=== PATIENT | female | born 1930 | race Caucasian/White ===

== ENCOUNTER 2016-04-22 00:15 | Inpatient (IN) | payer MEDICARE, OTHER ==
[~2016-04-22] VITALS: Ht 157.5 cm; Wt 68.1 kg
[~2016-04-22 00:15] MED LIST: ACHD5005 PO; ALPR.25T PO; ALPR0.5T PO; AML5T; ATR20T PO; CPH250CIP; DILT180C PO; FURO40TA4 PO; IBP600T1; METO25TA2 PO; METOPROLOL 50MG PO; MTP50T PO; NAPR-243 PO; OLME40TA14; TRM50T PO; WARF2TAB PO; WARF4TAB7 PO; WRF2.5T
--- OUTSIDE RECORDS SUMMARY | 2016-04-22 00:24 | XMS REPORT | Continuity of Care Document ---
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 Name Role Phone DAREN FERGUSON DO PCP Insurance Providers Payer Name Policy Number Subscriber Name Relationship [employer] [id number] Gege Sanchez Self / Same As Patient Enter Insurance Name [id number] Gege Sanchez Self / Same As Patient Advance Directives Directive Response Recorded Date/Time Advance Directives No 08/18/14 11:32pm Health Care Power of Dairy Nutritionist No 08/18/14 11:32pm Organ Donor No 08/18/14 11:32pm Resuscitation Status Full Code 08/18/14 11:32pm Problems Medical Problems Problem Onset Date Status Chest wall pain Unknown Active Intractable nausea and vomiting Unknown Active Anemia Unknown Active Leukocytosis Unknown Active Chronic atrial fibrillation Unknown Active Left shoulder pain Unknown Active Nausea and vomiting Unknown Active Left shoulder pain Unknown Active Medications Medication Dose Route Sig Days/Qty Instructions Order Date Discontinued Date Status Olmesartan 08/01/07 03/26/11 Discontinued Amlodipine Besylate 08/01/07 09/15/07 Discontinued Alprazolam 0.25 Mg PO BEDTIME PRN SLEEP 08/01/07 08/27/13 Discontinued Warfarin Sodium 09/15/07 03/26/11 Discontinued [Metoprolol 50MG] 1 Tab PO DAILY 09/15/07 08/26/13 Discontinued Cephalexin Monohydrate 09/15/07 03/26/11 Discontinued Ibuprofen 09/15/07 03/26/11 Discontinued Acetaminophen/Hydrocodone Bitart (Lorcet 5/325MG) 1 Tab PO EVERY 6 HOURS PRN PAIN 09/15/07 Active Diltiazem HCl (Cardizem Cd) 180 Mg PO DAILY 03/26/11 Active Atorvastatin Calcium 1 Each PO DAILY 03/26/11 01/12/13 Discontinued Naproxen 1 Each PO TID PRN 20 Qty FOR PAIN 03/26/11 01/12/13 Discontinued Tramadol HCl 50 Mg PO Q4-6HOURS PRN 20 Qty 03/26/11 01/12/13 Discontinued Warfarin Sodium 4 Mg PO DAILY@1800 08/26/13 08/27/13 Discontinued Metoprolol Tartrate (Lopressor) 50 Mg PO DAILY 08/26/13 08/27/13 Discontinued Alprazolam 0.25 Mg PO DAILY PRN ANXIETY TAKES 1/2 (0.5MG) TABLET DAILY NEEDED FOR ANXIETY 08/27/13 Active Warfarin Sodium 4 Mg PO DAILY 08/27/13 Active Metoprolol Tartrate (Lopressor) 50 Mg PO DAILY 08/27/13 Active Furosemide (Lasix) 40 Mg PO DAILY PRN FLUID RETENTION 08/27/13 Active Social History Social History Problem Response Recorded Date/Time Alcohol Use Denies Use 08/18/2014 11:32pm Recreational Drug Use No 08/18/2014 11:32pm Recent Foreign Travel No 08/27/2013 2:13am Recent Infectious Disease Exposure No 08/27/2013 2:13am Hospitalization with Isolation Denies 08/27/2013 2:04pm Sexually Transmitted Disease No 08/18/2014 11:32pm HIV/AIDS No 08/18/2014 11:32pm Smoking Status Never a Smoker 08/18/2014 11:32pm Query Response Start Date Stop Date Smoking Status Never a Smoker Hospital Discharge Instructions No hospital discharge instructions. Plan of Care No plan of care. Functional Status No functional status results. Allergies, Adverse Reactions, Alerts Allergen Type Severity Reaction Status Last Updated Sulfa (Sulfonamide Antibiotics) ([id number]) Allergy Unknown Active 09/01 Immunizations Name Given Type Tetanus Booster (TDap) More than 5yrs Historical Vital Signs Acute Vital Signs Vital Response Date/Time Pulse Rate (adult) 96 bpm (60 - 90) Respiratory Rate 18 bpm (12 - 24) O2 Sat by Pulse Oximetry 95 % (88 - 100) Blood Pressure 146/59 mm Hg Pain Pain Intensity 4 Height (Feet) 5 feet Height (Inches) 2 inches Height (Calculated Centimeters) 157.657669 cm Weight (Pounds) 146 pounds Weight (Calculated Kilograms) 66.112409 kilograms Calculated BMI 26.70 Results No known relevant diagnostic tests, laboratory data and/or discharge summary. Procedures Procedure Status Date Provider(s) Tracing only of electrocardiogram completed 08/19/14 ANIBAL BALLESTEROS MD Encounters Encounter Location Date/Time Departed Emergency Room [facility] 08/18/14 11:18pm Recent Diagnosis
--- NOTE | 2016-04-22 00:31 | ED Fever ---
History of Present Illness General Stated Complaint: HAVING CHILLS, FEVER, NAUSEA Source: patient, RN notes reviewed Exam Limitations: no limitations History of Present Illness Time seen by provider: 00:30 Initial Comments As above and below. 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 Associated Symptoms: No abdominal pain, No chest pain, No cough, other (nausea ) Allergies and Home Medications Allergies Coded Allergies: Sulfa (Sulfonamide Antibiotics) (Verified Allergy, Unknown, 08/02/07) Home Medications Alprazolam 0.25 Mg Tablet 0.25 MG PO DAILY PRN PRN ANXIETY (Reported) Ciprofloxacin HCl 500 Mg Tablet 6Days 500 MG PO BID Prescribed by: EMPERATRIZ YOUNGER on 04/27/16 1115 Diltiazem HCl 180 Mg Cap.er.24h 180 MG PO DAILY (Reported) Doxycycline Hyclate 100 Mg Tablet 6Days 100 MG PO BID@ Prescribed by: EMPERATRIZ YOUNGER on 04/27/16 1115 Furosemide 40 Mg Tablet 40 MG PO DAILY PRN PRN FLUID RETENTION (Reported) Hydrocodone Bit/Acetaminophen 1 Tab Tablet 1 TAB PO DAILY PRN PRN PAIN (Reported ) Iron Polysaccharide Complex 150 Mg Capsule 150 MG PO BID (Reported) Metoprolol Tartrate 25 Mg Tablet 25 MG PO BID (Reported) Constitutional: see HPI chills fever Gastrointestinal: see HPI nausea All Other Systems Reviewed Negative Unless Noted: Yes (Negative excepted noted.) Past Qyndivz-Bpycce-Akmzcy Hx Patient Social History Recent Foreign Travel: No Contact w/Someone Who Travel: No Recent Hopitalizations: Yes (D AND C 2 WKS AGO AT [facility]) Immunizations Up To Date Tetanus Booster (TDap): More than 5yrs Surgeries HX Surgeries: Yes (KNEE) Surgeries: Hysterectomy Respiratory Hx Respiratory Disorders: No Cardiovascular Hx Cardiac Disorders: Yes Cardiac Disorders: Atrial Fibrillation Neurological Hx Neurological Disorders: No 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 System Hx 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) Sexually Transmitted Disease: No HIV/AIDS: No Female 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 Disorders: Denies [employer] History: Hysterectomy Genitourinary Hx Genitourinary Disorders: No Gastrointestinal Hx Gastrointestinal Disorders: Yes Gastrointestinal Disorders: Hemorrhoids Musculoskeletal Hx Musculoskeletal Disorders: Yes Musculoskeletal Disorders: Arthritis, Chronic Back Pain Endocrine Hx Endocrine Disorders: No HEENT HX ENT Disorders: Yes HEENT Disorders: Cataract Loss of Vision: Denies Hearing Impairment: Denies Cancer Hx Cancer: Yes Cancer: Uterine Psychosocial Hx Psychiatric Problems: Yes Behavioral Health Disorders: Anxiety Integumentary HX Skin/Integumentary Disorder: No Blood Transfusions Hx Blood Disorders: No Family Medical History Family Medial History: Cancer Heart disease Physical Exam Vital Signs Capillary Refill : General Appearance: WD/WN no apparent distress HEENT: normal ENT inspection Neck: normal inspection Respiratory: lungs clear no respiratory distress Cardiovascular: regular rate, rhythm Gastrointestinal: non tender soft Neurologic/Psychiatric: no motor/sensory deficits alert oriented x 3 Skin: warm/dry Lymphatic: no adenopathy Progress/Results/Core Measures Results/Orders Lab Results Laboratory Tests Test 04/22/16 00:28 04/22/16 01:08 Range/Units Alanine Aminotransferase (ALT/SGPT) 13 0-55 U/L Albumin 3.6 3.2-4.5 G/DL Alkaline Phosphatase 107 40-136 U/L Anion Gap 14 5-14 MMOL/L Aspartate Amino Transf (AST/SGOT) 18 5-34 U/L B-Type Natriuretic Peptide 435.6 H <100.0 PG/ML BUN/Creatinine Ratio 25 Band Neutrophils 7 % Basophils # (Auto) 0.0 0.0-0.1 10^3/uL Basophils (%) (Auto) 0 0-10 % Blood Morphology Comment NORMAL Blood Urea Nitrogen 19 H 7-18 MG/DL Calcium Level 8.7 8.5-10.1 MG/DL Carbon Dioxide Level 21 21-32 MMOL/L Chloride Level 102 98-107 MMOL/L Creatinine 0.76 0.60-1.30 MG/DL Eosinophils # (Auto) 0.0 0.0-0.3 10^3/uL Eosinophils (%) (Auto) 0 0-10 % Estimat Glomerular Filtration Rate > 60 Glucose Level 110 H 70-105 MG/DL Hematocrit 30 L 35-52 % Hemoglobin 8.7 L 11.5-16.0 G/DL INR Comment 2.9 H 0.8-1.4 Lactic Acid Level 1.8 0.5-2.0 MMOL/L Lymphocytes # (Auto) 1.9 1.0-4.0 X 10^3 Lymphocytes % (Manual) 9 % Lymphocytes (%) (Auto) 8 L 12-44 % Magnesium Level 1.8 1.8-2.4 MG/DL Mean Corpuscular Hemoglobin 23 L 25-34 PG Mean Corpuscular Hemoglobin Concent 30 L 32-36 G/DL Mean Corpuscular Volume 79 L 80-99 FL Mean Platelet Volume 9.9 7.4-10.4 FL Monocytes # (Auto) 2.1 H 0.0-1.0 X 10^3 Monocytes % (Manual) 7 % Monocytes (%) (Auto) 9 0-12 % Neutrophils # (Auto) 18.9 H 1.8-7.8 X 10^3 Neutrophils % (Manual) 77 % Neutrophils (%) (Auto) 82 H 42-75 % Platelet Count 380 130-400 10^3/uL Potassium Level 3.6 3.6-5.0 MMOL/L Prothrombin Time 30.4 H 12.2-14.7 SEC Red Blood Count 3.76 L 4.35-5.85 10^6/uL Red Cell Distribution Width 18.5 H 10.0-14.5 % Sodium Level 137 135-145 MMOL/L Total Bilirubin 1.2 H 0.1-1.0 MG/DL Total Protein 7.4 6.4-8.2 G/DL Troponin I < 0.30 <0.30 NG/ML White Blood Count 23.0 H 4.3-11.0 10^3/uL Urine Bacteria FEW H /HPF Urine Bilirubin NEGATIVE NEGATIVE Urine Casts NONE /LPF Urine Clarity SLIGHTLY CLOUDY Urine Color SARAH H Urine Crystals NONE /LPF Urine Culture Indicated YES Urine Glucose (UA) NEGATIVE NEGATIVE Urine Ketones 1+ H NEGATIVE Urine Leukocyte Esterase 3+ H NEGATIVE Urine Mucus NEGATIVE /LPF Urine Nitrite NEGATIVE NEGATIVE Urine Protein 2+ H NEGATIVE Urine RBC 2-5 H /HPF Urine RBC (Auto) 2+ H NEGATIVE Urine Specific [place] 1.020 1.016-1.022 Urine Squamous Epithelial Cells 5-10 /HPF Urine Urobilinogen 8 H NORMAL MG/DL Urine WBC 10-25 H /HPF Urine pH 5 5-9 Micro Results Microbiology 04/22/16 Blood Culture - Final, Complete No growth 04/22/16 Blood Culture - Final, Complete No growth 04/22/16 Influenza Types A,B Antigen (CLAUDIO) - Final, Complete 04/22/16 Urine Culture - Final, Complete Streptococcus Viridans My Orders Orders-CHANTELL LIM DO Saline Lock/Iv-Start (04/22/16 00:43) Ekg Tracing (04/22/16 00:43) BNP (04/22/16 00:43) Cbc With Automated Diff (04/22/16 00:43) Comprehensive Metabolic Panel (04/22/16 00:43) Lactic Acid Analyzer (04/22/16 00:43) Magnesium (04/22/16 00:43) Troponin I (04/22/16 00:43) Ua Culture If Indicated (04/22/16 00:43) Blood Culture (04/22/16 00:43) Influenza A And B Antigens (04/22/16 00:43) Chest 1 View, Ap/Pa Only (04/22/16 00:43) Acetaminophen Tablet (Tylenol Tablet) (04/22/16 00:45) Ns Iv 1000 Ml (Sodium Chloride 0.9%) (04/22/16 00:45) Protime With Inr (04/22/16 00:50) Manual Differential (04/22/16 00:28) Urine Culture (04/22/16 01:08) Ceftriaxone Injection (Rocephin Injectio (04/22/16 02:00) Vital Signs/I&O ECG Initial ECG Impression Date: Apr 22, 2016 Initial ECG Impression Time: 00:30 Initial ECG Rate: 111 Initial ECG Rhythm: A Fib/Flutter Initial ECG Impression: Nonspecific Changes (consider anteroseptal infarct) Diagnostic Imaging Diagonstic Imaging: Xray Plain Films/CT/US/NM/MRI: chest (right hilium infiltrate vs mass ) Departure Communication Time/Spoke to Admitting Phy: 02:00 Impression Impression: Primary Impression: Fever Additional Impression: pneumonia vs pulmonary mass Disposition: ADMITTED INPATIENT Condition: Stable Decision to Admit Reason: Admit from ER (General) Decision to Admit/Date: Apr 22, 2016 Time/Decision to Admit Time: 02:00 Departure-Patient Inst. Referrals: DAREN FERGUSON DO (PCP/Family) Primary Care Physician Scripts Doxycycline Hyclate 100 Mg [id number] Mg PO BID@ 6 Days Prov:DAREN FERGUSON DO 04/27/16 Ciprofloxacin HCl 500 Mg [id number] Mg PO BID 6 Days Prov:DAREN FERGUSON DO 04/27/16 CHANTELL LIM DO Apr 22, 2016 00:31
[2016-04-22] MEDS ORDERED: ACETAMINOPHEN 500 MG TAB (TYLENOL) PO ONE (00:45)
[2016-04-22 00:53] LABS: BASOPHILS % (AUTO) 0 % (0-10); EOSINOPHILS % (AUTO) 0 % (0-10); LYMPHOCYTES # (AUTO) 1.9 X 10^3 (1.0-4.0); LYMPHOCYTES % (AUTO) 8 % (12-44); MEAN CORPUSCULAR HEMOGLOBIN 23 PG (25-34); MEAN CORPUSCULAR HGB CONC 30 G/DL (32-36); MEAN CORPUSCULAR VOLUME 79 FL (80-99); MEAN PLATELET VOLUME 9.9 FL (7.4-10.4); MONOCYTES # (AUTO) 2.1 X 10^3 (0.0-1.0); MONOCYTES % (AUTO) 9 % (0-12); NEUTROPHILS # (AUTO) 18.9 X 10^3 (1.8-7.8); NEUTROPHILS % (AUTO) 82 % (42-75); PLATELET COUNT 380 10^3/uL (130-400); RED BLOOD COUNT 3.76 10^6/uL (4.35-5.85); RED CELL DISTRIBUTION WIDTH 18.5 % (10.0-14.5)
[2016-04-22 01:00] LABS: INR 2.9 (0.8-1.4); PROTHROMBIN TIME PATIENT 30.4 SEC (12.2-14.7)
[2016-04-22 01:07] LABS: ALANINE AMINOTRANSFERASE 13 U/L (0-55); ALBUMIN 3.6 G/DL (3.2-4.5); ANION GAP 14 MMOL/L (5-14); ASPARTATE AMINO TRANSFERASE 18 U/L (5-34); BILIRUBIN,TOTAL 1.2 MG/DL (0.1-1.0); BLOOD UREA NITROGEN 19 MG/DL (7-18); BUN/CREATININE RATIO 25; CALCIUM 8.7 MG/DL (8.5-10.1); CARBON DIOXIDE 21 MMOL/L (21-32); CHLORIDE 102 MMOL/L (98-107); CREATININE SERUM 0.76 MG/DL (0.60-1.30); GFR ESTIMATED > 60; GLUCOSE 110 MG/DL (70-105); MAGNESIUM 1.8 MG/DL (1.8-2.4); POTASSIUM 3.6 MMOL/L (3.6-5.0); SODIUM 137 MMOL/L (135-145); TOTAL PROTEIN 7.4 G/DL (6.4-8.2)
[2016-04-22] MEDS: NS IV 1000 ML 1,000 ML IV SCH ×3 (01:07→04:45)
[2016-04-22 01:13] LABS: BAND NEUTROPHILS 7 %; LYMPHOCYTES % (MANUAL) 9 %; NEUTROPHILS % (MANUAL) 77 %; TROPONIN I < 0.30 NG/ML (<0.30)
[2016-04-22 01:16] LABS: BILIRUBIN,URINE NEGATIVE (NEGATIVE); KETONES,URINE 1+ (NEGATIVE); LEUKOCYTE ESTERASE ,URINE 3+ (NEGATIVE); NITRITE,URINE NEGATIVE (NEGATIVE); PH,URINE 5 (5-9); PROTEIN,URINE 2+ (NEGATIVE); UROBILINOGEN,URINE 8 MG/DL (NORMAL)
[2016-04-22] MEDS ORDERED: cefTRIAXone INJECTION 1,000 MG in NS (IVPB) 50 ML IV ONE (02:00)
[2016-04-22 02:45] VITALS: BP 117/59
[2016-04-22] MEDS ORDERED: AZITHROMYCIN 500 MG/NS 250 ML IVPB (1 X DOSE) IV NR ×2 (03:26)
[2016-04-22] MEDS ORDERED: RT-ALBUTEROL/IPRATROPIUM 3 ML (DUONEB) VIAL IH PRN (03:30)
[2016-04-22] MEDS ORDERED: ACETAMINOPHEN 500 MG TAB (TYLENOL) PO PRN (03:30)
[2016-04-22 04:00] VITALS: BP 126/64
[2016-04-22 06:55] LABS: BASOPHILS % (AUTO) 0 % (0-10); EOSINOPHILS % (AUTO) 0 % (0-10); LYMPHOCYTES # (AUTO) 1.4 X 10^3 (1.0-4.0); LYMPHOCYTES % (AUTO) 7 % (12-44); MEAN CORPUSCULAR HEMOGLOBIN 23 PG (25-34); MEAN CORPUSCULAR HGB CONC 29 G/DL (32-36); MEAN CORPUSCULAR VOLUME 79 FL (80-99); MEAN PLATELET VOLUME 10.2 FL (7.4-10.4); MONOCYTES # (AUTO) 1.7 X 10^3 (0.0-1.0); MONOCYTES % (AUTO) 9 % (0-12); NEUTROPHILS # (AUTO) 16.7 X 10^3 (1.8-7.8); NEUTROPHILS % (AUTO) 85 % (42-75); PLATELET COUNT 334 10^3/uL (130-400); RED BLOOD COUNT 3.57 10^6/uL (4.35-5.85); RED CELL DISTRIBUTION WIDTH 18.7 % (10.0-14.5); WHITE BLOOD COUNT 19.7 10^3/uL (4.3-11.0)
[2016-04-22] MEDS: RT-ALBUTEROL/IPRATROPIUM 3 ML (DUONEB) VIAL IH SCH ×3 (07:13→20:24)
[2016-04-22] MEDS ORDERED: FLU TRIvalent (5 YOA+) 2016-17 (AFLURIA) 0.5 ML IM ONE (07:30)
--- NOTE | 2016-04-22 08:04 | Diagnostic Imaging Report ---
INDICATION: Fever COMPARISON: 11/02/2010 FINDINGS: Upright portable view of the chest is obtained. Heart size is enlarged but unchanged. Suspect hiatal hernia. There is no pneumothorax or pleural fluid suspected. There is a 8.4 cm masslike density over the medial right chest over the hilum. While this may represent acute infiltrate, an underlying pulmonary mass is of concern. Suspect trace right pleural effusion. Lung apices appear clear. IMPRESSION: There is a new 8.4 cm masslike density of the right hilum which could represent pneumonia in the setting of acute infectious process, however, underlying pulmonary mass is of concern. There may also be a trace right pleural effusion. At minimum, short-term followup after appropriate clinical therapy is recommended. Alternatively, CT scan of the chest would be of benefit for further characterization. Dictated by: Dictated on workstation # [id number]
[2016-04-22 08:30] VITALS: BP 125/61
--- NOTE | 2016-04-22 10:20 | History & Physicial ---
History of Present Illness History of Present Illness Reason for visit/HPI patient came out to the emergency room due to having fever and chills. Chest x-ray shows pneumonia versus mass. Patient states she was not coughing. Patient states she never smoked. Patient has history of cancer of the uterus with radiation. Patient to have a CAT scan of the chest today Date of Admission Apr 22, 2016 at 02:06 I consulted on this patient on 04/22/16 10:16 Attending Physician Matt Ferguson DO Admitting Physician Matt Ferguson DO Consult Allergies and Home Medications Allergies Coded Allergies: Sulfa (Sulfonamide Antibiotics) (Verified Allergy, Unknown, 08/02/07) Home Medications Alprazolam 0.5 Mg Tablet 0.25 MG PO DAILY PRN PRN ANXIETY (Reported) TAKES 1/2 (0.5MG) TABLET DAILY NEEDED FOR ANXIETY Diltiazem Hcl 180 Mg Cap.sr.24h 180 MG PO DAILY (Reported) Furosemide 40 Mg Tablet 40 MG PO DAILY PRN PRN FLUID RETENTION (Reported) Hydrocodone Bit/Acetaminophen 1 Tab Tablet 1 TAB PO Q6H PRN PRN PAIN (Reported) Metoprolol Tartrate 25 Mg Tablet 50 MG PO DAILY (Reported) TAKES 2 (25MG) TABLETS DAILY Warfarin Sodium 4 Mg Tablet 4 MG PO DAILY (Reported) Past Vnhyrad-Uyrgny-Swyboy Hx Patient Social History Marrital Status: Employed/Student: unemployed Alcohol Use: Denies Use Recreational Drug Use: No Smoking Status: Never a Smoker Physical Abuse Screen: No Sexual Abuse: No Recent Foreign Travel: No Contact w/other who traveled: No Recent Hopitalizations: No Recent Infectious Disease Expo: No Immunizations Up To Date Tetanus Booster (TDap): More than 5yrs Seasonal Allergies Seasonal Allergies: Yes (hay fever) Surgeries HX Surgeries: Yes (KNEE) Surgeries: Hysterectomy Respiratory Hx Respiratory Disorders: No Cardiovascular Hx Cardiovascular Disorders: Yes Cardiac Disorders: Atrial Fibrillation Neurological Hx Neurological Disorders: No 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 System : No Hx 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) Sexually Transmitted Disease: No HIV/AIDS: No Female 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 Disorders: Denies Genitourinary Hx Genitourinary Disorders: No Gastrointestinal Hx Gastrointestinal Disorders: Yes Gastrointestinal Disorders: Hiatal Hernia Musculoskeletal Hx Musculoskeletal Disorders: Yes Musculoskeletal Disorders: Arthritis Endocrine Hx Endocrine Disorders: No HEENT HX ENT Disorders: Yes HEENT Disorders: Cataract Loss of Vision: Denies Hearing Impairment: Denies Cancer Hx Cancer: Yes Cancer: Uterine Psychosocial Hx Psychiatric Problems: Yes Behavioral Health Disorders: Anxiety Integumentary HX Skin/Integumentary Disorder: No Blood Transfusions Hx Blood Disorders: No Adverse Reaction to a Blood Tr: No Family Medical History Family Hx: Cancer Heart disease Constitutional: weakness EENTM: no symptoms reported Respiratory: cough Cardiovascular: other (atrial fibrillation) Gastrointestinal: no symptoms reported Genitourinary: no symptoms reported Physical Exam Vital Signs Vital Sign - Last 12Hours 04/22/16 00:22 Temp 100.1 Pulse 131 Resp 24 B/P 141/80 Pulse Ox 83 O2 Delivery Room Air Capillary Refill : Less Than 3 Seconds General Appearance: No Apparent Distress WD/WN Eyes: Bilateral Eye Normal Inspection HEENT: TMs Normal Normal ENT Inspection Neck: Full Range of Motion Normal Inspection Respiratory: Chest Non Tender Normal Breath Sounds No Accessory Muscle Use No Respiratory Distress Cardiovascular: Irregularly Irregular Gastrointestinal: Non Tender Assessment/Plan Assessment and Plan pneumonia. Lung mass. Atrial fibrillation. History of anemia. Hypertension Clinical Quality Measures DVT/VTE Risk/Contraindication: Risk Factor Score Per Nursin RFS Level Per Nursing on Admit: 3=High MATT FERGUSON DO Apr 22, 2016 10:20
[2016-04-22] MEDS ORDERED: HYDROcodone/APAP 5 MG/325 MG (LORTAB) TAB PO PRN (10:45)
[2016-04-22] MEDS ORDERED: FUROSEMIDE 40 MG (LASIX) TAB PO PRN (10:45)
[2016-04-22] MEDS ORDERED: NS 100 ML (IVPB) BAG IV ONE (11:00)
[2016-04-22] MEDS ORDERED: IOHEXOL 350 MG/ML 150 ML (OMNIPAQUE 350) VIAL IV ONE (11:00)
[2016-04-22] MEDS ORDERED: IOHEXOL 350 MG/ML 100 ML (OMNIPAQUE 350) VIAL IV ONE (11:00)
[2016-04-22] MEDS: FERROUS SULF 325 MG (IRON) TAB PO SCH (11:07)
[2016-04-22] MEDS: ALPRAZolam 0.25 MG (XANAX) TAB PO PRN (11:07)
[2016-04-22] MEDS: meTOprolol TARTRATE 50 MG (LOPRESSOR) TAB PO SCH (11:07)
[2016-04-22] MEDS: DILTIAZEM 180 MG (CARDIZEM CD) CAP PO SCH (11:08)
[2016-04-22 12:00] VITALS: BP 130/63
--- NOTE | 2016-04-22 12:31 | Diagnostic Imaging Report ---
PROCEDURE: CT chest with contrast only. TECHNIQUE: Multiple contiguous axial images were obtained through the chest after administration of intravenous contrast. INDICATION: Fever FINDINGS: The plain film examination of the chest performed earlier today noted an 8.4 cm masslike density about the right hilum. It was not certain whether this was related to pneumonia or to a neoplastic process. On this exam, the abnormal density appears to be secondary to pneumonia as there are a few air bronchograms extending through a dense area of consolidation involving much of the right lung base. There is also a small right pleural effusion present. The effusion measures approximately 1.4 cm in maximum depth. There is also some atelectasis/infiltrate and fluid involving the left lung base. The fluid along the medial aspect of the left lung measures 2.7 cm in maximum depth. In addition, there is a poorly defined 0.8 x 1.6 cm parenchymal density in the left upper lung. This could be secondary to a focus of pneumonia/atelectasis as well. The possibility that this is neoplastic in nature cannot be entirely excluded however. Even in retrospect, this density is difficult to identify on the plain film exam. I would recommend a short-term (2-4 week) followup CT chest exam be performed for further study. There are also faint groundglass densities in both lungs. These may be related to mild pulmonary edema. The heart is enlarged and there are extensive coronary artery calcifications evident. The aorta is not abnormally dilated and there is no sign of a dissection. There is no defect within the pulmonary arteries to indicate a pulmonary embolus either. There are a few low-density mediastinal nodes. These are borderline enlarged and nonspecific in appearance. These may represent reactive nodes. These could also be further evaluated on the followup exam. The large hiatal hernia seen on the previous CT abdomen/pelvis exam of 08/26/2013 is again evident and no different. The sections through the upper abdomen failed to show any sign of an acute abnormality. The bone windows are unremarkable for a fracture or for a destructive lesion. The thyroid gland does not appear enlarged. There is no obvious breast mass. IMPRESSION: 1. The abnormal density involving the right lung seen on the plain film exam is felt to be related to pneumonia/atelectasis and not to a neoplastic mass. However, there is a question of a small neoplastic mass involving the left upper lung. Recommendations as above. 2. There is also bibasal pneumonia/atelectasis and bilateral pleural effusions. Cardiomegaly and pulmonary congestion is noted, as well. 3. There is no sign of a pulmonary embolus or of a dissection. 4. There is a large hiatal hernia. Dictated by: Dictated on workstation # [id number]
[2016-04-22 16:00] VITALS: BP 115/67
[2016-04-22] MEDS ORDERED: warFARin 2 MG (COUMADIN) TAB PO SCH (18:00)
[2016-04-22 20:00] VITALS: BP 144/70
[2016-04-23] VITALS: BP 154/77
[2016-04-23] MEDS: RT-ALBUTEROL/IPRATROPIUM 3 ML (DUONEB) VIAL IH SCH ×4 (01:09→20:13)
[2016-04-23] MEDS: cefTRIAXone 1 GM/NS 50 ML IVPB IV SCH ×2 (02:46)
[2016-04-23 04:00] VITALS: BP 124/66
[2016-04-23] MEDS: NS IV 1000 ML 1,000 ML IV SCH ×2 (04:44→13:10)
[2016-04-23] MEDS: FERROUS SULF 325 MG (IRON) TAB PO SCH (05:45)
[2016-04-23 05:47] LABS: BASOPHILS % (AUTO) 0 % (0-10); EOSINOPHILS # (AUTO) 0.1 10^3/uL (0.0-0.3); EOSINOPHILS % (AUTO) 1 % (0-10); LYMPHOCYTES # (AUTO) 1.1 X 10^3 (1.0-4.0); LYMPHOCYTES % (AUTO) 10 % (12-44); MEAN CORPUSCULAR HEMOGLOBIN 23 PG (25-34); MEAN CORPUSCULAR HGB CONC 29 G/DL (32-36); MEAN CORPUSCULAR VOLUME 79 FL (80-99); MEAN PLATELET VOLUME 9.8 FL (7.4-10.4); MONOCYTES # (AUTO) 0.9 X 10^3 (0.0-1.0); MONOCYTES % (AUTO) 8 % (0-12); NEUTROPHILS # (AUTO) 9.2 X 10^3 (1.8-7.8); NEUTROPHILS % (AUTO) 82 % (42-75); PLATELET COUNT 363 10^3/uL (130-400); RED BLOOD COUNT 3.25 10^6/uL (4.35-5.85); RED CELL DISTRIBUTION WIDTH 18.5 % (10.0-14.5); WHITE BLOOD COUNT 11.3 10^3/uL (4.3-11.0)
[2016-04-23 05:51] LABS: INR 4.2 (0.8-1.4); PROTHROMBIN TIME PATIENT 40.8 SEC (12.2-14.7)
[2016-04-23 06:05] LABS: ALANINE AMINOTRANSFERASE 9 U/L (0-55); ALBUMIN 2.9 G/DL (3.2-4.5); ANION GAP 11 MMOL/L (5-14); ASPARTATE AMINO TRANSFERASE 11 U/L (5-34); BILIRUBIN,TOTAL 0.5 MG/DL (0.1-1.0); BLOOD UREA NITROGEN 15 MG/DL (7-18); BUN/CREATININE RATIO 25; CALCIUM 8.3 MG/DL (8.5-10.1); CARBON DIOXIDE 22 MMOL/L (21-32); CHLORIDE 106 MMOL/L (98-107); CREATININE SERUM 0.61 MG/DL (0.60-1.30); GFR ESTIMATED > 60; GLUCOSE 93 MG/DL (70-105); POTASSIUM 3.8 MMOL/L (3.6-5.0); SODIUM 139 MMOL/L (135-145); TOTAL PROTEIN 6.1 G/DL (6.4-8.2)
--- NOTE | 2016-04-23 07:38 | Progress Note (SOAP) ---
Subjective Subjective/Events-last exam patient feeling okay today. CAT scan shows big pneumonia at this time. Patient afebrile. White blood cell count went from 23,000-11,300 today. To hold Coumadin INR for area Urine culture strep left sensitivity tomorrow. Atrial fibrillation. Coronary artery disease Objective Exam Vital Signs Date Time Temp Pulse Resp B/P Pulse Ox O2 Delivery O2 Flow Rate FiO2 04/23/16 07:27 94 3.00 04/23/16 04:00 98.6 101 20 124/66 95 Nasal Cannula 3.00 04/23/16 01:09 3.00 04/23/16 00:00 98.2 109 20 154/77 97 Nasal Cannula 3.00 04/22/16 21:00 Nasal Cannula 3.00 04/22/16 20:24 3.00 04/22/16 20:00 98.8 92 20 144/70 95 Nasal Cannula 3.00 04/22/16 16:00 Nasal Cannula 3.00 04/22/16 16:00 99.9 79 20 115/67 93 Nasal Cannula 2.50 04/22/16 15:15 95 3.00 04/22/16 12:00 96.9 86 20 130/63 96 Nasal Cannula 2.50 04/22/16 12:00 Nasal Cannula 3.00 04/22/16 09:00 Nasal Cannula 3.00 04/22/16 08:30 96.8 89 18 125/61 97 Nasal Cannula 2.50 I & O 04/23/16 07:00 Intake Total 890 ml Output Total 950 ml Balance -60 ml Capillary Refill : Less Than 3 Seconds General Appearance: No Apparent Distress WD/WN HEENT: Normal ENT Inspection Neck: Full Range of Motion Normal Inspection Respiratory: Chest Non Tender No Accessory Muscle Use No Respiratory Distress Decreased Breath Sounds Cardiovascular: Irregularly Irregular Gastrointestinal: non tender soft Results Lab Laboratory Tests 04/23/16 05:20: Alanine Aminotransferase (ALT/SGPT) 9, Albumin 2.9L, Alkaline Phosphatase 86, Anion Gap 11, Aspartate Amino Transf (AST/SGOT) 11, BUN/Creatinine Ratio 25, Basophils # (Auto) 0.0, Basophils (%) (Auto) 0, Blood Urea Nitrogen 15, Calcium Level 8.3L, Carbon Dioxide Level 22, Chloride Level 106, Creatinine 0.61, Eosinophils # (Auto) 0.1, Eosinophils (%) (Auto) 1, Estimat Glomerular Filtration Rate > 60, Glucose Level 93, Hematocrit 26L, Hemoglobin 7.3L, INR Comment 4.2H, Lymphocytes # (Auto) 1.1, Lymphocytes (%) (Auto) 10L, Mean Corpuscular Hemoglobin 23L, Mean Corpuscular Hemoglobin Concent 29L, Mean Corpuscular Volume 79L, Mean Platelet Volume 9.8, Monocytes # (Auto) 0.9, Monocytes (%) (Auto) 8, Neutrophils # (Auto) 9.2H, Neutrophils (%) (Auto) 82H, Platelet Count 363, Potassium Level 3.8, Prothrombin Time 40.8H, Red Blood Count 3.25L, Red Cell Distribution Width 18.5H, Sodium Level 139, Total Bilirubin 0.5, Total Protein 6.1L, White Blood Count 11.3H Microbiology 04/22/16 Blood Culture - Preliminary, Resulted No growth 04/22/16 Influenza Types A,B Antigen (CLAUDIO) - Final, Complete 04/22/16 Urine Culture - Preliminary, Resulted Strep Or Related Genus Assessment/Plan Assessment/Plan Assess & Plan/Chief Complaint pneumonia. Atrial fibrillation. Coronary artery disease. Anemia. Leukocytosis resolved. infection Diagnosis/Problems: Clinical Quality Measures DVT/VTE Risk/Contraindication: Risk Factor Score Per Nursin RFS Level Per Nursing on Admit: 3=High Contraindications-Pharm: Other *list below* DAREN FERGUSON DO Apr 23, 2016 07:38
[2016-04-23] MEDS ORDERED: MILK OF MAGNESIA 400 MG/5 ML 30 ML UDC PO PRN (07:45)
[2016-04-23 08:24] VITALS: BP 133/68
[2016-04-23] MEDS ORDERED: meTOprolol TARTRATE 25 MG (LOPRESSOR) TABLET PO SCH (09:00)
[2016-04-23] MEDS ORDERED: DILTIAZEM 180 MG (CARDIZEM CD) CAP PO SCH (09:00)
[2016-04-23] MEDS: meTOprolol TARTRATE 50 MG (LOPRESSOR) TAB PO SCH (09:19)
[2016-04-23] MEDS: AZITHROMYCIN 250 MG TAB (ZITHROMAX) PO SCH (09:19)
[2016-04-23] MEDS: DILTIAZEM 180 MG (CARDIZEM CD) CAP PO SCH (09:19)
[2016-04-23] MEDS: DOCUSATE SODIUM 100 MG (COLACE) CAP PO PRN (09:19)
[2016-04-23] MEDS ORDERED: CATHETER FLUSH 10 ML SYR IV PRN (10:45)
[2016-04-23 11:51] VITALS: BP 119/67
[2016-04-23] MEDS ORDERED: DILT180C54 PO (14:08)
[2016-04-23] MEDS ORDERED: IRON150C3 PO (14:08)
[2016-04-23] MEDS ORDERED: METO-333 PO (14:08)
[2016-04-23] MEDS ORDERED: WARF4TAB PO (14:08)
[2016-04-23] MEDS ORDERED: WARF3TAB PO (14:08)
[2016-04-23] MEDS ORDERED: ALPR0.254 PO (14:08)
[2016-04-23 16:00] VITALS: BP 135/68
[2016-04-23] MEDS ORDERED: warFARin 3 MG (COUMADIN) TAB PO SCH (18:00)
[2016-04-23 19:56] VITALS: BP 150/74
[2016-04-24] VITALS: BP 144/72
[2016-04-24] MEDS: cefTRIAXone 1 GM/NS 50 ML IVPB IV SCH ×2 (01:28)
[2016-04-24] MEDS: RT-ALBUTEROL/IPRATROPIUM 3 ML (DUONEB) VIAL IH SCH ×4 (02:08→21:03)
[2016-04-24 04:00] VITALS: BP 143/93
[2016-04-24] MEDS: ALPRAZolam 0.25 MG (XANAX) TAB PO PRN (04:35)
[2016-04-24 06:19] LABS: BASOPHILS % (AUTO) 0 % (0-10); EOSINOPHILS # (AUTO) 0.1 10^3/uL (0.0-0.3); EOSINOPHILS % (AUTO) 1 % (0-10); LYMPHOCYTES # (AUTO) 0.6 X 10^3 (1.0-4.0); LYMPHOCYTES % (AUTO) 6 % (12-44); MEAN CORPUSCULAR HEMOGLOBIN 23 PG (25-34); MEAN CORPUSCULAR HGB CONC 29 G/DL (32-36); MEAN CORPUSCULAR VOLUME 78 FL (80-99); MEAN PLATELET VOLUME 9.6 FL (7.4-10.4); MONOCYTES # (AUTO) 0.8 X 10^3 (0.0-1.0); MONOCYTES % (AUTO) 8 % (0-12); NEUTROPHILS # (AUTO) 8.6 X 10^3 (1.8-7.8); NEUTROPHILS % (AUTO) 85 % (42-75); PLATELET COUNT 408 10^3/uL (130-400); RED BLOOD COUNT 3.36 10^6/uL (4.35-5.85); RED CELL DISTRIBUTION WIDTH 18.5 % (10.0-14.5); WHITE BLOOD COUNT 10.1 10^3/uL (4.3-11.0)
[2016-04-24] MEDS: FERROUS SULF 325 MG (IRON) TAB PO SCH (06:45)
[2016-04-24 06:49] LABS: ANION GAP 12 MMOL/L (5-14); BLOOD UREA NITROGEN 12 MG/DL (7-18); BUN/CREATININE RATIO 22; CALCIUM 8.6 MG/DL (8.5-10.1); CARBON DIOXIDE 21 MMOL/L (21-32); CHLORIDE 105 MMOL/L (98-107); CREATININE SERUM 0.54 MG/DL (0.60-1.30); GFR ESTIMATED > 60; GLUCOSE 101 MG/DL (70-105); INR 3.6 (0.8-1.4); POTASSIUM 3.5 MMOL/L (3.6-5.0); PROTHROMBIN TIME PATIENT 35.7 SEC (12.2-14.7); SODIUM 138 MMOL/L (135-145)
--- NOTE | 2016-04-24 07:36 | Progress Note (SOAP) ---
Subjective Subjective/Events-last exam patient not feeling too good this morning. Patient anxious and needed Xanax. INR 3.6 to hold Coumadin. White blood cell count 10,100 platelet 21,000. Patient afebrile. Diagnosis. Fever. Pneumonia. UTI. Chronic atrial fibrillation. Anemia. Hemoglobin 7.6. Objective Exam Vital Signs Date Time Temp Pulse Resp B/P Pulse Ox O2 Delivery O2 Flow Rate FiO2 04/24/16 04:00 98.2 120 20 143/93 91 Nasal Cannula 4.00 04/24/16 02:10 93 3.00 04/24/16 00:00 98.6 100 22 144/72 92 Nasal Cannula 3.00 04/23/16 21:00 Nasal Cannula 3.00 04/23/16 20:13 94 3.00 04/23/16 19:56 98.8 111 20 150/74 96 Nasal Cannula 3.00 04/23/16 16:00 96.9 98 16 135/68 93 Nasal Cannula 3.00 04/23/16 14:44 94 3.00 04/23/16 11:51 97.5 71 20 119/67 97 Nasal Cannula 3.00 04/23/16 08:24 97.7 105 22 133/68 95 Nasal Cannula 3.00 04/23/16 07:37 Nasal Cannula 3.00 I & O 04/24/16 07:00 Intake Total 1650 ml Output Total 550 ml Balance 1100 ml Capillary Refill : Less Than 3 Seconds General Appearance: No Apparent Distress HEENT: Normal ENT Inspection Neck: Full Range of Motion Normal Inspection Respiratory: Chest Non Tender No Accessory Muscle Use No Respiratory Distress Decreased Breath Sounds Cardiovascular: Irregularly Irregular Gastrointestinal: non tender soft Results Lab Laboratory Tests 04/24/16 06:00 Laboratory Tests 04/24/16 06:00: Anion Gap 12, BUN/Creatinine Ratio 22, Basophils # (Auto) 0.0, Basophils (%) ( Auto) 0, Blood Urea Nitrogen 12, Calcium Level 8.6, Carbon Dioxide Level 21, Chloride Level 105, Creatinine 0.54L, Eosinophils # (Auto) 0.1, Eosinophils (%) (Auto) 1, Estimat Glomerular Filtration Rate > 60, Glucose Level 101, Hematocrit 26L, Hemoglobin 7.6L, INR Comment 3.6H, Lymphocytes # (Auto) 0.6L, Lymphocytes (%) (Auto) 6L, Mean Corpuscular Hemoglobin 23L, Mean Corpuscular Hemoglobin Concent 29L, Mean Corpuscular Volume 78L, Mean Platelet Volume 9.6, Monocytes # (Auto) 0.8, Monocytes (%) (Auto) 8, Neutrophils # (Auto) 8.6H, Neutrophils (%) (Auto) 85H, Platelet Count 408H, Potassium Level 3.5L, Prothrombin Time 35.7H, Red Blood Count 3.36L, Red Cell Distribution Width 18.5H , Sodium Level 138, White Blood Count 10.1 Microbiology 04/22/16 Blood Culture - Preliminary, Resulted No growth 04/22/16 Influenza Types A,B Antigen (CLAUDIO) - Final, Complete 04/22/16 Urine Culture - Preliminary, Resulted Strep Or Related Genus Assessment/Plan Assessment/Plan Assess & Plan/Chief Complaint pneumonia. Atrial fibrillation. Coronary artery disease. Anemia. Leukocytosis resolved. infection. . 04/24/16. Pneumonia. Atrial fibrillation. Anemia. Leukocytosis resolved. infection. Waiting on chest x-ray results today Diagnosis/Problems: Clinical Quality Measures DVT/VTE Risk/Contraindication: Risk Factor Score Per Nursin RFS Level Per Nursing on Admit: 3=High Contraindications-Pharm: Other *list below* DAREN FERGUSON DO Apr 24, 2016 07:36
[2016-04-24 08:26] VITALS: BP 152/79
[2016-04-24] MEDS: DILTIAZEM 180 MG (CARDIZEM CD) CAP PO SCH (09:01)
[2016-04-24] MEDS: AZITHROMYCIN 250 MG TAB (ZITHROMAX) PO SCH (09:01)
[2016-04-24] MEDS: meTOprolol TARTRATE 25 MG (LOPRESSOR) TABLET PO SCH ×2 (09:01→21:50)
--- NOTE | 2016-04-24 10:24 | Diagnostic Imaging Report ---
INDICATION: Shortness of breath. History of UTI and pneumonia. COMPARISON: Chest x-ray of 04/22/2016 [address] a CT scan of the chest. FINDINGS: There is cardiomegaly again noted. Bilateral pleural effusions are present. There is increasing pleural effusion with pleural fluid causing a prominent extrapleural density along the left lateral chest wall. Consolidated infiltrate in the right lower lobe remains present. The density in the left upper lung also is unchanged. The large fixed hiatal hernia remains present. The pulmonary vasculature does appear slightly prominent on today's exam. The aorta is densely calcified. IMPRESSION: 1. There does appear to be increasing pleural effusion bilaterally with question of developing pulmonary edema. 2. The dense consolidated infiltrate in the right lower lobe as well as the patchy density in the left upper lung are unchanged. Dictated by: Dictated on workstation # [id number]
[2016-04-24 12:51] VITALS: BP 159/72
--- NOTE | 2016-04-24 13:30 | Physician Query ---
PQ-Intro New Diagnosis Admission/Discharge Admission Date: Apr 22, 2016 at 02:06 Discharge Date: The medical record reflects the following clinical scenario: History/Risk Factors: Pneumonia/UTI. Clinical Findings: Temp 100.1, Pulse 131, Resp 24, BP/141/80, WBCs 23.0, Bands 7 Lactic acid 1.8 Treatment: IV Rocephin and IV Azithromycin 500mg. Question: What condition best reflects the above clinical scenario? Please document below. 1. Sepsis with pneumonia and UTI. 2. Pneumonia and UTI. 3. Other, with explanation of the clinical findings. 4. Clinically undetermined, no explanation for the clinical findings. What condition reflects above: 1 In responding to this query, please exercise your independent professional judgment. The purpose of this communication is to more accurately reflect the complexity of your patients condition. The fact that a question is asked does not imply that any particular answer is desired or expected. Thank you for your timely response to this clarification. Requestors name: Jessi Rao [facility] Phone # ext [phone] or [phone] THIS PHYSICIAN QUERY FORM IS A PERMANENT PART OF THE MEDICAL RECORD JESSI RAO Apr 24, 2016 13:30 DAREN FERGUSON DO Apr 25, 2016 07:07
[2016-04-24 16:00] VITALS: BP 140/71
[2016-04-24] MEDS ORDERED: warFARin 2 MG (COUMADIN) TAB PO SCH (18:00)
[2016-04-24 20:00] VITALS: BP 162/71
[2016-04-24] MEDS: DOCUSATE SODIUM 100 MG (COLACE) CAP PO PRN (21:50)
[2016-04-25 00:43] VITALS: BP 133/63
[2016-04-25] MEDS: cefTRIAXone 1 GM/NS 50 ML IVPB IV SCH ×2 (02:08)
[2016-04-25] MEDS: RT-ALBUTEROL/IPRATROPIUM 3 ML (DUONEB) VIAL IH SCH ×4 (03:02→20:10)
[2016-04-25 04:45] VITALS: BP 139/74
[2016-04-25 05:47] LABS: BASOPHILS % (AUTO) 0 % (0-10); EOSINOPHILS % (AUTO) 0 % (0-10); LYMPHOCYTES # (AUTO) 0.6 X 10^3 (1.0-4.0); LYMPHOCYTES % (AUTO) 8 % (12-44); MEAN CORPUSCULAR HEMOGLOBIN 23 PG (25-34); MEAN CORPUSCULAR HGB CONC 29 G/DL (32-36); MEAN CORPUSCULAR VOLUME 77 FL (80-99); MEAN PLATELET VOLUME 9.2 FL (7.4-10.4); MONOCYTES # (AUTO) 0.8 X 10^3 (0.0-1.0); MONOCYTES % (AUTO) 9 % (0-12); NEUTROPHILS % (AUTO) 83 % (42-75); PLATELET COUNT 475 10^3/uL (130-400); RED BLOOD COUNT 3.49 10^6/uL (4.35-5.85); RED CELL DISTRIBUTION WIDTH 18.3 % (10.0-14.5); WHITE BLOOD COUNT 8.4 10^3/uL (4.3-11.0)
[2016-04-25 06:00] LABS: INR 2.8 (0.8-1.4); PROTHROMBIN TIME PATIENT 29.5 SEC (12.2-14.7)
[2016-04-25 06:04] LABS: ANION GAP 12 MMOL/L (5-14); BLOOD UREA NITROGEN 8 MG/DL (7-18); BUN/CREATININE RATIO 14; CALCIUM 8.7 MG/DL (8.5-10.1); CARBON DIOXIDE 22 MMOL/L (21-32); CHLORIDE 105 MMOL/L (98-107); CREATININE SERUM 0.58 MG/DL (0.60-1.30); GFR ESTIMATED > 60; GLUCOSE 113 MG/DL (70-105); POTASSIUM 3.3 MMOL/L (3.6-5.0); SODIUM 139 MMOL/L (135-145)
[2016-04-25] MEDS: FERROUS SULF 325 MG (IRON) TAB PO SCH (06:25)
[2016-04-25] MEDS ORDERED: KCL 20 MEQ POWDER FOR ORAL SOLUTION PO NR (07:31)
[2016-04-25] MEDS ORDERED: FUROSEMIDE 40 MG/4 ML INJ (LASIX) IVP NR (07:43)
[2016-04-25] MEDS ORDERED: ALPRAZolam 0.25 MG (XANAX) TAB PO PRN (07:45)
[2016-04-25] MEDS ORDERED: warFARin 3 MG (COUMADIN) TAB PO SCH ×2 (07:45→18:00)
[2016-04-25 08:00] VITALS: BP 165/78
[2016-04-25] MEDS: DILTIAZEM 180 MG (CARDIZEM CD) CAP PO SCH (08:45)
[2016-04-25] MEDS: meTOprolol TARTRATE 25 MG (LOPRESSOR) TABLET PO SCH ×2 (08:45→20:57)
[2016-04-25] MEDS: AZITHROMYCIN 250 MG TAB (ZITHROMAX) PO SCH (08:46)
[2016-04-25] MEDS ORDERED: DILTIAZEM 180 MG (CARDIZEM CD) CAP PO SCH (09:00)
[2016-04-25] MEDS: IRON POLYSAC 150 MG CAP (NIFEREX) PO SCH ×2 (09:00→20:57)
[2016-04-25] MEDS ORDERED: meTOprolol TARTRATE 25 MG (LOPRESSOR) TABLET PO SCH (09:00)
--- NOTE | 2016-04-25 09:26 | Pulmonary Consultation ---
History of Present Illness History of Present Illness Date of Consultation 04/25/16 09:20 Date of Admission History of Present Illness 85yo presented secondary to f/ns/c CXR showed PNA vs mass. CT scan done is more suggestive of PNA. I am consulted for pulmonary management. p Allergies and Home Medications Allergies Coded Allergies: Sulfa (Sulfonamide Antibiotics) (Verified Allergy, Unknown, 08/02/07) Home Medications Alprazolam 0.25 Mg Tablet 0.25 MG PO DAILY PRN PRN ANXIETY (Reported) Diltiazem HCl 180 Mg Cap.er.24h 180 MG PO DAILY (Reported) Furosemide 40 Mg Tablet 40 MG PO DAILY PRN PRN FLUID RETENTION (Reported) Hydrocodone Bit/Acetaminophen 1 Tab Tablet 1 TAB PO DAILY PRN PRN PAIN (Reported ) Iron Polysaccharide Complex 150 Mg Capsule 150 MG PO BID (Reported) Metoprolol Tartrate 25 Mg Tablet 25 MG PO BID (Reported) Warfarin Sodium 4 Mg Tablet 4 MG PO TuFr (Reported) Warfarin Sodium 3 Mg Tablet 3 MG PO SuMoWeThSa (Reported) Past Bvzpedl-[id number]-[id number] Hx Patient Social History Alcohol Use: Denies Use Recreational Drug Use: No Smoking Status: Never a Smoker Recent Foreign Travel: No Contact w/Someone Who Travel: No Recent Infectious Disease Expo: No Recent Hopitalizations: No Physical Abuse Screen: No Sexual Abuse: No Immunizations Up To Date Tetanus Booster (TDap): More than 5yrs PED Vaccines UTD: No Seasonal Allergies Seasonal Allergies: Yes (hay fever) Surgeries HX Surgeries: Yes (KNEE) Surgeries: Hysterectomy Respiratory Hx Respiratory Disorders: No Respiratory Disorders: Pneumonia Cardiovascular Hx Cardiac Disorders: Yes Cardiac Disorders: Atrial Fibrillation Neurological Hx Neurological Disorders: No 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 System : No Hx 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) Sexually Transmitted Disease: No HIV/AIDS: No Female 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 Disorders: Denies [employer] History: Hysterectomy Genitourinary Hx Genitourinary Disorders: No Gastrointestinal Hx Gastrointestinal Disorders: Yes Gastrointestinal Disorders: Hiatal Hernia Musculoskeletal Hx Musculoskeletal Disorders: Yes Musculoskeletal Disorders: Arthritis Endocrine Hx Endocrine Disorders: No HEENT HX ENT Disorders: Yes HEENT Disorders: Cataract Loss of Vision: Denies Hearing Impairment: Denies Cancer Hx Cancer: Yes Cancer: Uterine Psychosocial Hx Psychiatric Problems: Yes Behavioral Health Disorders: Anxiety Integumentary HX Skin/Integumentary Disorder: No Blood Transfusions Hx Blood Disorders: No Adverse Reaction to a Blood Tr: No Family Medical History Family Medial History: Cancer Heart disease Exam Exam Vital Signs Date Time Temp Pulse Resp B/P Pulse Ox O2 Delivery O2 Flow Rate FiO2 04/25/16 08:00 97.7 121 24 165/78 96 Nasal Cannula 2.50 04/25/16 04:45 98.1 110 18 139/74 92 Nasal Cannula 2.50 04/25/16 03:07 95 3.00 04/25/16 00:43 98.4 96 22 133/63 93 Nasal Cannula 2.50 04/24/16 21:04 94 3.00 04/24/16 20:00 97.7 115 20 162/71 92 Nasal Cannula 4.00 04/24/16 20:00 Nasal Cannula 3.00 04/24/16 16:00 96.9 115 18 140/71 94 Nasal Cannula 4.00 04/24/16 15:45 92 3.00 04/24/16 12:51 97.9 100 16 159/72 92 Nasal Cannula 4.00 I & O 04/25/16 07:00 Intake Total 2740 ml Output Total 950 ml Balance 1790 ml General Appearance: No Apparent Distress HEENT: Normal ENT Inspection Neck: Full Range of Motion Normal Inspection Respiratory: Chest Non Tender No Accessory Muscle Use No Respiratory Distress Decreased Breath Sounds Cardiovascular: Irregularly Irregular Capillary Refill: Less Than 3 Seconds Gastrointestinal: non tender soft Results Lab Laboratory Tests 04/24/16 06:00 04/25/16 05:35 Assessment/Plan Assessment/Plan Pneumonia -doubt cancer -repeat CT scan needs to be done as out patient in 4-8 wks -Continue Abx -Cultures negative thus far Hx of uterine CA never smoker Clinical Quality Measures DVT/VTE Risk/Contraindication: Risk Factor Score Per Nursin RFS Level Per Nursing on Admit: 3=High Contraindications-Pharm: Other *list below* BOUCHRA BARRIENTOS DO Apr 25, 2016 09:26
[2016-04-25 16:30] VITALS: BP 139/66
[2016-04-25 20:55] VITALS: BP 145/77
[2016-04-26] VITALS: BP 167/79
[2016-04-26] MEDS: cefTRIAXone 1 GM/NS 50 ML IVPB IV SCH ×2 (01:40)
[2016-04-26] MEDS: RT-ALBUTEROL/IPRATROPIUM 3 ML (DUONEB) VIAL IH SCH ×4 (03:16→21:22)
[2016-04-26 06:08] LABS: BASOPHILS % (AUTO) 0 % (0-10); EOSINOPHILS # (AUTO) 0.2 10^3/uL (0.0-0.3); EOSINOPHILS % (AUTO) 2 % (0-10); LYMPHOCYTES # (AUTO) 0.9 X 10^3 (1.0-4.0); LYMPHOCYTES % (AUTO) 12 % (12-44); MEAN CORPUSCULAR HEMOGLOBIN 22 PG (25-34); MEAN CORPUSCULAR HGB CONC 29 G/DL (32-36); MEAN CORPUSCULAR VOLUME 77 FL (80-99); MEAN PLATELET VOLUME 9.5 FL (7.4-10.4); MONOCYTES % (AUTO) 14 % (0-12); NEUTROPHILS # (AUTO) 5.1 X 10^3 (1.8-7.8); NEUTROPHILS % (AUTO) 72 % (42-75); PLATELET COUNT 487 10^3/uL (130-400); RED CELL DISTRIBUTION WIDTH 18.2 % (10.0-14.5); WHITE BLOOD COUNT 7.1 10^3/uL (4.3-11.0)
[2016-04-26 06:24] LABS: INR 3.2 (0.8-1.4)
[2016-04-26 06:36] LABS: ALANINE AMINOTRANSFERASE 13 U/L (0-55); ALBUMIN 3.1 G/DL (3.2-4.5); ANION GAP 11 MMOL/L (5-14); ASPARTATE AMINO TRANSFERASE 13 U/L (5-34); BILIRUBIN,TOTAL 0.4 MG/DL (0.1-1.0); BLOOD UREA NITROGEN 7 MG/DL (7-18); BUN/CREATININE RATIO 11; CALCIUM 8.8 MG/DL (8.5-10.1); CARBON DIOXIDE 26 MMOL/L (21-32); CHLORIDE 104 MMOL/L (98-107); CREATININE SERUM 0.62 MG/DL (0.60-1.30); GFR ESTIMATED > 60; GLUCOSE 106 MG/DL (70-105); POTASSIUM 3.5 MMOL/L (3.6-5.0); SODIUM 141 MMOL/L (135-145); TOTAL PROTEIN 6.7 G/DL (6.4-8.2)
--- NOTE | 2016-04-26 07:45 | Progress Note (SOAP) ---
Subjective Subjective/Events-last exam pneumonia. Sensitivity came back we'll change antibiotics and take off the Zithromax and Rocephin. Patient voices no complaints today Potassium 3.5. Patient afebrile. Getting a chest x-ray this morning. stenotroph. mait Objective Exam Vital Signs Date Time Temp Pulse Resp B/P Pulse Ox O2 Delivery O2 Flow Rate FiO2 04/26/16 03:16 96 3.00 04/26/16 00:00 99.7 105 20 167/79 Nasal Cannula 2.50 04/25/16 20:55 118 20 145/77 04/25/16 20:10 95 3.00 04/25/16 20:00 Nasal Cannula 3.00 04/25/16 16:30 98.1 100 20 139/66 95 Nasal Cannula 2.50 04/25/16 15:39 96 3.00 04/25/16 09:59 96 3.00 04/25/16 09:59 96 04/25/16 08:15 Nasal Cannula 3.00 04/25/16 08:00 97.7 121 24 165/78 96 Nasal Cannula 2.50 I & O 04/26/16 07:00 Intake Total 1025 ml Output Total 2200 ml Balance -1175 ml Capillary Refill : Less Than 3 Seconds General Appearance: No Apparent Distress WD/WN HEENT: Normal ENT Inspection Neck: Full Range of Motion Normal Inspection Respiratory: Chest Non Tender Lungs Clear No Accessory Muscle Use No Respiratory Distress Decreased Breath Sounds Cardiovascular: Irregularly Irregular Results Lab Laboratory Tests 04/26/16 05:40 Laboratory Tests 04/26/16 05:40: Alanine Aminotransferase (ALT/SGPT) 13, Albumin 3.1L, Alkaline Phosphatase 90, Anion Gap 11, Aspartate Amino Transf (AST/SGOT) 13, BUN/Creatinine Ratio 11, Basophils # (Auto) 0.0, Basophils (%) (Auto) 0, Blood Urea Nitrogen 7, Calcium Level 8.8, Carbon Dioxide Level 26, Chloride Level 104, Creatinine 0.62, Eosinophils # (Auto) 0.2, Eosinophils (%) (Auto) 2, Estimat Glomerular Filtration Rate > 60, Glucose Level 106H, Hematocrit 27L, Hemoglobin 7.8L, INR Comment 3.2H, Lymphocytes # (Auto) 0.9L, Lymphocytes (%) (Auto) 12, Mean Corpuscular Hemoglobin 22L, Mean Corpuscular Hemoglobin Concent 29L, Mean Corpuscular Volume 77L, Mean Platelet Volume 9.5, Monocytes # (Auto) 1.0, Monocytes (%) (Auto) 14H, Neutrophils # (Auto) 5.1, Neutrophils (%) (Auto) 72, Platelet Count 487H, Potassium Level 3.5L, Prothrombin Time 33.0H, Red Blood Count 3.50L, Red Cell Distribution Width 18.2H, Sodium Level 141, Total Bilirubin 0.4, Total Protein 6.7, White Blood Count 7.1 Microbiology 04/22/16 Blood Culture - Preliminary, Resulted No growth 04/23/16 Gram Stain - Final, Resulted 04/23/16 Sputum Culture - Preliminary, Resulted Gram Negative Sharath Presumptive Laurie Albicans 04/22/16 Urine Culture - Final, Complete Streptococcus Viridans Assessment/Plan Assessment/Plan Assess & Plan/Chief Complaint pneumonia. Atrial fibrillation. Coronary artery disease. Anemia. Leukocytosis resolved. infection. . 04/24/16. Pneumonia. Atrial fibrillation. Anemia. Leukocytosis resolved. infection. Waiting on chest x-ray results today. . 04/26/16. Pneumonia due to Steno. Malt. Atrial fibrillation. Anemia. infection Diagnosis/Problems: Clinical Quality Measures DVT/VTE Risk/Contraindication: Risk Factor Score Per Nursin RFS Level Per Nursing on Admit: 3=High Contraindications-Pharm: Other *list below* DAREN FERGUSON DO Apr 26, 2016 07:45
[2016-04-26] MEDS ORDERED: KCL 10 MEQ TAB (MICRO K) PO NR (07:48)
[2016-04-26 08:30] VITALS: BP 141/73
--- NOTE | 2016-04-26 09:32 | Diagnostic Imaging Report ---
PA and lateral views of the chest. INDICATION: Pneumonia. COMPARISON: 04/24/16. FINDINGS: When compared to 04/24/16, there is slight improvement in the aeration of the mid left lung. There is suggestion of a large hiatal hernia with adjacent atelectatic changes in the left lung base. There is a loculated left pleural effusion in the lateral aspects with a small free effusion component. The right lung demonstrates stable moderate pleural effusion with left lower lobe infiltrate. Background interstitial thickening probably chronic is seen. The heart size is slightly enlarged. IMPRESSION: 1. Stable moderate right pleural effusion with right lower lobe infiltrates. 2. Minimally improved aeration in the mid right lung with persistent small left effusion. 3. Large hiatal hernia. Dictated by: Dictated on workstation # [id number]
[2016-04-26] MEDS: CIPROFLOXACIN 500 MG (CIPRO) TABLET PO SCH ×2 (10:23→20:39)
[2016-04-26] MEDS: DOXYCYCLINE 100 MG (VIBRAMYCIN) TABLET PO SCH ×2 (10:23→16:16)
[2016-04-26] MEDS: DILTIAZEM 180 MG (CARDIZEM CD) CAP PO SCH (10:23)
[2016-04-26] MEDS: IRON POLYSAC 150 MG CAP (NIFEREX) PO SCH ×2 (10:23→20:39)
[2016-04-26] MEDS: meTOprolol TARTRATE 25 MG (LOPRESSOR) TABLET PO SCH ×2 (10:23→20:39)
[2016-04-26 16:00] VITALS: BP 155/78
[2016-04-27] VITALS: BP 134/65
[2016-04-27] MEDS: RT-ALBUTEROL/IPRATROPIUM 3 ML (DUONEB) VIAL IH SCH ×2 (02:46→08:53)
[2016-04-27 06:43] LABS: BASOPHILS % (AUTO) 1 % (0-10); EOSINOPHILS # (AUTO) 0.2 10^3/uL (0.0-0.3); EOSINOPHILS % (AUTO) 3 % (0-10); LYMPHOCYTES % (AUTO) 13 % (12-44); MEAN CORPUSCULAR HEMOGLOBIN 22 PG (25-34); MEAN CORPUSCULAR HGB CONC 28 G/DL (32-36); MEAN CORPUSCULAR VOLUME 78 FL (80-99); MONOCYTES # (AUTO) 1.2 X 10^3 (0.0-1.0); MONOCYTES % (AUTO) 15 % (0-12); NEUTROPHILS # (AUTO) 5.4 X 10^3 (1.8-7.8); NEUTROPHILS % (AUTO) 69 % (42-75); PLATELET COUNT 528 10^3/uL (130-400); RED BLOOD COUNT 3.42 10^6/uL (4.35-5.85); RED CELL DISTRIBUTION WIDTH 18.4 % (10.0-14.5); WHITE BLOOD COUNT 7.8 10^3/uL (4.3-11.0)
[2016-04-27] MEDS: DOXYCYCLINE 100 MG (VIBRAMYCIN) TABLET PO SCH (06:54)
[2016-04-27 07:03] LABS: INR 3.9 (0.8-1.4); PROTHROMBIN TIME PATIENT 38.1 SEC (12.2-14.7)
[2016-04-27 07:09] LABS: ANION GAP 12 MMOL/L (5-14); BLOOD UREA NITROGEN 8 MG/DL (7-18); BUN/CREATININE RATIO 13; CARBON DIOXIDE 25 MMOL/L (21-32); CHLORIDE 103 MMOL/L (98-107); CREATININE SERUM 0.61 MG/DL (0.60-1.30); GFR ESTIMATED > 60; GLUCOSE 90 MG/DL (70-105); POTASSIUM 3.7 MMOL/L (3.6-5.0); SODIUM 140 MMOL/L (135-145)
--- NOTE | 2016-04-27 07:32 | Progress Note (SOAP) ---
Subjective Subjective/Events-last exam patient is feeling better today. Patient wants to go home. Chest x-ray yesterday shows some improvement. Diagnosis pneumonia. UTI. Atrial fibrillation. Anemia. Patient's INR elevated. Patient not to take warfarin this weekend. On Saturday patient have a CBC and pro time come in the office that afternoon. Patient to be on oral antibiotics for 5 days. Oxygen be checked to see if patient has to go home on oxygen. Nurse to call at 11 a.m. Objective Exam Vital Signs Date Time Temp Pulse Resp B/P Pulse Ox O2 Delivery O2 Flow Rate FiO2 04/27/16 02:46 98 2.50 04/27/16 00:00 98.2 84 17 134/65 94 Nasal Cannula 2.50 04/26/16 21:22 98 3.50 04/26/16 20:20 Room Air 04/26/16 16:00 98.0 100 18 155/78 97 Room Air 2.50 04/26/16 08:30 97.4 116 20 141/73 98 Room Air 2.50 I & O 04/27/16 07:00 Intake Total 1535 ml Output Total 1600 ml Balance -65 ml Capillary Refill : Less Than 3 Seconds General Appearance: No Apparent Distress WD/WN HEENT: Normal ENT Inspection Neck: Normal Inspection Respiratory: Chest Non Tender Lungs Clear No Accessory Muscle Use No Respiratory Distress Decreased Breath Sounds Cardiovascular: Irregularly Irregular Gastrointestinal: non tender soft Results Lab Laboratory Tests 04/27/16 05:24 Laboratory Tests 04/27/16 05:24: Anion Gap 12, BUN/Creatinine Ratio 13, Basophils # (Auto) 0.0, Basophils (%) ( Auto) 1, Blood Urea Nitrogen 8, Calcium Level 9.0, Carbon Dioxide Level 25, Chloride Level 103, Creatinine 0.61, Eosinophils # (Auto) 0.2, Eosinophils (%) ( Auto) 3, Estimat Glomerular Filtration Rate > 60, Glucose Level 90, Hematocrit 27L, Hemoglobin 7.6L, INR Comment 3.9H, Lymphocytes # (Auto) 1.0, Lymphocytes (% ) (Auto) 13, Mean Corpuscular Hemoglobin 22L, Mean Corpuscular Hemoglobin Concent 28L, Mean Corpuscular Volume 78L, Mean Platelet Volume 10.0, Monocytes # (Auto) 1.2H, Monocytes (%) (Auto) 15H, Neutrophils # (Auto) 5.4, Neutrophils ( %) (Auto) 69, Platelet Count 528H, Potassium Level 3.7, Prothrombin Time 38.1H, Red Blood Count 3.42L, Red Cell Distribution Width 18.4H, Sodium Level 140, White Blood Count 7.8 Microbiology 04/22/16 Blood Culture - Preliminary, Resulted No growth 04/23/16 Gram Stain - Final, Complete 04/23/16 Sputum Culture - Final, Complete Stenotrophomonas Maltophilia Presumptive Laurie Albicans 04/22/16 Urine Culture - Final, Complete Streptococcus Viridans Assessment/Plan Assessment/Plan Assess & Plan/Chief Complaint pneumonia. Atrial fibrillation. Coronary artery disease. Anemia. Leukocytosis resolved. infection. . 04/24/16. Pneumonia. Atrial fibrillation. Anemia. Leukocytosis resolved. infection. Waiting on chest x-ray results today. . 04/26/16. Pneumonia due to Steno. Malt. Atrial fibrillation. Anemia. infection. . 04/27/16. Pneumonia. infection. Atrial fibrillation. Coronary artery disease. Anemia. Patient feeling better and wants to go home. Patient sent home on oral antibiotics. Patient told no warfarin this weekend and get his CBC and pro time on Saturday. Patient to be seen Saturday afternoon Diagnosis/Problems: Clinical Quality Measures DVT/VTE Risk/Contraindication: Risk Factor Score Per Nursin RFS Level Per Nursing on Admit: 3=High Contraindications-Pharm: Other *list below* DAREN FERGUSON DO Apr 27, 2016 07:31
[2016-04-27] MEDS ORDERED: WARFARIN SODIUM 4 MG PO SCH (07:45)
[2016-04-27 08:00] VITALS: BP 149/75
--- NOTE | 2016-04-27 08:08 | Pulmonary Progress Note ---
Subjective Subjective/Events-last exam No complications noted. Pt feels improved. Exam Exam Vital Signs Date Time Temp Pulse Resp B/P Pulse Ox O2 Delivery O2 Flow Rate FiO2 04/27/16 02:46 98 2.50 04/27/16 00:00 98.2 84 17 134/65 94 Nasal Cannula 2.50 04/26/16 21:22 98 3.50 04/26/16 20:20 Room Air 04/26/16 16:00 98.0 100 18 155/78 97 Room Air 2.50 04/26/16 08:30 97.4 116 20 141/73 98 Room Air 2.50 I & O 04/27/16 07:00 Intake Total 1535 ml Output Total 1600 ml Balance -65 ml General Appearance: No Apparent Distress WD/WN HEENT: Normal ENT Inspection Neck: Normal Inspection Respiratory: Chest Non Tender Lungs Clear No Accessory Muscle Use No Respiratory Distress Decreased Breath Sounds Cardiovascular: Irregularly Irregular Capillary Refill: Less Than 3 Seconds Gastrointestinal: non tender soft Results Lab Laboratory Tests 04/26/16 05:40 04/27/16 05:24 Assessment/Plan Assessment/Plan Pneumonia -doubt cancer -repeat CT scan needs to be done as out patient in 4-8 wks -Continue Abx -Cultures negative thus far moderate right pleural effusion with elevated BNP -Hep lock IVF -Lasix keep 40mg PO and give extra 40mg IV -monitor Afib with Coumadin coagulopathy -PCP management Hx of uterine CA never smoker Clinical Quality Measures DVT/VTE Risk/Contraindication: Risk Factor Score Per Nursin RFS Level Per Nursing on Admit: 3=High Contraindications-Pharm: Other *list below* BOUCHRA BARRIENTOS DO Apr 27, 2016 08:07
[2016-04-27] MEDS ORDERED: FUROSEMIDE 40 MG/4 ML INJ (LASIX) IVP NR (08:23)
[2016-04-27] MEDS: CIPROFLOXACIN 500 MG (CIPRO) TABLET PO SCH (08:29)
[2016-04-27] MEDS: IRON POLYSAC 150 MG CAP (NIFEREX) PO SCH (08:29)
[2016-04-27] MEDS: DILTIAZEM 180 MG (CARDIZEM CD) CAP PO SCH (08:29)
[2016-04-27] MEDS: meTOprolol TARTRATE 25 MG (LOPRESSOR) TABLET PO SCH (08:29)
[2016-04-27] MEDS ORDERED: CIPR500T4 PO (11:15)
[2016-04-27] MEDS ORDERED: DOXY100T2 PO (11:15)
[2016-04-27] MEDS ORDERED: warFARin 2 MG (COUMADIN) TAB PO SCH (18:00)
[2016-04-27] MEDS ORDERED: warFARin 3 MG (COUMADIN) TAB PO SCH (18:00)
--- NOTE | 2016-05-01 07:27 | Discharge Summary ---
Diagnosis/Chief Complaint Date of Admission Apr 22, 2016 at 02:06 Date of Discharge Apr 27, 2016 at 11:58 Discharge Date: Apr 27, 2016 Discharge Time: 1200 Admission Diagnosis Admission Diagnosis pneumonia. Lung mass. Atrial fibrillation. History of anemia. Hypertension Discharge Diagnosis pneumonia. Sepsis. Pneumonia due to anaerobic gram-negative bacteria. Sputum culture stenotrophomonas maltophilia, and Laurie albicans. Urine culture Streptococcus ferritin. Urinary tract infection. Pleural effusion. Atrial fibrillation. Anemia. Coronary artery disease. Prolonged INR. History of malignant neoplasm of the uterus. Large hiatal hernia Reason Hospital Visit patient came out to the emergency room due to having fever and chills. Chest x-ray shows pneumonia versus mass. Patient states she was not coughing. Patient states she never smoked. Patient has history of cancer of the uterus with radiation. Patient to have a CAT scan of the chest today Discharge Summary Consultations my knowledge Discharge Physical Examination Allergies: Coded Allergies: Sulfa (Sulfonamide Antibiotics) (Verified Allergy, Unknown, 08/02/07) Vitals & I&Os Vital Signs Date Time Temp Pulse Resp B/P Pulse Ox O2 Delivery O2 Flow Rate FiO2 04/27/16 11:58 04/27/16 08:53 95 0.50 04/27/16 08:17 Nasal Cannula 04/27/16 08:00 97.3 105 20 Hospital Course patient in hospital did better. Patient wanted to go home. Patient sent home on oral antibiotics. INR to be monitored Labs (last 24 hrs) Laboratory Tests 04/22/16 00:28: Alanine Aminotransferase (ALT/SGPT) 13, Albumin 3.6, Alkaline Phosphatase 107, Anion Gap 14, Aspartate Amino Transf (AST/SGOT) 18, B-Type Natriuretic Peptide 435.6H, BUN/Creatinine Ratio 25, Band Neutrophils 7, Basophils # (Auto) 0.0, Basophils (%) (Auto) 0, Blood Morphology Comment NORMAL, Blood Urea Nitrogen 19H , Calcium Level 8.7, Carbon Dioxide Level 21, Chloride Level 102, Creatinine 0.76, Eosinophils # (Auto) 0.0, Eosinophils (%) (Auto) 0, Estimat Glomerular Filtration Rate > 60, Glucose Level 110H, Hematocrit 30L, Hemoglobin 8.7L, INR Comment 2.9H, Lactic Acid Level 1.8, Lymphocytes # (Auto) 1.9, Lymphocytes % ( Manual) 9, Lymphocytes (%) (Auto) 8L, Magnesium Level 1.8, Mean Corpuscular Hemoglobin 23L, Mean Corpuscular Hemoglobin Concent 30L, Mean Corpuscular Volume 79L, Mean Platelet Volume 9.9, Monocytes # (Auto) 2.1H, Monocytes % ( Manual) 7, Monocytes (%) (Auto) 9, Neutrophils # (Auto) 18.9H, Neutrophils % ( Manual) 77, Neutrophils (%) (Auto) 82H, Platelet Count 380, Potassium Level 3.6 , Prothrombin Time 30.4H, Red Blood Count 3.76L, Red Cell Distribution Width 18.5H, Sodium Level 137, Total Bilirubin 1.2H, Total Protein 7.4, Troponin I < 0.30, White Blood Count 23.0H 04/22/16 01:08: Urine Bacteria FEWH, Urine Bilirubin NEGATIVE, Urine Casts NONE, Urine Clarity SLIGHTLY CLOUDY, Urine Color AMBERH, Urine Crystals NONE, Urine Culture Indicated YES, Urine Glucose (UA) NEGATIVE, Urine Ketones 1+H, Urine Leukocyte Esterase 3+H, Urine Mucus NEGATIVE, Urine Nitrite NEGATIVE, Urine Protein 2+H, Urine RBC 2-5H, Urine RBC (Auto) 2+H, Urine Specific [place] 1.020, Urine Squamous Epithelial Cells 5-10, Urine Urobilinogen 8H, Urine WBC 10-25H, Urine pH 5 04/22/16 06:40: Basophils # (Auto) 0.0, Basophils (%) (Auto) 0, Eosinophils # (Auto) 0.0, Eosinophils (%) (Auto) 0, Hematocrit 28L, Hemoglobin 8.2L, Lymphocytes # (Auto) 1.4, Lymphocytes (%) (Auto) 7L, Mean Corpuscular Hemoglobin 23L, Mean Corpuscular Hemoglobin Concent 29L, Mean Corpuscular Volume 79L, Mean Platelet Volume 10.2, Monocytes # (Auto) 1.7H, Monocytes (%) (Auto) 9, Neutrophils # ( Auto) 16.7H, Neutrophils (%) (Auto) 85H, Platelet Count 334, Red Blood Count 3.57L, Red Cell Distribution Width 18.7H, White Blood Count 19.7H 04/23/16 05:20: Alanine Aminotransferase (ALT/SGPT) 9, Albumin 2.9L, Alkaline Phosphatase 86, Anion Gap 11, Aspartate Amino Transf (AST/SGOT) 11, BUN/Creatinine Ratio 25, Basophils # (Auto) 0.0, Basophils (%) (Auto) 0, Blood Urea Nitrogen 15, Calcium Level 8.3L, Carbon Dioxide Level 22, Chloride Level 106, Creatinine 0.61, Eosinophils # (Auto) 0.1, Eosinophils (%) (Auto) 1, Estimat Glomerular Filtration Rate > 60, Glucose Level 93, Hematocrit 26L, Hemoglobin 7.3L, INR Comment 4.2H, Lymphocytes # (Auto) 1.1, Lymphocytes (%) (Auto) 10L, Mean Corpuscular Hemoglobin 23L, Mean Corpuscular Hemoglobin Concent 29L, Mean Corpuscular Volume 79L, Mean Platelet Volume 9.8, Monocytes # (Auto) 0.9, Monocytes (%) (Auto) 8, Neutrophils # (Auto) 9.2H, Neutrophils (%) (Auto) 82H, Platelet Count 363, Potassium Level 3.8, Prothrombin Time 40.8H, Red Blood Count 3.25L, Red Cell Distribution Width 18.5H, Sodium Level 139, Total Bilirubin 0.5, Total Protein 6.1L, White Blood Count 11.3H 04/24/16 06:00: Anion Gap 12, BUN/Creatinine Ratio 22, Basophils # (Auto) 0.0, Basophils (%) ( Auto) 0, Blood Urea Nitrogen 12, Calcium Level 8.6, Carbon Dioxide Level 21, Chloride Level 105, Creatinine 0.54L, Eosinophils # (Auto) 0.1, Eosinophils (%) (Auto) 1, Estimat Glomerular Filtration Rate > 60, Glucose Level 101, Hematocrit 26L, Hemoglobin 7.6L, INR Comment 3.6H, Lymphocytes # (Auto) 0.6L, Lymphocytes (%) (Auto) 6L, Mean Corpuscular Hemoglobin 23L, Mean Corpuscular Hemoglobin Concent 29L, Mean Corpuscular Volume 78L, Mean Platelet Volume 9.6, Monocytes # (Auto) 0.8, Monocytes (%) (Auto) 8, Neutrophils # (Auto) 8.6H, Neutrophils (%) (Auto) 85H, Platelet Count 408H, Potassium Level 3.5L, Prothrombin Time 35.7H, Red Blood Count 3.36L, Red Cell Distribution Width 18.5H , Sodium Level 138, White Blood Count 10.1 04/25/16 05:35: Anion Gap 12, BUN/Creatinine Ratio 14, Basophils # (Auto) 0.0, Basophils (%) ( Auto) 0, Blood Urea Nitrogen 8, Calcium Level 8.7, Carbon Dioxide Level 22, Chloride Level 105, Creatinine 0.58L, Eosinophils # (Auto) 0.0, Eosinophils (%) (Auto) 0, Estimat Glomerular Filtration Rate > 60, Glucose Level 113H, Hematocrit 27L, Hemoglobin 7.9L, INR Comment 2.8H, Lymphocytes # (Auto) 0.6L, Lymphocytes (%) (Auto) 8L, Mean Corpuscular Hemoglobin 23L, Mean Corpuscular Hemoglobin Concent 29L, Mean Corpuscular Volume 77L, Mean Platelet Volume 9.2, Monocytes # (Auto) 0.8, Monocytes (%) (Auto) 9, Neutrophils # (Auto) 7.0, Neutrophils (%) (Auto) 83H, Platelet Count 475H, Potassium Level 3.3L, Prothrombin Time 29.5H, Red Blood Count 3.49L, Red Cell Distribution Width 18.3H , Sodium Level 139, White Blood Count 8.4, B-Type Natriuretic Peptide 278.9H 04/26/16 05:40: Anion Gap 11, BUN/Creatinine Ratio 11, Basophils # (Auto) 0.0, Basophils (%) ( Auto) 0, Blood Urea Nitrogen 7, Calcium Level 8.8, Carbon Dioxide Level 26, Chloride Level 104, Creatinine 0.62, Eosinophils # (Auto) 0.2, Eosinophils (%) ( Auto) 2, Estimat Glomerular Filtration Rate > 60, Glucose Level 106H, Hematocrit 27L, Hemoglobin 7.8L, INR Comment 3.2H, Lymphocytes # (Auto) 0.9L, Lymphocytes (%) (Auto) 12, Mean Corpuscular Hemoglobin 22L, Mean Corpuscular Hemoglobin Concent 29L, Mean Corpuscular Volume 77L, Mean Platelet Volume 9.5, Monocytes # (Auto) 1.0, Monocytes (%) (Auto) 14H, Neutrophils # (Auto) 5.1, Neutrophils (%) (Auto) 72, Platelet Count 487H, Potassium Level 3.5L, Prothrombin Time 33.0H, Red Blood Count 3.50L, Red Cell Distribution Width 18.2H , Sodium Level 141, White Blood Count 7.1, Alanine Aminotransferase (ALT/SGPT) 13, Albumin 3.1L, Alkaline Phosphatase 90, Aspartate Amino Transf (AST/SGOT) 13 , Total Bilirubin 0.4, Total Protein 6.7 04/27/16 05:24: Anion Gap 12, BUN/Creatinine Ratio 13, Basophils # (Auto) 0.0, Basophils (%) ( Auto) 1, Blood Urea Nitrogen 8, Calcium Level 9.0, Carbon Dioxide Level 25, Chloride Level 103, Creatinine 0.61, Eosinophils # (Auto) 0.2, Eosinophils (%) ( Auto) 3, Estimat Glomerular Filtration Rate > 60, Glucose Level 90, Hematocrit 27L, Hemoglobin 7.6L, INR Comment 3.9H, Lymphocytes # (Auto) 1.0, Lymphocytes (% ) (Auto) 13, Mean Corpuscular Hemoglobin 22L, Mean Corpuscular Hemoglobin Concent 28L, Mean Corpuscular Volume 78L, Mean Platelet Volume 10.0, Monocytes # (Auto) 1.2H, Monocytes (%) (Auto) 15H, Neutrophils # (Auto) 5.4, Neutrophils ( %) (Auto) 69, Platelet Count 528H, Potassium Level 3.7, Prothrombin Time 38.1H, Red Blood Count 3.42L, Red Cell Distribution Width 18.4H, Sodium Level 140, White Blood Count 7.8 Microbiology 04/22/16 Blood Culture - Final, Complete No growth 04/23/16 Gram Stain - Final, Complete 04/23/16 Sputum Culture - Final, Complete Stenotrophomonas Maltophilia Presumptive Laurie Albicans 04/22/16 Urine Culture - Final, Complete Streptococcus Viridans Laboratory Tests 04/22/16 00:28 04/22/16 06:40 04/23/16 05:20 04/24/16 06:00 04/25/16 05:35 04/26/16 05:40 04/27/16 05:24 Pending Labs Microbiology Date/Time Source Procedure Growth Status 04/22/16 00:55 Peripheral Rt Ac Blood Culture - Final No growth Complete 04/22/16 00:28 Peripheral Left Forearm Blood Culture - Final No growth Complete 04/23/16 12:40 Sputum Expectorated Gram Stain - Final Complete 04/23/16 12:40 Sputum Culture - Final Stenotrophomonas Maltophilia Presumptive Laurie Albicans Complete 04/22/16 00:28 Nasopharynx Influenza Types A,B Antigen (CLAUDIO) - Final Complete 04/22/16 01:08 Urine Clean Catch Urine Culture - Final Streptococcus Viridans Complete Laboratory Tests 04/22/16 00:28: Alanine Aminotransferase (ALT/SGPT) 13, Albumin 3.6, Alkaline Phosphatase 107, Anion Gap 14, Aspartate Amino Transf (AST/SGOT) 18, B-Type Natriuretic Peptide 435.6, BUN/Creatinine Ratio 25, Band Neutrophils 7, Basophils # (Auto) 0.0, Basophils (%) (Auto) 0, Blood Morphology Comment NORMAL, Blood Urea Nitrogen 19 , Calcium Level 8.7, Carbon Dioxide Level 21, Chloride Level 102, Creatinine 0.76, Eosinophils # (Auto) 0.0, Eosinophils (%) (Auto) 0, Estimat Glomerular Filtration Rate > 60, Glucose Level 110, Hematocrit 30, Hemoglobin 8.7, INR Comment 2.9, Lactic Acid Level 1.8, Lymphocytes # (Auto) 1.9, Lymphocytes % ( Manual) 9, Lymphocytes (%) (Auto) 8, Magnesium Level 1.8, Mean Corpuscular Hemoglobin 23, Mean Corpuscular Hemoglobin Concent 30, Mean Corpuscular Volume 79, Mean Platelet Volume 9.9, Monocytes # (Auto) 2.1, Monocytes % (Manual) 7, Monocytes (%) (Auto) 9, Neutrophils # (Auto) 18.9, Neutrophils % (Manual) 77, Neutrophils (%) (Auto) 82, Platelet Count 380, Potassium Level 3.6, Prothrombin Time 30.4, Red Blood Count 3.76, Red Cell Distribution Width 18.5, Sodium Level 137, Total Bilirubin 1.2, Total Protein 7.4, Troponin I < 0.30, White Blood Count 23.0 04/22/16 01:08: Urine Bacteria FEW, Urine Bilirubin NEGATIVE, Urine Casts NONE, Urine Clarity SLIGHTLY CLOUDY, Urine Color SARAH, Urine Crystals NONE, Urine Culture Indicated YES, Urine Glucose (UA) NEGATIVE, Urine Ketones 1+, Urine Leukocyte Esterase 3+, Urine Mucus NEGATIVE, Urine Nitrite NEGATIVE, Urine Protein 2+, Urine RBC 2-5, Urine RBC (Auto) 2+, Urine Specific [place] 1.020, Urine Squamous Epithelial Cells 5-10, Urine Urobilinogen 8, Urine WBC 10-25, Urine pH 5 04/22/16 06:40: Basophils # (Auto) 0.0, Basophils (%) (Auto) 0, Eosinophils # (Auto) 0.0, Eosinophils (%) (Auto) 0, Hematocrit 28, Hemoglobin 8.2, Lymphocytes # (Auto) 1.4, Lymphocytes (%) (Auto) 7, Mean Corpuscular Hemoglobin 23, Mean Corpuscular Hemoglobin Concent 29, Mean Corpuscular Volume 79, Mean Platelet Volume 10.2, Monocytes # (Auto) 1.7, Monocytes (%) (Auto) 9, Neutrophils # (Auto) 16.7, Neutrophils (%) (Auto) 85, Platelet Count 334, Red Blood Count 3.57, Red Cell Distribution Width 18.7, White Blood Count 19.7 04/23/16 05:20: Alanine Aminotransferase (ALT/SGPT) 9, Albumin 2.9, Alkaline Phosphatase 86, Anion Gap 11, Aspartate Amino Transf (AST/SGOT) 11, BUN/Creatinine Ratio 25, Basophils # (Auto) 0.0, Basophils (%) (Auto) 0, Blood Urea Nitrogen 15, Calcium Level 8.3, Carbon Dioxide Level 22, Chloride Level 106, Creatinine 0.61, Eosinophils # (Auto) 0.1, Eosinophils (%) (Auto) 1, Estimat Glomerular Filtration Rate > 60, Glucose Level 93, Hematocrit 26, Hemoglobin 7.3, INR Comment 4.2, Lymphocytes # (Auto) 1.1, Lymphocytes (%) (Auto) 10, Mean Corpuscular Hemoglobin 23, Mean Corpuscular Hemoglobin Concent 29, Mean Corpuscular Volume 79, Mean Platelet Volume 9.8, Monocytes # (Auto) 0.9, Monocytes (%) (Auto) 8, Neutrophils # (Auto) 9.2, Neutrophils (%) (Auto) 82, Platelet Count 363, Potassium Level 3.8, Prothrombin Time 40.8, Red Blood Count 3.25, Red Cell Distribution Width 18.5, Sodium Level 139, Total Bilirubin 0.5, Total Protein 6.1, White Blood Count 11.3 04/24/16 06:00: Anion Gap 12, BUN/Creatinine Ratio 22, Basophils # (Auto) 0.0, Basophils (%) ( Auto) 0, Blood Urea Nitrogen 12, Calcium Level 8.6, Carbon Dioxide Level 21, Chloride Level 105, Creatinine 0.54, Eosinophils # (Auto) 0.1, Eosinophils (%) ( Auto) 1, Estimat Glomerular Filtration Rate > 60, Glucose Level 101, Hematocrit 26, Hemoglobin 7.6, INR Comment 3.6, Lymphocytes # (Auto) 0.6, Lymphocytes (%) ( Auto) 6, Mean Corpuscular Hemoglobin 23, Mean Corpuscular Hemoglobin Concent 29 , Mean Corpuscular Volume 78, Mean Platelet Volume 9.6, Monocytes # (Auto) 0.8, Monocytes (%) (Auto) 8, Neutrophils # (Auto) 8.6, Neutrophils (%) (Auto) 85, Platelet Count 408, Potassium Level 3.5, Prothrombin Time 35.7, Red Blood Count 3.36, Red Cell Distribution Width 18.5, Sodium Level 138, White Blood Count 10.1 04/25/16 05:35: Anion Gap 12, BUN/Creatinine Ratio 14, Basophils # (Auto) 0.0, Basophils (%) ( Auto) 0, Blood Urea Nitrogen 8, Calcium Level 8.7, Carbon Dioxide Level 22, Chloride Level 105, Creatinine 0.58, Eosinophils # (Auto) 0.0, Eosinophils (%) ( Auto) 0, Estimat Glomerular Filtration Rate > 60, Glucose Level 113, Hematocrit 27, Hemoglobin 7.9, INR Comment 2.8, Lymphocytes # (Auto) 0.6, Lymphocytes (%) ( Auto) 8, Mean Corpuscular Hemoglobin 23, Mean Corpuscular Hemoglobin Concent 29 , Mean Corpuscular Volume 77, Mean Platelet Volume 9.2, Monocytes # (Auto) 0.8, Monocytes (%) (Auto) 9, Neutrophils # (Auto) 7.0, Neutrophils (%) (Auto) 83, Platelet Count 475, Potassium Level 3.3, Prothrombin Time 29.5, Red Blood Count 3.49, Red Cell Distribution Width 18.3, Sodium Level 139, White Blood Count 8.4 , B-Type Natriuretic Peptide 278.9 04/26/16 05:40: Anion Gap 11, BUN/Creatinine Ratio 11, Basophils # (Auto) 0.0, Basophils (%) ( Auto) 0, Blood Urea Nitrogen 7, Calcium Level 8.8, Carbon Dioxide Level 26, Chloride Level 104, Creatinine 0.62, Eosinophils # (Auto) 0.2, Eosinophils (%) ( Auto) 2, Estimat Glomerular Filtration Rate > 60, Glucose Level 106, Hematocrit 27, Hemoglobin 7.8, INR Comment 3.2, Lymphocytes # (Auto) 0.9, Lymphocytes (%) ( Auto) 12, Mean Corpuscular Hemoglobin 22, Mean Corpuscular Hemoglobin Concent 29 , Mean Corpuscular Volume 77, Mean Platelet Volume 9.5, Monocytes # (Auto) 1.0, Monocytes (%) (Auto) 14, Neutrophils # (Auto) 5.1, Neutrophils (%) (Auto) 72, Platelet Count 487, Potassium Level 3.5, Prothrombin Time 33.0, Red Blood Count 3.50, Red Cell Distribution Width 18.2, Sodium Level 141, White Blood Count 7.1 , Alanine Aminotransferase (ALT/SGPT) 13, Albumin 3.1, Alkaline Phosphatase 90, Aspartate Amino Transf (AST/SGOT) 13, Total Bilirubin 0.4, Total Protein 6.7 04/27/16 05:24: Anion Gap 12, BUN/Creatinine Ratio 13, Basophils # (Auto) 0.0, Basophils (%) ( Auto) 1, Blood Urea Nitrogen 8, Calcium Level 9.0, Carbon Dioxide Level 25, Chloride Level 103, Creatinine 0.61, Eosinophils # (Auto) 0.2, Eosinophils (%) ( Auto) 3, Estimat Glomerular Filtration Rate > 60, Glucose Level 90, Hematocrit 27, Hemoglobin 7.6, INR Comment 3.9, Lymphocytes # (Auto) 1.0, Lymphocytes (%) ( Auto) 13, Mean Corpuscular Hemoglobin 22, Mean Corpuscular Hemoglobin Concent 28 , Mean Corpuscular Volume 78, Mean Platelet Volume 10.0, Monocytes # (Auto) 1.2 , Monocytes (%) (Auto) 15, Neutrophils # (Auto) 5.4, Neutrophils (%) (Auto) 69, Platelet Count 528, Potassium Level 3.7, Prothrombin Time 38.1, Red Blood Count 3.42, Red Cell Distribution Width 18.4, Sodium Level 140, White Blood Count 7.8 Radiology Reviewed chest x-ray on admission 8.4 cm masslike density of right upper hilum. Chest CT abnormal masses pneumonia. Small mass in left upper lobe. To have CAT scan in 2-4 weeks told that patient area Chest x-ray stable right pleural effusion with right lower lobe infiltrates. Minimally improving aeration in the right midlung field. Large hiatal hernia Discussion & Recommendations patient knows she needs CAT scan of the chest in 2-4 weeks. Patient to come at the office this Saturday and have an INR Discharge Home Medications: Active Scripts Active Doxycycline Hyclate 100 Mg Tablet 100 Mg PO BID@, 6 Days Ciprofloxacin HCl 500 Mg Tablet 500 Mg PO BID 6 Days Reported Cartia Xt (Diltiazem HCl) 180 Mg Cap.er.24h 180 Mg PO DAILY Ferrex 150 (Iron Polysaccharide Complex) 150 Mg Capsule 150 Mg PO BID Metoprolol Tartrate 25 Mg Tablet 25 Mg PO BID Alprazolam 0.25 Mg Tablet 0.25 Mg PO DAILY PRN Furosemide 40 Mg Tablet 40 Mg PO DAILY PRN Lorcet 5/325 Mg (Acetaminophen/Hydrocodone Bitart) 1 Tab Tablet 1 Tab PO DAILY PRN Instructions to patient/family Please see electonic discharge instructions given to patient. Clinical Quality Measures DVT/VTE Risk/Contraindication: Risk Factor Score Per Nursin RFS Level Per Nursing on Admit: 3=High Contraindications-Pharm: Other *list below* DAREN FERGUSON DO May 01, 2016 07:27
== END 2016-04-27 11:58 | disposition home or self-care (01) | DRG 871 ==
LOC: EDUNIT# 00:15 → ER 00:19 → 4TH 02:06
PROVIDERS: ADMIT Family Medicine; ATTEND Family Medicine
DX: A41.9 Sepsis, unspecified organism (principal); J15.6 Pneumonia due to other Gram-negative bacteria; N39.0 Urinary tract infection, site not specified; J90 Pleural effusion, not elsewhere classified; R91.8 Other nonspecific abnormal finding of lung field; I48.91 Unspecified atrial fibrillation; I10 Essential (primary) hypertension; I25.10 Atherosclerotic heart disease of native coronary artery without angina pectoris; D64.9 Anemia, unspecified; K44.9 Diaphragmatic hernia without obstruction or gangrene; M54.9 Dorsalgia, unspecified; F41.9 Anxiety disorder, unspecified; M19.91 Primary osteoarthritis, unspecified site; Z85.42 Personal history of malignant neoplasm of other parts of uterus; Z92.3 Personal history of irradiation
CPT/HCPCS: 36415; 71010; 71020; 71260; 80048; 80053; 81000; 83605; 83735; 83880; 84484; 85007; 85025; 85027; 85610; 87040; 87070; 87077; 87088; 87186; 87205; 87804; 93005; 94640; 94760; 96361; 96365

== ENCOUNTER → 2016-09-12 | Outpatient (CLI) | payer MEDICARE, OTHER ==
[~2016-09-12] MED LIST changes: +ACET-93 PO; +ALBU18HF2; +ALPR0.254 PO; +CEFD300C3 PO; +CIPR500T4 PO; +DILT180C54 PO; +DOXY100T2 PO; +HYDR-3812 PO; +IRON150C3 PO; +METO-333 PO; +PANT40TA3; +PRD10T; +VIT1CAPS44 PO; +WARF3TAB PO; +WARF4TAB PO
--- NOTE | 2016-09-12 19:01 | Diagnostic Imaging Report ---
EXAMINATION: PA and lateral views of the chest. INDICATION: Cough. Congestion. COMPARISON: 04/26/2016. FINDINGS: The heart is moderately enlarged. There are small bilateral effusions. There is in addition a loculated effusion along the lateral aspect of the left hemithorax, similar to 04/26/2016. A left perihilar infiltrate is seen. There is suggestion of hiatal hernia. Stable prominence of the frankie are noted. There is probable background mild vascular congestion. IMPRESSION: 1. Cardiomegaly with mild vascular congestion. 2. Left perihilar infiltrates. 3. Bilateral effusions including stable loculated components along the lateral aspect of the mid left lung. 4. Hiatal hernia. Dictated by: Dictated on workstation # [id number]
== END ==
LOC: RAD 14:17
PROVIDERS: ATTEND Family Medicine
DX: I51.7 Cardiomegaly (principal); R91.8 Other nonspecific abnormal finding of lung field; J90 Pleural effusion, not elsewhere classified; K44.9 Diaphragmatic hernia without obstruction or gangrene
CPT/HCPCS: 71020

== ENCOUNTER 2016-09-13 17:08 | Inpatient (IN) | payer MEDICARE, OTHER ==
[~2016-09-13] VITALS: Ht 162.6 cm; Wt 61.5 kg
[~2016-09-13 17:08] MED LIST changes: -ACET-93 PO; -ACETAMINOPHEN 325 MG TABLET/CAPLET (TYLENOL) ONE; -ACETAMINOPHEN 325 MG TABLET/CAPLET (TYLENOL) PO ONE; -ALBU18HF2; -CEFD300C3 PO; -DILT240C63 PO; -FAMO20TA5 PO; -HYDR-3812 PO; -NS IV 500 ML 500 ML IV SCH; -NS IV 500 ML 500 ML ONE; -PANT40TA3; -PRD10T; -RT-ALBUINH IH; -SUCR1TAB PO; -VIT1CAPS44 PO; -diphenhydrAMINE 25 MG TAB (BENADRYL) PO ONE
[2016-09-13] MEDS ORDERED: PRD10T (18:36)
[2016-09-13] MEDS ORDERED: PANT40TA3 (18:36)
[2016-09-13] MEDS ORDERED: ALBU18HF2 (18:36)
[2016-09-13] MEDS ORDERED: CEFD300C3 PO (18:36)
[2016-09-13] MEDS ORDERED: NS IV 1000 ML 1,000 ML IV STA (18:39)
[2016-09-13] MEDS ORDERED: cefTRIAXone 1 GM (ROCEPHIN) VIAL IV STA (18:39)
--- NOTE | 2016-09-13 18:39 | ED Respiratory ---
General Chief Complaint: Respiratory Problems Stated Complaint: PNEUMONIA Source: patient, family Exam Limitations: no limitations History of Present Illness Time seen by provider: 18:28 Initial Comments Patient presents to ER by private conveyance with her family members and a chief complaint of having a cough and no energy since Saturday proximal to 4 days ago. She saw her doctor every day of the week and was prescribed an inhaler as well as antibiotics that she has been taking but feels that she is getting worse. She says her appetite and keeping up with her fluids has been okay. She has no nausea or pain just a loose cough but she has not been able to clear anything from. She has no pulmonary history and does not ever smoke. She did not fern picker the inhaler because of the high cost. She says she had a fever subjectively Saturday morning and had chills. She has a history of atrial fibrillation and is on Coumadin. She also has blood pressure problems for which she is treated. She says she's been taking all of her medicines regularly. She lives alone. She denies any nausea or rash diarrhea or constipation. Patient states she was in here yesterday in the outpatient infusion center getting blood for her anemia. This is been an ongoing thing for her. She is not sure why she is anemic. Allergies and Home Medications Allergies Coded Allergies: Sulfa (Sulfonamide Antibiotics) (Verified Allergy, Unknown, 08/02/07) Home Medications Albuterol Sulfate 18 Gm Hfa.aer.ad, #18 (Reported) Alprazolam 0.25 Mg Tablet, 0.25 MG PO DAILY PRN for ANXIETY, (Reported) Cefdinir 300 Mg Capsule, #14 (Reported) Diltiazem HCl 180 Mg Cap.er.24h, 180 MG PO DAILY, (Reported) Furosemide 40 Mg Tablet, 40 MG PO DAILY PRN for FLUID RETENTION, (Reported) Hydrocodone Bit/Acetaminophen 1 Tab Tablet, 1 TAB PO DAILY PRN for PAIN, ( Reported) Iron Polysaccharide Complex 150 Mg Capsule, 150 MG PO BID, (Reported) Metoprolol Tartrate 25 Mg Tablet, 25 MG PO BID, (Reported) Pantoprazole Sodium 40 Mg Tablet., #30 (Reported) Prednisone 10 Mg Tab, #20 (Reported) Constitutional: chills, fever, malaise, weakness, No weight gain, No weight loss EENTM: No ear pain, No eye pain, No nose congestion Respiratory: see HPI, cough, No hemoptysis, orthopnea, No short of breath, No stridor, No wheezing Cardiovascular: No chest pain, edema, No syncope, No vascular heart diseas Gastrointestinal: No abdominal pain, No constipation, No diarrhea, No nausea Genitourinary: No discharge, No dysuria : No Musculoskeletal: No back pain, No joint pain Skin: No pruritus, No rash Psychiatric/Neurological: Denies Headache, Denies Numbness Hematologic/Lymphatic: Easy Bleeding, Easy Bruising Past Yvpvbmr-Ozcpcy-Xbthse Hx Patient Social History Alcohol Use: Denies Use Recreational Drug Use: No Smoking Status: Never a Smoker Recent Foreign Travel: No Contact w/Someone Who Travel: No Recent Hopitalizations: No Immunizations Up To Date Tetanus Booster (TDap): More than 5yrs PED Vaccines UTD: No Seasonal Allergies Seasonal Allergies: Yes (hay fever) Surgeries HX Surgeries: Yes (KNEE) Surgeries: Hysterectomy Respiratory Hx Respiratory Disorders: No Respiratory Disorders: Pneumonia Cardiovascular Hx Cardiac Disorders: Yes Cardiac Disorders: Atrial Fibrillation Neurological Hx Neurological Disorders: No 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 System Hx 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) Sexually Transmitted Disease: No HIV/AIDS: No Female 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 Genitourinary Hx Genitourinary Disorders: No Gastrointestinal Hx Gastrointestinal Disorders: Yes Gastrointestinal Disorders: Hiatal Hernia Musculoskeletal Hx Musculoskeletal Disorders: Yes Musculoskeletal Disorders: Arthritis Endocrine Hx Endocrine Disorders: No HEENT HX ENT Disorders: Yes HEENT Disorders: Cataract Loss of Vision: Denies Hearing Impairment: Denies Cancer Hx Cancer: Yes Cancer: Uterine Psychosocial Hx Psychiatric Problems: Yes Behavioral Health Disorders: Anxiety Integumentary HX Skin/Integumentary Disorder: No Blood Transfusions Hx Blood Disorders: No Adverse Reaction to a Blood Tr: No Family Medical History Family Medial History: Cancer Heart disease Physical Exam Vital Signs Vital Sign - Last 12Hours 09/13/16 09/13/16 18:24 19:20 Temp 99.0 Pulse 103 Resp 20 B/P (MAP) 178/81 Pulse Ox 89 O2 Delivery Room Air O2 Flow Rate 2.00 Capillary Refill : General Appearance: WD/WN, mild distress Eyes: Bilateral Eye EOMI, Bilateral Eye Normal Inspection, Bilateral Eye PERRL HEENT: PERRL/EOMI, normal ENT inspection, TMs normal, pharynx normal Neck: non-tender, supple, normal inspection Respiratory: no respiratory distress, no accessory muscle use, crackles ( bilateral bases especially the right side), wheezing (scant throughout) Cardiovascular: normal peripheral pulses, irregularly irregular Gastrointestinal: non tender, soft Extremities: normal range of motion, non-tender, normal inspection, no calf tenderness, normal capillary refill, pedal edema (1+) Neurologic/Psychiatric: alert, oriented x 3 Skin: normal color, warm/dry Focused Exam Lactic Acid Level Laboratory Tests Test 09/13/16 19:38 Lactic Acid Level 1.30 MMOL/L (0.50-2.00) Progress/Results/Core Measures Results/Orders Lab Results Laboratory Tests Test 09/13/16 19:38 09/13/16 20:22 Range/Units White Blood Count 8.0 4.3-11.0 10^3/uL Red Blood Count 3.89 L 4.35-5.85 10^6/uL Hemoglobin 8.4 L 11.5-16.0 G/DL Hematocrit 29 L 35-52 % Mean Corpuscular Volume 74 L 80-99 FL Mean Corpuscular Hemoglobin 22 L 25-34 PG Mean Corpuscular Hemoglobin Concent 29 L 32-36 G/DL Red Cell Distribution Width 17.9 H 10.0-14.5 % Platelet Count 330 130-400 10^3/uL Mean Platelet Volume 9.7 7.4-10.4 FL Neutrophils (%) (Auto) 76 H 42-75 % Lymphocytes (%) (Auto) 11 L 12-44 % Monocytes (%) (Auto) 13 H 0-12 % Eosinophils (%) (Auto) 0 0-10 % Basophils (%) (Auto) 0 0-10 % Neutrophils # (Auto) 6.1 1.8-7.8 X 10^3 Lymphocytes # (Auto) 0.9 L 1.0-4.0 X 10^3 Monocytes # (Auto) 1.0 0.0-1.0 X 10^3 Eosinophils # (Auto) 0.0 0.0-0.3 10^3/uL Basophils # (Auto) 0.0 0.0-0.1 10^3/uL Prothrombin Time 31.8 H 12.2-14.7 SEC INR Comment 3.1 H 0.8-1.4 Activated Partial Thromboplast Time 58 H 24-35 SEC Sodium Level 137 135-145 MMOL/L Potassium Level 3.7 3.6-5.0 MMOL/L Chloride Level 104 98-107 MMOL/L Carbon Dioxide Level 22 21-32 MMOL/L Anion Gap 11 5-14 MMOL/L Blood Urea Nitrogen 12 7-18 MG/DL Creatinine 0.61 0.60-1.30 MG/DL Estimat Glomerular Filtration Rate > 60 BUN/Creatinine Ratio 20 Glucose Level 100 70-105 MG/DL Lactic Acid Level 1.30 0.50-2.00 MMOL/L Calcium Level 8.6 8.5-10.1 MG/DL Total Bilirubin 0.9 0.1-1.0 MG/DL Aspartate Amino Transf (AST/SGOT) 15 5-34 U/L Alanine Aminotransferase (ALT/SGPT) 11 0-55 U/L Alkaline Phosphatase 88 40-136 U/L Total Protein 7.5 6.4-8.2 GM/DL Albumin 3.7 3.2-4.5 GM/DL My Orders Orders - CLINTON LEACH Chest Pa/Lat (2 View) (09/13/16 18:19) Albuterol/Ipra Inhalation Soln (Duoneb I (09/13/16 18:45) Cbc With Automated Diff (09/13/16 18:39) Comprehensive Metabolic Panel (09/13/16 18:39) Lactic Acid Analyzer (09/13/16 18:39) Blood Culture (09/13/16 18:39) Sputum Culture (09/13/16 18:39) Ua Culture If Indicated (09/13/16 18:39) Protime With Inr (09/13/16 18:39) Partial Thromboplastin Time (09/13/16 18:39) O2 (09/13/16 18:39) Saline Lock/Iv-Start (09/13/16 18:39) Saline Lock/Iv-Start (09/13/16 18:39) Vital Signs Adult Sepsis Patie Q1HR (09/13/16 18:39) Ns Iv 1000 Ml (Sodium Chloride 0.9%) (09/13/16 18:39) Ceftriaxone Injection (Rocephin Injectio (09/13/16 18:39) Remove Rings In Anticipation O (09/13/16 18:39) Azithromycin Injection (Zithromax Inject (09/13/16 18:45) Svn Sm Volume Nebulizer Rt-Rfs (09/13/16 18:39) Ns (Ivpb) (Sodium Chloride 0.9% Ivpb Bag (09/13/16 18:56) Medications Given in ED Current Medications Medications Dose Ordered Sig/Akiko Route Start Time Stop Time Status Last Admin Dose Admin Albuterol/ Ipratropium 3 ml ONCE ONCE INH 09/13/16 18:45 09/13/16 18:46 DC 09/13/16 19:20 3 ML Sodium Chloride 50 ml @ STK-MED ONCE .ROUTE 09/13/16 18:56 09/13/16 19:02 DC 09/13/16 20:00 50 MLS/HR Vital Signs/I&O Vital Sign - Last 12Hours 09/13/16 09/13/16 18:24 19:20 Temp 99.0 Pulse 103 Resp 20 B/P (MAP) 178/81 Pulse Ox 89 96 O2 Delivery Room Air Nasal Cannula O2 Flow Rate 2.00 Progress Note : Time: 18:47 Progress Note Patient's history and clinical exam is consistent with a pneumonia especially the right side. We'll obtain a sepsis workup as well as check PT/INR and PTT to see if her Coumadin is in a good range. If it is in a 2-3 INR range then we would not consider something like pulmonary embolism. Patient does have some chronic edema but denies any history of CHF and she says she has been weighing herself daily and noted no changes in her weight. Just the same we will go easy with fluids up front. Diagnostic Imaging Diagonstic Imaging: Xray Plain Films/CT/US/NM/MRI: chest (PA/Lat) [facility] [place], [place] NAME: GUILLERMO MONROY [facility] REC#: [id number] PT STATUS: REG ER : 1930 PHYSICIAN: CLINTON LEACH MD ADMIT DATE: 09/13/16/ER Draft Date of Exam:09/13/16 CHEST PA/LAT (2 VIEW) EXAM: Chest PA/LAT (2 view). INDICATION: Cough. Congestion. Shortness of breath. COMPARISON: Chest radiograph from 09/12/2016. FINDINGS: Persistent cardiomegaly and increased central pulmonary vascularity. Calcified aorta. Stable small bilateral pleural effusions. Persistent left perihilar airspace opacity. New airspace opacity in the right midlung. No pneumothorax. Advanced degenerative changes in the visualized thoracolumbar spine. No acute osseous findings. IMPRESSION: 1. Persistent cardiomegaly and prominent central pulmonary vascularity. 2. Increasing airspace opacity in the right mid lung. Persistent airspace opacity in the left mid lung. 3. Stable, small bilateral pleural effusions. Dictated on workstation # [id number] Dict: 09/13/161917 Trans: 09/13/161920 [facility] [id number] Interpreted by: USHA BLAS MD Electronically signed by: Reviewed: Reviewed by Me Departure Communication Time/Spoke to Admitting Phy: 20:[address] Ferguson and he recommends that we admit the patient started her on routine breathing treatments he agrees with the antibiotics Rocephin and azithromycin at this time. He would like to see a CBC and a BMP in the morning. He will see the patient in the morning. Impression Impression: Primary Impression: Pneumonia Qualified Codes: J18.1 - Lobar pneumonia, unspecified organism Additional Impression: Anemia Qualified Codes: D64.9 - Anemia, unspecified Disposition: ADMITTED INPATIENT Condition: Stable Decision to Admit Reason: Admit from ER (General) Decision to Admit/Date: Sep 13, 2016 Time/Decision to Admit Time: 20:46 Departure-Patient Inst. Referrals: DAREN FERGUSON DO (PCP/Family) Primary Care Physician Copy Copies To 1: DAREN FERGUSON TITUS J Sep 13, 2016 18:39
[2016-09-13] MEDS ORDERED: AZITHROMYCIN INJECTION 500 MG in NS (IVPB) 250 ML IV ONE (18:45)
[2016-09-13] MEDS ORDERED: RT-ALBUTEROL/IPRATROPIUM 3 ML (DUONEB) VIAL INH ONE (18:45)
[2016-09-13] MEDS ORDERED: NS (IVPB) 50 ML ONE (18:56)
--- NOTE | 2016-09-13 19:22 | Diagnostic Imaging Report ---
EXAM: Chest PA/LAT (2 view). INDICATION: Cough. Congestion. Shortness of breath. COMPARISON: Chest radiograph from 09/12/2016. FINDINGS: Persistent cardiomegaly and increased central pulmonary vascularity. Calcified aorta. Stable small bilateral pleural effusions. Persistent left perihilar airspace opacity. New airspace opacity in the right midlung. No pneumothorax. Advanced degenerative changes in the visualized thoracolumbar spine. No acute osseous findings. IMPRESSION: 1. Persistent cardiomegaly and prominent central pulmonary vascularity. 2. Increasing airspace opacity in the right mid lung. Persistent airspace opacity in the left mid lung. 3. Stable, small bilateral pleural effusions. Dictated by: Dictated on workstation # [id number]
[2016-09-13 19:50] LABS: BASOPHILS % (AUTO) 0 % (0-10); EOSINOPHILS % (AUTO) 0 % (0-10); LYMPHOCYTES # (AUTO) 0.9 X 10^3 (1.0-4.0); LYMPHOCYTES % (AUTO) 11 % (12-44); MEAN CORPUSCULAR HEMOGLOBIN 22 PG (25-34); MEAN CORPUSCULAR HGB CONC 29 G/DL (32-36); MEAN CORPUSCULAR VOLUME 74 FL (80-99); MEAN PLATELET VOLUME 9.7 FL (7.4-10.4); MONOCYTES % (AUTO) 13 % (0-12); NEUTROPHILS # (AUTO) 6.1 X 10^3 (1.8-7.8); NEUTROPHILS % (AUTO) 76 % (42-75); PLATELET COUNT 330 10^3/uL (130-400); RED BLOOD COUNT 3.89 10^6/uL (4.35-5.85); RED CELL DISTRIBUTION WIDTH 17.9 % (10.0-14.5)
[2016-09-13 20:01] LABS: INR 3.1 (0.8-1.4); PROTHROMBIN TIME PATIENT 31.8 SEC (12.2-14.7)
[2016-09-13 20:11] LABS: ALANINE AMINOTRANSFERASE 11 U/L (0-55); ALBUMIN 3.7 GM/DL (3.2-4.5); ANION GAP 11 MMOL/L (5-14); ASPARTATE AMINO TRANSFERASE 15 U/L (5-34); BILIRUBIN,TOTAL 0.9 MG/DL (0.1-1.0); BLOOD UREA NITROGEN 12 MG/DL (7-18); BUN/CREATININE RATIO 20; CALCIUM 8.6 MG/DL (8.5-10.1); CARBON DIOXIDE 22 MMOL/L (21-32); CHLORIDE 104 MMOL/L (98-107); CREATININE SERUM 0.61 MG/DL (0.60-1.30); GFR ESTIMATED > 60; GLUCOSE 100 MG/DL (70-105); POTASSIUM 3.7 MMOL/L (3.6-5.0); SODIUM 137 MMOL/L (135-145); TOTAL PROTEIN 7.5 GM/DL (6.4-8.2)
[2016-09-13 20:52] LABS: BILIRUBIN,URINE NEGATIVE (NEGATIVE); KETONES,URINE 1+ (NEGATIVE); LEUKOCYTE ESTERASE ,URINE 3+ (NEGATIVE); NITRITE,URINE NEGATIVE (NEGATIVE); PH,URINE 7 (5-9); PROTEIN,URINE 2+ (NEGATIVE); UROBILINOGEN,URINE NORMAL (NORMAL)
[2016-09-13 21:03] LABS: WBC,URINE 50-100 /HPF
[2016-09-13 22:00] VITALS: BP 150/66
[2016-09-13] MEDS ORDERED: AZITHROMYCIN 500 MG/NS 250 ML IVPB IV ONE ×2 (22:30)
[2016-09-13] MEDS ORDERED: RT-ALBUTEROL/IPRATROPIUM 3 ML (DUONEB) VIAL IH PRN (22:30)
[2016-09-13 23:52] VITALS: BP 145/64
[2016-09-14] MEDS ORDERED: RT-ALBUTEROL/IPRATROPIUM 3 ML (DUONEB) VIAL IH SCH (03:00)
[2016-09-14 05:16] LABS: BASOPHILS % (AUTO) 0 % (0-10); EOSINOPHILS # (AUTO) 0.1 10^3/uL (0.0-0.3); EOSINOPHILS % (AUTO) 1 % (0-10); LYMPHOCYTES # (AUTO) 1.7 X 10^3 (1.0-4.0); LYMPHOCYTES % (AUTO) 22 % (12-44); MEAN CORPUSCULAR HEMOGLOBIN 21 PG (25-34); MEAN CORPUSCULAR HGB CONC 28 G/DL (32-36); MEAN CORPUSCULAR VOLUME 74 FL (80-99); MEAN PLATELET VOLUME 10.3 FL (7.4-10.4); MONOCYTES # (AUTO) 0.9 X 10^3 (0.0-1.0); MONOCYTES % (AUTO) 12 % (0-12); NEUTROPHILS % (AUTO) 65 % (42-75); PLATELET COUNT 327 10^3/uL (130-400); RED BLOOD COUNT 3.72 10^6/uL (4.35-5.85); WHITE BLOOD COUNT 7.7 10^3/uL (4.3-11.0)
[2016-09-14 05:32] VITALS: BP 145/66
[2016-09-14 05:32] LABS: INR 3.5 (0.8-1.4); PROTHROMBIN TIME PATIENT 34.8 SEC (12.2-14.7)
[2016-09-14 06:20] LABS: ANION GAP 14 MMOL/L (5-14); BLOOD UREA NITROGEN 11 MG/DL (7-18); BUN/CREATININE RATIO 19; CARBON DIOXIDE 20 MMOL/L (21-32); CHLORIDE 106 MMOL/L (98-107); CREATININE SERUM 0.58 MG/DL (0.60-1.30); GFR ESTIMATED > 60; GLUCOSE 90 MG/DL (70-105); POTASSIUM 3.4 MMOL/L (3.6-5.0); SODIUM 140 MMOL/L (135-145)
[2016-09-14] MEDS ORDERED: KCL 10 MEQ TAB (MICRO K) PO NR (07:30)
--- NOTE | 2016-09-14 07:47 | History & Physicial ---
History of Present Illness History of Present Illness Reason for visit/HPI respiratory problem. Failure with outpatient treatment for pneumonia area Patient came out to the emergency room getting worse from her pneumonia. Patient has been coughing and congested. Patient weak. Patient treated on outpatient basis and getting worse. Patient admitted. Surgeries cancer of the uterus. Heart patient has atrial fibrillation and on Coumadin for this. Patient given prescription for inhaler. Patient couldn't afford it. Patient did not get it. Family history denies asthma, TB, diabetes, heart disease, lung disease, and cancer. HEENT denies problems Date of Admission Sep 13, 2016 at 20:40 Time Seen by Provider: 07:30 I consulted on this patient on 09/14/16 07:41 Attending Physician Matt Ferguson DO Admitting Physician Matt Ferguson DO Consult Allergies and Home Medications Allergies Coded Allergies: Sulfa (Sulfonamide Antibiotics) (Verified Allergy, Unknown, 08/02/07) Home Medications Albuterol Sulfate 18 Gm Hfa.aer.ad, #18 (Reported) Alprazolam 0.25 Mg Tablet, 0.25 MG PO DAILY PRN for ANXIETY, (Reported) Cefdinir 300 Mg Capsule, #14 (Reported) Diltiazem HCl 180 Mg Cap.er.24h, 180 MG PO DAILY, (Reported) Furosemide 40 Mg Tablet, 40 MG PO DAILY PRN for FLUID RETENTION, (Reported) Hydrocodone Bit/Acetaminophen 1 Tab Tablet, 1 TAB PO DAILY PRN for PAIN, ( Reported) Iron Polysaccharide Complex 150 Mg Capsule, 150 MG PO BID, (Reported) Metoprolol Tartrate 25 Mg Tablet, 25 MG PO BID, (Reported) Pantoprazole Sodium 40 Mg Tablet., #30 (Reported) Prednisone 10 Mg Tab, #20 (Reported) Past Vokibav-Wlaojs-Pirkxh Hx Patient Social History Marrital Status: Employed/Student: unemployed Alcohol Use: Denies Use Recreational Drug Use: No Smoking Status: Never a Smoker Physical Abuse Screen: No Sexual Abuse: No Recent Foreign Travel: No Contact w/other who traveled: No Recent Hopitalizations: No Recent Infectious Disease Expo: No Immunizations Up To Date Tetanus Booster (TDap): More than 5yrs Seasonal Allergies Seasonal Allergies: Yes (hay fever) Surgeries HX Surgeries: Yes (KNEE) Surgeries: Hysterectomy Respiratory Hx Respiratory Disorders: No Cardiovascular Hx Cardiovascular Disorders: Yes Cardiac Disorders: Atrial Fibrillation Neurological Hx Neurological Disorders: No 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 System Hx 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) Sexually Transmitted Disease: No HIV/AIDS: No Female 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 Disorders: Denies Genitourinary Hx Genitourinary Disorders: No Gastrointestinal Hx Gastrointestinal Disorders: Yes Gastrointestinal Disorders: Hiatal Hernia Musculoskeletal Hx Musculoskeletal Disorders: Yes Musculoskeletal Disorders: Arthritis Endocrine Hx Endocrine Disorders: No HEENT HX ENT Disorders: Yes HEENT Disorders: Cataract Loss of Vision: Denies Hearing Impairment: Denies Cancer Hx Cancer: Yes Cancer: Uterine Psychosocial Hx Psychiatric Problems: Yes Behavioral Health Disorders: Anxiety Integumentary HX Skin/Integumentary Disorder: No Blood Transfusions Hx Blood Disorders: No Adverse Reaction to a Blood Tr: No Family Medical History Family Hx: Cancer Heart disease Constitutional: malaise, weakness EENTM: no symptoms reported Respiratory: cough, wheezing Cardiovascular: other Gastrointestinal: no symptoms reported Genitourinary: no symptoms reported Physical Exam Vital Signs Vital Sign - Last 12Hours 09/13/16 09/13/16 18:24 19:00 Temp 99.0 Pulse 103 Resp 20 B/P (MAP) 178/81 Pulse Ox 89 O2 Delivery Room Air O2 Flow Rate 2.00 Capillary Refill : Less Than 3 Seconds General Appearance: No Apparent Distress, WD/WN Eyes: Bilateral Eye Normal Inspection HEENT: Normal ENT Inspection Neck: Full Range of Motion, Normal Inspection Respiratory: No Accessory Muscle Use, No Respiratory Distress, Decreased Breath Sounds, Wheezing, Other (congestion with coughing) Cardiovascular: Irregularly Irregular Gastrointestinal: Non Tender, Soft Assessment/Plan Assessment and Plan pneumonia with failure of outpatient treatment. Atrial fibrillation. Hypokalemia. Anemia. Problems: Clinical Quality Measures DVT/VTE Risk/Contraindication: Risk Factor Score Per Nursin RFS Level Per Nursing on Admit: 3=High MATT FERGUSON DO Sep 14, 2016 07:47
[2016-09-14 08:30] VITALS: BP 160/70
[2016-09-14] MEDS ORDERED: HYDR-3812 PO (09:53)
[2016-09-14] MEDS ORDERED: WARF4TAB PO (09:53)
[2016-09-14] MEDS ORDERED: WARF3TAB PO (09:53)
[2016-09-14] MEDS ORDERED: ACET-93 PO (09:53)
[2016-09-14] MEDS ORDERED: VIT1CAPS44 PO (09:53)
[2016-09-14] MEDS ORDERED: FURO40TA4 PO (09:53)
[2016-09-14] MEDS ORDERED: ACETAMINOPHEN 500 MG TAB (TYLENOL) PO PRN (11:00)
[2016-09-14] MEDS ORDERED: ALPRAZolam 0.25 MG (XANAX) TAB PO PRN (11:00)
[2016-09-14 11:25] LABS: INR 3.5 (0.8-1.4); PROTHROMBIN TIME PATIENT 35.2 SEC (12.2-14.7)
[2016-09-14] MEDS ORDERED: HYDROcodone/APAP 5 MG/325 MG (LORTAB) TAB PO PRN (11:45)
[2016-09-14 12:00] VITALS: BP 136/66
[2016-09-14] MEDS: IRON POLYSAC 150 MG CAP (NIFEREX) PO SCH ×2 (12:42→16:54)
[2016-09-14] MEDS: DILTIAZEM 180 MG (CARDIZEM CD) CAP PO SCH (12:42)
[2016-09-14] MEDS: FUROSEMIDE 40 MG (LASIX) TAB PO SCH (12:42)
[2016-09-14] MEDS: CATHETER FLUSH 10 ML SYR IV SCH ×2 (14:12→20:02)
[2016-09-14] MEDS: RT-ALBUTEROL/IPRATROPIUM 3 ML (DUONEB) VIAL IH SCH ×4 (14:48→21:58)
[2016-09-14 16:00] VITALS: BP 128/65
[2016-09-14] MEDS: warFARin 2 MG (COUMADIN) TAB PO SCH (19:42)
[2016-09-14 20:00] VITALS: BP 121/56
[2016-09-14] MEDS: AZITHROMYCIN 250 MG TAB (ZITHROMAX) PO SCH (20:02)
[2016-09-14] MEDS: meTOprolol TARTRATE 25 MG (LOPRESSOR) TABLET PO SCH (20:02)
[2016-09-14] MEDS ORDERED: meTOprolol TARTRATE 25 MG (LOPRESSOR) TABLET PO SCH (21:00)
[2016-09-14 23:55] VITALS: BP 135/63
[2016-09-15] VITALS (13 sets, daily range): BP systolic 107–152; BP diastolic 58–97
[2016-09-15] MEDS: RT-ALBUTEROL/IPRATROPIUM 3 ML (DUONEB) VIAL IH SCH ×6 (02:01→22:06)
[2016-09-15 05:17] LABS: BASOPHILS % (AUTO) 0 % (0-10); EOSINOPHILS % (AUTO) 1 % (0-10); LYMPHOCYTES # (AUTO) 0.8 X 10^3 (1.0-4.0); LYMPHOCYTES % (AUTO) 9 % (12-44); MEAN CORPUSCULAR HEMOGLOBIN 21 PG (25-34); MEAN CORPUSCULAR HGB CONC 29 G/DL (32-36); MEAN CORPUSCULAR VOLUME 74 FL (80-99); MEAN PLATELET VOLUME 9.8 FL (7.4-10.4); MONOCYTES # (AUTO) 0.9 X 10^3 (0.0-1.0); MONOCYTES % (AUTO) 11 % (0-12); NEUTROPHILS # (AUTO) 6.6 X 10^3 (1.8-7.8); NEUTROPHILS % (AUTO) 79 % (42-75); PLATELET COUNT 334 10^3/uL (130-400); RED BLOOD COUNT 3.43 10^6/uL (4.35-5.85); RED CELL DISTRIBUTION WIDTH 18.1 % (10.0-14.5); WHITE BLOOD COUNT 8.4 10^3/uL (4.3-11.0)
[2016-09-15 05:31] LABS: PROTHROMBIN TIME PATIENT 30.7 SEC (12.2-14.7)
[2016-09-15 05:43] LABS: ANION GAP 12 MMOL/L (5-14); BLOOD UREA NITROGEN 9 MG/DL (7-18); BUN/CREATININE RATIO 15; CALCIUM 8.3 MG/DL (8.5-10.1); CARBON DIOXIDE 25 MMOL/L (21-32); CHLORIDE 102 MMOL/L (98-107); CREATININE SERUM 0.59 MG/DL (0.60-1.30); GFR ESTIMATED > 60; GLUCOSE 101 MG/DL (70-105); POTASSIUM 3.1 MMOL/L (3.6-5.0); SODIUM 139 MMOL/L (135-145)
[2016-09-15] MEDS: MULTIVIT W/MINERALS TAB (THERAGRAN M) PO SCH (06:16)
[2016-09-15] MEDS: CATHETER FLUSH 10 ML SYR IV SCH ×3 (06:16→22:00)
[2016-09-15] MEDS: IRON POLYSAC 150 MG CAP (NIFEREX) PO SCH ×2 (06:17→16:24)
[2016-09-15] MEDS ORDERED: RT-ALBUTEROL/IPRATROPIUM 3 ML (DUONEB) VIAL IH PRN (06:30)
[2016-09-15] MEDS ORDERED: DILTIAZEM 180 MG (CARDIZEM CD) CAP PO SCH (09:00)
[2016-09-15] MEDS: DILTIAZEM 180 MG (CARDIZEM CD) CAP PO SCH (09:12)
[2016-09-15] MEDS: meTOprolol TARTRATE 25 MG (LOPRESSOR) TABLET PO SCH ×2 (09:12→21:01)
[2016-09-15] MEDS ORDERED: FAMOTIDINE 20 MG (PEPCID) TABLET PO NR (10:01)
--- NOTE | 2016-09-15 10:02 | Progress Note (SOAP) ---
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 SHE PRESENTED TO THE HOSPITAL WITH PNEUMONIA, ANEMIA, WEAKNESS. SHE HAS ATRIAL FIBRILLATION - IS ON COUMADIN - TODAY HER INR IS 3.0 AND HER HGB HAS DROPPED TO 7.3 Review of Systems General: No Chills, Fatigue, Malaise HEENT: No Head Aches Pulmonary: Dyspnea, Cough Cardiovascular: No: Chest Pain Gastrointestinal: Other (DARK STOOLS - SHE REPORTS DUE TO ORAL IRON INTAKE), No : Abdominal Pain, Nausea Genitourinary: No Dysuria Neurological: Weakness, No: Confusion Objective Exam Vital Signs Date Time Temp Pulse Resp B/P (MAP) Pulse Ox O2 Delivery O2 Flow Rate FiO2 09/15/16 06:40 96 Nasal Cannula 2.00 09/15/16 04:21 99.1 101 18 132/61 96 Nasal Cannula 2.00 09/15/16 02:02 98 Nasal Cannula 2.00 09/14/16 23:55 99.4 98 22 135/63 97 Nasal Cannula 2.00 09/14/16 21:59 96 Nasal Cannula 2.00 09/14/16 20:22 Nasal Cannula 2.00 09/14/16 20:00 99.3 103 20 121/56 92 Nasal Cannula 2.00 09/14/16 18:44 94 Nasal Cannula 2.00 09/14/16 16:00 99.6 118 20 128/65 95 Nasal Cannula 2.00 09/14/16 14:49 98 Nasal Cannula 2.00 09/14/16 12:00 99.1 99 20 136/66 94 Nasal Cannula 2.00 I & O 09/15/16 07:00 Intake Total 1530 ml Output Total 3000 ml Balance -1470 ml Capillary Refill : Less Than 3 Seconds General Appearance: No Apparent Distress, WD/WN HEENT: PERRL/EOMI Neck: Full Range of Motion, Supple Respiratory: Chest Non Tender, Crackles (IN BASES BILATERALLY), Decreased Breath Sounds Cardiovascular: Regular Rate, Rhythm Gastrointestinal: normal bowel sounds, non tender, soft, no organomegaly, no pulsatile mass Extremity: Normal Capillary Refill, Pedal Edema (TRACE) Neurologic/Psychiatric: Alert, Oriented x3, No Motor/Sensory Deficits, Normal Mood/Affect Skin: Warm/Dry Lymphatic: No Adenopathy Results Lab Laboratory Tests 09/14/16 11:10: Prothrombin Time 35.2H, INR Comment 3.5H 09/15/16 04:37: Prothrombin Time 30.7H, INR Comment 3.0H, White Blood Count 8.4, Red Blood Count 3.43L, Hemoglobin 7.3L, Hematocrit 25L, Mean Corpuscular Volume 74L, Mean Corpuscular Hemoglobin 21L, Mean Corpuscular Hemoglobin Concent 29L, Red Cell Distribution Width 18.1H, Platelet Count 334, Mean Platelet Volume 9.8, Neutrophils (%) (Auto) 79H, Lymphocytes (%) (Auto) 9L, Monocytes (%) (Auto) 11, Eosinophils (%) (Auto) 1, Basophils (%) (Auto) 0, Neutrophils # (Auto) 6.6, Lymphocytes # (Auto) 0.8L, Monocytes # (Auto) 0.9, Eosinophils # (Auto) 0.0, Basophils # (Auto) 0.0, Sodium Level 139, Potassium Level 3.1L, Chloride Level 102, Carbon Dioxide Level 25, Anion Gap 12, Blood Urea Nitrogen 9, Creatinine 0.59L, Estimat Glomerular Filtration Rate > 60, BUN/Creatinine Ratio 15, Glucose Level 101, Calcium Level 8.3L Microbiology 09/13/16 Blood Culture - Preliminary, Resulted No growth 09/13/16 Urine Culture - Preliminary, Resulted Probable Enterococcus Species Assessment/Plan Assessment/Plan Assess & Plan/Chief Complaint PNEUMONIA URINARY TRACT INFECTION - PROBABLE ENTEROCOCCUS ANEMIA CHRONIC ANTICOAGULATION ATRIAL FIBRILLATION WEAKNESS FLUID OVERLOAD PNEUMONIA - ON ROCEPHIN AND AZITHROMYCIN - CONTINUE TREATMENT - CHEST XRAY CURRENTLY PENDING. URINARY TRACT INFECTION - PROBABLE ENTEROCOCCUS - ON ROCEPHIN - MONITOR - WILL CHANGE IF INDICATED BY CULTURE SENSITIVITY REPORT. ANEMIA - HGB DROP FURTHER TODAY COMPARED TO YESTERDAY - WILL DISCUSS WITH PT - RECOMMEND BLOOD TRANSFUSION TODAY. OB STOOL POSITIVE CHRONIC ANTICOAGULATION - HOLD COUMADIN TONIGHT AND TOMORROW HER INR IS 3.0 AND SHE HAS HAD DROP IN HGB OVER THE PAST 48 HOURS. WILL RESTART COUMADIN DOSING ON SATURDAY. - SERIAL INR'S HAVE BEEN ORDERED. ATRIAL FIBRILLATION - RATE CONTROLLED ON DILTIAZEM AND COUMADIN. WEAKNESS - DUE TO ACUTE ILLNESS AND ANEMIA - START PHYSICAL THERAPY. FLUID OVERLOAD - MONITOR I/O AND DAILY WEIGHTS. Clinical Quality Measures DVT/VTE Risk/Contraindication: Risk Factor Score Per Nursin RFS Level Per Nursing on Admit: 3=High Contraindications-Pharm: Other *list below* GWEN MORA MD Sep 15, 2016 10:02
--- NOTE | 2016-09-15 10:22 | Diagnostic Imaging Report ---
INDICATION: Pneumonia. PA and lateral chest. Patient has a large hiatal hernia. There are bilateral pleural effusions. There is some left perihilar and right basilar infiltrate and/or atelectasis. IMPRESSION: Large hiatal hernia. Bilateral pleural effusions with perihilar infiltrates that are unchanged from previous study dated 09/13/2016. Dictated by: Dictated on workstation # [id number]
[2016-09-15] MEDS ORDERED: NS IV 500 ML 500 ML IV SCH (12:23)
[2016-09-15] MEDS ORDERED: FUROSEMIDE 40 MG/4 ML INJ (LASIX) IVP SCH (12:30)
[2016-09-15] MEDS ORDERED: diphenhydrAMINE 50 MG/ML INJ (BENADRYL) IVP SCH (12:30)
[2016-09-15] MEDS ORDERED: KCL 20 MEQ TAB (K-DUR) PO SCH (12:30)
[2016-09-15] MEDS ORDERED: ACETAMINOPHEN 325 MG TABLET/CAPLET (TYLENOL) PO SCH (12:30)
[2016-09-15] MEDS: AZITHROMYCIN 250 MG TAB (ZITHROMAX) PO SCH (21:02)
[2016-09-15] MEDS: FAMOTIDINE 20 MG (PEPCID) TABLET PO SCH (21:02)
[2016-09-16] MEDS: RT-ALBUTEROL/IPRATROPIUM 3 ML (DUONEB) VIAL IH SCH ×6 (02:16→22:08)
[2016-09-16 04:00] VITALS: BP 133/78
[2016-09-16 05:03] VITALS: BP 131/76
[2016-09-16 05:11] VITALS: BP 125/75
[2016-09-16 05:26] LABS: RED BLOOD COUNT 3.98 10^6/uL (4.35-5.85); RED CELL DISTRIBUTION WIDTH 18.4 % (10.0-14.5)
[2016-09-16 05:35] LABS: INR 2.1 (0.8-1.4); PROTHROMBIN TIME PATIENT 23.3 SEC (12.2-14.7)
[2016-09-16 06:15] LABS: ALANINE AMINOTRANSFERASE 11 U/L (0-55); ALBUMIN 3.2 GM/DL (3.2-4.5); ANION GAP 16 MMOL/L (5-14); ASPARTATE AMINO TRANSFERASE 11 U/L (5-34); BILIRUBIN,TOTAL 0.8 MG/DL (0.1-1.0); BLOOD UREA NITROGEN 9 MG/DL (7-18); BUN/CREATININE RATIO 15; CALCIUM 8.1 MG/DL (8.5-10.1); CARBON DIOXIDE 21 MMOL/L (21-32); CHLORIDE 103 MMOL/L (98-107); CREATININE SERUM 0.59 MG/DL (0.60-1.30); GFR ESTIMATED > 60; GLUCOSE 103 MG/DL (70-105); POTASSIUM 2.9 MMOL/L (3.6-5.0); SODIUM 140 MMOL/L (135-145); TOTAL PROTEIN 6.7 GM/DL (6.4-8.2)
[2016-09-16] MEDS: MULTIVIT W/MINERALS TAB (THERAGRAN M) PO SCH (06:40)
[2016-09-16] MEDS: IRON POLYSAC 150 MG CAP (NIFEREX) PO SCH ×2 (06:40→18:52)
[2016-09-16] MEDS: CATHETER FLUSH 10 ML SYR IV SCH ×3 (06:41→20:35)
[2016-09-16 08:41] VITALS: BP 156/72
[2016-09-16] MEDS: FAMOTIDINE 20 MG (PEPCID) TABLET PO SCH (09:06)
[2016-09-16] MEDS: meTOprolol TARTRATE 25 MG (LOPRESSOR) TABLET PO SCH ×2 (09:06→20:34)
[2016-09-16] MEDS: DILTIAZEM 180 MG (CARDIZEM CD) CAP PO SCH (09:06)
--- NOTE | 2016-09-16 09:56 | Progress Note (SOAP) ---
Subjective Date Seen by Provider: Sep 16, 2016 Time Seen by Provider: 10:10 Subjective/Events-last exam PT REPORTS THAT SHE IS BETTER TODAY COMPARED TO YESTERDAY - SHE HAS LESS SHORTNESS OF BREATH. SHE HAS LESS DIZZINESS. Review of Systems General: Fatigue HEENT: No Head Aches Pulmonary: Dyspnea, Cough Cardiovascular: No: Chest Pain Gastrointestinal: No: Abdominal Pain, Nausea Genitourinary: No Dysuria Neurological: Weakness Objective Exam Vital Signs Date Time Temp Pulse Resp B/P (MAP) Pulse Ox O2 Delivery O2 Flow Rate FiO2 09/16/16 08:41 97.7 101 18 156/72 96 Nasal Cannula 1.50 09/16/16 06:38 96 Nasal Cannula 2.00 09/16/16 05:11 98.1 92 20 125/75 98 Nasal Cannula 2.00 09/16/16 05:03 98.7 98 18 131/76 96 Nasal Cannula 2.00 09/16/16 04:00 98.5 92 18 133/78 97 Nasal Cannula 2.00 09/16/16 02:17 98 Nasal Cannula 2.00 09/15/16 23:40 98.6 87 20 128/58 98 Nasal Cannula 2.00 09/15/16 22:07 97 Nasal Cannula 2.00 09/15/16 21:16 98.7 108 20 152/65 98 Nasal Cannula 2.00 09/15/16 21:05 98.7 108 20 152/65 98 Nasal Cannula 2.00 09/15/16 20:45 Nasal Cannula 2.00 09/15/16 19:42 99.1 107 19 116/61 96 Nasal Cannula 2.00 09/15/16 18:44 97 Nasal Cannula 2.00 09/15/16 18:35 99.1 97 18 107/97 Nasal Cannula 2.00 09/15/16 18:15 98.9 88 18 148/71 Nasal Cannula 2.00 09/15/16 18:00 98.9 88 18 148/71 09/15/16 16:24 99.2 97 18 133/91 96 Nasal Cannula 2.00 09/15/16 16:02 98.9 89 18 116/61 98 Nasal Cannula 2.00 09/15/16 16:01 98.9 89 19 116/61 96 Nasal Cannula 2.00 09/15/16 14:45 97 Nasal Cannula 2.00 09/15/16 12:00 99.6 84 20 143/69 97 Nasal Cannula 2.00 09/15/16 10:24 96 Nasal Cannula 2.00 I & O 09/16/16 07:00 Intake Total 1930 ml Output Total 1200 ml Balance 730 ml Capillary Refill : Less Than 3 Seconds General Appearance: No Apparent Distress, WD/WN HEENT: PERRL/EOMI, Pharynx Normal Neck: Full Range of Motion, Supple Respiratory: Chest Non Tender, Crackles (BASES), Decreased Breath Sounds, Rhonci Cardiovascular: Regular Rate, Rhythm Gastrointestinal: normal bowel sounds, non tender, soft, no organomegaly, no pulsatile mass Extremity: Normal Capillary Refill, No Pedal Edema Neurologic/Psychiatric: Alert, Oriented x3, No Motor/Sensory Deficits, Normal Mood/Affect Skin: Warm/Dry Lymphatic: No Adenopathy Results Lab Laboratory Tests 09/15/16 10:45: Stool Occult Blood Immunoassay POSITIVEH 09/16/16 04:33: White Blood Count 8.0, Red Blood Count 3.98L, Hemoglobin 9.0#L, Hematocrit 30L, Mean Corpuscular Volume 75L, Mean Corpuscular Hemoglobin 23L, Mean Corpuscular Hemoglobin Concent 30L, Red Cell Distribution Width 18.4H, Platelet Count 338, Mean Platelet Volume 10.0, Prothrombin Time 23.3H, INR Comment 2.1H, Sodium Level 140, Potassium Level 2.9L, Chloride Level 103, Carbon Dioxide Level 21, Anion Gap 16H, Blood Urea Nitrogen 9, Creatinine 0.59L, Estimat Glomerular Filtration Rate > 60, BUN/Creatinine Ratio 15, Glucose Level 103, Calcium Level 8.1L, Total Bilirubin 0.8, Aspartate Amino Transf (AST/SGOT) 11, Alanine Aminotransferase (ALT/SGPT) 11, Alkaline Phosphatase 78, Total Protein 6.7, Albumin 3.2 Microbiology 09/13/16 Blood Culture - Preliminary, Resulted No growth 09/13/16 Urine Culture - Final, Complete Enterococcus Faecalis Assessment/Plan Assessment/Plan Assess & Plan/Chief Complaint PNEUMONIA URINARY TRACT INFECTION - PROBABLE ENTEROCOCCUS ANEMIA CHRONIC ANTICOAGULATION ATRIAL FIBRILLATION WEAKNESS FLUID OVERLOAD PNEUMONIA - ON ROCEPHIN AND AZITHROMYCIN - CONTINUE TREATMENT - URINARY TRACT INFECTION - PROBABLE ENTEROCOCCUS - ON ROCEPHIN - MONITOR - WILL CHANGE IF INDICATED BY CULTURE SENSITIVITY REPORT. ANEMIA -HGB IMPROVED POST-OPERATIVELY - CONTINUE WITH CURRENT TREATMENT. CHRONIC ANTICOAGULATION - HOLD COUMADIN TONIGHT AND TOMORROW A WILL RESTART COUMADIN DOSING ON SATURDAY. - SERIAL INR'S HAVE BEEN ORDERED. ATRIAL FIBRILLATION - RATE CONTROLLED ON DILTIAZEM AND COUMADIN. WEAKNESS - DUE TO ACUTE ILLNESS AND ANEMIA - START PHYSICAL THERAPY. FLUID OVERLOAD - MONITOR I/O AND DAILY WEIGHTS. Clinical Quality Measures DVT/VTE Risk/Contraindication: Risk Factor Score Per Nursin RFS Level Per Nursing on Admit: 3=High Contraindications-Pharm: Other *list below* GWEN MORA MD Sep 16, 2016 09:56
[2016-09-16 12:00] VITALS: BP 152/73
[2016-09-16 16:00] VITALS: BP 165/72
[2016-09-16] MEDS ORDERED: KCL 20 MEQ TAB (K-DUR) PO ONE (19:45)
[2016-09-16] MEDS: AZITHROMYCIN 250 MG TAB (ZITHROMAX) PO SCH (20:34)
[2016-09-17] VITALS: BP 131/77
[2016-09-17] MEDS: RT-ALBUTEROL/IPRATROPIUM 3 ML (DUONEB) VIAL IH SCH ×2 (02:35→06:38)
[2016-09-17 06:11] LABS: INR 1.7 (0.8-1.4); PROTHROMBIN TIME PATIENT 20.1 SEC (12.2-14.7)
[2016-09-17] MEDS: KCL 20 MEQ TAB (K-DUR) PO SCH (06:20)
[2016-09-17] MEDS: IRON POLYSAC 150 MG CAP (NIFEREX) PO SCH ×2 (06:20→18:45)
[2016-09-17] MEDS: MULTIVIT W/MINERALS TAB (THERAGRAN M) PO SCH (06:20)
[2016-09-17] MEDS: CATHETER FLUSH 10 ML SYR IV SCH ×3 (06:21→21:06)
[2016-09-17 06:23] LABS: ANION GAP 10 MMOL/L (5-14); BLOOD UREA NITROGEN 12 MG/DL (7-18); BUN/CREATININE RATIO 20; CALCIUM 8.6 MG/DL (8.5-10.1); CARBON DIOXIDE 25 MMOL/L (21-32); CHLORIDE 104 MMOL/L (98-107); CREATININE SERUM 0.61 MG/DL (0.60-1.30); GFR ESTIMATED > 60; GLUCOSE 103 MG/DL (70-105); POTASSIUM 3.5 MMOL/L (3.6-5.0); SODIUM 139 MMOL/L (135-145)
[2016-09-17 08:00] VITALS: BP 153/69
[2016-09-17] MEDS ORDERED: KCL 10 MEQ TAB (MICRO K) PO NR (08:00)
--- NOTE | 2016-09-17 08:25 | Progress Note (SOAP) ---
Subjective Time Seen by Provider: 08:20 Subjective/Events-last exam pneumonia. Chronic anemia. Atrial fibrillation. Coronary artery disease Patient states she's feeling better. Less congestion in the chest Objective Exam Vital Signs Date Time Temp Pulse Resp B/P (MAP) Pulse Ox O2 Delivery O2 Flow Rate FiO2 09/17/16 07:23 92 09/17/16 06:39 93 Room Air 09/17/16 02:36 93 Room Air 09/17/16 00:00 99.4 96 131/77 93 09/16/16 22:08 90 Room Air 09/16/16 20:15 Nasal Cannula 1.00 09/16/16 18:55 90 Room Air 09/16/16 16:00 98.6 96 18 165/72 91 Room Air 09/16/16 13:57 92 Room Air 09/16/16 12:00 98.5 80 20 152/73 93 Room Air 09/16/16 11:23 94 Nasal Cannula 1.00 09/16/16 08:41 97.7 101 18 156/72 96 Nasal Cannula 1.50 I & O 09/17/16 07:00 Intake Total 1670 ml Output Total 900 ml Balance 770 ml Capillary Refill : Less Than 3 Seconds General Appearance: No Apparent Distress, WD/WN HEENT: Normal ENT Inspection Neck: Full Range of Motion, Normal Inspection Respiratory: No Accessory Muscle Use, No Respiratory Distress, Decreased Breath Sounds, Other (chest congestion) Cardiovascular: Irregularly Irregular Gastrointestinal: non tender, soft Results Lab Laboratory Tests 09/17/16 05:45: Prothrombin Time 20.1H, INR Comment 1.7H, Sodium Level 139, Potassium Level 3.5L , Chloride Level 104, Carbon Dioxide Level 25, Anion Gap 10, Blood Urea Nitrogen 12, Creatinine 0.61, Estimat Glomerular Filtration Rate > 60, BUN/ Creatinine Ratio 20, Glucose Level 103, Calcium Level 8.6 Microbiology 09/13/16 Blood Culture - Preliminary, Resulted No growth 09/13/16 Urine Culture - Final, Complete Enterococcus Faecalis Assessment/Plan Assessment/Plan Assess & Plan/Chief Complaint pneumonia. Atrial fibrillation. Chronic anemia. Patient states she's starting to feel better Clinical Quality Measures DVT/VTE Risk/Contraindication: Risk Factor Score Per Nursin RFS Level Per Nursing on Admit: 3=High Contraindications-Pharm: Other *list below* DAREN FERGUSON DO Sep 17, 2016 08:25
[2016-09-17] MEDS: DILTIAZEM 180 MG (CARDIZEM CD) CAP PO SCH (09:00)
[2016-09-17] MEDS: FAMOTIDINE 20 MG (PEPCID) TABLET PO SCH (09:01)
[2016-09-17] MEDS: meTOprolol TARTRATE 25 MG (LOPRESSOR) TABLET PO SCH ×2 (09:01→21:06)
[2016-09-17] MEDS: RT-ALBUTEROL/IPRATROPIUM 3 ML (DUONEB) VIAL INH SCH ×3 (10:34→19:36)
[2016-09-17 16:16] VITALS: BP 146/68
[2016-09-17] MEDS: CATHETER FLUSH 10 ML SYR IV PRN (18:45)
[2016-09-17] MEDS: warFARin 3 MG (COUMADIN) TAB PO SCH (21:05)
[2016-09-17] MEDS: AZITHROMYCIN 250 MG TAB (ZITHROMAX) PO SCH (21:06)
[2016-09-17 21:09] VITALS: BP 140/72
[2016-09-18 00:25] VITALS: BP 142/67
[2016-09-18] MEDS: MULTIVIT W/MINERALS TAB (THERAGRAN M) PO SCH (06:18)
[2016-09-18] MEDS: IRON POLYSAC 150 MG CAP (NIFEREX) PO SCH ×2 (06:18→17:40)
[2016-09-18] MEDS: CATHETER FLUSH 10 ML SYR IV SCH ×3 (06:21→22:36)
[2016-09-18] MEDS: KCL 20 MEQ TAB (K-DUR) PO SCH (06:21)
[2016-09-18 06:55] LABS: BASOPHILS % (AUTO) 0 % (0-10); EOSINOPHILS # (AUTO) 0.1 10^3/uL (0.0-0.3); EOSINOPHILS % (AUTO) 1 % (0-10); LYMPHOCYTES # (AUTO) 0.9 X 10^3 (1.0-4.0); LYMPHOCYTES % (AUTO) 10 % (12-44); MEAN CORPUSCULAR HEMOGLOBIN 23 PG (25-34); MEAN CORPUSCULAR HGB CONC 30 G/DL (32-36); MEAN CORPUSCULAR VOLUME 76 FL (80-99); MEAN PLATELET VOLUME 10.3 FL (7.4-10.4); MONOCYTES # (AUTO) 0.8 X 10^3 (0.0-1.0); MONOCYTES % (AUTO) 9 % (0-12); NEUTROPHILS # (AUTO) 7.2 X 10^3 (1.8-7.8); NEUTROPHILS % (AUTO) 79 % (42-75); PLATELET COUNT 463 10^3/uL (130-400); RED BLOOD COUNT 4.52 10^6/uL (4.35-5.85); RED CELL DISTRIBUTION WIDTH 20.5 % (10.0-14.5); RETICULOCYTE % 0.94 % (0.50-2.40); WHITE BLOOD COUNT 9.1 10^3/uL (4.3-11.0)
[2016-09-18] MEDS: RT-ALBUTEROL/IPRATROPIUM 3 ML (DUONEB) VIAL INH SCH ×4 (07:05→19:32)
[2016-09-18 07:12] LABS: INR 1.6 (0.8-1.4); PROTHROMBIN TIME PATIENT 18.4 SEC (12.2-14.7)
[2016-09-18 07:23] LABS: ALANINE AMINOTRANSFERASE 15 U/L (0-55); ALBUMIN 3.6 GM/DL (3.2-4.5); ANION GAP 14 MMOL/L (5-14); ASPARTATE AMINO TRANSFERASE 15 U/L (5-34); BILIRUBIN,TOTAL 0.8 MG/DL (0.1-1.0); BLOOD UREA NITROGEN 10 MG/DL (7-18); BUN/CREATININE RATIO 15; CALCIUM 9.1 MG/DL (8.5-10.1); CARBON DIOXIDE 20 MMOL/L (21-32); CHLORIDE 103 MMOL/L (98-107); CREATININE SERUM 0.65 MG/DL (0.60-1.30); GFR ESTIMATED > 60; GLUCOSE 106 MG/DL (70-105); LACTATE DEHYDROGENASE 192 U/L (125-220); SODIUM 137 MMOL/L (135-145); TOTAL PROTEIN 7.9 GM/DL (6.4-8.2)
[2016-09-18 07:29] LABS: EOSINOPHILS % (MANUAL) 1 %; HYPOCHROMASIA MARKED; LYMPHOCYTES % (MANUAL) 7 %; NEUTROPHILS % (MANUAL) 83 %
[2016-09-18 08:00] VITALS: BP 144/82
--- NOTE | 2016-09-18 08:12 | Progress Note (SOAP) ---
Subjective Time Seen by Provider: 08:10 Subjective/Events-last exam patient still fragile. Patient still coughing and congested. Patient working progress Pneumonia. Anemia. Atrial fibrillation Objective Exam Vital Signs Date Time Temp Pulse Resp B/P (MAP) Pulse Ox O2 Delivery O2 Flow Rate FiO2 09/18/16 07:05 91 Room Air 09/18/16 02:48 91 Room Air 09/18/16 00:25 99.8 75 22 142/67 92 Room Air 09/17/16 21:09 108 140/72 09/17/16 21:00 Room Air 09/17/16 19:37 95 Room Air 09/17/16 16:16 98.9 94 20 146/68 96 Room Air 09/17/16 14:43 90 Room Air 09/17/16 10:34 90 Room Air I & O 09/18/16 07:00 Intake Total 1272 ml Output Total 1553 ml Balance -281 ml Capillary Refill : Less Than 3 Seconds General Appearance: No Apparent Distress HEENT: Normal ENT Inspection Neck: Full Range of Motion, Normal Inspection Respiratory: Decreased Breath Sounds, Other (congestion) Cardiovascular: Irregularly Irregular Results Lab Laboratory Tests 09/18/16 05:09 Laboratory Tests 09/17/16 13:06: Lab Scanned Report Transfusion Reaction Form 09/18/16 05:09: White Blood Count 9.1, Red Blood Count 4.52, Hemoglobin 10.2L, Hematocrit 35, Mean Corpuscular Volume 76L, Mean Corpuscular Hemoglobin 23L, Mean Corpuscular Hemoglobin Concent 30L, Red Cell Distribution Width 20.5H, Platelet Count 463H, Mean Platelet Volume 10.3, Neutrophils (%) (Auto) 79H, Lymphocytes (%) (Auto) 10L, Monocytes (%) (Auto) 9, Eosinophils (%) (Auto) 1, Basophils (%) (Auto) 0, Neutrophils # (Auto) 7.2, Lymphocytes # (Auto) 0.9L, Monocytes # (Auto) 0.8, Eosinophils # (Auto) 0.1, Basophils # (Auto) 0.0, Neutrophils % (Manual) 83, Lymphocytes % (Manual) 7, Monocytes % (Manual) 9, Eosinophils % (Manual) 1, Hypochromasia MARKED, Absolute Reticulocyte Count 43, Percent Reticulocyte Count 0.94, Prothrombin Time 18.4H, INR Comment 1.6H, Sodium Level 137, Potassium Level 4.0, Chloride Level 103, Carbon Dioxide Level 20L, Anion Gap 14 , Blood Urea Nitrogen 10, Creatinine 0.65, Estimat Glomerular Filtration Rate > 60, BUN/Creatinine Ratio 15, Glucose Level 106H, Calcium Level 9.1, Total Bilirubin 0.8, Aspartate Amino Transf (AST/SGOT) 15, Alanine Aminotransferase ( ALT/SGPT) 15, Alkaline Phosphatase 85, Lactate Dehydrogenase 192, Total Protein 7.9, Albumin 3.6 Microbiology 09/13/16 Blood Culture - Preliminary, Resulted No growth 09/13/16 Urine Culture - Final, Complete Enterococcus Faecalis Assessment/Plan Assessment/Plan Assess & Plan/Chief Complaint pneumonia. Atrial fibrillation. Chronic anemia. Patient states she's starting to feel better. . 09/18/16. Pneumonia still coughing and congested. Atrial fibrillation heart rate was quick this morning. Chronic anemia. Patient working progress Clinical Quality Measures DVT/VTE Risk/Contraindication: Risk Factor Score Per Nursin RFS Level Per Nursing on Admit: 3=High Contraindications-Pharm: Other *list below* DAREN FERGUSON DO Sep 18, 2016 08:11
[2016-09-18] MEDS: FAMOTIDINE 20 MG (PEPCID) TABLET PO SCH (09:01)
[2016-09-18] MEDS: DILTIAZEM 180 MG (CARDIZEM CD) CAP PO SCH (09:02)
[2016-09-18] MEDS: meTOprolol TARTRATE 25 MG (LOPRESSOR) TABLET PO SCH ×2 (09:02→22:36)
--- NOTE | 2016-09-18 09:02 | CONSULTATION REPORT ---
DATE OF CONSULTATION: 09/17/2016 REFERRING AND PRIMARY PHYSICIAN: Matt Braxton DO IMPRESSION: 1. 85-year-old female admitted to the hospital with increasing shortness of breath and pneumonia. The patient was diagnosed with microcytic anemia, status post transfusion with 2 units of packed red blood cells. 2. History of chronic atrial fibrillation and on anticoagulation, 3. Occult blood positive indicating some amount of GI bleeding. 4. Family history beta thalassemia minor. 5. History of endometrial cancer in 2007, status post JOSE/BSO, followed by radiation therapy. RECOMMENDATIONS: 1. Repeat CBC with a smear and chemistry panel in the morning. We will obtain serum iron studies in the morning. I will add hemoglobin electrophoresis because of microcytic anemia as well as family history of beta thalassemia. 2. Monitor blood counts serially and transfuse as needed while the work-up is undergoing. 3. Continue management of pneumonia, urinary tract infection, etc. as you are doing. 4. Need to rule out hypoproliferative anemia. Because of previous pelvic radiation therapy for her uterine cancer. BRIEF HISTORY: Ms. Sanchez is an 85-year-old female who was admitted to the hospital because of increasing shortness of breath and probable pneumonia. She was on outpatient antibiotics, which was not helping and hence admitted for IV antibiotic therapy. She was noted with symptomatic anemia and transfuse 2 units of packed red blood cells over the weekend. Fecal occult blood test was obtained, which was positive for blood. Hematology consultation was obtained because of chronic anemia. In reviewing the patient's records in early 2007 she had normal CBC including hemoglobin and MCV levels. In mid 2007 she was diagnosed with endometrial cancer, as well as atrial fibrillation. She was started on anticoagulation because of this. Her lab work since then has always shown microcytic anemia. PAST MEDICAL HISTORY: Significant for: 1. Hypertension, which is long-standing. 2. Atrial fibrillation diagnosed in 2007 and on anticoagulation since then. 3. History of endometrial cancer diagnosed in 2007, status post JOSE/BSO, followed by radiation therapy. 4. She has a history of gastroesophageal reflux disease 5. Chronic microcytic anemia going back to at least mid 2007. OTHER SURGERIES: Include: 1. Bilateral cataract surgeries in 1998. 2. JOSE/BSO in 2007. 3. Right knee surgery. MEDICATIONS: Reviewed. SOCIAL HISTORY: The patient is and lives in [place], [place]. She has 4 daughters and a son all of whom live close by. She denied any tobacco, alcohol or other recreational drug use. 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 FAMILY HISTORY: Significant for history of beta thalassemia minor in her sister and a niece. Her father also had beta thalassemia minor. The patient and her paternal side of family is of [place] descent. PHYSICAL EXAMINATION: Today showed an elderly female, well-developed, and nourished, awake, and oriented and in no acute distress. VITAL SIGNS: Temperature was 98.9, pulse rate of 94, respirations 20, blood pressure 146/68, and oxygen saturation 96% on room air. HEENT: Normocephalic, extraocular muscles intact. Conjunctivae pale, oral mucosa moist. NECK: Supple with no JVD. No cervical, supraclavicular, or axillary lymphadenopathy palpable. CHEST: Chest was symmetrical. LUNGS: Slightly diminished breath sounds in the basis with few rhonchi. No wheezes or rales heard. CARDIOVASCULAR EXAM: Irregular in rate and rhythm with controlled rate. No murmur was heard. ABDOMEN: Soft, nontender, with no hepatosplenomegaly or other masses palpable. EXTREMITIES: Showed no edema. NEUROLOGICAL EXAM: Showed no focal motor deficits. LABORATORY: CBC done today showed WBC 8, hemoglobin 9, MCV 75, RDW 18.4, and platelet count 338,000. Hemoglobin yesterday was 7.3 with MCV 74 and the patient received 2 units of PRBCs. BMP done today showed normal electrolytes, except potassium level of 3.5. BUN was 12 and creatinine 0.61 with GFR more than 60 mL per minute. Prothrombin time was 20.1 with INR of 1.7. Fecal occult blood test done on 09/15/2016 was positive. Urine culture done on 09/13/2016 showing less than 10,000 colonies of Enterococcus faecalis. Chest x-ray done on 09/15/2016 showed large hiatal hernia with bilateral pleural effusions and perihilar infiltrates. Thank you for allowing me to participate in this patient's care. I will follow the patient with you. Job ID: [id number] Dictated Date: 09/17/2016 19:05:54 Director Of Cloud Services Date: 09/18/2016 08:33:54/cornelius BONNER
[2016-09-18] MEDS ORDERED: DILTIAZEM 60 MG (CARDIZEM) TAB PO NR (10:15)
[2016-09-18 10:42] LABS: %SAT TOTAL IRON BINDING CAPIC 6 % (15-50); TIBC 339 ug/dL (280-380)
[2016-09-18 11:23] LABS: UIBC 317 ug/dL
--- NOTE | 2016-09-18 12:04 | Diagnostic Imaging Report ---
INDICATION: Pneumonia. 0756 hours. Comparison is made to study of 09/15/2016. Cardiomegaly and pulmonary venous congestion persists. There is increased blunting of costophrenic sulci, particularly on the right. Left lateral pleural thickening is again noted. Air-fluid level related to large hiatal hernia has a similar appearance. There is mild overall increased density in the perihilar regions. IMPRESSION: Increasing perihilar density as well as pleural fluid suggests possibility of congestive heart failure and clinical correlation is recommended. There is no new consolidation, pneumothorax or other significant change. Dictated by: Dictated on workstation # [id number]
--- NOTE | 2016-09-18 12:53 | Consultation-Cardiology ---
HPI-Cardiology Cardiology Consultation: Date of Consultation 09/18/16 Date of Admission Attending Physician Matt Braxton DO Admitting Physician Matt Braxton DO Consulting Physician Brandon VALDEZ MD HPI: Time Seen by Provider: 09:30 Chief Complaint: Cough This is a 85-year-old lady who is a patient of Dr. Braxton. She has history of atrial fibrillation and is on Coumadin and rate control. She presents with a pneumonia and is receiving treatment. She complained of cough and some shortness of breath. She denies any palpitations or chest pain. Review of Systems-Cardiology Review of Systems Constitutional: No As described under HPI, No no symptoms reported, No chills, No fever, No lightheadedness, No malaise, No tiredness, No weight loss, No weight gain, No other Eyes: No As described under HPI, No no symptoms reported, No blindness, No blurred vision, No contact lenses, No drainage, No decreased acuity, No foreign body sensation, No glasses, No inflammation, No pain, No photophobia, No previous injury, No shadows, No tunnel vision, No other, No vision change Ears/Nose/Throat: No As described under HPI, No no symptoms reported, No chronic hearing loss, No epistaxis, No ear discharge, No ear pain, No loose teeth, No mouth pain, No mouth swelling, No nasal drainage, No nose pain, No recent hearing loss, No throat pain, No throat swelling, No ulcerations, No other Respiratory: cough, shortness of breath Cardiovascular: No no symptoms reported, No As described under HPI, No chest pain, No edema, No irregular heart rate, No lightheadedness, No palpitations, No syncope, No other Gastrointestinal: No no symptoms reported, No As described under HPI, No abdomen distended, No abdominal pain, No blood streaked bowels, No constipation , No diarrhea, No difficulty swallowing, No nausea, No poor appetite, No poor fluid intake, No rectal bleeding, No vomiting, No other, No nausea/vomiting/ diarrhea, No stool coloration changes Genitourinary: No no symptoms reported, No As described under HPI, No burning, No dysuria, No discharge, No frequency, No flank pain, No hematuria, No incontinence, No pain, No urgency, No other, No urine frequency changes, No urine coloration changes : No Musculoskeletal: No no symptoms reported, No As describe under HPI, No back pain, No gout, No joint pain, No joint swelling, No muscle pain, No muscle stiffness, No neck pain, No other Skin: No no symptoms reported, No As described under HPI, No change in color, No change in hair/nails, No dryness, No lesions, No lumps, No rash, No other, No skin related problems, No ulcerations, No rash on exposed areas, No ulcerations on exposed areas Psychiatric/Neurological: No As described under HPI, No anxiety, No depression , No emotional problems, No focal weakness, No headache, No no symptoms reported , No numbness, No other, No pre-existing deficit, No seizure, No syncope, No tingling, No tremors, No weakness Hematologic: No no symptoms reported, No As described under HPI, No anemia, No blood clots, No easy bleeding, No easy bruising, No swollen glands, No other, No bleeding abnormalities [id number] Hx Patient Social History Marrital Status: Employed/Student: unemployed Alcohol Use: Denies Use Recreational Drug Use: No Smoking Status: Never a Smoker Recent Foreign Travel: No Recent Infectious Disease Expo: No Hospitalization with Isolation: Denies Physical Abuse Screen: No Sexual Abuse: No Immunizations Up To Date Tetanus Booster (TDap): More than 5yrs Past Medical History PMH As described under Assessment. Family Medical History Family History: Cancer Heart disease Allergies and Home Medications Allergies Coded Allergies: Sulfa (Sulfonamide Antibiotics) (Verified Allergy, Unknown, 08/02/07) Home Medications Acetaminophen 500 Mg Tablet, 500 MG PO DAILY PRN for PAIN-MILD, (Reported) Alprazolam 0.25 Mg Tablet, 0.25 MG PO DAILY PRN for ANXIETY, (Reported) Cefdinir 300 Mg Capsule, 300 MG PO BID, (Reported) FILLED 09/11/06 #14 FOR A 7 DAY THERPAY Diltiazem HCl 180 Mg Cap.er.24h, 180 MG PO DAILY, (Reported) Furosemide 40 Mg Tablet, 40 MG PO Th, (Reported) Hydrocodone/Acetaminophen 1 Each Tablet, 0.5-1 TAB PO DAILY, (Reported) Iron Polysaccharide Complex 150 Mg Capsule, 150 MG PO BID, (Reported) Metoprolol Tartrate 25 Mg Tablet, 25 MG PO BID, (Reported) Vit C/E/Zn/Coppr/Lutein/Zeaxan 1 Each Capsule, 1 CAP PO BID, (Reported) Warfarin Sodium 3 Mg Tablet, 3 MG PO SuMoWeThSa@HS, (Reported) Warfarin Sodium 4 Mg Tablet, 4 MG PO TuFr@HS, (Reported) Physical Exam-Cardiology Physical Exam Vital Signs/I&O Vital Sign - Last 12Hours 09/18/16 09/18/16 09/18/16 09/18/16 02:48 07:05 08:00 09:00 Temp 97.7 Pulse 126 Resp 18 B/P (MAP) 144/82 Pulse Ox 91 91 95 O2 Delivery Room Air Room Air Room Air Nasal Cannula O2 Flow Rate 2.00 09/18/16 11:05 Pulse Ox 97 O2 Delivery Nasal Cannula O2 Flow Rate 2.00 Intake and Output 09/18/16 00:00 Intake Total 1172 ml Output Total 502 ml Balance 670 ml Capillary Refill : Less Than 3 Seconds Constitutional: No appears stated age, No AAO x 3, No apparent distress, No PERRL, No well-developed, No well-nourished, No other HEENT: No PERRL, No normal ENT inspection, No TMs normal, No pharynx normal, No scleral icterus (R), No scleral icterus (L), No pale conjunctivae (R), No pale conjunctivae (L), No photophobia, No TM abnormal (R), No TM abnormal (L), No pharyngeal erythema, No tonsillar exudate, No other, No discharge, No EOMI, No hearing is well preserved, No hard of hearing, No oral hygience is good, No ulceration, No xanthelasmas are seen Neck: No non-tender, No full range of motion, No supple, No normal inspection, No carotid bruit, No limited range of motion, No lymphadenopathy (R), No lymphadenopathy (L), No tender lateral, No tender midline, No thyromegaly, No other, No carotid pulses are 2 + bilaterally, No with good upstrokes Respiratory: No accessory muscle use, No respiratory distress, No chest tender , No chest expansion is symmetric, No chest is bilaterally symmetric, No lungs clear to percussion, No lungs clear to auscultation, No crackles, No rhonchi, No rales, No stridor, No wheezing, No pleural rub, No other Cardiovascular: No regular rate-rhythm, irregularly irregular, No extra beats, No parasternal heave is noted, No JVD, No edema, No bradycardia, No tachycardia , No point of maximal impulse, No cardiac thrills are palpable, No S1 and S2, No gallop/S3, No gallop/S4, No diastolic murmur, No systolic murmur, No friction rub, No click, No other Gastrointestinal: No tender, No soft, No round, No distended, No pulsatile mass , No organomegaly, No guarding, No rebound, No tenderness, No hernia, No mass, No audible bowel sounds, No abnormal bowel sounds, No abdominal bruits, No spleenomegaly, No other Rectal: deferred Extremities: No normal range of motion, No non-tender, No normal inspection, No pedal edema, No calf tenderness, No normal capillary refill, No pelvis stable , No calf tenderness, No inflammation, No pedal edema, No slow capillary refill , No swelling, No other, No abrasion, No clubbing, No cyanosis, No ecchymosis, No laceration, No no lower extremity edema bilateral, No significant edema, No tenderness, No wound Neurologic/Psychiatric: No cnc programmer II-XII nml as tested, No no motor/sensory deficits, No alert, No normal mood/affect, No oriented x 3, No abnormal cerebellar tests, No abnormal cnc programmer II-XII, No abnormal gait, No aphasia, No EOM palsy, No facial droop, No motor weakness, No sensory deficit, No depressed affect, No disoriented x 3, No other, No grossly intact, No power is 5/5 both on sides Skin: No normal color, No warm/dry, No cyanosis, No cool, No diaphoresis, No damp, No ecchymosis, No jaundice, No mottled, No pallor, No rash, No tattoos/ piercings, No ulcerations, No rash on exposed areas, No ulcerations on exposed areas, No other Data Review Labs Laboratory Tests 09/17/16 13:06: Lab Scanned Report Transfusion Reaction Form 09/18/16 05:09: White Blood Count 9.1, Red Blood Count 4.52, Hemoglobin 10.2L, Hematocrit 35, Mean Corpuscular Volume 76L, Mean Corpuscular Hemoglobin 23L, Mean Corpuscular Hemoglobin Concent 30L, Red Cell Distribution Width 20.5H, Platelet Count 463H, Mean Platelet Volume 10.3, Neutrophils (%) (Auto) 79H, Lymphocytes (%) (Auto) 10L, Monocytes (%) (Auto) 9, Eosinophils (%) (Auto) 1, Basophils (%) (Auto) 0, Neutrophils # (Auto) 7.2, Lymphocytes # (Auto) 0.9L, Monocytes # (Auto) 0.8, Eosinophils # (Auto) 0.1, Basophils # (Auto) 0.0, Neutrophils % (Manual) 83, Lymphocytes % (Manual) 7, Monocytes % (Manual) 9, Eosinophils % (Manual) 1, Hypochromasia MARKED, Absolute Reticulocyte Count 43, Percent Reticulocyte Count 0.94, Prothrombin Time 18.4H, INR Comment 1.6H, Sodium Level 137, Potassium Level 4.0, Chloride Level 103, Carbon Dioxide Level 20L, Anion Gap 14 , Blood Urea Nitrogen 10, Creatinine 0.65, Estimat Glomerular Filtration Rate > 60, BUN/Creatinine Ratio 15, Glucose Level 106H, Calcium Level 9.1, Iron Level 22L, Total Iron Binding Capacity 339, Unsaturated Iron Binding Capacity 317, Transferrin % Saturation 6L, Total Bilirubin 0.8, Aspartate Amino Transf (AST/ SGOT) 15, Alanine Aminotransferase (ALT/SGPT) 15, Alkaline Phosphatase 85, Lactate Dehydrogenase 192, Total Protein 7.9, Albumin 3.6 Microbiology 09/13/16 Blood Culture - Preliminary, Resulted No growth 09/13/16 Urine Culture - Final, Complete Enterococcus Faecalis ECG Impression ECG Initial ECG Impression: Atrial Fibrillation A/P-Cardiology Assessment/Admission Diagnosis Pneumonia, atrial fibrillation Plan Atrial fibrillation with rapid ventricular rate. She is currently on metoprolol 25 mg twice a day and Cardizem 180 mg daily. We will increase the dose of Cardizem to 240 mg daily and give extra dose of metoprolol in the afternoon of 25 mg. She will continue oral anticoagulation with Coumadin. Thank you for your consultation. Please call me if you have any questions. Ac Valdez MD, FACP, FACC, FSCAI, FHRS, CCDS Interventional Cardiology Cardiac Electrophysiology Vascular Medicine and Endovascular Interventions Clinical Quality Measures DVT/VTE Risk/Contraindication: Risk Factor Score Per Nursin RFS Level Per Nursing on Admit: 3=High Contraindications-Pharm: Other *list below* Brandon VALDEZ MD Sep 18, 2016 12:53
[2016-09-18 15:53] VITALS: BP 142/65
[2016-09-18] MEDS ORDERED: FUROSEMIDE 40 MG/4 ML INJ (LASIX) IVP NR (18:00)
[2016-09-18] MEDS: CATHETER FLUSH 10 ML SYR IV PRN (18:30)
[2016-09-18] MEDS: warFARin 2 MG (COUMADIN) TAB PO SCH (22:36)
[2016-09-18 22:37] VITALS: BP 153/72
[2016-09-19 00:48] VITALS: BP 139/65
[2016-09-19] MEDS: MULTIVIT W/MINERALS TAB (THERAGRAN M) PO SCH (06:11)
[2016-09-19] MEDS: KCL 20 MEQ TAB (K-DUR) PO SCH (06:11)
[2016-09-19] MEDS: CATHETER FLUSH 10 ML SYR IV SCH ×3 (06:11→22:15)
[2016-09-19] MEDS: IRON POLYSAC 150 MG CAP (NIFEREX) PO SCH ×2 (06:11→17:03)
[2016-09-19 07:01] LABS: BASOPHILS % (AUTO) 0 % (0-10); EOSINOPHILS # (AUTO) 0.2 10^3/uL (0.0-0.3); EOSINOPHILS % (AUTO) 3 % (0-10); LYMPHOCYTES # (AUTO) 0.8 X 10^3 (1.0-4.0); LYMPHOCYTES % (AUTO) 12 % (12-44); MEAN CORPUSCULAR HEMOGLOBIN 23 PG (25-34); MEAN CORPUSCULAR HGB CONC 30 G/DL (32-36); MEAN CORPUSCULAR VOLUME 77 FL (80-99); MEAN PLATELET VOLUME 9.8 FL (7.4-10.4); MONOCYTES # (AUTO) 0.9 X 10^3 (0.0-1.0); MONOCYTES % (AUTO) 12 % (0-12); NEUTROPHILS # (AUTO) 5.4 X 10^3 (1.8-7.8); NEUTROPHILS % (AUTO) 73 % (42-75); PLATELET COUNT 437 10^3/uL (130-400); RED BLOOD COUNT 4.63 10^6/uL (4.35-5.85); RED CELL DISTRIBUTION WIDTH 20.8 % (10.0-14.5); WHITE BLOOD COUNT 7.3 10^3/uL (4.3-11.0)
[2016-09-19 07:14] LABS: INR 1.7 (0.8-1.4); PROTHROMBIN TIME PATIENT 20.1 SEC (12.2-14.7)
[2016-09-19 07:23] LABS: ANION GAP 10 MMOL/L (5-14); BLOOD UREA NITROGEN 10 MG/DL (7-18); BUN/CREATININE RATIO 15; CALCIUM 9.1 MG/DL (8.5-10.1); CARBON DIOXIDE 27 MMOL/L (21-32); CHLORIDE 101 MMOL/L (98-107); CREATININE SERUM 0.66 MG/DL (0.60-1.30); GFR ESTIMATED > 60; GLUCOSE 98 MG/DL (70-105); POTASSIUM 4.4 MMOL/L (3.6-5.0); SODIUM 138 MMOL/L (135-145)
[2016-09-19] MEDS: RT-ALBUTEROL/IPRATROPIUM 3 ML (DUONEB) VIAL INH SCH ×4 (07:34→19:02)
[2016-09-19 07:50] VITALS: BP 165/72
--- NOTE | 2016-09-19 08:05 | Progress Note (SOAP) ---
Subjective Time Seen by Provider: 08:00 Subjective/Events-last exam pneumonia. Atrial fibrillation. infection. Anemia. Patient feeling much better today. Patient not a short of breath as yesterday. BNP 489 yesterday. CHF Apical rate under control Objective Exam Vital Signs Date Time Temp Pulse Resp B/P (MAP) Pulse Ox O2 Delivery O2 Flow Rate FiO2 09/19/16 07:50 96.2 90 20 165/72 98 Room Air 09/19/16 07:34 98 Nasal Cannula 2.00 09/19/16 00:48 97.9 99 18 139/65 97 Nasal Cannula 2.00 09/18/16 22:37 101 153/72 09/18/16 21:00 Nasal Cannula 2.00 09/18/16 19:32 94 Nasal Cannula 2.00 09/18/16 15:53 98.7 76 20 142/65 96 Room Air 09/18/16 15:10 96 Nasal Cannula 2.00 09/18/16 11:05 97 Nasal Cannula 2.00 09/18/16 09:00 Nasal Cannula 2.00 I & O 09/19/16 07:00 Intake Total 940 ml Output Total 2900 ml Balance -1960 ml Capillary Refill : Less Than 3 Seconds General Appearance: No Apparent Distress, WD/WN HEENT: Normal ENT Inspection Neck: Full Range of Motion, Normal Inspection Respiratory: No Accessory Muscle Use, No Respiratory Distress, Other (still has some congestion and chest) Cardiovascular: Irregularly Irregular Gastrointestinal: non tender, soft Results Lab Laboratory Tests 09/19/16 06:20 09/19/16 06:30 Laboratory Tests 09/18/16 18:28: B-Type Natriuretic Peptide 398.6H 09/19/16 06:20: Sodium Level 138, Potassium Level 4.4, Chloride Level 101, Carbon Dioxide Level 27, Anion Gap 10, Blood Urea Nitrogen 10, Creatinine 0.66, Estimat Glomerular Filtration Rate > 60, BUN/Creatinine Ratio 15, Glucose Level 98, Calcium Level 9.1 09/19/16 06:30: White Blood Count 7.3, Red Blood Count 4.63, Hemoglobin 10.5L, Hematocrit 36, Mean Corpuscular Volume 77L, Mean Corpuscular Hemoglobin 23L, Mean Corpuscular Hemoglobin Concent 30L, Red Cell Distribution Width 20.8H, Platelet Count 437H, Mean Platelet Volume 9.8, Neutrophils (%) (Auto) 73, Lymphocytes (%) (Auto) 12, Monocytes (%) (Auto) 12, Eosinophils (%) (Auto) 3, Basophils (%) (Auto) 0, Neutrophils # (Auto) 5.4, Lymphocytes # (Auto) 0.8L, Monocytes # (Auto) 0.9, Eosinophils # (Auto) 0.2, Basophils # (Auto) 0.0, Prothrombin Time 20.1H, INR Comment 1.7H Microbiology 09/13/16 Blood Culture - Preliminary, Resulted No growth 09/13/16 Urine Culture - Final, Complete Enterococcus Faecalis Assessment/Plan Assessment/Plan Assess & Plan/Chief Complaint pneumonia. Atrial fibrillation. Chronic anemia. Patient states she's starting to feel better. . 09/18/16. Pneumonia still coughing and congested. Atrial fibrillation heart rate was quick this morning. Chronic anemia. Patient working progress. . 09/19/16. Pneumonia. Atrial fibrillation with heart rate under control Anemia. infection. Patient feeling better and breathing better and not short of breath today Clinical Quality Measures DVT/VTE Risk/Contraindication: Risk Factor Score Per Nursin RFS Level Per Nursing on Admit: 3=High Contraindications-Pharm: Other *list below* DAREN FERGUSON DO Sep 19, 2016 08:05
--- NOTE | 2016-09-19 08:25 | Diagnostic Imaging Report ---
INDICATION: Pneumonia, followup. TECHNIQUE: Two view chest 7:17 AM CORRELATION STUDY: 09/18/2016 FINDINGS: Heart size enlarged. Vasculature is prominent but slightly improved from prior study. Prominent interstitial markings also persistent but also improved. Bilateral pleural effusions and/or pleural thickening stable to slightly improved. Air-fluid level in the retrocardiac region likely a large hiatal hernia. Accentuated thoracic kyphotic curvature is present. IMPRESSION: 1. Findings of pulmonary vascular congestion persisting but overall improved from previous study. Dictated by: Dictated on workstation # [id number]
[2016-09-19] MEDS ORDERED: FUROSEMIDE 40 MG/4 ML INJ (LASIX) IVP NR ×2 (09:00→12:00)
--- NOTE | 2016-09-19 09:27 | Progress Note-Cardiology ---
Cardiology SOAP Progress Note Subjective: Sitting up in chair. Short of breath with activity. No c/o CP, syncope or nears syncope. Does report episodes of palpitations at times. Objective: I&O/Vital Signs Vital Sign - Last 12Hours 09/19/16 09/19/16 09/19/16 09/19/16 07:34 07:50 09:00 10:55 Temp 96.2 Pulse 90 Resp 20 B/P (MAP) 165/72 Pulse Ox 98 98 97 O2 Delivery Nasal Cannula Room Air Nasal Cannula Nasal Cannula O2 Flow Rate 2.00 2.00 1.00 Intake and Output 09/19/16 00:00 Intake Total 740 ml Output Total 1700 ml Balance -960 ml Weight (Pounds): 133 Weight (Ounces): 5.0 Weight (Calculated Kilograms): 60.341852 Constitutional: AAO x 3 Respiratory: No accessory muscle use, No respiratory distress, other (coarse lung sounds bilat lower to mid-lobes) Cardiovascular: regular rate-rhythm, irregularly irregular Gastrointestional: No tender, soft, round, audible bowel sounds Extremities: significant edema (2 (+) bilat LE) Neurologic/Psychiatric: grossly intact Skin: No rash, No ulcerations Results/Procedures: Labs Laboratory Tests 09/18/16 18:28: B-Type Natriuretic Peptide 398.6H 09/19/16 06:20: Sodium Level 138, Potassium Level 4.4, Chloride Level 101, Carbon Dioxide Level 27, Anion Gap 10, Blood Urea Nitrogen 10, Creatinine 0.66, Estimat Glomerular Filtration Rate > 60, BUN/Creatinine Ratio 15, Glucose Level 98, Calcium Level 9.1 09/19/16 06:30: B-Type Natriuretic Peptide 290.7H, White Blood Count 7.3, Red Blood Count 4.63, Hemoglobin 10.5L, Hematocrit 36, Mean Corpuscular Volume 77L, Mean Corpuscular Hemoglobin 23L, Mean Corpuscular Hemoglobin Concent 30L, Red Cell Distribution Width 20.8H, Platelet Count 437H, Mean Platelet Volume 9.8, Neutrophils (%) ( Auto) 73, Lymphocytes (%) (Auto) 12, Monocytes (%) (Auto) 12, Eosinophils (%) ( Auto) 3, Basophils (%) (Auto) 0, Neutrophils # (Auto) 5.4, Lymphocytes # (Auto) 0.8L, Monocytes # (Auto) 0.9, Eosinophils # (Auto) 0.2, Basophils # (Auto) 0.0, Prothrombin Time 20.1H, INR Comment 1.7H 09/19/16 10:00: Urine Color YELLOW, Urine Clarity CLEAR, Urine pH 7, Urine Specific [place] 1.005L, Urine Protein NEGATIVE, Urine Glucose (UA) NEGATIVE, Urine Ketones NEGATIVE, Urine Nitrite NEGATIVE, Urine Bilirubin NEGATIVE, Urine Urobilinogen NORMAL, Urine Leukocyte Esterase 1+H, Urine RBC (Auto) NEGATIVE, Urine RBC NONE , Urine WBC 2-5, Urine Squamous Epithelial Cells 2-5, Urine Crystals NONE, Urine Bacteria NEGATIVE, Urine Casts NONE, Urine Mucus NEGATIVE, Urine Other RARE TRANS EPI, Urine Culture Indicated NO Microbiology 09/13/16 Blood Culture - Preliminary, Resulted No growth 09/13/16 Urine Culture - Final, Complete Enterococcus Faecalis Procedures NAME: GUILLERMO MONROY [facility] REC#: [id number] PT STATUS: ADM IN : 1930 PHYSICIAN: DAREN FERGUSON DO ADMIT DATE: 09/13/16 Draft Date of Exam:09/19/16 CHEST PA/LAT (2 VIEW) INDICATION: Pneumonia, followup. TECHNIQUE: Two view chest 7:17 AM CORRELATION STUDY: 09/18/2016 FINDINGS: Heart size enlarged. Vasculature is prominent but slightly improved from prior study. Prominent interstitial markings also persistent but also improved. Bilateral pleural effusions and/or pleural thickening stable to slightly improved. Air-fluid level in the retrocardiac region likely a large hiatal hernia. Accentuated thoracic kyphotic curvature is present. IMPRESSION: 1. Findings of pulmonary vascular congestion persisting but overall improved from previous study. Dictated on workstation # [id number] Dict: 09/19/16 0819 Trans: 09/19/16 0825 KIMBERLY [id number] Interpreted by: BARBER BARBOSA DO Electronically signed by: A/P: Assessment: Permanent atrial fibrillation, presentation with RVR, but now vent rate is better controlled Chronic warfarin anticoag, currently somewhat subtherapeutic, managed by Dr Ferguson Pneumonia - medical services managing Anemia of undetermined etiology (requiring transfusion) - oncology services managing Echocardiogram of [address] Ibarra showed LVEF 60%, LA dilatation, trace MR and mild MR/AoR CHF- likely diastolic Plan: A-fib for which rate is currently controlled Continue warfarin for stroke prophylaxis which is being managed by Dr. 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
[2016-09-19] MEDS: meTOprolol TARTRATE 25 MG (LOPRESSOR) TABLET PO SCH ×2 (09:32→20:23)
[2016-09-19] MEDS: DILTIAZEM 240 MG (CARDIZEM CD) CAP PO SCH (09:32)
[2016-09-19] MEDS: FAMOTIDINE 20 MG (PEPCID) TABLET PO SCH (09:32)
[2016-09-19] MEDS: CATHETER FLUSH 10 ML SYR IV PRN ×2 (09:33→18:25)
[2016-09-19 11:39] LABS: BILIRUBIN,URINE NEGATIVE (NEGATIVE); KETONES,URINE NEGATIVE (NEGATIVE); LEUKOCYTE ESTERASE ,URINE 1+ (NEGATIVE); NITRITE,URINE NEGATIVE (NEGATIVE); PH,URINE 7 (5-9); PROTEIN,URINE NEGATIVE (NEGATIVE); UROBILINOGEN,URINE NORMAL (NORMAL)
[2016-09-19 16:00] VITALS: BP 140/65
--- NOTE | 2016-09-19 19:20 | Progress Note-Standard ---
Standard Progress Note Progress Notes/Assess & Plan Date Seen by Provider: Sep 19, 2016 Time Seen by Provider: 19:17 Progress/Assessment & Plan Patient examined and reviewed lab work. Hemoglobin is stable after transfusion. Iron studies consistent with iron deficiency anemia. Ferritin level 47 which was drawn after transfusion with 2 units of packed red blood cells. Serum iron is low and TIBC high. Hemoglobin electrophoresis results pending. Patient is doing better clinically from the infectious standpoint. Continue antibiotics and treatment of pneumonia as you're doing. Discharged home in stable from medical standpoint. Scheduled a follow-up with me at the cancer center in 2-3 weeks. If the hemoglobin electrophoresis study is negative , she may need parenteral iron therapy. ORLANDO TREJO Sep 19, 2016 19:20
[2016-09-19] MEDS: warFARin 3 MG (COUMADIN) TAB PO SCH (20:23)
[2016-09-20] VITALS: BP 149/68
--- OUTSIDE RECORDS SUMMARY | 2016-09-20 03:48 | XMS REPORT | Continuity of Care Document ---
Author Author [facility] Organization [facility] Address Unknown Phone Unavailable Allergies Active Description Code Type Severity Reaction Onset Reported/Identified Relationship to Patient Clinical Status Yes Sulfa (Sulfonamide Antibiotics) [id number] Drug Allergy Unknown N/A 08/02/2007 Medications Problems Date Dx Coded Attending Type Code Diagnosis Diagnosed By 05/27/2014 DAREN FERGUSON DO Ot 285.9 08/19/2014 LESLI PATEL, ANIBAL Choudhury Ot 719.41 08/19/2014 LESLI PATEL, ANIBAL Choudhury Ot 787.01 08/24/2014 DAREN FERGUSON DO Ot 285.9 01/05/2016 DAREN FERGUSON DO Ot D64.9 ANEMIA, UNSPECIFIED 01/05/2016 GELLENDER DAREN PERES Ot D64.9 ANEMIA, UNSPECIFIED 01/07/2016 GELLENDER DAREN PERES Ot D64.9 ANEMIA, UNSPECIFIED 01/11/2016 PETERSONDER DAREN PERES Ot D64.9 ANEMIA, UNSPECIFIED 01/26/2016 PETERSONDER DAREN PERES Ot D64.9 ANEMIA, UNSPECIFIED 01/28/2016 CYRUS CHRISTOPHER APRN Ot D64.9 ANEMIA, UNSPECIFIED 01/28/2016 CYRUS CHRISTOPHER INSIDE CONTRACTOR SALES Ot I48.2 CHRONIC ATRIAL FIBRILLATION 01/28/2016 CYRUS CHRISTOPHER [employer] SALES Ot K64.9 UNSPECIFIED HEMORRHOIDS 01/28/2016 CYRUS CHRISTOPHER [employer] SALES Ot Z79.01 FPC (CURRENT) USE OF ANTICOAGULANT 04/25/2016 DAREN FERGUSON DO Ot F41.9 ANXIETY DISORDER, UNSPECIFIED 04/25/2016 DAREN FERGUSON DO Ot I10 ESSENTIAL (PRIMARY) HYPERTENSION 04/25/2016 DAREN FERGUSON DO Ot I25.10 ATHSCL HEART DISEASE OF [place] CORONARY 04/25/2016 DAREN FERGUSON DO Ot I48.91 UNSPECIFIED ATRIAL FIBRILLATION 04/25/2016 GELLENDER DO, DAREN Lawson Ot J18.9 PNEUMONIA, UNSPECIFIED ORGANISM 04/25/2016 GELLENDER DO, DAREN Lawson Ot K44.9 DIAPHRAGMATIC HERNIA WITHOUT OBSTRUCTION 04/25/2016 GELLENDER DO, DAREN Lawson Ot M19.91 PRIMARY OSTEOARTHRITIS, UNSPECIFIED SITE 04/25/2016 GELLENDER DO, DAREN Lawson Ot M54.9 DORSALGIA, UNSPECIFIED 04/25/2016 GELLENDER DO, DAREN Lawson Ot N39.0 URINARY TRACT INFECTION, SITE NOT SPECIF 04/25/2016 GELLENDER DO, DAREN Lawson Ot R91.8 OTHER NONSPECIFIC ABNORMAL FINDING OF [place] 04/25/2016 GELLENDER DO, DAREN Lawson Ot Z85.42 PERSONAL HISTORY OF MALIGNANT NEOPLASM O 04/25/2016 GELLENDER DO, DAREN Lawson Ot Z92.3 PERSONAL HISTORY OF IRRADIATION 04/25/2016 GELLENDER DO, DAREN Lawson Ot F41.9 ANXIETY DISORDER, UNSPECIFIED 04/25/2016 GELLENDER DO, DAREN Lawson Ot I10 ESSENTIAL (PRIMARY) HYPERTENSION 04/25/2016 GELLENDER DO, DAREN Lawson Ot I25.10 ATHSCL HEART DISEASE OF [place] CORONARY 04/25/2016 GELLENDER DO, DAREN Lawson Ot I48.91 UNSPECIFIED ATRIAL FIBRILLATION 04/25/2016 GELLENDER DO, DAREN Lawson Ot J18.9 PNEUMONIA, UNSPECIFIED ORGANISM 04/25/2016 GELLENDER DO, DAREN Lawson Ot K44.9 DIAPHRAGMATIC HERNIA WITHOUT OBSTRUCTION 04/25/2016 GELLENDER DO, DAREN Lawson Ot M19.91 PRIMARY OSTEOARTHRITIS, UNSPECIFIED SITE 04/25/2016 GELLENDER DO, DAREN Lawson Ot M54.9 DORSALGIA, UNSPECIFIED 04/25/2016 GELLENDER DO, DAREN Lawson Ot N39.0 URINARY TRACT INFECTION, SITE NOT SPECIF 04/25/2016 GELLENDER DO, DAREN Lawson Ot R91.8 OTHER NONSPECIFIC ABNORMAL FINDING OF [place] 04/25/2016 GELLENDER DO, DAREN Lawson Ot Z85.42 PERSONAL HISTORY OF MALIGNANT NEOPLASM O 04/25/2016 GELLENDER DO, DAREN Lawson Ot Z92.3 PERSONAL HISTORY OF IRRADIATION 04/27/2016 GELLENDER DO, DAREN Lawson Ot A41.9 SEPSIS, UNSPECIFIED ORGANISM 04/27/2016 GELLENDER DO, DAREN Lawson Ot D64.9 ANEMIA, UNSPECIFIED 04/27/2016 GELLENDER DO, DAREN Lawson Ot F41.9 ANXIETY DISORDER, UNSPECIFIED 04/27/2016 GELLENDER DO, DAREN Lawson Ot I10 ESSENTIAL (PRIMARY) HYPERTENSION 04/27/2016 GELLENDER DO, DAREN Lawson Ot I25.10 ATHSCL HEART DISEASE OF [place] CORONARY 04/27/2016 GELLENDER DO, DAREN Lawson Ot I48.91 UNSPECIFIED ATRIAL FIBRILLATION 04/27/2016 GELLENDER DO, DAREN Lawson Ot J15.6 PNEUMONIA DUE TO OTHER AEROBIC GRAM- NEGA 04/27/2016 GELLENDER DO, DAREN Lawson Ot J90 PLEURAL EFFUSION, NOT ELSEWHERE CLASSIFI 04/27/2016 GELLENDER DO, DAREN Lawson Ot K44.9 DIAPHRAGMATIC HERNIA WITHOUT OBSTRUCTION 04/27/2016 GELLENDER DO, DAREN Lawson Ot M19.91 PRIMARY OSTEOARTHRITIS, UNSPECIFIED SITE 04/27/2016 GELLENDER DO, DAREN Lawson Ot M54.9 DORSALGIA, UNSPECIFIED 04/27/2016 GELLENDER DO, DAREN Lawson Ot N39.0 URINARY TRACT INFECTION, SITE NOT SPECIF 04/27/2016 GELLENDER DO, DAREN Lawson Ot R91.8 OTHER NONSPECIFIC ABNORMAL FINDING OF [place] 04/27/2016 GELLENDER DO, DAREN Lawson Ot Z85.42 PERSONAL HISTORY OF MALIGNANT NEOPLASM O 04/27/2016 GELLENDER DO, DAREN Lawson Ot Z92.3 PERSONAL HISTORY OF IRRADIATION 09/14/2016 GELLENDER DO, DAREN Lawson Ot D64.9 ANEMIA, UNSPECIFIED 09/16/2016 GELLENDER DO, DAREN Lawson Ot D64.9 ANEMIA, UNSPECIFIED 09/16/2016 GELLENDER DO, DAREN Lawson Ot F41.9 ANXIETY DISORDER, UNSPECIFIED 09/16/2016 GELLENDER DO, DAREN Lawson Ot I10 ESSENTIAL (PRIMARY) HYPERTENSION 09/16/2016 GELLENDER DO, DAREN Lawson Ot I48.91 UNSPECIFIED ATRIAL FIBRILLATION 09/16/2016 GELLENDER DO, DAREN Lawson Ot J18.9 PNEUMONIA, UNSPECIFIED ORGANISM 09/16/2016 GELLENDER DO, DAREN Lawson Ot J30.1 ALLERGIC RHINITIS DUE TO POLLEN 09/16/2016 GELLENDER DO, DAREN Lawson Ot K44.9 DIAPHRAGMATIC HERNIA WITHOUT OBSTRUCTION 09/16/2016 GELLENDER DO, DAREN Lawson Ot M19.91 PRIMARY OSTEOARTHRITIS, UNSPECIFIED SITE 09/16/2016 GELLENDER DO, DAREN Lawson Ot Z79.01 NOTE KEEPER (CURRENT) USE OF ANTICOAGULANT 09/16/2016 GELLENDER DO, DAREN Lawson Ot Z85.42 PERSONAL HISTORY OF MALIGNANT NEOPLASM O 09/17/2016 GELLENDER DO, DAREN Lawson Ot D64.9 ANEMIA, UNSPECIFIED 09/17/2016 GELLENDER DO, DAREN Lawson Ot F41.9 ANXIETY DISORDER, UNSPECIFIED 09/17/2016 GELLENDER DO, DAREN Lawson Ot I10 ESSENTIAL (PRIMARY) HYPERTENSION 09/17/2016 GELLENDER DO, DAREN Lawson Ot I48.91 UNSPECIFIED ATRIAL FIBRILLATION 09/17/2016 GELLENDER DO, DAREN Lawson Ot J18.9 PNEUMONIA, UNSPECIFIED ORGANISM 09/17/2016 GELLENDER DO, DAREN Lawson Ot J30.1 ALLERGIC RHINITIS DUE TO POLLEN 09/17/2016 GELLENDER DO, DAREN Lawson Ot K44.9 DIAPHRAGMATIC HERNIA WITHOUT OBSTRUCTION 09/17/2016 GELLENDER DO, DAREN Lawson Ot M19.91 PRIMARY OSTEOARTHRITIS, UNSPECIFIED SITE 09/17/2016 GELLENDER DO, DAREN Lawson Ot Z79.01 NOTE KEEPER (CURRENT) USE OF ANTICOAGULANT 09/17/2016 GELLENDER DO, DAREN Lawson Ot Z85.42 PERSONAL HISTORY OF MALIGNANT NEOPLASM O 09/17/2016 GELLENDER DO, DAREN Lawson Ot D64.9 ANEMIA, UNSPECIFIED 09/17/2016 GELLENDER DO, DAREN Lawson Ot F41.9 ANXIETY DISORDER, UNSPECIFIED 09/17/2016 GELLENDER DO, DAREN Lawson Ot I10 ESSENTIAL (PRIMARY) HYPERTENSION 09/17/2016 GELLENDER DO, DAREN Lawson Ot I48.91 UNSPECIFIED ATRIAL FIBRILLATION 09/17/2016 GELLENDER DO, DAREN Lawson Ot J18.9 PNEUMONIA, UNSPECIFIED ORGANISM 09/17/2016 GELLENDER DO, DAREN Lawson Ot J30.1 ALLERGIC RHINITIS DUE TO POLLEN 09/17/2016 GELLENDER DO, DAREN Lawson Ot K44.9 DIAPHRAGMATIC HERNIA WITHOUT OBSTRUCTION 09/17/2016 GELLENDER DO, DAREN Lawson Ot M19.91 PRIMARY OSTEOARTHRITIS, UNSPECIFIED SITE 09/17/2016 GELLENDER DO, DAREN Lawson Ot Z79.01 FPC (CURRENT) USE OF ANTICOAGULANT 09/17/2016 GELLENDER DO, DAREN Lawson Ot Z85.42 PERSONAL HISTORY OF MALIGNANT NEOPLASM O 09/18/2016 GELLENDER DO, DAREN Lawson Ot D64.9 ANEMIA, UNSPECIFIED 09/18/2016 GELLENDER DO, DAREN Lawson Ot F41.9 ANXIETY DISORDER, UNSPECIFIED 09/18/2016 GELLENDER DO, DAREN Lawson Ot I10 ESSENTIAL (PRIMARY) HYPERTENSION 09/18/2016 GELLENDER DO, DAREN Lawson Ot I48.91 UNSPECIFIED ATRIAL FIBRILLATION 09/18/2016 GELLENDER DO, DAREN Lawson Ot J18.9 PNEUMONIA, UNSPECIFIED ORGANISM 09/18/2016 GELLENDER DO, DAREN Lawson Ot J30.1 ALLERGIC RHINITIS DUE TO POLLEN 09/18/2016 GELLENDER DO, DAREN Lawson Ot K44.9 DIAPHRAGMATIC HERNIA WITHOUT OBSTRUCTION 09/18/2016 GELLENDER DO, DAREN Lawson Ot M19.91 PRIMARY OSTEOARTHRITIS, UNSPECIFIED SITE 09/18/2016 GELLENDER DO, DAREN Lawson Ot Z79.01 FPC (CURRENT) USE OF ANTICOAGULANT 09/18/2016 GELLENDER DO, DAREN Lawson Ot Z85.42 PERSONAL HISTORY OF MALIGNANT NEOPLASM O 09/18/2016 GELLENDER DO, DAREN Lawson Ot D64.9 ANEMIA, UNSPECIFIED 09/18/2016 GELLENDER DO, DAREN Lawson Ot F41.9 ANXIETY DISORDER, UNSPECIFIED 09/18/2016 GELLENDER DO, DAREN Lawson Ot I10 ESSENTIAL (PRIMARY) HYPERTENSION 09/18/2016 GELLENDER DO, DAREN Lawson Ot I48.91 UNSPECIFIED ATRIAL FIBRILLATION 09/18/2016 GELLENDER DO, DAREN Lawson Ot J18.9 PNEUMONIA, UNSPECIFIED ORGANISM 09/18/2016 GELLENDER DO, DAREN Lawson Ot J30.1 ALLERGIC RHINITIS DUE TO POLLEN 09/18/2016 GELLENDER DO, DAREN Lawson Ot K44.9 DIAPHRAGMATIC HERNIA WITHOUT OBSTRUCTION 09/18/2016 GELLENDER DO, DAREN Lawson Ot M19.91 PRIMARY OSTEOARTHRITIS, UNSPECIFIED SITE 09/18/2016 GELLENDER DO, DAREN Lawson Ot Z79.01 NOTE KEEPER (CURRENT) USE OF ANTICOAGULANT 09/18/2016 GELLENDER DO, DAREN Lawson Ot Z85.42 PERSONAL HISTORY OF MALIGNANT NEOPLASM O 09/19/2016 GELLENDER DO, DAREN Lawson Ot D64.9 ANEMIA, UNSPECIFIED 09/19/2016 GELLENDER DO, DAREN Lawson Ot F41.9 ANXIETY DISORDER, UNSPECIFIED 09/19/2016 GELLENDER DO, DAREN Lawson Ot I10 ESSENTIAL (PRIMARY) HYPERTENSION 09/19/2016 GELLENDER DO, DAREN Lawson Ot I48.91 UNSPECIFIED ATRIAL FIBRILLATION 09/19/2016 GELLENDER DO, DAREN Lawson Ot J18.9 PNEUMONIA, UNSPECIFIED ORGANISM 09/19/2016 DAREN FERGUSON DO Ot J30.1 ALLERGIC RHINITIS DUE TO POLLEN 09/19/2016 DAREN FERGUSON DO Ot K44.9 DIAPHRAGMATIC HERNIA WITHOUT OBSTRUCTION 09/19/2016 DAREN FERGUSON DO Ot M19.91 PRIMARY OSTEOARTHRITIS, UNSPECIFIED SITE 09/19/2016 DAREN FERGUSON DO Ot Z79.01 FPC (CURRENT) USE OF ANTICOAGULANT 09/19/2016 DAREN FERGUSON DO Ot Z85.42 PERSONAL HISTORY OF MALIGNANT NEOPLASM O Procedures Results Test Result Range PT panel in platelet poor plasma by coagulation assay - 11/08/15 11:30 Prothrombin time (PT) in platelet poor plasma by coagulation assay 28.5 s 12.2-14.7 INR in platelet poor plasma or blood by coagulation assay 2.7 0.8-1.4 RED CELLS LEUKO REDUCED AS1 - 01/05/16 10:24 RED CELLS LEUKO REDUCED AS1 TRANSFUSED 1127 [facility] Blood type T Indirect antibody screen panel - 01/05/16 10:24 ABO+Rh group AP NRG Transfusion band number [id number] [facility] Blood group antibody screen NEGATIVE [facility] Complete blood count (CBC) with automated white blood cell (WBC) differential - 01/28/16 12:35 Blood leukocytes automated count (number/volume) 6.4 10*3/ uL 4.3-11.0 Blood erythrocytes automated count (number/volume) 3.65 10*6 /uL 4.35-5.85 Venous blood hemoglobin measurement (mass/volume) 8.1 g/dL 11.5-16.0 Blood hematocrit (volume fraction) 28 % 35-52 Automated erythrocyte mean corpuscular volume 76 [foz_us] 80-99 Automated erythrocyte mean corpuscular hemoglobin (mass per erythrocyte) 22 pg 25-34 Automated erythrocyte mean corpuscular hemoglobin concentration measurement ( mass/volume) 29 g/dL 32-36 Automated erythrocyte distribution width ratio 20.7 % 10.0-14.5 Automated blood platelet count (count/volume) 325 10*3/uL 130-400 Automated blood platelet mean volume measurement 9.3 [foz_us ] 7.4-10.4 Automated blood neutrophils/100 leukocytes 73 % 42-75 Automated blood lymphocytes/100 leukocytes 15 % 12-44 Blood monocytes/100 leukocytes 12 % 0-12 Automated blood eosinophils/100 leukocytes 0 % 0-10 Automated blood basophils/100 leukocytes 0 % 0-10 Blood neutrophils automated count (number/volume) 4.6 10*3 1.8-7.8 Blood lymphocytes automated count (number/volume) 0.9 10*3 1.0-4.0 Blood monocytes automated count (number/volume) 0.8 10*3 0.0-1.0 Automated eosinophil count 0.0 10*3/uL 0.0-0.3 Automated blood basophil count (count/volume) 0.0 10*3/uL 0.0-0.1 PT panel in platelet poor plasma by coagulation assay - 01/28/16 12:35 Prothrombin time (PT) in platelet poor plasma by coagulation assay 35.2 s 12.2-14.7 INR in platelet poor plasma or blood by coagulation assay 3.5 0.8-1.4 Complete blood count (CBC) with automated white blood cell (WBC) differential - 04/22/16 00:28 Blood leukocytes automated count (number/volume) 23.0 10*3/ uL 4.3-11.0 Blood erythrocytes automated count (number/volume) 3.76 10*6 /uL 4.35-5.85 Venous blood hemoglobin measurement (mass/volume) 8.7 g/dL 11.5-16.0 Blood hematocrit (volume fraction) 30 % 35-52 Automated erythrocyte mean corpuscular volume 79 [foz_us] 80-99 Automated erythrocyte mean corpuscular hemoglobin (mass per erythrocyte) 23 pg 25-34 Automated erythrocyte mean corpuscular hemoglobin concentration measurement ( mass/volume) 30 g/dL 32-36 Automated erythrocyte distribution width ratio 18.5 % 10.0-14.5 Automated blood platelet count (count/volume) 380 10*3/uL 130-400 Automated blood platelet mean volume measurement 9.9 [foz_us ] 7.4-10.4 Automated blood neutrophils/100 leukocytes 82 % 42-75 Automated blood lymphocytes/100 leukocytes 8 % 12-44 Blood monocytes/100 leukocytes 9 % 0-12 Automated blood eosinophils/100 leukocytes 0 % 0-10 Automated blood basophils/100 leukocytes 0 % 0-10 Blood neutrophils automated count (number/volume) 18.9 10*3 1.8-7.8 Blood lymphocytes automated count (number/volume) 1.9 10*3 1.0-4.0 Blood monocytes automated count (number/volume) 2.1 10*3 0.0-1.0 Automated eosinophil count 0.0 10*3/uL 0.0-0.3 Automated blood basophil count (count/volume) 0.0 10*3/uL 0.0-0.1 PT panel in platelet poor plasma by coagulation assay - 04/22/16 00:28 Prothrombin time (PT) in platelet poor plasma by coagulation assay 30.4 s 12.2-14.7 INR in platelet poor plasma or blood by coagulation assay 2.9 0.8-1.4 Blood lactic acid measurement (moles/volume) - 04/22/16 00:28 Blood lactic acid measurement (moles/volume) 1.8 mmol/L 0.5-2.0 Blood manual differential performed detection - 04/22/16 00:28 Blood monocytes/100 leukocytes 7 % NRG Manual blood segmented neutrophils/100 leukocytes 77 % NRG Blood band neutrophils/100 leukocytes 7 % NRG Manual blood lymphocytes/100 leukocytes 9 % [facility] Blood erythrocyte morphology finding identification NORMAL [facility] Influenza virus A and B antigen detection - 04/22/16 00:28 FLU RESULT NEGATIVE FOR INFLUENZA A AND B ANTIGENS BY IA [facility] Comprehensive metabolic panel - 04/22/16 00:28 Serum or plasma sodium measurement (moles/volume) 137 mmol/ L 135-145 Serum or plasma potassium measurement (moles/volume) 3.6 mmol/L 3.6-5.0 Serum or plasma chloride measurement (moles/volume) 102 mmol /L 98-107 Carbon dioxide 21 mmol/L 21-32 Serum or plasma anion gap determination (moles/volume) 14 mmol/L 5-14 Serum or plasma urea nitrogen measurement (mass/volume) 19 mg/dL 7-18 Serum or plasma creatinine measurement (mass/volume) 0.76 mg /dL 0.60-1.30 Serum or plasma urea nitrogen/creatinine mass ratio 25 NRG Serum or plasma creatinine measurement with calculation of estimated glomerular filtration rate > NRG Serum or plasma glucose measurement (mass/volume) 110 mg/dL 70-105 Serum or plasma calcium measurement (mass/volume) 8.7 mg/dL 8.5-10.1 Serum or plasma total bilirubin measurement (mass/volume) 1.2 mg/dL 0.1-1.0 Serum or plasma alkaline phosphatase measurement (enzymatic activity/volume) 107 U/L 40-136 Serum or plasma aspartate aminotransferase measurement (enzymatic activity/ volume) 18 U/L 5-34 Serum or plasma alanine aminotransferase measurement (enzymatic activity/volume ) 13 U/L 0-55 Serum or plasma protein measurement (mass/volume) 7.4 g/dL 6.4-8.2 Serum or plasma albumin measurement (mass/volume) 3.6 g/dL 3.2-4.5 Magnesium - 04/22/16 00:28 Magnesium 1.8 mg/dL 1.8-2.4 Serum or plasma troponin i.cardiac measurement (mass/volume) - 04/22/16 00:28 Serum or plasma troponin i.cardiac measurement (mass/volume) < ng/mL <0.30 Serum or plasma lithium measurement (moles/volume) - 04/22/16 00:28 BNP level 435.6 pg/mL <100.0 Bacterial blood culture - 04/22/16 00:28 Bacterial blood culture NG NRG Bacterial blood culture - 04/22/16 00:55 Bacterial blood culture NG NRG Complete urinalysis with reflex to culture - 04/22/16 01:08 Urine color determination SARAH NRG Urine clarity determination SLIGHTLY CLOUDY NRG Urine pH measurement by test strip 5 5- 9 Specific gravity of urine by test strip 1.020 1.016-1.022 Urine protein assay by test strip, semi-quantitative 2+ NEGATIVE Urine glucose detection by automated test strip NEGATIVE NEGATIVE Erythrocytes detection in urine sediment by light microscopy 2+ NEGATIVE Urine ketones detection by automated test strip 1+ NEGATIVE Urine nitrite detection by test strip NEGATIVE NEGATIVE Urine total bilirubin detection by test strip NEGATIVE NEGATIVE Urine urobilinogen measurement by automated test strip (mass/volume) 8 mg/dL NORMAL Urine leukocyte esterase detection by dipstick 3+ NEGATIVE Automated urine sediment erythrocyte count by microscopy (number/high power field) [HPF] NRG Automated urine sediment leukocyte count by microscopy (number/high power field ) [HPF] NRG Bacteria detection in urine sediment by light microscopy FEW NRG Squamous epithelial cells detection in urine sediment by light microscopy 5-10 NRG Crystals detection in urine sediment by light microscopy NONE NRG Casts detection in urine sediment by light microscopy NONE NRG Mucus detection in urine sediment by light microscopy NEGATIVE NRG Complete urinalysis with reflex to culture YES NRG Bacterial urine culture - 04/22/16 01:08 Bacterial urine culture [id number] NRG COLONY COUNT 10,000/ML - 100,000/ML NRG FTX;REPORTABLE (NONENTEROCOCCUS) NRG FREE TEXT ENTRY 3 2 COLONY TYPES NRG Complete blood count (CBC) with automated white blood cell (WBC) differential - 04/22/16 06:40 Blood leukocytes automated count (number/volume) 19.7 10*3/ uL 4.3-11.0 Blood erythrocytes automated count (number/volume) 3.57 10*6 /uL 4.35-5.85 Venous blood hemoglobin measurement (mass/volume) 8.2 g/dL 11.5-16.0 Blood hematocrit (volume fraction) 28 % 35-52 Automated erythrocyte mean corpuscular volume 79 [foz_us] 80-99 Automated erythrocyte mean corpuscular hemoglobin (mass per erythrocyte) 23 pg 25-34 Automated erythrocyte mean corpuscular hemoglobin concentration measurement ( mass/volume) 29 g/dL 32-36 Automated erythrocyte distribution width ratio 18.7 % 10.0-14.5 Automated blood platelet count (count/volume) 334 10*3/uL 130-400 Automated blood platelet mean volume measurement 10.2 [foz_ us] 7.4-10.4 Automated blood neutrophils/100 leukocytes 85 % 42-75 Automated blood lymphocytes/100 leukocytes 7 % 12-44 Blood monocytes/100 leukocytes 9 % 0-12 Automated blood eosinophils/100 leukocytes 0 % 0-10 Automated blood basophils/100 leukocytes 0 % 0-10 Blood neutrophils automated count (number/volume) 16.7 10*3 1.8-7.8 Blood lymphocytes automated count (number/volume) 1.4 10*3 1.0-4.0 Blood monocytes automated count (number/volume) 1.7 10*3 0.0-1.0 Automated eosinophil count 0.0 10*3/uL 0.0-0.3 Automated blood basophil count (count/volume) 0.0 10*3/uL 0.0-0.1 Complete blood count (CBC) with automated white blood cell (WBC) differential - 04/23/16 05:20 Blood leukocytes automated count (number/volume) 11.3 10*3/ uL 4.3-11.0 Blood erythrocytes automated count (number/volume) 3.25 10*6 /uL 4.35-5.85 Venous blood hemoglobin measurement (mass/volume) 7.3 g/dL 11.5-16.0 Blood hematocrit (volume fraction) 26 % 35-52 Automated erythrocyte mean corpuscular volume 79 [foz_us] 80-99 Automated erythrocyte mean corpuscular hemoglobin (mass per erythrocyte) 23 pg 25-34 Automated erythrocyte mean corpuscular hemoglobin concentration measurement ( mass/volume) 29 g/dL 32-36 Automated erythrocyte distribution width ratio 18.5 % 10.0-14.5 Automated blood platelet count (count/volume) 363 10*3/uL 130-400 Automated blood platelet mean volume measurement 9.8 [foz_us ] 7.4-10.4 Automated blood neutrophils/100 leukocytes 82 % 42-75 Automated blood lymphocytes/100 leukocytes 10 % 12-44 Blood monocytes/100 leukocytes 8 % 0-12 Automated blood eosinophils/100 leukocytes 1 % 0-10 Automated blood basophils/100 leukocytes 0 % 0-10 Blood neutrophils automated count (number/volume) 9.2 10*3 1.8-7.8 Blood lymphocytes automated count (number/volume) 1.1 10*3 1.0-4.0 Blood monocytes automated count (number/volume) 0.9 10*3 0.0-1.0 Automated eosinophil count 0.1 10*3/uL 0.0-0.3 Automated blood basophil count (count/volume) 0.0 10*3/uL 0.0-0.1 PT panel in platelet poor plasma by coagulation assay - 04/23/16 05:20 Prothrombin time (PT) in platelet poor plasma by coagulation assay 40.8 s 12.2-14.7 INR in platelet poor plasma or blood by coagulation assay 4.2 0.8-1.4 Comprehensive metabolic panel - 04/23/16 05:20 Serum or plasma sodium measurement (moles/volume) 139 mmol/ L 135-145 Serum or plasma potassium measurement (moles/volume) 3.8 mmol/L 3.6-5.0 Serum or plasma chloride measurement (moles/volume) 106 mmol /L 98-107 Carbon dioxide 22 mmol/L 21-32 Serum or plasma anion gap determination (moles/volume) 11 mmol/L 5-14 Serum or plasma urea nitrogen measurement (mass/volume) 15 mg/dL 7-18 Serum or plasma creatinine measurement (mass/volume) 0.61 mg /dL 0.60-1.30 Serum or plasma urea nitrogen/creatinine mass ratio 25 NRG Serum or plasma creatinine measurement with calculation of estimated glomerular filtration rate > NRG Serum or plasma glucose measurement (mass/volume) 93 mg/dL 70-105 Serum or plasma calcium measurement (mass/volume) 8.3 mg/dL 8.5-10.1 Serum or plasma total bilirubin measurement (mass/volume) 0.5 mg/dL 0.1-1.0 Serum or plasma alkaline phosphatase measurement (enzymatic activity/volume) 86 U/L 40-136 Serum or plasma aspartate aminotransferase measurement (enzymatic activity/ volume) 11 U/L 5-34 Serum or plasma alanine aminotransferase measurement (enzymatic activity/volume ) 9 U/L 0-55 Serum or plasma protein measurement (mass/volume) 6.1 g/dL 6.4-8.2 Serum or plasma albumin measurement (mass/volume) 2.9 g/dL 3.2-4.5 Sputum Gram stain - 04/23/16 12:40 GRAM STAIN SPUTUM AND MIXED BACTERIAL LEONID NR Bacterial sputum culture - 04/23/16 12:40 FREE TEXT EXTERNAL PLUS NORMAL LEONID NRG QUANTITY OF GROWTH Abundant Growth [facility] Bacterial sputum culture [id number] [facility] Bacterial susceptibility panel - 04/23/16 12:40 Trimethoprim/sulfamethoxazole susceptibility test by minimum inhibitoryconcentration 80 NR Complete blood count (CBC) with automated white blood cell (WBC) differential - 04/24/16 06:00 Blood leukocytes automated count (number/volume) 10.1 10*3/ uL 4.3-11.0 Blood erythrocytes automated count (number/volume) 3.36 10*6 /uL 4.35-5.85 Venous blood hemoglobin measurement (mass/volume) 7.6 g/dL 11.5-16.0 Blood hematocrit (volume fraction) 26 % 35-52 Automated erythrocyte mean corpuscular volume 78 [foz_us] 80-99 Automated erythrocyte mean corpuscular hemoglobin (mass per erythrocyte) 23 pg 25-34 Automated erythrocyte mean corpuscular hemoglobin concentration measurement ( mass/volume) 29 g/dL 32-36 Automated erythrocyte distribution width ratio 18.5 % 10.0-14.5 Automated blood platelet count (count/volume) 408 10*3/uL 130-400 Automated blood platelet mean volume measurement 9.6 [foz_us ] 7.4-10.4 Automated blood neutrophils/100 leukocytes 85 % 42-75 Automated blood lymphocytes/100 leukocytes 6 % 12-44 Blood monocytes/100 leukocytes 8 % 0-12 Automated blood eosinophils/100 leukocytes 1 % 0-10 Automated blood basophils/100 leukocytes 0 % 0-10 Blood neutrophils automated count (number/volume) 8.6 10*3 1.8-7.8 Blood lymphocytes automated count (number/volume) 0.6 10*3 1.0-4.0 Blood monocytes automated count (number/volume) 0.8 10*3 0.0-1.0 Automated eosinophil count 0.1 10*3/uL 0.0-0.3 Automated blood basophil count (count/volume) 0.0 10*3/uL 0.0-0.1 PT panel in platelet poor plasma by coagulation assay - 04/24/16 06:00 Prothrombin time (PT) in platelet poor plasma by coagulation assay 35.7 s 12.2-14.7 INR in platelet poor plasma or blood by coagulation assay 3.6 0.8-1.4 Whole blood basic metabolic panel - 04/24/16 06:00 Serum or plasma sodium measurement (moles/volume) 138 mmol/ L 135-145 Serum or plasma potassium measurement (moles/volume) 3.5 mmol/L 3.6-5.0 Serum or plasma chloride measurement (moles/volume) 105 mmol /L 98-107 Carbon dioxide 21 mmol/L 21-32 Serum or plasma anion gap determination (moles/volume) 12 mmol/L 5-14 Serum or plasma urea nitrogen measurement (mass/volume) 12 mg/dL 7-18 Serum or plasma creatinine measurement (mass/volume) 0.54 mg /dL 0.60-1.30 Serum or plasma urea nitrogen/creatinine mass ratio 22 NRG Serum or plasma creatinine measurement with calculation of estimated glomerular filtration rate > NRG Serum or plasma glucose measurement (mass/volume) 101 mg/dL 70-105 Serum or plasma calcium measurement (mass/volume) 8.6 mg/dL 8.5-10.1 Complete blood count (CBC) with automated white blood cell (WBC) differential - 04/25/16 05:35 Blood leukocytes automated count (number/volume) 8.4 10*3/ uL 4.3-11.0 Blood erythrocytes automated count (number/volume) 3.49 10*6 /uL 4.35-5.85 Venous blood hemoglobin measurement (mass/volume) 7.9 g/dL 11.5-16.0 Blood hematocrit (volume fraction) 27 % 35-52 Automated erythrocyte mean corpuscular volume 77 [foz_us] 80-99 Automated erythrocyte mean corpuscular hemoglobin (mass per erythrocyte) 23 pg 25-34 Automated erythrocyte mean corpuscular hemoglobin concentration measurement ( mass/volume) 29 g/dL 32-36 Automated erythrocyte distribution width ratio 18.3 % 10.0-14.5 Automated blood platelet count (count/volume) 475 10*3/uL 130-400 Automated blood platelet mean volume measurement 9.2 [foz_us ] 7.4-10.4 Automated blood neutrophils/100 leukocytes 83 % 42-75 Automated blood lymphocytes/100 leukocytes 8 % 12-44 Blood monocytes/100 leukocytes 9 % 0-12 Automated blood eosinophils/100 leukocytes 0 % 0-10 Automated blood basophils/100 leukocytes 0 % 0-10 Blood neutrophils automated count (number/volume) 7.0 10*3 1.8-7.8 Blood lymphocytes automated count (number/volume) 0.6 10*3 1.0-4.0 Blood monocytes automated count (number/volume) 0.8 10*3 0.0-1.0 Automated eosinophil count 0.0 10*3/uL 0.0-0.3 Automated blood basophil count (count/volume) 0.0 10*3/uL 0.0-0.1 Whole blood basic metabolic panel - 04/25/16 05:35 Serum or plasma sodium measurement (moles/volume) 139 mmol/ L 135-145 Serum or plasma potassium measurement (moles/volume) 3.3 mmol/L 3.6-5.0 Serum or plasma chloride measurement (moles/volume) 105 mmol /L 98-107 Carbon dioxide 22 mmol/L 21-32 Serum or plasma anion gap determination (moles/volume) 12 mmol/L 5-14 Serum or plasma urea nitrogen measurement (mass/volume) 8 mg /dL 7-18 Serum or plasma creatinine measurement (mass/volume) 0.58 mg /dL 0.60-1.30 Serum or plasma urea nitrogen/creatinine mass ratio 14 NRG Serum or plasma creatinine measurement with calculation of estimated glomerular filtration rate > NRG Serum or plasma glucose measurement (mass/volume) 113 mg/dL 70-105 Serum or plasma calcium measurement (mass/volume) 8.7 mg/dL 8.5-10.1 PT panel in platelet poor plasma by coagulation assay - 04/25/16 05:35 Prothrombin time (PT) in platelet poor plasma by coagulation assay 29.5 s 12.2-14.7 INR in platelet poor plasma or blood by coagulation assay 2.8 0.8-1.4 Serum or plasma lithium measurement (moles/volume) - 04/25/16 05:35 BNP level 278.9 pg/mL <100.0 Complete blood count (CBC) with automated white blood cell (WBC) differential - 04/26/16 05:40 Blood leukocytes automated count (number/volume) 7.1 10*3/ uL 4.3-11.0 Blood erythrocytes automated count (number/volume) 3.50 10*6 /uL 4.35-5.85 Venous blood hemoglobin measurement (mass/volume) 7.8 g/dL 11.5-16.0 Blood hematocrit (volume fraction) 27 % 35-52 Automated erythrocyte mean corpuscular volume 77 [foz_us] 80-99 Automated erythrocyte mean corpuscular hemoglobin (mass per erythrocyte) 22 pg 25-34 Automated erythrocyte mean corpuscular hemoglobin concentration measurement ( mass/volume) 29 g/dL 32-36 Automated erythrocyte distribution width ratio 18.2 % 10.0-14.5 Automated blood platelet count (count/volume) 487 10*3/uL 130-400 Automated blood platelet mean volume measurement 9.5 [foz_us ] 7.4-10.4 Automated blood neutrophils/100 leukocytes 72 % 42-75 Automated blood lymphocytes/100 leukocytes 12 % 12-44 Blood monocytes/100 leukocytes 14 % 0-12 Automated blood eosinophils/100 leukocytes 2 % 0-10 Automated blood basophils/100 leukocytes 0 % 0-10 Blood neutrophils automated count (number/volume) 5.1 10*3 1.8-7.8 Blood lymphocytes automated count (number/volume) 0.9 10*3 1.0-4.0 Blood monocytes automated count (number/volume) 1.0 10*3 0.0-1.0 Automated eosinophil count 0.2 10*3/uL 0.0-0.3 Automated blood basophil count (count/volume) 0.0 10*3/uL 0.0-0.1 Comprehensive metabolic panel - 04/26/16 05:40 Serum or plasma sodium measurement (moles/volume) 141 mmol/ L 135-145 Serum or plasma potassium measurement (moles/volume) 3.5 mmol/L 3.6-5.0 Serum or plasma chloride measurement (moles/volume) 104 mmol /L 98-107 Carbon dioxide 26 mmol/L 21-32 Serum or plasma anion gap determination (moles/volume) 11 mmol/L 5-14 Serum or plasma urea nitrogen measurement (mass/volume) 7 mg /dL 7-18 Serum or plasma creatinine measurement (mass/volume) 0.62 mg /dL 0.60-1.30 Serum or plasma urea nitrogen/creatinine mass ratio 11 NRG Serum or plasma creatinine measurement with calculation of estimated glomerular filtration rate > NRG Serum or plasma glucose measurement (mass/volume) 106 mg/dL 70-105 Serum or plasma calcium measurement (mass/volume) 8.8 mg/dL 8.5-10.1 Serum or plasma total bilirubin measurement (mass/volume) 0.4 mg/dL 0.1-1.0 Serum or plasma alkaline phosphatase measurement (enzymatic activity/volume) 90 U/L 40-136 Serum or plasma aspartate aminotransferase measurement (enzymatic activity/ volume) 13 U/L 5-34 Serum or plasma alanine aminotransferase measurement (enzymatic activity/volume ) 13 U/L 0-55 Serum or plasma protein measurement (mass/volume) 6.7 g/dL 6.4-8.2 Serum or plasma albumin measurement (mass/volume) 3.1 g/dL 3.2-4.5 PT panel in platelet poor plasma by coagulation assay - 04/26/16 05:40 Prothrombin time (PT) in platelet poor plasma by coagulation assay 33.0 s 12.2-14.7 INR in platelet poor plasma or blood by coagulation assay 3.2 0.8-1.4 Complete blood count (CBC) with automated white blood cell (WBC) differential - 04/27/16 05:24 Blood leukocytes automated count (number/volume) 7.8 10*3/ uL 4.3-11.0 Blood erythrocytes automated count (number/volume) 3.42 10*6 /uL 4.35-5.85 Venous blood hemoglobin measurement (mass/volume) 7.6 g/dL 11.5-16.0 Blood hematocrit (volume fraction) 27 % 35-52 Automated erythrocyte mean corpuscular volume 78 [foz_us] 80-99 Automated erythrocyte mean corpuscular hemoglobin (mass per erythrocyte) 22 pg 25-34 Automated erythrocyte mean corpuscular hemoglobin concentration measurement ( mass/volume) 28 g/dL 32-36 Automated erythrocyte distribution width ratio 18.4 % 10.0-14.5 Automated blood platelet count (count/volume) 528 10*3/uL 130-400 Automated blood platelet mean volume measurement 10.0 [foz_ us] 7.4-10.4 Automated blood neutrophils/100 leukocytes 69 % 42-75 Automated blood lymphocytes/100 leukocytes 13 % 12-44 Blood monocytes/100 leukocytes 15 % 0-12 Automated blood eosinophils/100 leukocytes 3 % 0-10 Automated blood basophils/100 leukocytes 1 % 0-10 Blood neutrophils automated count (number/volume) 5.4 10*3 1.8-7.8 Blood lymphocytes automated count (number/volume) 1.0 10*3 1.0-4.0 Blood monocytes automated count (number/volume) 1.2 10*3 0.0-1.0 Automated eosinophil count 0.2 10*3/uL 0.0-0.3 Automated blood basophil count (count/volume) 0.0 10*3/uL 0.0-0.1 PT panel in platelet poor plasma by coagulation assay - 04/27/16 05:24 Prothrombin time (PT) in platelet poor plasma by coagulation assay 38.1 s 12.2-14.7 INR in platelet poor plasma or blood by coagulation assay 3.9 0.8-1.4 Whole blood basic metabolic panel - 04/27/16 05:24 Serum or plasma sodium measurement (moles/volume) 140 mmol/ L 135-145 Serum or plasma potassium measurement (moles/volume) 3.7 mmol/L 3.6-5.0 Serum or plasma chloride measurement (moles/volume) 103 mmol /L 98-107 Carbon dioxide 25 mmol/L 21-32 Serum or plasma anion gap determination (moles/volume) 12 mmol/L 5-14 Serum or plasma urea nitrogen measurement (mass/volume) 8 mg /dL 7-18 Serum or plasma creatinine measurement (mass/volume) 0.61 mg /dL 0.60-1.30 Serum or plasma urea nitrogen/creatinine mass ratio 13 NRG Serum or plasma creatinine measurement with calculation of estimated glomerular filtration rate > NRG Serum or plasma glucose measurement (mass/volume) 90 mg/dL 70-105 Serum or plasma calcium measurement (mass/volume) 9.0 mg/dL 8.5-10.1 RED CELLS LEUKO REDUCED AS1 - 09/13/16 08:21 RED CELLS LEUKO REDUCED AS1 TRANSFUSED 0914 NRG Blood type T Indirect antibody screen panel - 09/13/16 08:21 ABO+Rh group AP NRG Transfusion band number [id number] NRG Blood group antibody screen NEGATIVE NRG Bacterial blood culture - 09/13/16 18:48 Bacterial blood culture NG NRG Complete blood count (CBC) with automated white blood cell (WBC) differential - 09/13/16 19:38 Blood leukocytes automated count (number/volume) 8.0 10*3/ uL 4.3-11.0 Blood erythrocytes automated count (number/volume) 3.89 10*6 /uL 4.35-5.85 Venous blood hemoglobin measurement (mass/volume) 8.4 g/dL 11.5-16.0 Blood hematocrit (volume fraction) 29 % 35-52 Automated erythrocyte mean corpuscular volume 74 [foz_us] 80-99 Automated erythrocyte mean corpuscular hemoglobin (mass per erythrocyte) 22 pg 25-34 Automated erythrocyte mean corpuscular hemoglobin concentration measurement ( mass/volume) 29 g/dL 32-36 Automated erythrocyte distribution width ratio 17.9 % 10.0-14.5 Automated blood platelet count (count/volume) 330 10*3/uL 130-400 Automated blood platelet mean volume measurement 9.7 [foz_us ] 7.4-10.4 Automated blood neutrophils/100 leukocytes 76 % 42-75 Automated blood lymphocytes/100 leukocytes 11 % 12-44 Blood monocytes/100 leukocytes 13 % 0-12 Automated blood eosinophils/100 leukocytes 0 % 0-10 Automated blood basophils/100 leukocytes 0 % 0-10 Blood neutrophils automated count (number/volume) 6.1 10*3 1.8-7.8 Blood lymphocytes automated count (number/volume) 0.9 10*3 1.0-4.0 Blood monocytes automated count (number/volume) 1.0 10*3 0.0-1.0 Automated eosinophil count 0.0 10*3/uL 0.0-0.3 Automated blood basophil count (count/volume) 0.0 10*3/uL 0.0-0.1 PT panel in platelet poor plasma by coagulation assay - 09/13/16 19:38 Prothrombin time (PT) in platelet poor plasma by coagulation assay 31.8 s 12.2-14.7 INR in platelet poor plasma or blood by coagulation assay 3.1 0.8-1.4 Activated partial thromboplastin time (aPTT) in platelet poor plasma bycoagulation assay - 09/13/16 19:38 Activated partial thromboplastin time (aPTT) in platelet poor plasma bycoagulation assay 58 s 24-35 Blood lactic acid measurement (moles/volume) - 09/13/16 19:38 Blood lactic acid measurement (moles/volume) 1.30 mmol/L 0.50-2.00 Comprehensive metabolic panel - 09/13/16 19:38 Serum or plasma sodium measurement (moles/volume) 137 mmol/ L 135-145 Serum or plasma potassium measurement (moles/volume) 3.7 mmol/L 3.6-5.0 Serum or plasma chloride measurement (moles/volume) 104 mmol /L 98-107 Carbon dioxide 22 mmol/L 21-32 Serum or plasma anion gap determination (moles/volume) 11 mmol/L 5-14 Serum or plasma urea nitrogen measurement (mass/volume) 12 mg/dL 7-18 Serum or plasma creatinine measurement (mass/volume) 0.61 mg /dL 0.60-1.30 Serum or plasma urea nitrogen/creatinine mass ratio 20 NRG Serum or plasma creatinine measurement with calculation of estimated glomerular filtration rate > NRG Serum or plasma glucose measurement (mass/volume) 100 mg/dL 70-105 Serum or plasma calcium measurement (mass/volume) 8.6 mg/dL 8.5-10.1 Serum or plasma total bilirubin measurement (mass/volume) 0.9 mg/dL 0.1-1.0 Serum or plasma alkaline phosphatase measurement (enzymatic activity/volume) 88 U/L 40-136 Serum or plasma aspartate aminotransferase measurement (enzymatic activity/ volume) 15 U/L 5-34 Serum or plasma alanine aminotransferase measurement (enzymatic activity/volume ) 11 U/L 0-55 Serum or plasma protein measurement (mass/volume) 7.5 g/dL 6.4-8.2 Serum or plasma albumin measurement (mass/volume) 3.7 g/dL 3.2-4.5 Bacterial blood culture - 09/13/16 19:38 Bacterial blood culture NG NRG Complete urinalysis with reflex to culture - 09/13/16 20:22 Urine color determination YELLOW NRG Urine clarity determination CLEAR NRG Urine pH measurement by test strip 7 5- 9 Specific gravity of urine by test strip 1.010 1.016-1.022 Urine protein assay by test strip, semi-quantitative 2+ NEGATIVE Urine glucose detection by automated test strip NEGATIVE NEGATIVE Erythrocytes detection in urine sediment by light microscopy 1+ NEGATIVE Urine ketones detection by automated test strip 1+ NEGATIVE Urine nitrite detection by test strip NEGATIVE NEGATIVE Urine total bilirubin detection by test strip NEGATIVE NEGATIVE Urine urobilinogen measurement by automated test strip (mass/volume) NORMAL NORMAL Urine leukocyte esterase detection by dipstick 3+ NEGATIVE Automated urine sediment erythrocyte count by microscopy (number/high power field) [HPF] NRG Automated urine sediment leukocyte count by microscopy (number/high power field ) [HPF] NRG Bacteria detection in urine sediment by light microscopy TRACE NRG Squamous epithelial cells detection in urine sediment by light microscopy 5-10 NRG Crystals detection in urine sediment by light microscopy NONE NRG Casts detection in urine sediment by light microscopy NONE NRG Mucus detection in urine sediment by light microscopy SMALL NRG Complete urinalysis with reflex to culture YES NRG Bacterial urine culture - 09/13/16 20:22 Bacterial urine culture [id number] NRG COLONY COUNT <10,000 NRG FTX;REPORTABLE SENSITIVITY REPORTED 09/16 07:05 NRG Bacterial susceptibility panel - 09/13/16 20:22 Gentamicin susceptibility test by minimum inhibitory concentration R NRG Vancomycin susceptibility test by minimum inhibitory concentration 1 NRG Levofloxacin susceptibility test by minimum inhibitory concentration 1 NRG Tetracycline susceptibility test by minimum inhibitory concentration >= NRG Ampicillin susceptibility test by minimum inhibitory concentration <= NRG Nitrofurantoin susceptibility test by minimum inhibitory concentration <= NRG Linezolid susceptibility test by minimum inhibitory concentration 2 NRG Complete blood count (CBC) with automated white blood cell (WBC) differential - 09/14/16 04:34 Blood leukocytes automated count (number/volume) 7.7 10*3/ uL 4.3-11.0 Blood erythrocytes automated count (number/volume) 3.72 10*6 /uL 4.35-5.85 Venous blood hemoglobin measurement (mass/volume) 7.8 g/dL 11.5-16.0 Blood hematocrit (volume fraction) 28 % 35-52 Automated erythrocyte mean corpuscular volume 74 [foz_us] 80-99 Automated erythrocyte mean corpuscular hemoglobin (mass per erythrocyte) 21 pg 25-34 Automated erythrocyte mean corpuscular hemoglobin concentration measurement ( mass/volume) 28 g/dL 32-36 Automated erythrocyte distribution width ratio 18.0 % 10.0-14.5 Automated blood platelet count (count/volume) 327 10*3/uL 130-400 Automated blood platelet mean volume measurement 10.3 [foz_ us] 7.4-10.4 Automated blood neutrophils/100 leukocytes 65 % 42-75 Automated blood lymphocytes/100 leukocytes 22 % 12-44 Blood monocytes/100 leukocytes 12 % 0-12 Automated blood eosinophils/100 leukocytes 1 % 0-10 Automated blood basophils/100 leukocytes 0 % 0-10 Blood neutrophils automated count (number/volume) 5.0 10*3 1.8-7.8 Blood lymphocytes automated count (number/volume) 1.7 10*3 1.0-4.0 Blood monocytes automated count (number/volume) 0.9 10*3 0.0-1.0 Automated eosinophil count 0.1 10*3/uL 0.0-0.3 Automated blood basophil count (count/volume) 0.0 10*3/uL 0.0-0.1 PT panel in platelet poor plasma by coagulation assay - 09/14/16 04:34 Prothrombin time (PT) in platelet poor plasma by coagulation assay 34.8 s 12.2-14.7 INR in platelet poor plasma or blood by coagulation assay 3.5 0.8-1.4 Whole blood basic metabolic panel - 09/14/16 04:34 Serum or plasma sodium measurement (moles/volume) 140 mmol/ L 135-145 Serum or plasma potassium measurement (moles/volume) 3.4 mmol/L 3.6-5.0 Serum or plasma chloride measurement (moles/volume) 106 mmol /L 98-107 Carbon dioxide 20 mmol/L 21-32 Serum or plasma anion gap determination (moles/volume) 14 mmol/L 5-14 Serum or plasma urea nitrogen measurement (mass/volume) 11 mg/dL 7-18 Serum or plasma creatinine measurement (mass/volume) 0.58 mg /dL 0.60-1.30 Serum or plasma urea nitrogen/creatinine mass ratio 19 NRG Serum or plasma creatinine measurement with calculation of estimated glomerular filtration rate > NRG Serum or plasma glucose measurement (mass/volume) 90 mg/dL 70-105 Serum or plasma calcium measurement (mass/volume) 8.0 mg/dL 8.5-10.1 Magnesium - 09/14/16 04:34 Magnesium 1.8 mg/dL 1.8-2.4 PT panel in platelet poor plasma by coagulation assay - 09/14/16 11:10 Prothrombin time (PT) in platelet poor plasma by coagulation assay 35.2 s 12.2-14.7 INR in platelet poor plasma or blood by coagulation assay 3.5 0.8-1.4 Complete blood count (CBC) with automated white blood cell (WBC) differential - 09/15/16 04:37 Blood leukocytes automated count (number/volume) 8.4 10*3/ uL 4.3-11.0 Blood erythrocytes automated count (number/volume) 3.43 10*6 /uL 4.35-5.85 Venous blood hemoglobin measurement (mass/volume) 7.3 g/dL 11.5-16.0 Blood hematocrit (volume fraction) 25 % 35-52 Automated erythrocyte mean corpuscular volume 74 [foz_us] 80-99 Automated erythrocyte mean corpuscular hemoglobin (mass per erythrocyte) 21 pg 25-34 Automated erythrocyte mean corpuscular hemoglobin concentration measurement ( mass/volume) 29 g/dL 32-36 Automated erythrocyte distribution width ratio 18.1 % 10.0-14.5 Automated blood platelet count (count/volume) 334 10*3/uL 130-400 Automated blood platelet mean volume measurement 9.8 [foz_us ] 7.4-10.4 Automated blood neutrophils/100 leukocytes 79 % 42-75 Automated blood lymphocytes/100 leukocytes 9 % 12-44 Blood monocytes/100 leukocytes 11 % 0-12 Automated blood eosinophils/100 leukocytes 1 % 0-10 Automated blood basophils/100 leukocytes 0 % 0-10 Blood neutrophils automated count (number/volume) 6.6 10*3 1.8-7.8 Blood lymphocytes automated count (number/volume) 0.8 10*3 1.0-4.0 Blood monocytes automated count (number/volume) 0.9 10*3 0.0-1.0 Automated eosinophil count 0.0 10*3/uL 0.0-0.3 Automated blood basophil count (count/volume) 0.0 10*3/uL 0.0-0.1 PT panel in platelet poor plasma by coagulation assay - 09/15/16 04:37 Prothrombin time (PT) in platelet poor plasma by coagulation assay 30.7 s 12.2-14.7 INR in platelet poor plasma or blood by coagulation assay 3.0 0.8-1.4 Whole blood basic metabolic panel - 09/15/16 04:37 Serum or plasma sodium measurement (moles/volume) 139 mmol/ L 135-145 Serum or plasma potassium measurement (moles/volume) 3.1 mmol/L 3.6-5.0 Serum or plasma chloride measurement (moles/volume) 102 mmol /L 98-107 Carbon dioxide 25 mmol/L 21-32 Serum or plasma anion gap determination (moles/volume) 12 mmol/L 5-14 Serum or plasma urea nitrogen measurement (mass/volume) 9 mg /dL 7-18 Serum or plasma creatinine measurement (mass/volume) 0.59 mg /dL 0.60-1.30 Serum or plasma urea nitrogen/creatinine mass ratio 15 NRG Serum or plasma creatinine measurement with calculation of estimated glomerular filtration rate > NRG Serum or plasma glucose measurement (mass/volume) 101 mg/dL 70-105 Serum or plasma calcium measurement (mass/volume) 8.3 mg/dL 8.5-10.1 Stool occult blood screen - 09/15/16 10:45 Stool gastrointestinal hemoglobin detection POSITIVE NEGATIVE RED CELLS LEUKO REDUCED AS1 - 09/15/16 14:39 RED CELLS LEUKO REDUCED AS1 TRANSFUSED 1551 [facility] Blood type T Indirect antibody screen panel - 09/15/16 14:39 ABO+Rh group AP NR Transfusion band number [id number] [facility] Blood group antibody screen NEGATIVE [facility] Automated blood complete blood count (hemogram) panel - 09/16/16 04:33 Blood leukocytes automated count (number/volume) 8.0 10*3/ uL 4.3-11.0 Blood erythrocytes automated count (number/volume) 3.98 10*6 /uL 4.35-5.85 Venous blood hemoglobin measurement (mass/volume) 9.0 g/dL 11.5-16.0 Blood hematocrit (volume fraction) 30 % 35-52 Automated erythrocyte mean corpuscular volume 75 [foz_us] 80-99 Automated erythrocyte mean corpuscular hemoglobin (mass per erythrocyte) 23 pg 25-34 Automated erythrocyte mean corpuscular hemoglobin concentration measurement ( mass/volume) 30 g/dL 32-36 Automated erythrocyte distribution width ratio 18.4 % 10.0-14.5 Automated blood platelet count (count/volume) 338 10*3/uL 130-400 Automated blood platelet mean volume measurement 10.0 [foz_ us] 7.4-10.4 PT panel in platelet poor plasma by coagulation assay - 09/16/16 04:33 Prothrombin time (PT) in platelet poor plasma by coagulation assay 23.3 s 12.2-14.7 INR in platelet poor plasma or blood by coagulation assay 2.1 0.8-1.4 Comprehensive metabolic panel - 09/16/16 04:33 Serum or plasma sodium measurement (moles/volume) 140 mmol/ L 135-145 Serum or plasma potassium measurement (moles/volume) 2.9 mmol/L 3.6-5.0 Serum or plasma chloride measurement (moles/volume) 103 mmol /L 98-107 Carbon dioxide 21 mmol/L 21-32 Serum or plasma anion gap determination (moles/volume) 16 mmol/L 5-14 Serum or plasma urea nitrogen measurement (mass/volume) 9 mg /dL 7-18 Serum or plasma creatinine measurement (mass/volume) 0.59 mg /dL 0.60-1.30 Serum or plasma urea nitrogen/creatinine mass ratio 15 NRG Serum or plasma creatinine measurement with calculation of estimated glomerular filtration rate > NRG Serum or plasma glucose measurement (mass/volume) 103 mg/dL 70-105 Serum or plasma calcium measurement (mass/volume) 8.1 mg/dL 8.5-10.1 Serum or plasma total bilirubin measurement (mass/volume) 0.8 mg/dL 0.1-1.0 Serum or plasma alkaline phosphatase measurement (enzymatic activity/volume) 78 U/L 40-136 Serum or plasma aspartate aminotransferase measurement (enzymatic activity/ volume) 11 U/L 5-34 Serum or plasma alanine aminotransferase measurement (enzymatic activity/volume ) 11 U/L 0-55 Serum or plasma protein measurement (mass/volume) 6.7 g/dL 6.4-8.2 Serum or plasma albumin measurement (mass/volume) 3.2 g/dL 3.2-4.5 PT panel in platelet poor plasma by coagulation assay - 09/17/16 05:45 Prothrombin time (PT) in platelet poor plasma by coagulation assay 20.1 s 12.2-14.7 INR in platelet poor plasma or blood by coagulation assay 1.7 0.8-1.4 Whole blood basic metabolic panel - 09/17/16 05:45 Serum or plasma sodium measurement (moles/volume) 139 mmol/ L 135-145 Serum or plasma potassium measurement (moles/volume) 3.5 mmol/L 3.6-5.0 Serum or plasma chloride measurement (moles/volume) 104 mmol /L 98-107 Carbon dioxide 25 mmol/L 21-32 Serum or plasma anion gap determination (moles/volume) 10 mmol/L 5-14 Serum or plasma urea nitrogen measurement (mass/volume) 12 mg/dL 7-18 Serum or plasma creatinine measurement (mass/volume) 0.61 mg /dL 0.60-1.30 Serum or plasma urea nitrogen/creatinine mass ratio 20 NRG Serum or plasma creatinine measurement with calculation of estimated glomerular filtration rate > NRG Serum or plasma glucose measurement (mass/volume) 103 mg/dL 70-105 Serum or plasma calcium measurement (mass/volume) 8.6 mg/dL 8.5-10.1 Complete blood count (CBC) with automated white blood cell (WBC) differential - 09/18/16 05:09 Blood leukocytes automated count (number/volume) 9.1 10*3/ uL 4.3-11.0 Blood erythrocytes automated count (number/volume) 4.52 10*6 /uL 4.35-5.85 Venous blood hemoglobin measurement (mass/volume) 10.2 g/dL 11.5-16.0 Blood hematocrit (volume fraction) 35 % 35-52 Automated erythrocyte mean corpuscular volume 76 [foz_us] 80-99 Automated erythrocyte mean corpuscular hemoglobin (mass per erythrocyte) 23 pg 25-34 Automated erythrocyte mean corpuscular hemoglobin concentration measurement ( mass/volume) 30 g/dL 32-36 Automated erythrocyte distribution width ratio 20.5 % 10.0-14.5 Automated blood platelet count (count/volume) 463 10*3/uL 130-400 Automated blood platelet mean volume measurement 10.3 [foz_ us] 7.4-10.4 Automated blood neutrophils/100 leukocytes 79 % 42-75 Automated blood lymphocytes/100 leukocytes 10 % 12-44 Blood monocytes/100 leukocytes 9 % 0-12 Automated blood eosinophils/100 leukocytes 1 % 0-10 Automated blood basophils/100 leukocytes 0 % 0-10 Blood neutrophils automated count (number/volume) 7.2 10*3 1.8-7.8 Blood lymphocytes automated count (number/volume) 0.9 10*3 1.0-4.0 Blood monocytes automated count (number/volume) 0.8 10*3 0.0-1.0 Automated eosinophil count 0.1 10*3/uL 0.0-0.3 Automated blood basophil count (count/volume) 0.0 10*3/uL 0.0-0.1 Blood CBC with ordered manual differential panel - 09/18/16 05:09 Blood monocytes/100 leukocytes 9 % NRG Manual blood segmented neutrophils/100 leukocytes 83 % NRG Manual blood lymphocytes/100 leukocytes 7 % NRG Manual eosinophils/100 leukocytes in nose 1 % NRG Blood hypochromia detection by light microscopy MARKED NRG PT panel in platelet poor plasma by coagulation assay - 09/18/16 05:09 Prothrombin time (PT) in platelet poor plasma by coagulation assay 18.4 s 12.2-14.7 INR in platelet poor plasma or blood by coagulation assay 1.6 0.8-1.4 Comprehensive metabolic panel - 09/18/16 05:09 Serum or plasma sodium measurement (moles/volume) 137 mmol/ L 135-145 Serum or plasma potassium measurement (moles/volume) 4.0 mmol/L 3.6-5.0 Serum or plasma chloride measurement (moles/volume) 103 mmol /L 98-107 Carbon dioxide 20 mmol/L 21-32 Serum or plasma anion gap determination (moles/volume) 14 mmol/L 5-14 Serum or plasma urea nitrogen measurement (mass/volume) 10 mg/dL 7-18 Serum or plasma creatinine measurement (mass/volume) 0.65 mg /dL 0.60-1.30 Serum or plasma urea nitrogen/creatinine mass ratio 15 NRG Serum or plasma creatinine measurement with calculation of estimated glomerular filtration rate > NRG Serum or plasma glucose measurement (mass/volume) 106 mg/dL 70-105 Serum or plasma calcium measurement (mass/volume) 9.1 mg/dL 8.5-10.1 Serum or plasma total bilirubin measurement (mass/volume) 0.8 mg/dL 0.1-1.0 Serum or plasma alkaline phosphatase measurement (enzymatic activity/volume) 85 U/L 40-136 Serum or plasma aspartate aminotransferase measurement (enzymatic activity/ volume) 15 U/L 5-34 Serum or plasma alanine aminotransferase measurement (enzymatic activity/volume ) 15 U/L 0-55 Serum or plasma protein measurement (mass/volume) 7.9 g/dL 6.4-8.2 Serum or plasma albumin measurement (mass/volume) 3.6 g/dL 3.2-4.5 Lactate dehydrogenase 1 [enzymatic activity/volume] in serum or plasma - 05:09 Lactate dehydrogenase 1 [enzymatic activity/volume] in serum or plasma 192 U/L 125-220 Automated reticulocyte percentage - 09/18/16 05:09 Blood reticulocytes count (number/volume) 43 10*9/L 24-90 Blood reticulocytes/100 erythrocytes 0.94 % 0.50-2.40 Serum iron and total iron binding capacity panel - 09/18/16 05:09 Serum or plasma iron measurement (mass/volume) 22 % 35-180 Total iron binding capacity and transferrin saturation measurement 6 % 15-50 Iron binding capacity [mass/volume] in serum or plasma 339 % 280-380 UIBC (unsaturated iron binding capacity) 317 % NRG Serum or plasma ferritin measurement (mass/volume) 47.0 % 15.0-150.0 Serum or plasma lithium measurement (moles/volume) - 09/18/16 18:28 BNP level 398.6 pg/mL <100.0 Whole blood basic metabolic panel - 09/19/16 06:20 Serum or plasma sodium measurement (moles/volume) 138 mmol/ L 135-145 Serum or plasma potassium measurement (moles/volume) 4.4 mmol/L 3.6-5.0 Serum or plasma chloride measurement (moles/volume) 101 mmol /L 98-107 Carbon dioxide 27 mmol/L 21-32 Serum or plasma anion gap determination (moles/volume) 10 mmol/L 5-14 Serum or plasma urea nitrogen measurement (mass/volume) 10 mg/dL 7-18 Serum or plasma creatinine measurement (mass/volume) 0.66 mg /dL 0.60-1.30 Serum or plasma urea nitrogen/creatinine mass ratio 15 NRG Serum or plasma creatinine measurement with calculation of estimated glomerular filtration rate > NRG Serum or plasma glucose measurement (mass/volume) 98 mg/dL 70-105 Serum or plasma calcium measurement (mass/volume) 9.1 mg/dL 8.5-10.1 Complete blood count (CBC) with automated white blood cell (WBC) differential - 09/19/16 06:30 Blood leukocytes automated count (number/volume) 7.3 10*3/ uL 4.3-11.0 Blood erythrocytes automated count (number/volume) 4.63 10*6 /uL 4.35-5.85 Venous blood hemoglobin measurement (mass/volume) 10.5 g/dL 11.5-16.0 Blood hematocrit (volume fraction) 36 % 35-52 Automated erythrocyte mean corpuscular volume 77 [foz_us] 80-99 Automated erythrocyte mean corpuscular hemoglobin (mass per erythrocyte) 23 pg 25-34 Automated erythrocyte mean corpuscular hemoglobin concentration measurement ( mass/volume) 30 g/dL 32-36 Automated erythrocyte distribution width ratio 20.8 % 10.0-14.5 Automated blood platelet count (count/volume) 437 10*3/uL 130-400 Automated blood platelet mean volume measurement 9.8 [foz_us ] 7.4-10.4 Automated blood neutrophils/100 leukocytes 73 % 42-75 Automated blood lymphocytes/100 leukocytes 12 % 12-44 Blood monocytes/100 leukocytes 12 % 0-12 Automated blood eosinophils/100 leukocytes 3 % 0-10 Automated blood basophils/100 leukocytes 0 % 0-10 Blood neutrophils automated count (number/volume) 5.4 10*3 1.8-7.8 Blood lymphocytes automated count (number/volume) 0.8 10*3 1.0-4.0 Blood monocytes automated count (number/volume) 0.9 10*3 0.0-1.0 Automated eosinophil count 0.2 10*3/uL 0.0-0.3 Automated blood basophil count (count/volume) 0.0 10*3/uL 0.0-0.1 PT panel in platelet poor plasma by coagulation assay - 09/19/16 06:30 Prothrombin time (PT) in platelet poor plasma by coagulation assay 20.1 s 12.2-14.7 INR in platelet poor plasma or blood by coagulation assay 1.7 0.8-1.4 Serum or plasma lithium measurement (moles/volume) - 09/19/16 06:30 BNP level 290.7 pg/mL <100.0 Complete urinalysis with reflex to culture - 09/19/16 10:00 Urine color determination YELLOW NRG Urine clarity determination CLEAR NRG Urine pH measurement by test strip 7 5- 9 Specific gravity of urine by test strip 1.005 1.016-1.022 Urine protein assay by test strip, semi-quantitative NEGATIVE NEGATIVE Urine glucose detection by automated test strip NEGATIVE NEGATIVE Erythrocytes detection in urine sediment by light microscopy NEGATIVE NEGATIVE Urine ketones detection by automated test strip NEGATIVE NEGATIVE Urine nitrite detection by test strip NEGATIVE NEGATIVE Urine total bilirubin detection by test strip NEGATIVE NEGATIVE Urine urobilinogen measurement by automated test strip (mass/volume) NORMAL NORMAL Urine leukocyte esterase detection by dipstick 1+ NEGATIVE Automated urine sediment erythrocyte count by microscopy (number/high power field) NONE NRG Automated urine sediment leukocyte count by microscopy (number/high power field ) [HPF] NRG Bacteria detection in urine sediment by light microscopy NEGATIVE NRG Squamous epithelial cells detection in urine sediment by light microscopy 2-5 NRG Crystals detection in urine sediment by light microscopy NONE NRG Casts detection in urine sediment by light microscopy NONE NRG Mucus detection in urine sediment by light microscopy NEGATIVE NRG Complete urinalysis with reflex to culture NO NRG Other elements identification in urine sediment by light microscopy RARE TRANS EPI NRG Encounters ACCT No. Visit Date/Time Discharge Status Pt. Type Provider Facility Loc./Unit Complaint [id number] 04/22/2016 02:06:00 2016 11:58:00 DIS Inpatient DAREN FERGUSON DO [facility] 4TH FEVER; PNEUMONIA; UTI CHRONIC A. FIB RVR [id number] 01/28/2016 11:33:00 2015 13:39:00 DIS Emergency CYRUS CHRISTOPHER APRN [facility] ER DIARRHEA/HEMMORHOID ISSUES [id number] 08/25/2014 00:12:00 2014 23:59:59 CLS Preadmit DAREN FERGUSON DO [facility] LAB [id number] 05/26/2014 16:43:00 2014 00:01:00 DIS Outpatient DAREN FERGUSON DO [facility] LAB [id number] 08/18/2014 23:18:00 2014 00:15:00 DIS Emergency LESLI PATEL, ANIBAL Choudhury [facility] ER [id number] 08/27/2013 00:25:00 2013 13:54:00 DIS Inpatient [id number] 01/12/2013 09:37:00 2012 11:29:00 DIS Emergency [id number] 09/23/2012 09:25:00 2012 23:59:59 CLS Outpatient [id number] 09/13/2016 20:40:00 ACT Inpatient DAREN FERGUSON DO [facility] 4TH PNEUMONIA RML [id number] 09/13/2016 07:53:00 ACT Out[facility] [id number] 09/12/2016 14:17:00 ACT Outpatient DAREN FERGUSON DO [facility] RAD COUGH CONGESTION [id number] 01/05/2016 09:48:00 ACT Outpatient DAREN FERGUSON DO [facility] SDC ANEMIA
--- OUTSIDE RECORDS SUMMARY | 2016-09-20 04:29 | XMS REPORT | Continuity of Care Document ---
Author Author [facility] Organization [facility] Address Unknown Phone Unavailable Allergies Active Description Code Type Severity Reaction Onset Reported/Identified Relationship to Patient Clinical Status Yes Sulfa (Sulfonamide Antibiotics) [id number] Drug Allergy Unknown N/A 08/02/2007 Medications Problems [...] Ot D64.9 ANEMIA, UNSPECIFIED 01/28/2016 CYRUS CHRISTOPHER CLAIMS TECHNICIAN Ot I48.2 CHRONIC ATRIAL FIBRILLATION 01/28/2016 CYRUS CHRISTOPHER CLAIMS TECHNICIAN Ot K64.9 UNSPECIFIED HEMORRHOIDS 01/28/2016 CYRUS CHRISTOPHER CLAIMS TECHNICIAN Ot Z79.01 SENIOR LIVING (CURRENT) USE OF ANTICOAGULANT 04/25/2016 DAREN FERGUSON DO Ot F41.9 ANXIETY DISORDER, UNSPECIFIED 04/25/2016 DAREN FERGUSON DO Ot I10 ESSENTIAL (PRIMARY) HYPERTENSION 04/25/2016 DAREN FERGUSON DO Ot I25.10 ATHSCL HEART DISEASE OF [place] CORONARY 04/25/2016 DAREN FERGUSON DO Ot I48.91 [...] Lawson Ot I25.10 ATHSCL HEART DISEASE OF [place] CORONARY 04/25/2016 GELLENDER DO, DAREN Lawson Ot [...] Lawson Ot I25.10 ATHSCL HEART DISEASE OF [place] CORONARY 04/27/2016 GELLENDER DO, DAREN Lawson Ot [...] 09/16/2016 GELLENDER DO, DAREN Lawson Ot 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 09/16/2016 GELLENDER DO, [...] 09/17/2016 GELLENDER DO, DAREN Lawson Ot 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 09/17/2016 GELLENDER DO, [...] 09/17/2016 GELLENDER DO, DAREN Lawson Ot Z79.01 SENIOR LIVING (CURRENT) USE OF ANTICOAGULANT 09/17/2016 GELLENDER DO, [...] 09/18/2016 GELLENDER DO, DAREN Lawson Ot Z79.01 SENIOR LIVING (CURRENT) USE OF ANTICOAGULANT 09/18/2016 GELLENDER DO, [...] 09/18/2016 GELLENDER DO, DAREN Lawson Ot 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 09/18/2016 GELLENDER DO, [...] SITE 09/19/2016 DAREN FERGUSON DO Ot Z79.01 SENIOR LIVING (CURRENT) USE OF ANTICOAGULANT 09/19/2016 DAREN FERGUSON [...] RED CELLS LEUKO REDUCED AS1 TRANSFUSED 1127 [facility] Blood type T Indirect antibody screen panel - 01/05/16 10:24 ABO+Rh group AP NRG Transfusion band number [id number] [facility] Blood group antibody screen NEGATIVE [facility] Complete blood count (CBC) with automated white [...] NRG Manual blood lymphocytes/100 leukocytes 9 % [facility] Blood erythrocyte morphology finding identification NORMAL [facility] Influenza virus A and B antigen detection - 04/22/16 00:28 FLU RESULT NEGATIVE FOR INFLUENZA A AND B ANTIGENS BY IA [facility] Comprehensive metabolic panel - 04/22/16 00:28 Serum [...] culture - 04/22/16 01:08 Bacterial urine culture [id number] NRG COLONY COUNT 10,000/ML - 100,000/ML NRG [...] LEONID NRG QUANTITY OF GROWTH Abundant Growth [facility] Bacterial sputum culture [id number] [facility] Bacterial susceptibility panel - 04/23/16 12:40 Trimethoprim/sulfamethoxazole [...] ABO+Rh group AP NRG Transfusion band number [id number] NRG Blood group antibody screen NEGATIVE NRG [...] culture - 09/13/16 20:22 Bacterial urine culture [id number] NRG COLONY COUNT <10,000 NRG FTX;REPORTABLE SENSITIVITY [...] RED CELLS LEUKO REDUCED AS1 TRANSFUSED 1551 [facility] Blood type T Indirect antibody screen panel - 09/15/16 14:39 ABO+Rh group AP NR Transfusion band number [id number] [facility] Blood group antibody screen NEGATIVE [facility] Automated blood complete blood count (hemogram) panel [...] Status Pt. Type Provider Facility Loc./Unit Complaint [id number] 04/22/2016 02:06:00 2016 11:58:00 DIS Inpatient DAREN FERGUSON DO [facility] 4TH FEVER; PNEUMONIA; UTI CHRONIC A. FIB RVR [id number] 01/28/2016 11:33:00 2015 13:39:00 DIS Emergency CYRUS CHRISTOPHER APRN [facility] ER DIARRHEA/HEMMORHOID ISSUES [id number] 08/25/2014 00:12:00 2014 23:59:59 CLS Preadmit DAREN FERGUSON DO [facility] LAB [id number] 05/26/2014 16:43:00 2014 00:01:00 DIS Outpatient DAREN FERGUSON DO [facility] LAB [id number] 08/18/2014 23:18:00 2014 00:15:00 DIS Emergency LESLI PATEL, ANIBAL Choudhury [facility] ER [id number] 08/27/2013 00:25:00 2013 13:54:00 DIS Inpatient [id number] 01/12/2013 09:37:00 2012 11:29:00 DIS Emergency [id number] 09/23/2012 09:25:00 2012 23:59:59 CLS Outpatient [id number] 09/13/2016 20:40:00 ACT Inpatient DAREN FERGUSON DO [facility] 4TH PNEUMONIA RML [id number] 09/13/2016 07:53:00 ACT Outpatient [facility] [id number] 09/12/2016 14:17:00 ACT Outpatient DAREN FERGUSON DO [facility] RAD COUGH CONGESTION [id number] 01/05/2016 09:48:00 ACT Outpatient DAREN FERGUSON DO [facility] SDC ANEMIA
[2016-09-20] MEDS: MULTIVIT W/MINERALS TAB (THERAGRAN M) PO SCH (06:14)
[2016-09-20] MEDS: CATHETER FLUSH 10 ML SYR IV SCH (06:14)
[2016-09-20] MEDS: KCL 20 MEQ TAB (K-DUR) PO SCH (06:14)
[2016-09-20] MEDS: IRON POLYSAC 150 MG CAP (NIFEREX) PO SCH (06:14)
[2016-09-20] MEDS: FUROSEMIDE 40 MG (LASIX) TAB PO SCH (06:14)
[2016-09-20] MEDS ORDERED: FUROSEMIDE 40 MG (LASIX) TAB PO SCH (07:00)
[2016-09-20 07:32] LABS: BASOPHILS % (AUTO) 1 % (0-10); EOSINOPHILS # (AUTO) 0.2 10^3/uL (0.0-0.3); EOSINOPHILS % (AUTO) 2 % (0-10); LYMPHOCYTES # (AUTO) 1.3 X 10^3 (1.0-4.0); LYMPHOCYTES % (AUTO) 16 % (12-44); MEAN CORPUSCULAR HEMOGLOBIN 23 PG (25-34); MEAN CORPUSCULAR HGB CONC 30 G/DL (32-36); MEAN CORPUSCULAR VOLUME 77 FL (80-99); MEAN PLATELET VOLUME 10.2 FL (7.4-10.4); MONOCYTES % (AUTO) 13 % (0-12); NEUTROPHILS # (AUTO) 5.6 X 10^3 (1.8-7.8); NEUTROPHILS % (AUTO) 69 % (42-75); PLATELET COUNT 466 10^3/uL (130-400); RED BLOOD COUNT 4.79 10^6/uL (4.35-5.85); RED CELL DISTRIBUTION WIDTH 21.4 % (10.0-14.5); WHITE BLOOD COUNT 8.2 10^3/uL (4.3-11.0)
[2016-09-20] MEDS: RT-ALBUTEROL/IPRATROPIUM 3 ML (DUONEB) VIAL INH SCH ×2 (07:33→10:32)
--- NOTE | 2016-09-20 07:35 | Progress Note (SOAP) ---
Subjective Time Seen by Provider: 07:25 Subjective/Events-last exam pneumonia. Congestive heart failure. Atrial fibrillation. Patient feeling better and wants to go home. Blood tests today chest x-ray today not on chart. Nurse to call at 11 a.m. with reports. Patient doing much better Objective Exam Vital Signs Date Time Temp Pulse Resp B/P (MAP) Pulse Ox O2 Delivery O2 Flow Rate FiO2 09/20/16 01:00 83 09/20/16 00:00 98.9 91 20 149/68 93 Room Air 09/19/16 21:00 Nasal Cannula 2.00 09/19/16 19:02 92 Room Air 09/19/16 19:00 92 09/19/16 16:00 98.9 86 16 140/65 94 Room Air 09/19/16 15:10 93 Room Air 1.00 09/19/16 13:15 85 09/19/16 10:55 97 Nasal Cannula 1.00 09/19/16 09:00 Nasal Cannula 2.00 09/19/16 07:50 96.2 90 20 165/72 98 Room Air 09/19/16 07:34 98 Nasal Cannula 2.00 I & O 09/20/16 07:00 Intake Total 1610 ml Output Total 2475 ml Balance -865 ml Capillary Refill : Less Than 3 Seconds General Appearance: No Apparent Distress, WD/WN HEENT: Normal ENT Inspection Neck: Full Range of Motion, Normal Inspection Respiratory: Chest Non Tender, No Accessory Muscle Use, No Respiratory Distress , Decreased Breath Sounds, Other (congestion much better) Cardiovascular: Irregularly Irregular Gastrointestinal: non tender, soft Results Lab Laboratory Tests 09/19/16 10:00: Urine Color YELLOW, Urine Clarity CLEAR, Urine pH 7, Urine Specific [place] 1.005L, Urine Protein NEGATIVE, Urine Glucose (UA) NEGATIVE, Urine Ketones NEGATIVE, Urine Nitrite NEGATIVE, Urine Bilirubin NEGATIVE, Urine Urobilinogen NORMAL, Urine Leukocyte Esterase 1+H, Urine RBC (Auto) NEGATIVE, Urine RBC NONE , Urine WBC 2-5, Urine Squamous Epithelial Cells 2-5, Urine Crystals NONE, Urine Bacteria NEGATIVE, Urine Casts NONE, Urine Mucus NEGATIVE, Urine Other RARE TRANS EPI, Urine Culture Indicated NO 09/20/16 06:57: Microbiology 09/13/16 Blood Culture - Final, Complete No growth 09/13/16 Urine Culture - Final, Complete Enterococcus Faecalis Assessment/Plan Assessment/Plan Assess & Plan/Chief Complaint pneumonia. Atrial fibrillation. Chronic anemia. Patient states she's starting to feel better. . 09/18/16. Pneumonia still coughing and congested. Atrial fibrillation heart rate was quick this morning. Chronic anemia. Patient working progress. . 09/19/16. Pneumonia. Atrial fibrillation with heart rate under control Anemia. infection. Patient feeling better and breathing better and not short of breath today. 09/20/16 patient feeling much better today. Patient wants to go home. Pneumonia. Atrial fibrillation. Anemia. infection. Waiting for lab and chest x-ray results. Nurse to call at 11 a.m. Clinical Quality Measures DVT/VTE Risk/Contraindication: Risk Factor Score Per Nursin RFS Level Per Nursing on Admit: 3=High Contraindications-Pharm: Other *list below* DAREN FERGUSON DO Sep 20, 2016 07:35
[2016-09-20 07:40] LABS: INR 1.8 (0.8-1.4); PROTHROMBIN TIME PATIENT 20.3 SEC (12.2-14.7)
[2016-09-20 07:53] LABS: ANION GAP 15 MMOL/L (5-14); BLOOD UREA NITROGEN 19 MG/DL (7-18); BUN/CREATININE RATIO 28; CALCIUM 9.2 MG/DL (8.5-10.1); CARBON DIOXIDE 22 MMOL/L (21-32); CHLORIDE 100 MMOL/L (98-107); CREATININE SERUM 0.68 MG/DL (0.60-1.30); GFR ESTIMATED > 60; GLUCOSE 97 MG/DL (70-105); POTASSIUM 4.1 MMOL/L (3.6-5.0); SODIUM 137 MMOL/L (135-145)
[2016-09-20 08:00] VITALS: BP 144/85
--- NOTE | 2016-09-20 08:37 | Diagnostic Imaging Report ---
INDICATION: Followup pneumonia. Comparison with 09/19/2016. Cardiomegaly remains present. There has been some decrease in the interstitial infiltrate since previous exam. There continues to be pleural thickening or pleural effusion along the left lateral chest wall. Costophrenic angles remain blunted bilaterally though there does appear to be less fluid today than on previous exam. There is a large fixed hernia with air-fluid level again noted which is unchanged. Aorta is calcified. IMPRESSION: 1. Continued cardiomegaly with decreasing pulmonary edema and decreasing pleural effusion since previous exam. 2. Large fixed hernia again noted unchanged. Dictated by: Dictated on workstation # [id number]
[2016-09-20] MEDS: meTOprolol TARTRATE 25 MG (LOPRESSOR) TABLET PO SCH (08:53)
[2016-09-20] MEDS: FAMOTIDINE 20 MG (PEPCID) TABLET PO SCH (08:53)
[2016-09-20] MEDS: DILTIAZEM 240 MG (CARDIZEM CD) CAP PO SCH (08:53)
--- NOTE | 2016-09-20 11:27 | Progress Note-Cardiology ---
Cardiology SOAP Progress Note Subjective: Sitting up in a chair at the bedside. States she feels her breathing is better today. No c/o CP or palpitations. Feels LE edema is better. Wants to go home today. Objective: I&O/Vital Signs Vital Sign - Last 12Hours 09/20/16 09/20/16 09/20/16 09/20/16 00:00 01:00 07:34 07:57 Temp 98.9 Pulse 91 83 100 Resp 20 B/P (MAP) 149/68 Pulse Ox 93 92 O2 Delivery Room Air Room Air 09/20/16 09/20/16 09/20/16 08:00 08:20 10:32 Temp 96.2 Pulse 113 Resp 24 B/P (MAP) 144/85 Pulse Ox 96 94 O2 Delivery Room Air Nasal Cannula Room Air O2 Flow Rate 2.00 Intake and Output 09/20/16 00:00 Intake Total 1560 ml Output Total 2275 ml Balance -715 ml Weight (Pounds): 135 Weight (Ounces): 9.0 Weight (Calculated Kilograms): 61.914859 Constitutional: AAO x 3 Respiratory: No accessory muscle use, No respiratory distress, other (crackles lower lobes bilat (improved)) Cardiovascular: regular rate-rhythm, irregularly irregular Gastrointestional: No tender, soft, round, audible bowel sounds Extremities: significant edema (mod bilat LE edema (improved)) Neurologic/Psychiatric: grossly intact Skin: No rash, No ulcerations Results/Procedures: Labs Laboratory Tests 09/20/16 06:57: White Blood Count 8.2, Red Blood Count 4.79, Hemoglobin 11.0L, Hematocrit 37, Mean Corpuscular Volume 77L, Mean Corpuscular Hemoglobin 23L, Mean Corpuscular Hemoglobin Concent 30L, Red Cell Distribution Width 21.4H, Platelet Count 466H, Mean Platelet Volume 10.2, Neutrophils (%) (Auto) 69, Lymphocytes (%) (Auto) 16 , Monocytes (%) (Auto) 13H, Eosinophils (%) (Auto) 2, Basophils (%) (Auto) 1, Neutrophils # (Auto) 5.6, Lymphocytes # (Auto) 1.3, Monocytes # (Auto) 1.0, Eosinophils # (Auto) 0.2, Basophils # (Auto) 0.0, Prothrombin Time 20.3H, INR Comment 1.8H, Sodium Level 137, Potassium Level 4.1, Chloride Level 100, Carbon Dioxide Level 22, Anion Gap 15H, Blood Urea Nitrogen 19H, Creatinine 0.68, Estimat Glomerular Filtration Rate > 60, BUN/Creatinine Ratio 28, Glucose Level 97, Calcium Level 9.2 Microbiology 09/13/16 Blood Culture - Final, Complete No growth 09/13/16 Urine Culture - Final, Complete Enterococcus Faecalis Laboratory Tests 09/19/16 06:20 09/19/16 06:30 09/20/16 06:57 Procedures NAME: GUILLERMO MONROY [facility] REC#: [id number] PT STATUS: ADM IN : 1930 PHYSICIAN: DAREN FERGUSON DO ADMIT DATE: 09/13/16 Draft Date of Exam:09/20/16 CHEST PA/LAT (2 VIEW) INDICATION: Followup pneumonia. Comparison with 09/19/2016. Cardiomegaly remains present. There has been some decrease in the interstitial infiltrate since previous exam. There continues to be pleural thickening or pleural effusion along the left lateral chest wall. Costophrenic angles remain blunted bilaterally though there does appear to be less fluid today than on previous exam. There is a large fixed hernia with air-fluid level again noted which is unchanged. Aorta is calcified. IMPRESSION: 1. Continued cardiomegaly with decreasing pulmonary edema and decreasing pleural effusion since previous exam. 2. Large fixed hernia again noted unchanged. Dictated on workstation # [id number] Dict: 09/20/16 0830 Trans: 09/20/16 0836 [facility] [id number] Interpreted by: RITA FRY MD Electronically signed by: A/P: Assessment: Permanent atrial fibrillation, presentation with RVR, but now vent rate is better controlled Chronic warfarin anticoag, currently somewhat subtherapeutic, managed by Dr Ferguson Pneumonia - medical services managing Anemia of undetermined etiology (requiring transfusion) - oncology services managing Echocardiogram of [address] Ibarra showed LVEF 60%, LA dilatation, trace MR and mild MR/AoR CHF- likely diastolic - clinically compensated Plan: A-fib for which rate is currently controlled Continue warfarin for stroke prophylaxis which is being managed by Dr. Ferguson Wishes to go home today Wishes to f/u with Dr. Valdez as an out pt Continue current regimen Echocardiogram pending OTILIA DUBON Sep 20, 2016 11:27
[2016-09-20] MEDS ORDERED: RT-ALBUINH IH (13:04)
[2016-09-20] MEDS ORDERED: FAMO20TA5 PO (13:04)
[2016-09-20] MEDS ORDERED: FURO40TA4 PO (13:06)
[2016-09-20] MEDS ORDERED: DILT240C63 PO (15:01)
--- NOTE | 2016-09-20 19:30 | Discharge Summary ---
Diagnosis/Chief Complaint Date of Admission Sep 13, 2016 at 20:40 Date of Discharge Sep 20, 2016 at 14:16 Discharge Date: Sep 20, 2016 Discharge Time: 07:20 Admission Diagnosis Admission Diagnosis pneumonia with failure of outpatient treatment. Atrial fibrillation. Hypokalemia. Anemia. Discharge Diagnosis pneumonia with outpatient failure. Anemia. Atrial fibrillation with RVR. Hypokalemia. infection enterococcus faecalis congestive heart failure. Large hiatal hernia. Essential hypertension. Personal history of malignant neoplasm of the uterus Reason Hospital Visit respiratory problem. Failure with outpatient treatment for pneumonia area Patient came out to the emergency room getting worse from her pneumonia. Patient has been coughing and congested. Patient weak. Patient treated on outpatient basis and getting worse. Patient admitted. Surgeries cancer of the uterus. Heart patient has atrial fibrillation and on Coumadin for this. Patient given prescription for inhaler. Patient couldn't afford it. Patient did not get it. Family history denies asthma, TB, diabetes, heart disease, lung disease, and cancer. HEENT denies problems Discharge Summary Consultations cardiology. Hematology Discharge Physical Examination Allergies: Coded Allergies: Sulfa (Sulfonamide Antibiotics) (Verified Allergy, Unknown, 08/02/07) Vitals & I&Os Vital Signs Date Time Temp Pulse Resp B/P (MAP) Pulse Ox O2 Delivery O2 Flow Rate FiO2 09/20/16 14:16 09/20/16 10:32 94 Room Air 09/20/16 08:20 2.00 09/20/16 08:00 96.2 113 24 Hospital Course patient in hospital felt better. Patient to be followed up in office Labs (last 24 hrs) Laboratory Tests 09/13/16 19:38: White Blood Count 8.0, Red Blood Count 3.89L, Hemoglobin 8.4L, Hematocrit 29L, Mean Corpuscular Volume 74L, Mean Corpuscular Hemoglobin 22L, Mean Corpuscular Hemoglobin Concent 29L, Red Cell Distribution Width 17.9H, Platelet Count 330, Mean Platelet Volume 9.7, Neutrophils (%) (Auto) 76H, Lymphocytes (%) (Auto) 11L , Monocytes (%) (Auto) 13H, Eosinophils (%) (Auto) 0, Basophils (%) (Auto) 0, Neutrophils # (Auto) 6.1, Lymphocytes # (Auto) 0.9L, Monocytes # (Auto) 1.0, Eosinophils # (Auto) 0.0, Basophils # (Auto) 0.0, Prothrombin Time 31.8H, INR Comment 3.1H, Activated Partial Thromboplast Time 58H, Sodium Level 137, Potassium Level 3.7, Chloride Level 104, Carbon Dioxide Level 22, Anion Gap 11, Blood Urea Nitrogen 12, Creatinine 0.61, Estimat Glomerular Filtration Rate > 60 , BUN/Creatinine Ratio 20, Glucose Level 100, Lactic Acid Level 1.30, Calcium Level 8.6, Total Bilirubin 0.9, Aspartate Amino Transf (AST/SGOT) 15, Alanine Aminotransferase (ALT/SGPT) 11, Alkaline Phosphatase 88, Total Protein 7.5, Albumin 3.7 09/13/16 20:22: Urine Color YELLOW, Urine Clarity CLEAR, Urine pH 7, Urine Specific [place] 1.010L, Urine Protein 2+H, Urine Glucose (UA) NEGATIVE, Urine Ketones 1+H, Urine Nitrite NEGATIVE, Urine Bilirubin NEGATIVE, Urine Urobilinogen NORMAL, Urine Leukocyte Esterase 3+H, Urine RBC (Auto) 1+H, Urine RBC 0-2, Urine WBC 50- 100H, Urine Squamous Epithelial Cells 5-10, Urine Crystals NONE, Urine Bacteria TRACE, Urine Casts NONE, Urine Mucus SMALLH, Urine Culture Indicated YES 09/14/16 04:34: White Blood Count 7.7, Red Blood Count 3.72L, Hemoglobin 7.8L, Hematocrit 28L, Mean Corpuscular Volume 74L, Mean Corpuscular Hemoglobin 21L, Mean Corpuscular Hemoglobin Concent 28L, Red Cell Distribution Width 18.0H, Platelet Count 327, Mean Platelet Volume 10.3, Neutrophils (%) (Auto) 65, Lymphocytes (%) (Auto) 22 , Monocytes (%) (Auto) 12, Eosinophils (%) (Auto) 1, Basophils (%) (Auto) 0, Neutrophils # (Auto) 5.0, Lymphocytes # (Auto) 1.7, Monocytes # (Auto) 0.9, Eosinophils # (Auto) 0.1, Basophils # (Auto) 0.0, Prothrombin Time 34.8H, INR Comment 3.5H, Sodium Level 140, Potassium Level 3.4L, Chloride Level 106, Carbon Dioxide Level 20L, Anion Gap 14, Blood Urea Nitrogen 11, Creatinine 0.58L , Estimat Glomerular Filtration Rate > 60, BUN/Creatinine Ratio 19, Glucose Level 90, Calcium Level 8.0L, Magnesium Level 1.8 09/14/16 11:10: Prothrombin Time 35.2H, INR Comment 3.5H 09/15/16 04:37: White Blood Count 8.4, Red Blood Count 3.43L, Hemoglobin 7.3L, Hematocrit 25L, Mean Corpuscular Volume 74L, Mean Corpuscular Hemoglobin 21L, Mean Corpuscular Hemoglobin Concent 29L, Red Cell Distribution Width 18.1H, Platelet Count 334, Mean Platelet Volume 9.8, Neutrophils (%) (Auto) 79H, Lymphocytes (%) (Auto) 9L , Monocytes (%) (Auto) 11, Eosinophils (%) (Auto) 1, Basophils (%) (Auto) 0, Neutrophils # (Auto) 6.6, Lymphocytes # (Auto) 0.8L, Monocytes # (Auto) 0.9, Eosinophils # (Auto) 0.0, Basophils # (Auto) 0.0, Prothrombin Time 30.7H, INR Comment 3.0H, Sodium Level 139, Potassium Level 3.1L, Chloride Level 102, Carbon Dioxide Level 25, Anion Gap 12, Blood Urea Nitrogen 9, Creatinine 0.59L, Estimat Glomerular Filtration Rate > 60, BUN/Creatinine Ratio 15, Glucose Level 101, Calcium Level 8.3L 09/15/16 10:45: Stool Occult Blood Immunoassay POSITIVEH 09/16/16 04:33: White Blood Count 8.0, Red Blood Count 3.98L, Hemoglobin 9.0#L, Hematocrit 30L, Mean Corpuscular Volume 75L, Mean Corpuscular Hemoglobin 23L, Mean Corpuscular Hemoglobin Concent 30L, Red Cell Distribution Width 18.4H, Platelet Count 338, Mean Platelet Volume 10.0, Prothrombin Time 23.3H, INR Comment 2.1H, Sodium Level 140, Potassium Level 2.9L, Chloride Level 103, Carbon Dioxide Level 21, Anion Gap 16H, Blood Urea Nitrogen 9, Creatinine 0.59L, Estimat Glomerular Filtration Rate > 60, BUN/Creatinine Ratio 15, Glucose Level 103, Calcium Level 8.1L, Total Bilirubin 0.8, Aspartate Amino Transf (AST/SGOT) 11, Alanine Aminotransferase (ALT/SGPT) 11, Alkaline Phosphatase 78, Total Protein 6.7, Albumin 3.2 09/17/16 05:45: Prothrombin Time 20.1H, INR Comment 1.7H, Sodium Level 139, Potassium Level 3.5L , Chloride Level 104, Carbon Dioxide Level 25, Anion Gap 10, Blood Urea Nitrogen 12, Creatinine 0.61, Estimat Glomerular Filtration Rate > 60, BUN/ Creatinine Ratio 20, Glucose Level 103, Calcium Level 8.6 09/17/16 13:06: Lab Scanned Report Transfusion Reaction Form 09/18/16 05:09: White Blood Count 9.1, Red Blood Count 4.52, Hemoglobin 10.2L, Hematocrit 35, Mean Corpuscular Volume 76L, Mean Corpuscular Hemoglobin 23L, Mean Corpuscular Hemoglobin Concent 30L, Red Cell Distribution Width 20.5H, Platelet Count 463H, Mean Platelet Volume 10.3, Neutrophils (%) (Auto) 79H, Lymphocytes (%) (Auto) 10L, Monocytes (%) (Auto) 9, Eosinophils (%) (Auto) 1, Basophils (%) (Auto) 0, Neutrophils # (Auto) 7.2, Lymphocytes # (Auto) 0.9L, Monocytes # (Auto) 0.8, Eosinophils # (Auto) 0.1, Basophils # (Auto) 0.0, Neutrophils % (Manual) 83, Lymphocytes % (Manual) 7, Monocytes % (Manual) 9, Eosinophils % (Manual) 1, Hypochromasia MARKED, Absolute Reticulocyte Count 43, Percent Reticulocyte Count 0.94, Prothrombin Time 18.4H, INR Comment 1.6H, Sodium Level 137, Potassium Level 4.0, Chloride Level 103, Carbon Dioxide Level 20L, Anion Gap 14 , Blood Urea Nitrogen 10, Creatinine 0.65, Estimat Glomerular Filtration Rate > 60, BUN/Creatinine Ratio 15, Glucose Level 106H, Calcium Level 9.1, Iron Level 22L, Total Iron Binding Capacity 339, Unsaturated Iron Binding Capacity 317, Transferrin % Saturation 6L, Ferritin 47.0, Total Bilirubin 0.8, Aspartate Amino Transf (AST/SGOT) 15, Alanine Aminotransferase (ALT/SGPT) 15, Alkaline Phosphatase 85, Lactate Dehydrogenase 192, Total Protein 7.9, Albumin 3.6 09/18/16 18:28: B-Type Natriuretic Peptide 398.6H 09/19/16 06:20: Sodium Level 138, Potassium Level 4.4, Chloride Level 101, Carbon Dioxide Level 27, Anion Gap 10, Blood Urea Nitrogen 10, Creatinine 0.66, Estimat Glomerular Filtration Rate > 60, BUN/Creatinine Ratio 15, Glucose Level 98, Calcium Level 9.1 09/19/16 06:30: White Blood Count 7.3, Red Blood Count 4.63, Hemoglobin 10.5L, Hematocrit 36, Mean Corpuscular Volume 77L, Mean Corpuscular Hemoglobin 23L, Mean Corpuscular Hemoglobin Concent 30L, Red Cell Distribution Width 20.8H, Platelet Count 437H, Mean Platelet Volume 9.8, Neutrophils (%) (Auto) 73, Lymphocytes (%) (Auto) 12, Monocytes (%) (Auto) 12, Eosinophils (%) (Auto) 3, Basophils (%) (Auto) 0, Neutrophils # (Auto) 5.4, Lymphocytes # (Auto) 0.8L, Monocytes # (Auto) 0.9, Eosinophils # (Auto) 0.2, Basophils # (Auto) 0.0, Prothrombin Time 20.1H, INR Comment 1.7H, B-Type Natriuretic Peptide 290.7H 09/19/16 10:00: Urine Color YELLOW, Urine Clarity CLEAR, Urine pH 7, Urine Specific [place] 1.005L, Urine Protein NEGATIVE, Urine Glucose (UA) NEGATIVE, Urine Ketones NEGATIVE, Urine Nitrite NEGATIVE, Urine Bilirubin NEGATIVE, Urine Urobilinogen NORMAL, Urine Leukocyte Esterase 1+H, Urine RBC (Auto) NEGATIVE, Urine RBC NONE , Urine WBC 2-5, Urine Squamous Epithelial Cells 2-5, Urine Crystals NONE, Urine Bacteria NEGATIVE, Urine Casts NONE, Urine Mucus NEGATIVE, Urine Other RARE TRANS EPI, Urine Culture Indicated NO 09/20/16 06:57: White Blood Count 8.2, Red Blood Count 4.79, Hemoglobin 11.0L, Hematocrit 37, Mean Corpuscular Volume 77L, Mean Corpuscular Hemoglobin 23L, Mean Corpuscular Hemoglobin Concent 30L, Red Cell Distribution Width 21.4H, Platelet Count 466H, Mean Platelet Volume 10.2, Neutrophils (%) (Auto) 69, Lymphocytes (%) (Auto) 16 , Monocytes (%) (Auto) 13H, Eosinophils (%) (Auto) 2, Basophils (%) (Auto) 1, Neutrophils # (Auto) 5.6, Lymphocytes # (Auto) 1.3, Monocytes # (Auto) 1.0, Eosinophils # (Auto) 0.2, Basophils # (Auto) 0.0, Prothrombin Time 20.3H, INR Comment 1.8H, Sodium Level 137, Potassium Level 4.1, Chloride Level 100, Carbon Dioxide Level 22, Anion Gap 15H, Blood Urea Nitrogen 19H, Creatinine 0.68, Estimat Glomerular Filtration Rate > 60, BUN/Creatinine Ratio 28, Glucose Level 97, Calcium Level 9.2 Microbiology 09/13/16 Blood Culture - Final, Complete No growth 09/13/16 Urine Culture - Final, Complete Enterococcus Faecalis Laboratory Tests 09/13/16 19:38 09/14/16 04:34 09/15/16 04:37 09/16/16 04:33 09/17/16 05:45 09/18/16 05:09 09/19/16 06:20 09/19/16 06:30 09/20/16 06:57 Pending Labs Microbiology Date/Time Source Procedure Growth Status 09/13/16 19:38 Peripheral Arm, Left Blood Culture - Final No growth Complete 09/13/16 18:48 Peripheral Right Wrist Blood Culture - Final No growth Complete 09/13/16 20:22 Urine Clean Catch Urine Culture - Final Enterococcus Faecalis Complete Laboratory Tests 09/13/16 19:38: White Blood Count 8.0, Red Blood Count 3.89, Hemoglobin 8.4, Hematocrit 29, Mean Corpuscular Volume 74, Mean Corpuscular Hemoglobin 22, Mean Corpuscular Hemoglobin Concent 29, Red Cell Distribution Width 17.9, Platelet Count 330, Mean Platelet Volume 9.7, Neutrophils (%) (Auto) 76, Lymphocytes (%) (Auto) 11, Monocytes (%) (Auto) 13, Eosinophils (%) (Auto) 0, Basophils (%) (Auto) 0, Neutrophils # (Auto) 6.1, Lymphocytes # (Auto) 0.9, Monocytes # (Auto) 1.0, Eosinophils # (Auto) 0.0, Basophils # (Auto) 0.0, Prothrombin Time 31.8, INR Comment 3.1, Activated Partial Thromboplast Time 58, Sodium Level 137, Potassium Level 3.7, Chloride Level 104, Carbon Dioxide Level 22, Anion Gap 11, Blood Urea Nitrogen 12, Creatinine 0.61, Estimat Glomerular Filtration Rate > 60 , BUN/Creatinine Ratio 20, Glucose Level 100, Lactic Acid Level 1.30, Calcium Level 8.6, Total Bilirubin 0.9, Aspartate Amino Transf (AST/SGOT) 15, Alanine Aminotransferase (ALT/SGPT) 11, Alkaline Phosphatase 88, Total Protein 7.5, Albumin 3.7 09/13/16 20:22: Urine Color YELLOW, Urine Clarity CLEAR, Urine pH 7, Urine Specific [place] 1.010, Urine Protein 2+, Urine Glucose (UA) NEGATIVE, Urine Ketones 1+, Urine Nitrite NEGATIVE, Urine Bilirubin NEGATIVE, Urine Urobilinogen NORMAL, Urine Leukocyte Esterase 3+, Urine RBC (Auto) 1+, Urine RBC 0-2, Urine WBC 50-100, Urine Squamous Epithelial Cells 5-10, Urine Crystals NONE, Urine Bacteria TRACE , Urine Casts NONE, Urine Mucus SMALL, Urine Culture Indicated YES 09/14/16 04:34: White Blood Count 7.7, Red Blood Count 3.72, Hemoglobin 7.8, Hematocrit 28, Mean Corpuscular Volume 74, Mean Corpuscular Hemoglobin 21, Mean Corpuscular Hemoglobin Concent 28, Red Cell Distribution Width 18.0, Platelet Count 327, Mean Platelet Volume 10.3, Neutrophils (%) (Auto) 65, Lymphocytes (%) (Auto) 22 , Monocytes (%) (Auto) 12, Eosinophils (%) (Auto) 1, Basophils (%) (Auto) 0, Neutrophils # (Auto) 5.0, Lymphocytes # (Auto) 1.7, Monocytes # (Auto) 0.9, Eosinophils # (Auto) 0.1, Basophils # (Auto) 0.0, Prothrombin Time 34.8, INR Comment 3.5, Sodium Level 140, Potassium Level 3.4, Chloride Level 106, Carbon Dioxide Level 20, Anion Gap 14, Blood Urea Nitrogen 11, Creatinine 0.58, Estimat Glomerular Filtration Rate > 60, BUN/Creatinine Ratio 19, Glucose Level 90, Calcium Level 8.0, Magnesium Level 1.8 09/14/16 11:10: Prothrombin Time 35.2, INR Comment 3.5 09/15/16 04:37: White Blood Count 8.4, Red Blood Count 3.43, Hemoglobin 7.3, Hematocrit 25, Mean Corpuscular Volume 74, Mean Corpuscular Hemoglobin 21, Mean Corpuscular Hemoglobin Concent 29, Red Cell Distribution Width 18.1, Platelet Count 334, Mean Platelet Volume 9.8, Neutrophils (%) (Auto) 79, Lymphocytes (%) (Auto) 9, Monocytes (%) (Auto) 11, Eosinophils (%) (Auto) 1, Basophils (%) (Auto) 0, Neutrophils # (Auto) 6.6, Lymphocytes # (Auto) 0.8, Monocytes # (Auto) 0.9, Eosinophils # (Auto) 0.0, Basophils # (Auto) 0.0, Prothrombin Time 30.7, INR Comment 3.0, Sodium Level 139, Potassium Level 3.1, Chloride Level 102, Carbon Dioxide Level 25, Anion Gap 12, Blood Urea Nitrogen 9, Creatinine 0.59, Estimat Glomerular Filtration Rate > 60, BUN/Creatinine Ratio 15, Glucose Level 101, Calcium Level 8.3 09/15/16 10:45: Stool Occult Blood Immunoassay POSITIVE 09/16/16 04:33: White Blood Count 8.0, Red Blood Count 3.98, Hemoglobin 9.0, Hematocrit 30, Mean Corpuscular Volume 75, Mean Corpuscular Hemoglobin 23, Mean Corpuscular Hemoglobin Concent 30, Red Cell Distribution Width 18.4, Platelet Count 338, Mean Platelet Volume 10.0, Prothrombin Time 23.3, INR Comment 2.1, Sodium Level 140, Potassium Level 2.9, Chloride Level 103, Carbon Dioxide Level 21, Anion Gap 16, Blood Urea Nitrogen 9, Creatinine 0.59, Estimat Glomerular Filtration Rate > 60, BUN/Creatinine Ratio 15, Glucose Level 103, Calcium Level 8.1, Total Bilirubin 0.8, Aspartate Amino Transf (AST/SGOT) 11, Alanine Aminotransferase ( ALT/SGPT) 11, Alkaline Phosphatase 78, Total Protein 6.7, Albumin 3.2 09/17/16 05:45: Prothrombin Time 20.1, INR Comment 1.7, Sodium Level 139, Potassium Level 3.5, Chloride Level 104, Carbon Dioxide Level 25, Anion Gap 10, Blood Urea Nitrogen 12, Creatinine 0.61, Estimat Glomerular Filtration Rate > 60, BUN/Creatinine Ratio 20, Glucose Level 103, Calcium Level 8.6 09/17/16 13:06: Lab Scanned Report Transfusion Reaction Form 09/18/16 05:09: White Blood Count 9.1, Red Blood Count 4.52, Hemoglobin 10.2, Hematocrit 35, Mean Corpuscular Volume 76, Mean Corpuscular Hemoglobin 23, Mean Corpuscular Hemoglobin Concent 30, Red Cell Distribution Width 20.5, Platelet Count 463, Mean Platelet Volume 10.3, Neutrophils (%) (Auto) 79, Lymphocytes (%) (Auto) 10 , Monocytes (%) (Auto) 9, Eosinophils (%) (Auto) 1, Basophils (%) (Auto) 0, Neutrophils # (Auto) 7.2, Lymphocytes # (Auto) 0.9, Monocytes # (Auto) 0.8, Eosinophils # (Auto) 0.1, Basophils # (Auto) 0.0, Neutrophils % (Manual) 83, Lymphocytes % (Manual) 7, Monocytes % (Manual) 9, Eosinophils % (Manual) 1, Hypochromasia MARKED, Absolute Reticulocyte Count 43, Percent Reticulocyte Count 0.94, Hemoglobin Electrophoresis (T) [Pending], Prothrombin Time 18.4, INR Comment 1.6, Sodium Level 137, Potassium Level 4.0, Chloride Level 103, Carbon Dioxide Level 20, Anion Gap 14, Blood Urea Nitrogen 10, Creatinine 0.65, Estimat Glomerular Filtration Rate > 60, BUN/Creatinine Ratio 15, Glucose Level 106, Calcium Level 9.1, Iron Level 22, Total Iron Binding Capacity 339, Unsaturated Iron Binding Capacity 317, Transferrin % Saturation 6, Ferritin 47.0 , Total Bilirubin 0.8, Aspartate Amino Transf (AST/SGOT) 15, Alanine Aminotransferase (ALT/SGPT) 15, Alkaline Phosphatase 85, Lactate Dehydrogenase 192, Total Protein 7.9, Albumin 3.6 09/18/16 18:28: B-Type Natriuretic Peptide 398.6 09/19/16 06:20: Sodium Level 138, Potassium Level 4.4, Chloride Level 101, Carbon Dioxide Level 27, Anion Gap 10, Blood Urea Nitrogen 10, Creatinine 0.66, Estimat Glomerular Filtration Rate > 60, BUN/Creatinine Ratio 15, Glucose Level 98, Calcium Level 9.1 09/19/16 06:30: White Blood Count 7.3, Red Blood Count 4.63, Hemoglobin 10.5, Hematocrit 36, Mean Corpuscular Volume 77, Mean Corpuscular Hemoglobin 23, Mean Corpuscular Hemoglobin Concent 30, Red Cell Distribution Width 20.8, Platelet Count 437, Mean Platelet Volume 9.8, Neutrophils (%) (Auto) 73, Lymphocytes (%) (Auto) 12, Monocytes (%) (Auto) 12, Eosinophils (%) (Auto) 3, Basophils (%) (Auto) 0, Neutrophils # (Auto) 5.4, Lymphocytes # (Auto) 0.8, Monocytes # (Auto) 0.9, Eosinophils # (Auto) 0.2, Basophils # (Auto) 0.0, Prothrombin Time 20.1, INR Comment 1.7, B-Type Natriuretic Peptide 290.7 09/19/16 10:00: Urine Color YELLOW, Urine Clarity CLEAR, Urine pH 7, Urine Specific [place] 1.005, Urine Protein NEGATIVE, Urine Glucose (UA) NEGATIVE, Urine Ketones NEGATIVE, Urine Nitrite NEGATIVE, Urine Bilirubin NEGATIVE, Urine Urobilinogen NORMAL, Urine Leukocyte Esterase 1+, Urine RBC (Auto) NEGATIVE, Urine RBC NONE, Urine WBC 2-5, Urine Squamous Epithelial Cells 2-5, Urine Crystals NONE, Urine Bacteria NEGATIVE, Urine Casts NONE, Urine Mucus NEGATIVE, Urine Other RARE TRANS EPI, Urine Culture Indicated NO 09/20/16 06:57: White Blood Count 8.2, Red Blood Count 4.79, Hemoglobin 11.0, Hematocrit 37, Mean Corpuscular Volume 77, Mean Corpuscular Hemoglobin 23, Mean Corpuscular Hemoglobin Concent 30, Red Cell Distribution Width 21.4, Platelet Count 466, Mean Platelet Volume 10.2, Neutrophils (%) (Auto) 69, Lymphocytes (%) (Auto) 16 , Monocytes (%) (Auto) 13, Eosinophils (%) (Auto) 2, Basophils (%) (Auto) 1, Neutrophils # (Auto) 5.6, Lymphocytes # (Auto) 1.3, Monocytes # (Auto) 1.0, Eosinophils # (Auto) 0.2, Basophils # (Auto) 0.0, Prothrombin Time 20.3, INR Comment 1.8, Sodium Level 137, Potassium Level 4.1, Chloride Level 100, Carbon Dioxide Level 22, Anion Gap 15, Blood Urea Nitrogen 19, Creatinine 0.68, Estimat Glomerular Filtration Rate > 60, BUN/Creatinine Ratio 28, Glucose Level 97, Calcium Level 9.2 Radiology Reviewed [facility] REC#: [id number] PT STATUS: ADM IN : 1930 PHYSICIAN: CLINTON LEACH MD ADMIT DATE: 09/13/16 Signed Date of Exam: 09/13/16 CHEST PA/LAT (2 VIEW) EXAM: Chest PA/LAT (2 view). INDICATION: Cough. Congestion. Shortness of breath. COMPARISON: Chest radiograph from 09/12/2016. FINDINGS: Persistent cardiomegaly and increased central pulmonary vascularity. Calcified aorta. Stable small bilateral pleural effusions. Persistent left perihilar airspace opacity. New airspace opacity in the right midlung. No pneumothorax. Advanced degenerative changes in the visualized thoracolumbar spine. No acute osseous findings. IMPRESSION: 1. Persistent cardiomegaly and prominent central pulmonary vascularity. 2. Increasing airspace opacity in the right mid lung. Persistent airspace opacity in the left mid lung. 3. Stable, small bilateral pleural effusions. Dictated by: Dictated on workstation # [id number] Discussion & Recommendations patient in hospital felt better and wanted to go home. Patient having relatives visiting Discharge Home Medications: Active Scripts Active Diltiazem 24Hr Cd (Diltiazem HCl) 240 Mg Cap.er.24h 240 Mg PO DAILY Furosemide 40 Mg Tablet 40 Mg PO DAILY 30 Days Ventolin Hfa (Albuterol Sulfate) 1 Puff Puff 2 Puff IH Q8H 30 Days 1 PUFF = 90 MCG Famotidine 20 Mg Tablet 20 Mg PO DAILY 30 Days Reported Acetaminophen 500 Mg Tablet 500 Mg PO DAILY PRN Preservision Areds 2 Softgel (Vit C/E/Zn/Coppr/Lutein/Zeaxan) 1 Each Capsule 1 Cap PO BID Hydrocodon -Acetaminophen 5-325 (Hydrocodone/Acetaminophen) 1 Each Tablet 0.5-1 Tab PO DAILY Coumadin (Warfarin Sodium) 4 Mg Tablet 4 Mg PO TUFR@HS Coumadin (Warfarin Sodium) 3 Mg Tablet 3 Mg PO SUMOWETHSA@HS Cefdinir 300 Mg Capsule 300 Mg PO BID FILLED 09/11/06 #14 FOR A 7 DAY THERPAY Ferrex 150 (Iron Polysaccharide Complex) 150 Mg Capsule 150 Mg PO BID Metoprolol Tartrate 25 Mg Tablet 25 Mg PO BID Alprazolam 0.25 Mg Tablet 0.25 Mg PO DAILY PRN Instructions to patient/family Please see electonic discharge instructions given to patient. Clinical Quality Measures DVT/VTE Risk/Contraindication: Risk Factor Score Per Nursin RFS Level Per Nursing on Admit: 3=High Contraindications-Pharm: Other *list below* DAREN FERGUSON DO Sep 20, 2016 19:29
--- NOTE | 2016-09-21 09:34 | Physician Query Clarification ---
PQ-CHF Specificity The medical record reflects the following clinical scenario: History/Risk Factors: Pneumonia, chronic atrial fibrillation Clinical Findings: edema, fluid overload Treatment: Lasix 40 mg PO Question: Can you further specify the acuity &/or type of CHF per the clinical indicators above? Please document a response below PHYSICIAN RESPONSE Acuity: CHF cannot be further specified Type: CHF cannot be further specified In responding to this query, please exercise your independent professional judgment. The purpose of this communication is to more accurately reflect the complexity of your patients condition. The fact that a question is asked does not imply that any particular answer is desired or expected. Thank you for your timely response to this clarification. Requestors name: Marley THIS PHYSICIAN QUERY FORM IS A PERMANENT PART OF THE MEDICAL RECORD MARLEY MARQUEZ Sep 21, 2016 09:34 DAREN FERGUSON DO Sep 21, 2016 11:30
[2016-09-24 12:12] LABS: HEMOGLOBIN ELECTROPHERESIS L179682
== END 2016-09-20 14:16 | disposition home or self-care (01) | DRG 194 ==
LOC: EDUNIT# 17:08 → ER 17:10 → 4TH 20:40
PROVIDERS: ADMIT Family Medicine; ATTEND Family Medicine
DX: J18.9 Pneumonia, unspecified organism (principal); I48.2 Chronic atrial fibrillation; N39.0 Urinary tract infection, site not specified; I11.0 Hypertensive heart disease with heart failure; I50.30 Unspecified diastolic (congestive) heart failure; D50.9 Iron deficiency anemia, unspecified; J30.1 Allergic rhinitis due to pollen; K44.9 Diaphragmatic hernia without obstruction or gangrene; M19.91 Primary osteoarthritis, unspecified site; F41.9 Anxiety disorder, unspecified; B95.2 Enterococcus as the cause of diseases classified elsewhere; R19.5 Other fecal abnormalities; K21.9 Gastro-esophageal reflux disease without esophagitis; E87.6 Hypokalemia; Z85.42 Personal history of malignant neoplasm of other parts of uterus; Z79.01 Long term (current) use of anticoagulants
CPT/HCPCS: 36415; 36430; 71020; 80048; 80053; 81000; 82274; 82728; 83020; 83540; 83605; 83615; 83735; 83880; 85007; 85025; 85027; 85045; 85610; 85730; 86850; 86900; 86901; 86920; 87040; 87077; 87088; 87186; 93306; 94640; 94760; 96361; 96365; 96375

== ENCOUNTER → 2016-09-13 | Outpatient (CLI) | payer MEDICARE, OTHER ==
[~2016-09-13] VITALS: Ht 157.5 cm; Wt 68.1 kg
[~2016-09-13] MED LIST changes: +ACETAMINOPHEN 325 MG TABLET/CAPLET (TYLENOL) ONE; +ACETAMINOPHEN 325 MG TABLET/CAPLET (TYLENOL) PO ONE; +DILT240C63 PO; +FAMO20TA5 PO; +NS IV 500 ML 500 ML IV SCH; +NS IV 500 ML 500 ML ONE; +RT-ALBUINH IH; +SUCR1TAB PO; +diphenhydrAMINE 25 MG TAB (BENADRYL) PO ONE
[2016-09-13 08:44] VITALS: BP 160/88
[2016-09-13 09:21] VITALS: BP 160/88
[2016-09-13 09:35] VITALS: BP 146/88
[2016-09-13 12:10] VITALS: BP 157/85
== END ==
LOC: SDC 07:53
PROVIDERS: ATTEND Family Medicine
DX: D64.9 Anemia, unspecified (principal)
CPT/HCPCS: 36415; 36430; 86850; 86900; 86901; 86920

== ENCOUNTER 2016-10-27 10:58 | Observation (INO) | payer MEDICARE, OTHER ==
[~2016-10-27] VITALS: Ht 162.6 cm; Wt 65.1 kg
[2016-10-27] VITALS (8 sets, daily range): BP systolic 137–162; BP diastolic 59–71
[~2016-10-27 10:58] MED LIST changes: +ACET-93 PO; +ALBU18HF2; +CEFD300C3 PO; +DILT240C63 PO; +FAMO20TA5 PO; +HYDR-3812 PO; +PANT40TA3; +PRD10T; +RT-ALBUINH IH; +VIT1CAPS44 PO
--- NOTE | 2016-10-27 12:21 | Diagnostic Imaging Report ---
INDICATION: Pneumonia. COMPARISON: 09/20/2016. FINDINGS: Frontal and lateral views of the chest demonstrate large hiatal hernia. Bilateral pleural effusions and infiltrates have increased in both bases. The heart is prominent with central vascular congestion. There is no pneumothorax. Osseous structures are stable. IMPRESSION: 1. Increasing bilateral pleural effusions, dependent atelectasis, and infiltrate right greater than left. 2. Cardiac enlargement with slight central vascular congestion. 3. Hiatal hernia. Dictated by: Dictated on workstation # [id number]
[2016-10-27 12:23] LABS: BASOPHILS % (AUTO) 1 % (0-10); EOSINOPHILS # (AUTO) 0.1 10^3/uL (0.0-0.3); EOSINOPHILS % (AUTO) 1 % (0-10); LYMPHOCYTES # (AUTO) 0.9 X 10^3 (1.0-4.0); LYMPHOCYTES % (AUTO) 14 % (12-44); MEAN CORPUSCULAR HGB CONC 28 G/DL (32-36); MEAN CORPUSCULAR VOLUME 76 FL (80-99); MEAN PLATELET VOLUME 9.8 FL (7.4-10.4); MONOCYTES # (AUTO) 0.8 X 10^3 (0.0-1.0); MONOCYTES % (AUTO) 13 % (0-12); NEUTROPHILS # (AUTO) 4.7 X 10^3 (1.8-7.8); NEUTROPHILS % (AUTO) 72 % (42-75); PLATELET COUNT 322 10^3/uL (130-400); RED BLOOD COUNT 2.84 10^6/uL (4.35-5.85); RED CELL DISTRIBUTION WIDTH 21.7 % (10.0-14.5); WHITE BLOOD COUNT 6.5 10^3/uL (4.3-11.0)
[2016-10-27 12:26] LABS: MEAN CORPUSCULAR HEMOGLOBIN 21 PG (25-34)
--- NOTE | 2016-10-27 12:30 | ED GI ---
General Chief Complaint: Respiratory Problems Stated Complaint: STOMACH PAIN, SOB Nursing Triage Note: pt ambulated to room. pt complains of sob and left sided stomach pain for approx. 1 week. pt states she has been feeling nauseous but no vomiting. pt also complains of diarrhea for approx. 1 week. pt denies using any home oxygen or breathing treatments at home. Sepsis Screen: No Definite Risk History of Present Illness Time Seen By Provider: 12:15 Initial Comments Patient reports being weak and fatigued, she's had slight shortness of air, she denies a cough, she reports mild left upper quadrant pain, she takes Pepcid daily. She does report diarrhea recently with some blood in her stools, however she does have hemorrhoids. She denies any falls or fainting. Timing/Duration: 1 Week, Intermittent Severity/Quality: Mild Location: [facility] Radiation: No Radiation Activities at Onset: None Modifying Factors: Improves With Defecating, Improves With Resting, Improves With Other (abdominal pain improves after eating.) Associated Symptoms: Fatigue, Heartburn, Shortness of Air Allergies and Home Medications Allergies Coded Allergies: Sulfa (Sulfonamide Antibiotics) (Verified Allergy, Unknown, 08/02/07) Home Medications Acetaminophen 500 Mg Tablet, 500 MG PO DAILY PRN for PAIN-MILD, (Reported) Albuterol Sulfate 1 Puff Puff, 2 PUFF IH Q8H for 30 Days 1 PUFF = 90 MCG Prescribed by: SUZETTE GAXIOLA on 09/20/16 1304 Alprazolam 0.25 Mg Tablet, 0.25 MG PO DAILY PRN for ANXIETY, (Reported) Cefdinir 300 Mg Capsule, 300 MG PO BID, (Reported) FILLED 09/11/06 #14 FOR A 7 DAY THERPAY Diltiazem HCl 240 Mg Cap.er.24h, 240 MG PO DAILY, #30 Prescribed by: SUZETTE GAXIOLA on 09/20/16 1501 Famotidine 20 Mg Tablet, 20 MG PO DAILY for 30 Days, #30 Prescribed by: SUZETTE GAXIOLA on 09/20/16 1304 Furosemide 40 Mg Tablet, 40 MG PO DAILY for 30 Days Prescribed by: SUZETTE GAXIOLA on 09/20/16 1306 Hydrocodone/Acetaminophen 1 Each Tablet, 0.5-1 TAB PO DAILY, (Reported) Iron Polysaccharide Complex 150 Mg Capsule, 150 MG PO BID, (Reported) Metoprolol Tartrate 25 Mg Tablet, 25 MG PO BID, (Reported) Vit C/E/Zn/Coppr/Lutein/Zeaxan 1 Each Capsule, 1 CAP PO BID, (Reported) Warfarin Sodium 3 Mg Tablet, 3 MG PO SuMoWeThSa@HS, (Reported) Warfarin Sodium 4 Mg Tablet, 4 MG PO TuFr@HS, (Reported) Review of Systems Constitutional: no symptoms reported, see HPI Respiratory: See HPI, SOA With Exertion Gastrointestinal: See HPI, Abdominal Pain, Diarrhea, Poor Appetite Genitourinary: No Symptoms Reported, See HPI All Other Systems Reviewed Negative Unless Noted: Yes Past Nptohjg-Ocbuie-Gkzfxs Hx Patient Social History Alcohol Use: Denies Use Recreational Drug Use: No Smoking Status: Never a Smoker 2nd Hand Smoke Exposure: No Recent Foreign Travel: No Contact w/Someone Who Travel: No Recent Infectious Disease Expo: No Recent Hopitalizations: No Physical Abuse: No Sexual Abuse: No Immunizations Up To Date Tetanus Booster (TDap): More than 5yrs PED Vaccines UTD: No Seasonal Allergies Seasonal Allergies: Yes (hay fever) Surgeries History of Surgeries: Yes (KNEE) Surgeries: Hysterectomy Respiratory History of Respiratory Disorde: Yes Respiratory Disorders: Pneumonia Currently Using CPAP: No Currently Using BIPAP: No Cardiovascular History of Cardiac Disorders: Yes Cardiac Disorders: Atrial Fibrillation Neurological History of Neurological Disord: No 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 System Hx 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) Sexually Transmitted Disease: No HIV/AIDS: No 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 Genitourinary History of Genitourinary Disor: No Gastrointestinal History of Gastrointestinal Di: Yes Gastrointestinal Disorders: Hiatal Hernia Musculoskeletal History of Musculoskeletal Dis: Yes Musculoskeletal Disorders: Arthritis Endocrine History of Endocrine Disorders: No HEENT History of HEENT Disorders: Yes (cataracts removed ) HEENT Disorders: Cataract Loss of Vision: Denies Hearing Impairment: Denies Cancer History of Cancer: Yes Cancer: Uterine Did You Recieve Any Treatments: Yes Type of Tx Receive: Radiation, Surgical Intervention Psychosocial History of Psychiatric Problem: Yes Behavioral Health Disorders: Anxiety Suicide Risk Score: 0 Integumentary History of Skin or Integumenta: No Blood Transfusions History of Blood Disorders: No (anemia ) Adverse Reaction to a Blood Tr: No Reviewed Nursing Assessment Reviewed/Agree w Nursing PMH: Yes Family Medical History Family Medial History: Cancer Heart disease Physical Exam Vital Signs VS - Last 72 Hours, by Label 10/27/16 10/27/16 11:04 11:09 Temp 97.1 Pulse 91 Resp 20 B/P (MAP) 149/77 Pulse Ox 96 100 O2 Delivery Room Air Nasal Cannula O2 Flow Rate 2.00 FiO2 100 Capillary Refill : Less Than 3 Seconds General Appearance: WD/WN, no apparent distress HEENT: PERRL/EOMI, normal ENT inspection, TMs normal, pharynx normal Neck: non-tender, full range of motion, supple, normal inspection Respiratory: chest non-tender, lungs clear, normal breath sounds, no respiratory distress Cardiovascular: normal peripheral pulses, regular rate, rhythm, other (2+ pitting edema left ankle, 1+ right ankle.) Gastrointestinal: normal bowel sounds, non tender, soft, no organomegaly Neurologic/Psychiatric: no motor/sensory deficits, alert, normal mood/affect, oriented x 3 Skin: normal color, warm/dry Progress/Results/Core Measures Results/Orders Lab Results Laboratory Tests Test 10/27/16 12:10 Range/Units White Blood Count 6.5 4.3-11.0 10^3/uL Red Blood Count 2.84 L 4.35-5.85 10^6/uL Hemoglobin 6.1 *L 11.5-16.0 G/DL Hematocrit 22 L 35-52 % Mean Corpuscular Volume 76 L 80-99 FL Mean Corpuscular Hemoglobin 21 L 25-34 PG Mean Corpuscular Hemoglobin Concent 28 L 32-36 G/DL Red Cell Distribution Width 21.7 H 10.0-14.5 % Platelet Count 322 130-400 10^3/uL Mean Platelet Volume 9.8 7.4-10.4 FL Neutrophils (%) (Auto) 72 42-75 % Lymphocytes (%) (Auto) 14 12-44 % Monocytes (%) (Auto) 13 H 0-12 % Eosinophils (%) (Auto) 1 0-10 % Basophils (%) (Auto) 1 0-10 % Neutrophils # (Auto) 4.7 1.8-7.8 X 10^3 Lymphocytes # (Auto) 0.9 L 1.0-4.0 X 10^3 Monocytes # (Auto) 0.8 0.0-1.0 X 10^3 Eosinophils # (Auto) 0.1 0.0-0.3 10^3/uL Basophils # (Auto) 0.0 0.0-0.1 10^3/uL Prothrombin Time 27.2 H 12.2-14.7 SEC INR Comment 2.5 H 0.8-1.4 Activated Partial Thromboplast Time 61 H 24-35 SEC Sodium Level 139 135-145 MMOL/L Potassium Level 4.2 3.6-5.0 MMOL/L Chloride Level 105 98-107 MMOL/L Carbon Dioxide Level 25 21-32 MMOL/L Anion Gap 9 5-14 MMOL/L Blood Urea Nitrogen 13 7-18 MG/DL Creatinine 0.62 0.60-1.30 MG/DL Estimat Glomerular Filtration Rate > 60 BUN/Creatinine Ratio 21 Glucose Level 99 70-105 MG/DL Calcium Level 8.5 8.5-10.1 MG/DL Total Bilirubin 0.6 0.1-1.0 MG/DL Aspartate Amino Transf (AST/SGOT) 10 5-34 U/L Alanine Aminotransferase (ALT/SGPT) 9 0-55 U/L Alkaline Phosphatase 70 40-136 U/L Total Protein 6.3 L 6.4-8.2 GM/DL Albumin 3.4 3.2-4.5 GM/DL My Orders Orders - JULIA CASILLAS Chest Pa/Lat (2 View) (10/27/16 11:50) Cbc With Automated Diff (10/27/16 11:58) Comprehensive Metabolic Panel (10/27/16 11:58) Ua Culture If Indicated (10/27/16 11:58) Vital Signs/I&O Vital Sign - Last 12Hours 10/27/16 10/27/16 11:04 11:09 Temp 97.1 Pulse 91 Resp 20 B/P (MAP) 149/77 Pulse Ox 96 100 O2 Delivery Room Air Nasal Cannula O2 Flow Rate 2.00 FiO2 100 Blood Pressure Mean: 101 Progress Note : Time: 12:15 Progress Note Initial evaluation completed. Will obtain EKG, chest x-ray, and labs. Reevaluation after this. Pepcid 20 mg IV, the patient has not taken her morning dose of Pepcid today. Reviewed previous admission from September 13-2016. 1230 labs show a hemoglobin of 6.1, Other labs essentially normal. Dr. Yanes in ED evaluated patient for admission. Type and crossmatched for 2 units of PRBCs ECG Initial ECG Impression Date: Oct 27, 2016 Initial ECG Impression Time: 11:31 Initial ECG Rate: 80 Initial ECG Rhythm: A Fib/Flutter Initial ECG Intervals: Normal Initial ECG Intervals QRSD 78, QT 396, QTc 457. [place] QRS 46, T 34. Diagnostic Imaging Diagonstic Imaging: Xray Plain Films/CT/US/NM/MRI: chest Comments NAME: GUILLERMO MONROY [facility] REC#: [id number] PT STATUS: REG ER : 1929 PHYSICIAN: JULIA CASILLAS ADMIT DATE: 10/27/16/ER Draft Date of Exam:10/27/16 CHEST PA/LAT (2 VIEW) INDICATION: Pneumonia. COMPARISON: 09/20/2016. FINDINGS: Frontal and lateral views of the chest demonstrate large hiatal hernia. Bilateral pleural effusions and infiltrates have increased in both bases. The heart is prominent with central vascular congestion. There is no pneumothorax. Osseous structures are stable. IMPRESSION: 1. Increasing bilateral pleural effusions, dependent atelectasis, and infiltrate right greater than left. 2. Cardiac enlargement with slight central vascular congestion. 3. Hiatal hernia. Dictated on workstation # [id number] Dict: 10/27/16 1207 Trans: 10/27/16 1221 [facility] [id number] Interpreted by: BETH URBINA Electronically signed by: Departure Impression Impression: Primary Impression: Anemia Qualified Codes: D64.9 - Anemia, unspecified Additional Impression: Abdominal pain Qualified Codes: R10.11 - Right upper quadrant pain Disposition: ADMITTED INPATIENT Condition: Stable Admissions Decision to Admit Reason: Admit from ER (General) Decision to Admit/Date: Oct 27, 2016 Time/Decision to Admit Time: 12:30 Departure-Patient Inst. Referrals: DAREN FERGUSON DO (PCP/Family) Primary Care Physician JULIA CASILLAS Oct 27, 2016 12:30
[2016-10-27] MEDS ORDERED: FAMOTIDINE 20MG/2ML IV (PEPCID) IV STA (12:37)
[2016-10-27 12:38] LABS: ALANINE AMINOTRANSFERASE 9 U/L (0-55); ALBUMIN 3.4 GM/DL (3.2-4.5); ANION GAP 9 MMOL/L (5-14); ASPARTATE AMINO TRANSFERASE 10 U/L (5-34); BILIRUBIN,TOTAL 0.6 MG/DL (0.1-1.0); BLOOD UREA NITROGEN 13 MG/DL (7-18); BUN/CREATININE RATIO 21; CALCIUM 8.5 MG/DL (8.5-10.1); CARBON DIOXIDE 25 MMOL/L (21-32); CHLORIDE 105 MMOL/L (98-107); CREATININE SERUM 0.62 MG/DL (0.60-1.30); GFR ESTIMATED > 60; GLUCOSE 99 MG/DL (70-105); POTASSIUM 4.2 MMOL/L (3.6-5.0); SODIUM 139 MMOL/L (135-145); TOTAL PROTEIN 6.3 GM/DL (6.4-8.2)
[2016-10-27 12:44] LABS: INR 2.5 (0.8-1.4); PROTHROMBIN TIME PATIENT 27.2 SEC (12.2-14.7)
[2016-10-27] MEDS ORDERED: SUCRALFATE 1 GM (CARAFATE) TAB PO ONE (12:45)
[2016-10-27 13:12] LABS: BILIRUBIN,URINE NEGATIVE (NEGATIVE); KETONES,URINE NEGATIVE (NEGATIVE); LEUKOCYTE ESTERASE ,URINE 2+ (NEGATIVE); NITRITE,URINE NEGATIVE (NEGATIVE); PH,URINE 8 (5-9); PROTEIN,URINE NEGATIVE (NEGATIVE); UROBILINOGEN,URINE NORMAL (NORMAL)
[2016-10-27 13:25] LABS: SQUAMOUS EPITHELIAL CELL,UR 0-2 /HPF
[2016-10-27] MEDS ORDERED: NS (IVPB) 250 ML ONE (13:54)
[2016-10-27] MEDS ORDERED: SUCRALFATE 1 GM (CARAFATE) TAB PO SCH (14:14)
[2016-10-27] MEDS ORDERED: FAMOTIDINE 20MG/2ML IV (PEPCID) IV SCH (14:14)
[2016-10-27] MEDS ORDERED: FUROSEMIDE 40 MG/4 ML INJ (LASIX) IV NR (14:15)
[2016-10-27] MEDS ORDERED: CATHETER FLUSH 10 ML SYR IV PRN (14:15)
[2016-10-27] MEDS ORDERED: ACETAMINOPHEN 325 MG TABLET/CAPLET (TYLENOL) PO PRN (14:30)
--- NOTE | 2016-10-27 14:51 | History & Physical-Hospitalist ---
HPI History of Present Illness: HPI/Chief Complaint 86 yo wf presents to ED with c/o SOA and abdominal pain. HgB found to be 6.1. has a history of afib on coumadin and heme pos stools in the past. Followed by as well [facility]h Source: patient, family, old records Exam Limitations: no limitations Date Seen 10/27/16 Time Seen by Provider: 12:40 Attending Physician Belinda Sanchez MD PCP Matt Ferguson DO Referring Physician Date of Admission Oct 27, 2016 at 12:30 Home Medications & Allergies Home Medications Reviewed patient Home Medication Reconciliation Form Allergies Allergies Coded Allergies Sulfa (Sulfonamide Antibiotics) (Verified Allergy, Unknown, 08/02/07) Past Vnctoto-Ochnma-Jimvjk Hx Patient Social History Marrital Status: Employed/Student: retired Alcohol Use: Denies Use Recreational Drug Use: No Smoking Status: Never a Smoker 2nd Hand Smoke Exposure: No Physical Abuse Screen: No Sexual Abuse: No Recent Foreign Travel: No Contact w/other who traveled: No Recent Hopitalizations: No Recent Infectious Disease Expo: No Immunizations Up To Date Tetanus Booster (TDap): More than 5yrs Pediatric: No Seasonal Allergies Seasonal Allergies: Yes (hay fever) Surgeries Yes Hysterectomy Respiratory Yes Currently Using CPAP: No Currently Using BIPAP: No Cardiovascular Yes Atrial Fibrillation Neurological No 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 System Hx 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) Sexually Transmitted Disease: No HIV/AIDS: No 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 Genitourinary No Gastrointestinal Yes Diverticulosis, Hiatal Hernia Musculoskeletal No Arthritis Endocrine History of Endocrine Disorders: No HEENT History of HEENT Disorders: Yes (cataracts removed ) HEENT Disorders: Cataract Loss of Vision: Denies Hearing Impairment: Denies Cancer Yes Uterine Did You Recieve Any Treatments: Yes Type of Treatment: Radiation, Surgical Intervention Psychosocial History of Psychiatric Problem: No Behavioral Health Disorders: Anxiety Integumentary History of Skin or Integumenta: No Blood Transfusions History of Blood Disorders: Yes (anemia ) Adverse Reaction to a Blood Tr: No Reviewed Nursing Assessment Reviewed/Agree w Nursing PMH: Yes Family Medical History Family Hx: Cancer FH: colon cancer 19 MOTHER Heart disease 19 FATHER Pacemaker 19 FATHER Review of Systems Constitutional: see HPI, weakness Respiratory: dyspnea on exertion Gastrointestinal: abdominal pain Skin: no symptoms reported Psychiatric/Neurological: No Symptoms Reported Physical Exam Physical Exam Vital Signs Vital Sign - Last 12Hours 10/27/16 10/27/16 11:04 11:09 Temp 97.1 Pulse 91 Resp 20 B/P (MAP) 149/77 Pulse Ox 96 O2 Delivery Room Air O2 Flow Rate 2.00 FiO2 100 Capillary Refill : Less Than 3 Seconds General Appearance: No Apparent Distress HEENT: Pale Conjunctivae (R) Neck: Normal Inspection, Non Tender Respiratory: Decreased Breath Sounds (right) Cardiovascular: Systolic Murmur (2/6), Irregularly Irregular Gastrointestinal: Tenderness (mild, diffusely) Rectal: Deferred Extremity: Non Tender, No Pedal Edema Neurologic/Psychiatric: Alert, Oriented x3, No Motor/Sensory Deficits, Normal Mood/Affect Skin: Pallor Results Results/Procedures Lab Laboratory Tests 10/27/16 12:10 Assessment/Plan Admission Diagnosis 1.severe anemia with heme pos stools ,on coumadin- plan - transfuse, consult hematology, hold coumadin, use pepcid, carafate- etiology may be from chronic GI blood loss from hiatal hernia 2.abnormal Cxr- possible pneumonia by film, however, pt. is afebrile,no increased wbc, and asymptomatic- may need further evaluation for other etiology of infiltrate, and effusions 3. afib- rate controlled.hold coumadin for now. Copy Copies To 1: MATT FERGUSON DO Clinical Quality Measures DVT/VTE Risk/Contraindication: Risk Factor Score Per Nursin RFS Level Per Nursing on Admit: 2=Moderate BELINDA SANCHEZ MD Oct 27, 2016 14:51
[2016-10-27] MEDS ORDERED: RT-ALBUTEROL/IPRATROPIUM 3 ML (DUONEB) VIAL INH SCH (15:00)
[2016-10-27] MEDS ORDERED: RT-ALBUTEROL/IPRATROPIUM 3 ML (DUONEB) VIAL INH PRN (15:00)
[2016-10-27] MEDS ORDERED: ACETAMINOPHEN 500 MG TAB (TYLENOL) PO PRN (15:15)
[2016-10-27] MEDS ORDERED: RT-ALBUTEROL HFA (VENTOLIN) PER PUFF IH SCH (15:15)
[2016-10-27] MEDS ORDERED: ALPRAZolam 0.25 MG (XANAX) TAB PO PRN (15:15)
[2016-10-27] MEDS ORDERED: HYDROcodone/APAP 5 MG/325 MG (LORTAB) TAB PO PRN (16:30)
[2016-10-27] MEDS: meTOprolol TARTRATE 25 MG (LOPRESSOR) TABLET PO SCH (18:27)
[2016-10-27] MEDS: SUCRALFATE 1 GM (CARAFATE) TAB PO SCH ×2 (18:27→23:36)
[2016-10-27] MEDS: IRON POLYSAC 150 MG CAP (NIFEREX) PO SCH (20:59)
[2016-10-27] MEDS: CATHETER FLUSH 10 ML SYR IV SCH (20:59)
[2016-10-27] MEDS: FAMOTIDINE 20MG/2ML IV (PEPCID) IV SCH (20:59)
[2016-10-27] MEDS: RT-ALBUTEROL/IPRATROPIUM 3 ML (DUONEB) VIAL INH SCH (21:40)
[2016-10-28] VITALS (7 sets, daily range): BP systolic 115–175; BP diastolic 60–79
[2016-10-28] MEDS: RT-ALBUTEROL/IPRATROPIUM 3 ML (DUONEB) VIAL INH SCH ×3 (03:00→14:27)
[2016-10-28] MEDS: SUCRALFATE 1 GM (CARAFATE) TAB PO SCH ×2 (05:11→12:45)
[2016-10-28] MEDS: CATHETER FLUSH 10 ML SYR IV SCH ×2 (05:12→14:33)
[2016-10-28 05:29] LABS: BASOPHILS % (AUTO) 0 % (0-10); EOSINOPHILS # (AUTO) 0.1 10^3/uL (0.0-0.3); EOSINOPHILS % (AUTO) 1 % (0-10); LYMPHOCYTES % (AUTO) 11 % (12-44); MEAN CORPUSCULAR HEMOGLOBIN 24 PG (25-34); MEAN CORPUSCULAR HGB CONC 30 G/DL (32-36); MEAN CORPUSCULAR VOLUME 79 FL (80-99); MONOCYTES % (AUTO) 11 % (0-12); NEUTROPHILS % (AUTO) 77 % (42-75); PLATELET COUNT 305 10^3/uL (130-400); RED BLOOD COUNT 3.39 10^6/uL (4.35-5.85); RED CELL DISTRIBUTION WIDTH 21.6 % (10.0-14.5); WHITE BLOOD COUNT 9.1 10^3/uL (4.3-11.0)
[2016-10-28 06:04] LABS: ALANINE AMINOTRANSFERASE 10 U/L (0-55); ALBUMIN 3.3 GM/DL (3.2-4.5); ANION GAP 10 MMOL/L (5-14); ASPARTATE AMINO TRANSFERASE 16 U/L (5-34); BILIRUBIN,TOTAL 1.4 MG/DL (0.1-1.0); BLOOD UREA NITROGEN 13 MG/DL (7-18); BUN/CREATININE RATIO 19; CALCIUM 8.6 MG/DL (8.5-10.1); CARBON DIOXIDE 22 MMOL/L (21-32); CHLORIDE 107 MMOL/L (98-107); GFR ESTIMATED > 60; GLUCOSE 99 MG/DL (70-105); POTASSIUM 3.7 MMOL/L (3.6-5.0); SODIUM 139 MMOL/L (135-145); TOTAL PROTEIN 6.6 GM/DL (6.4-8.2)
[2016-10-28] MEDS: meTOprolol TARTRATE 25 MG (LOPRESSOR) TABLET PO SCH (08:21)
[2016-10-28] MEDS ORDERED: DILTIAZEM 240 MG (CARDIZEM CD) CAP PO SCH (09:00)
[2016-10-28] MEDS: IRON POLYSAC 150 MG CAP (NIFEREX) PO SCH (09:08)
[2016-10-28] MEDS: FAMOTIDINE 20MG/2ML IV (PEPCID) IV SCH (09:08)
[2016-10-28] MEDS ORDERED: NS IV 500 ML 500 ML IV SCH (11:22)
[2016-10-28] MEDS ORDERED: SUCR1TAB PO (11:40)
[2016-10-28] MEDS ORDERED: FUROSEMIDE 40 MG/4 ML INJ (LASIX) IVP NR (11:45)
--- NOTE | 2016-10-28 11:45 | Discharge Summary-Hospitalist ---
Diagnosis/Chief Complaint Date of Admission Oct 27, 2016 at 12:30 Date of Discharge October 28, 2016 Discharge Date: Oct 28, 2016 Discharge Time: 17:00 Admission Diagnosis 1.severe anemia with heme pos stools ,on coumadin- plan - transfuse, consult hematology, hold coumadin, use pepcid, carafate- etiology may be from chronic GI blood loss from hiatal hernia 2.abnormal Cxr- possible pneumonia by film, however, pt. is afebrile,no increased wbc, and asymptomatic- may need further evaluation for other etiology of infiltrate, and effusions 3. afib- rate controlled.hold coumadin for now. Discharge Diagnosis 1. severe anemia secondary to gastrointestinal bleeding, acute on top of chronic 2. Chronic atrial fibrillation 3. COPD 4. Hiatal hernia 5. Abnormal chest x-ray Discharge Summary Procedures transfusion with 3 units of packed red blood cells Consultations Dr. Alonso Discharge Physical Examination Allergies: Coded Allergies: Sulfa (Sulfonamide Antibiotics) (Verified Allergy, Unknown, 08/02/07) Vitals & I&Os Vital Signs Date Time Temp Pulse Resp B/P (MAP) Pulse Ox O2 Delivery O2 Flow Rate FiO2 10/28/16 09:11 Room Air 10/28/16 08:00 99.1 106 24 175/75 95 10/27/16 14:37 2 10/27/16 11:09 2.00 General Appearance: Alert, Oriented X3 Cardiovascular: Other (irregularly irregular) Abdominal: Soft Extremities: No Edema Skin: Other (pallor) Psych/Mental Status: Mental Status NL Hospital Course patient was admitted and given 3 units of packed red blood cells with Lasix. She tolerated this well and is improved at the time of discharge. She remained dyspneic that she felt was essentially unchanged. She will follow-up with Dr. Núñez next week for iron transfusions. And follow-up with Dr. Ferguson next week as well. Labs (last 24 hrs) Laboratory Tests 10/27/16 12:10: White Blood Count 6.5, Red Blood Count 2.84L, Hemoglobin 6.1*L, Hematocrit 22L, Mean Corpuscular Volume 76L, Mean Corpuscular Hemoglobin 21L, Mean Corpuscular Hemoglobin Concent 28L, Red Cell Distribution Width 21.7H, Platelet Count 322, Mean Platelet Volume 9.8, Neutrophils (%) (Auto) 72, Lymphocytes (%) (Auto) 14, Monocytes (%) (Auto) 13H, Eosinophils (%) (Auto) 1, Basophils (%) (Auto) 1, Neutrophils # (Auto) 4.7, Lymphocytes # (Auto) 0.9L, Monocytes # (Auto) 0.8, Eosinophils # (Auto) 0.1, Basophils # (Auto) 0.0, Prothrombin Time 27.2H, INR Comment 2.5H, Activated Partial Thromboplast Time 61H, Sodium Level 139, Potassium Level 4.2, Chloride Level 105, Carbon Dioxide Level 25, Anion Gap 9, Blood Urea Nitrogen 13, Creatinine 0.62, Estimat Glomerular Filtration Rate > 60 , BUN/Creatinine Ratio 21, Glucose Level 99, Calcium Level 8.5, Total Bilirubin 0.6, Aspartate Amino Transf (AST/SGOT) 10, Alanine Aminotransferase (ALT/SGPT) 9 , Alkaline Phosphatase 70, Total Protein 6.3L, Albumin 3.4 10/27/16 13:05: Urine Color YELLOW, Urine Clarity CLEAR, Urine pH 8, Urine Specific [place] 1.010L, Urine Protein NEGATIVE, Urine Glucose (UA) NEGATIVE, Urine Ketones NEGATIVE, Urine Nitrite NEGATIVE, Urine Bilirubin NEGATIVE, Urine Urobilinogen NORMAL, Urine Leukocyte Esterase 2+H, Urine RBC (Auto) NEGATIVE, Urine RBC NONE , Urine WBC 5-10H, Urine Squamous Epithelial Cells 0-2, Urine Crystals NONE, Urine Bacteria TRACE, Urine Casts NONE, Urine Mucus SMALLH, Urine Culture Indicated YES 10/28/16 04:32: White Blood Count 9.1, Red Blood Count 3.39L, Hemoglobin 8.1#L, Hematocrit 27L, Mean Corpuscular Volume 79L, Mean Corpuscular Hemoglobin 24L, Mean Corpuscular Hemoglobin Concent 30L, Red Cell Distribution Width 21.6H, Platelet Count 305, Mean Platelet Volume 10.0, Neutrophils (%) (Auto) 77H, Lymphocytes (%) (Auto) 11L, Monocytes (%) (Auto) 11, Eosinophils (%) (Auto) 1, Basophils (%) (Auto) 0, Neutrophils # (Auto) 7.0, Lymphocytes # (Auto) 1.0, Monocytes # (Auto) 1.0, Eosinophils # (Auto) 0.1, Basophils # (Auto) 0.0, Sodium Level 139, Potassium Level 3.7, Chloride Level 107, Carbon Dioxide Level 22, Anion Gap 10, Blood Urea Nitrogen 13, Creatinine 0.70, Estimat Glomerular Filtration Rate > 60, BUN/ Creatinine Ratio 19, Glucose Level 99, Calcium Level 8.6, Total Bilirubin 1.4H, Aspartate Amino Transf (AST/SGOT) 16, Alanine Aminotransferase (ALT/SGPT) 10, Alkaline Phosphatase 71, Total Protein 6.6, Albumin 3.3 Microbiology 10/27/16 Urine Culture - Preliminary, Resulted Escherichia Coli Probable Enterococcus Species Probable Coag Negative Staph Pending Labs Laboratory Tests 10/28/16 04:32: White Blood Count 9.1, Red Blood Count 3.39, Hemoglobin 8.1, Hematocrit 27, Mean Corpuscular Volume 79, Mean Corpuscular Hemoglobin 24, Mean Corpuscular Hemoglobin Concent 30, Red Cell Distribution Width 21.6, Platelet Count 305, Mean Platelet Volume 10.0, Neutrophils (%) (Auto) 77, Lymphocytes (%) (Auto) 11 , Monocytes (%) (Auto) 11, Eosinophils (%) (Auto) 1, Basophils (%) (Auto) 0, Neutrophils # (Auto) 7.0, Lymphocytes # (Auto) 1.0, Monocytes # (Auto) 1.0, Eosinophils # (Auto) 0.1, Basophils # (Auto) 0.0, Sodium Level 139, Potassium Level 3.7, Chloride Level 107, Carbon Dioxide Level 22, Anion Gap 10, Blood Urea Nitrogen 13, Creatinine 0.70, Estimat Glomerular Filtration Rate > 60, BUN/ Creatinine Ratio 19, Glucose Level 99, Calcium Level 8.6, Total Bilirubin 1.4, Aspartate Amino Transf (AST/SGOT) 16, Alanine Aminotransferase (ALT/SGPT) 10, Alkaline Phosphatase 71, Total Protein 6.6, Albumin 3.3 Radiology Reviewed 1. Increasing bilateral pleural effusions, dependent atelectasis, and infiltrate right greater than left. 2. Cardiac enlargement with slight central vascular congestion. 3. Hiatal hernia. Discharge Home Medications: Active Scripts Active Sucralfate 1 Gm Tablet 1 Gm PO Q6HR 14 Days Diltiazem 24Hr Cd (Diltiazem HCl) 240 Mg Cap.er.24h 240 Mg PO DAILY Furosemide 40 Mg Tablet 40 Mg PO DAILY 30 Days Ventolin Hfa (Albuterol Sulfate) 1 Puff Puff 2 Puff IH Q8H 30 Days 1 PUFF = 90 MCG Famotidine 20 Mg Tablet 20 Mg PO DAILY 30 Days Reported Acetaminophen 500 Mg Tablet 500 Mg PO DAILY PRN Preservision Areds 2 Softgel (Vit C/E/Zn/Coppr/Lutein/Zeaxan) 1 Each Capsule 1 Cap PO BID Hydrocodon -Acetaminophen 5-325 (Hydrocodone/Acetaminophen) 1 Each Tablet 0.5-1 Tab PO DAILY Ferrex 150 (Iron Polysaccharide Complex) 150 Mg Capsule 150 Mg PO BID Metoprolol Tartrate 25 Mg Tablet 25 Mg PO BID Alprazolam 0.25 Mg Tablet 0.25 Mg PO DAILY PRN Condition at discharge stable Instructions to patient/family Please see electonic discharge instructions given to patient. Clinical Quality Measures DVT/VTE Risk/Contraindication: Risk Factor Score Per Nursin RFS Level Per Nursing on Admit: 2=Moderate Contraindications-Pharm: Other *list below* Other: gi bleeding Copy Copies To 1: DAREN FERGUSON DO Copies To 2: ORLANDO TREJO KATHLEEN M MD Oct 28, 2016 11:45
--- NOTE | 2016-10-29 14:46 | CONSULTATION REPORT ---
DATE OF SERVICE: 10/28/2016 The patient is admitted to room 426. REFERRING PHYSICIAN: Belinda Yanes M.D. PRIMARY PHYSICIAN: Matt Braxton D.O. IMPRESSION: 1. An 86-year-old female admitted with increasing shortness of breath and found to have significant microcytic anemia. 2. History of GI bleeding and anemia in the past requiring packed red blood cell transfusion. 3. History of atrial fibrillation and on anticoagulation for stroke prophylaxis. RECOMMENDATIONS: 1. Agree with packed red blood cell transfusion because of symptomatic anemia. 2. Consider parenteral iron therapy to build up iron stores. 3. Consider discontinuing or reduced intensity anticoagulation because of continued GI bleeding and some dramatic anemias. 4. [facility] approximately a month to follow the hemoglobin and iron level. BRIEF HISTORY: The patient is an 86-year-old female admitted to the hospital because of increasing shortness of breath. She was noted to have a significant and symptomatic anemia, which was microcytic in nature. She was admitted to the hospital in early August 2016 with similar symptoms and received a pack of red blood cell transfusion. At that time, the patient had given family history of thalassemia and a hemoglobin electrophoresis was completed, which was negative. She is feeling slightly better today. Past medical history, past surgical history, social and family history is unchanged from the recent inpatient consultation done on 09/17/2016. PHYSICAL EXAMINATION: GENERAL: Showed an elderly female, weak appearing, awake and oriented and answering questions appropriately. VITAL SIGNS: Temperature was 99.0, pulse rate of 93, respirations 18, blood pressure 162/60 with oxygen saturation of 95%. HEENT: Normocephalic, extraocular muscles intact, conjunctiva pale, oral mucosa moist. NECK: Supple with no JVD. No lymphadenopathy palpable. CHEST: Symmetrical. LUNGS: Slightly diminished breath sounds bilaterally without wheezes or rales. CARDIOVASCULAR: in rate and rhythm. No murmurs or gallops heard. ABDOMEN: Soft with mild tenderness in the epigastric area without guarding or rebound. No hepatosplenomegaly or other masses palpable. EXTREMITIES: Showed no edema. NEUROLOGIC: Grossly intact without focal motor deficits. DATA: CBC done yesterday at the time of admission showed WBC is 6.5, hemoglobin 6.1, MCV 76, RDW at 21.7 and platelet count of 322,000. CBC repeated today after transfusion showed white count of 9.1, hemoglobin 8.1, MCV 79 with platelet count of 305,000. Chemistry panel done today showed normal electrolytes. BUN was 13 and creatinine 0.7 with GFR more than 60 mL per minute. Total bilirubin was minimally elevated at 1.4 while yesterday this was normal at 0.6. Rest of the liver function studies were within normal limits. Fecal occult blood test is pending from today, with on 09/15/2016, this was positive. Protime was elevated at 27.2 with INR of 2.5 and PTT of 61 yesterday at the time of admission. Thank you for allowing me to participate in this patient's care. I will follow the patient with you and make appropriate recommendations. Job ID: [id number] DocumentID: [id number] Dictated Date: 10/28/2016 09:27:48 Sales Merchandise Associate Date: 10/29/2016 14:45:23 Dictated By: ORLANDO TREJO MD
== END 2016-10-28 11:35 | disposition home or self-care (01) ==
LOC: EDUNIT# 10:58 → ER 11:00 → UNDOADMOB 12:30 → 4TH 12:30 → UNDODISOB 10-28 15:50
PROVIDERS: ADMIT Internal Medicine; ATTEND Internal Medicine
DX: D50.0 Iron deficiency anemia secondary to blood loss (chronic) (principal); K92.2 Gastrointestinal hemorrhage, unspecified; J90 Pleural effusion, not elsewhere classified; R91.8 Other nonspecific abnormal finding of lung field; I48.2 Chronic atrial fibrillation; K44.9 Diaphragmatic hernia without obstruction or gangrene; J44.9 Chronic obstructive pulmonary disease, unspecified; I51.7 Cardiomegaly; Z79.01 Long term (current) use of anticoagulants; Z79.899 Other long term (current) drug therapy
CPT/HCPCS: 36415; 71020; 80053; 81000; 85025; 85610; 85730; 86850; 86900; 86901; 86920; 87077; 87088; 87186; 94640; 94760; 96374

== ENCOUNTER → 2016-10-30 | Outpatient (CLI) | payer MEDICARE, OTHER ==
[~2016-10-30] MED LIST changes: +SUCR1TAB PO
[2016-10-30 11:39] LABS: RED BLOOD COUNT 4.06 10^6/uL (4.35-5.85); RED CELL DISTRIBUTION WIDTH 22.5 % (10.0-14.5); WHITE BLOOD COUNT 7.3 10^3/uL (4.3-11.0)
--- NOTE | 2016-10-30 12:13 | Diagnostic Imaging Report ---
INDICATION: Cough. Comparison made with prior examination 10/27/16. FINDINGS: There is cardiomegaly. There is a large hiatal hernia. There is a persistent right base infiltrate. There are bilateral pleural effusions, right greater than left. There is no pneumothorax. Mediastinum is unremarkable. There are degenerative changes in the spine. IMPRESSION: Persistent right base infiltrate and bilateral pleural effusions right greater than left. Cardiomegaly and mild venous congestion. Moderate hiatal hernia. Dictated by: Dictated on workstation # [id number]
== END ==
LOC: LAB 11:06
PROVIDERS: ATTEND Family Medicine
DX: D64.9 Anemia, unspecified (principal)
CPT/HCPCS: 36415; 71020; 85027

== ENCOUNTER 2016-11-14 14:51 | Outpatient (RCR) | payer MEDICARE, OTHER ==
[~2016-11-14 14:51] MED LIST changes: +FERRIC CARBOXYMALTOSE (CANCER) 750 MG in NS (IVPB) CANCER CENTER 250 ML IV SCH
== END 2016-11-24 | disposition home or self-care (01) ==
LOC: ONC 14:51
PROVIDERS: ATTEND Internal Medicine Hematology & Oncology
DX: K90.9 Intestinal malabsorption, unspecified (principal); D63.8 Anemia in other chronic diseases classified elsewhere; F41.9 Anxiety disorder, unspecified; I48.2 Chronic atrial fibrillation; I10 Essential (primary) hypertension; K21.9 Gastro-esophageal reflux disease without esophagitis; Z85.42 Personal history of malignant neoplasm of other parts of uterus
CPT/HCPCS: 96365

== ENCOUNTER 2016-12-18 09:24 | Outpatient (RCR) | payer MEDICARE, OTHER ==
[2016-12-12 13:54] LABS: ABSOLUTE RETIC # 36 10e9/L (24-90); BASOPHILS % (AUTO) 0 % (0-10); EOSINOPHILS # (AUTO) 0.1 10^3/uL (0.0-0.3); EOSINOPHILS % (AUTO) 2 % (0-10); HEMATOCRIT 37 % (35-52); HEMOGLOBIN 11.4 G/DL (11.5-16.0); LYMPHOCYTES # (AUTO) 1.7 X 10^3 (1.0-4.0); LYMPHOCYTES % (AUTO) 21 % (12-44); MEAN CORPUSCULAR HEMOGLOBIN 27 PG (25-34); MEAN CORPUSCULAR HGB CONC 31 G/DL (32-36); MEAN CORPUSCULAR VOLUME 89 FL (80-99); MEAN PLATELET VOLUME 10.2 FL (7.4-10.4); MONOCYTES # (AUTO) 0.8 X 10^3 (0.0-1.0); MONOCYTES % (AUTO) 10 % (0-12); NEUTROPHILS # (AUTO) 5.2 X 10^3 (1.8-7.8); NEUTROPHILS % (AUTO) 67 % (42-75); PLATELET COUNT 261 10^3/uL (130-400); RED BLOOD COUNT 4.19 10^6/uL (4.35-5.85); RED CELL DISTRIBUTION WIDTH 22.4 % (10.0-14.5); RETICULOCYTE % 0.85 % (0.50-2.40); WHITE BLOOD COUNT 7.8 10^3/uL (4.3-11.0)
[2016-12-12 14:17] LABS: ALANINE AMINOTRANSFERASE 11 U/L (0-55); ALBUMIN 3.8 GM/DL (3.2-4.5); ALKALINE PHOSPHATASE 102 U/L (40-136); BILIRUBIN,TOTAL 0.5 MG/DL (0.1-1.0); BUN/CREATININE RATIO 17; CALCIUM 9.6 MG/DL (8.5-10.1); CARBON DIOXIDE 26 MMOL/L (21-32); CHLORIDE 104 MMOL/L (98-107); CREATININE SERUM 0.66 MG/DL (0.60-1.30); GFR ESTIMATED > 60; GLUCOSE 107 MG/DL (70-105); POTASSIUM 3.7 MMOL/L (3.6-5.0); SODIUM 139 MMOL/L (135-145)
[~2016-12-18 09:24] MED LIST changes: -FERRIC CARBOXYMALTOSE (CANCER) 750 MG in NS (IVPB) CANCER CENTER 250 ML IV SCH; -HYDR-3812 PO
== END 2017-03-12 | disposition home or self-care (01) ==
LOC: ONC 09:24
PROVIDERS: ATTEND Internal Medicine Hematology & Oncology
DX: K90.9 Intestinal malabsorption, unspecified (principal); D63.8 Anemia in other chronic diseases classified elsewhere; F41.9 Anxiety disorder, unspecified; I48.2 Chronic atrial fibrillation; I10 Essential (primary) hypertension; K21.9 Gastro-esophageal reflux disease without esophagitis; Z85.42 Personal history of malignant neoplasm of other parts of uterus
CPT/HCPCS: 36415; 80053; 82728; 83540; 85025; 85045; 99213

== ENCOUNTER → 2017-04-11 | Outpatient (CLI) | payer MEDICARE, OTHER ==
[~2017-04-11] MED LIST changes: +CATHETER FLUSH 10 ML SYR IV PRN; +IOHEXOL 350 MG/ML 100 ML (OMNIPAQUE 350) VIAL IV ONE; +NS 250 ML (IVPB) BAG IV ONE; +RECEIVED CONTRAST (Hold Metformin) IV SCH
[2017-04-11 16:18] LABS: BASOPHILS % (AUTO) 0 % (0-10); EOSINOPHILS % (AUTO) 0 % (0-10); HEMATOCRIT 26 % (35-52); HEMOGLOBIN 7.8 G/DL (11.5-16.0); LYMPHOCYTES # (AUTO) 1.8 X 10^3 (1.0-4.0); LYMPHOCYTES % (AUTO) 20 % (12-44); MEAN CORPUSCULAR HEMOGLOBIN 27 PG (25-34); MEAN CORPUSCULAR HGB CONC 31 G/DL (32-36); MEAN CORPUSCULAR VOLUME 87 FL (80-99); MEAN PLATELET VOLUME 8.4 FL (7.4-10.4); MONOCYTES # (AUTO) 1.2 X 10^3 (0.0-1.0); MONOCYTES % (AUTO) 13 % (0-12); NEUTROPHILS # (AUTO) 6.1 X 10^3 (1.8-7.8); NEUTROPHILS % (AUTO) 66 % (42-75); PLATELET COUNT 471 10^3/uL (130-400); RED BLOOD COUNT 2.94 10^6/uL (4.35-5.85); RED CELL DISTRIBUTION WIDTH 15.7 % (10.0-14.5); WHITE BLOOD COUNT 9.1 10^3/uL (4.3-11.0)
[2017-04-11 16:34] LABS: BUN/CREATININE RATIO 25; CALCIUM 9.2 MG/DL (8.5-10.1); CARBON DIOXIDE 22 MMOL/L (21-32); CHLORIDE 104 MMOL/L (98-107); CREATININE SERUM 0.67 MG/DL (0.60-1.30); GFR ESTIMATED > 60; GLUCOSE 104 MG/DL (70-105); POTASSIUM 4.4 MMOL/L (3.6-5.0); SODIUM 140 MMOL/L (135-145)
--- NOTE | 2017-04-11 17:24 | Diagnostic Imaging Report ---
PROCEDURE: CT abdomen and pelvis with contrast. TECHNIQUE: Multiple contiguous axial images were obtained through the abdomen and pelvis after administration of intravenous contrast. INDICATION: Abdominal pain. History of uterine cancer. COMPARISON: 08/26/2013. FINDINGS: There is atelectasis or fibrotic scarring in the left lung base with mild bronchiectasis. There is a large hiatal hernia. The liver appears unremarkable. There is some layering high density within the gallbladder which may represent sludge or small stones. There is no biliary dilatation. The pancreas, spleen and adrenal glands appear unremarkable. Tiny low-density lesion in the superior renal cortex is likely a cyst. The kidneys are otherwise unremarkable. There is an abnormal segment of colon in the right lower quadrant at the junction of the ascending colon and transverse colon at the hepatic flexure with circumferential wall thickening which is somewhat irregular and moderate pericolonic inflammatory change. The appearance is concerning for neoplasm. There is no evidence of rupture or free intraperitoneal air. There is a small ventral abdominal hernia, superior to the umbilicus, containing fat. The abdominal aorta is normal in caliber but calcified. There is fairly severe diverticulosis. There is no free fluid or free air. No discrete adenopathy is seen. The uterus is absent. There are degenerative changes in the spine and hips. IMPRESSION: 1. There is a short segment of colon in the hepatic flexure with diffuse wall thickening and mild pericolic inflammatory change, the appearance of which is moderately concerning for neoplasm. 2. Possible cholelithiasis or biliary sludge. 3. Large hiatal hernia. 4. Coarse linear opacities in the left lung base with some bronchiectasis. 5. Diverticulosis. 6. Small fat-containing ventral abdominal wall hernia. Dictated by: Dictated on workstation # [id number]
== END ==
LOC: RAD 16:04
PROVIDERS: ATTEND Family Medicine
DX: K59.8 Other specified functional intestinal disorders (principal); K44.9 Diaphragmatic hernia without obstruction or gangrene; K43.9 Ventral hernia without obstruction or gangrene; K57.90 Diverticulosis of intestine, part unspecified, without perforation or abscess without bleeding; J47.9 Bronchiectasis, uncomplicated; Z85.42 Personal history of malignant neoplasm of other parts of uterus
CPT/HCPCS: 36415; 74177; 80048; 85025

== ENCOUNTER 2017-04-22 07:57 | Day surgery (SDC) | payer MEDICARE, OTHER ==
[~2017-04-22] VITALS: Ht 157.5 cm; Wt 60.1 kg
[~2017-04-22 07:57] MED LIST changes: -CATHETER FLUSH 10 ML SYR IV PRN; -IOHEXOL 350 MG/ML 100 ML (OMNIPAQUE 350) VIAL IV ONE; -NS 250 ML (IVPB) BAG IV ONE; -RECEIVED CONTRAST (Hold Metformin) IV SCH
[2017-04-22] MEDS ORDERED: NS IV 500 ML 500 ML IV PRN (08:07)
[2017-04-22] MEDS ORDERED: NS IV 500 ML 500 ML ONE (08:14)
[2017-04-22 08:19] VITALS: BP 134/80
--- NOTE | 2017-04-22 08:35 | Conscious Sedation/ASA ---
Conscious Sedation Pre-Proced Time Reviewed: 08:34 ASA Class: 3 Airway Mallampati Classification: ([place] appropriate class) I. II. III, IV Lungs Heart ASA score ASA 1: a normal healthy patient ASA 2: a patient with a mild systemic disease (mid diabetes, controlled hypertension, obesity ASA 3: a patient with a severe systemic disease that limits activity (angina , COPD, prior Myocardial infarction) ASA 4: a patient with an incapacitating disease that is a constant threat to life (CHF, renal failure) ASA 5: a moribund patient not expected to survive 24 hrs. (ruptured aneurysm) ASA 6: a declared brain patient whose organs are being harvested. For emergent operations, add the letter E after the classification Grade 1 Sedation Plan: Discussed options with patient/fam Note The patient is an appropriate candidate to undergo the planned procedure, sedation, and anesthesia. The patient immediately re-assessed prior to indication. ROSLYN BIRCH MD Apr 22, 2017 08:35
[2017-04-22] MEDS ORDERED: DILT240C53 PO (08:39)
[2017-04-22] MEDS ORDERED: AMLO5TAB2 PO (08:40)
[2017-04-22] MEDS ORDERED: APIX5TAB4 PO (08:40)
[2017-04-22] MEDS ORDERED: MIDAZOLAM 2 MG/2 ML (VERSED) VIAL ONE ×2 (08:43)
[2017-04-22] MEDS ORDERED: fentaNYL INJECTION 100 MCG/2 ML AMP ONE (08:43)
[2017-04-22] MEDS: fentaNYL INJECTION 100 MCG/2 ML AMP IVP PRN ×2 (08:58→09:02)
[2017-04-22] MEDS: MIDAZOLAM 2 MG/2 ML (VERSED) VIAL IVP PRN ×2 (09:00→09:04)
--- NOTE | 2017-04-22 09:48 | Endo Procedure Record ---
Endo Procedure Report Date of Procedure Last Colonoscopy: No Apr 22, 2017 Surgeon (s) ROSLYN BIRCH MD Post Procedure/Op Diagnosis 1.Sigmoid diverticulosis 2. 3 mm polyp along the descending colon 3. 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 Tissue from the hepatic flexure tumor Description of the Procedure Indication for the procedure: This lady, with a family history of colon cancer, was found to be anemic with an iron deficiency picture, requiring blood transfusion on more than one occasion. In addition, over the last few days, she has developed colicky abdominal pain and a change in her bowel habits. CT scan showed an abnormal mass around the hepatic flexure, extending into the proximal transverse colon. Therefore, colonoscopy was felt to be reasonable. Informed consent was obtained after reviewing the procedure in detail. Description of the procedure: She was placed in left lateral decub disposition and her vital signs were monitored. Conscious sedation was achieved using Versed and fentanyl. Examination of the perianal area revealed external hemorrhoids and multiple skin tags. Digital rectal examination was otherwise unremarkable. The colonoscope was then introduced into the rectum and advanced to the hepatic flexure, where a large tumor with a narrowing of the lumen was identified. Despite multiple attempts, the pediatric colonoscope could not be advanced past the lesion. The scope was then withdrawn slowly and the mucosa examined in a systematic fashion. Findings: 1. Sigmoid diverticulosis 2. 3 mm polyp at the descending colon, that was snared and retrieved 3. Circumferential, large, proliferative tumor at the hepatic flexure, extending onto the transverse colon. As mentioned above, the lumen was rather narrow. Multiple biopsies were obtained; mucosa distal to the tumor was tattooed with Cynthia ink for identification during resection. She tolerated the procedure well and was taken back to the nursing area in a stable condition. Impression: Family history of colon cancer with iron deficiency anemia. Large tumor at the hepatic flexure. Resection will be offered. Copies To: ORLANDO TREJO Copies To: DAREN FERGUSON XAVIER M MD Apr 22, 2017 9:48 am
--- NOTE | 2017-04-22 09:49 | Discharge Inst-Simple/Standard ---
Discharge Inst-Standard Discharge Medications New, Converted or Re-Newed RX: Other Patient Instructions/Follow Up Plan of Care/Instructions/FU: Please schedule a gallbladder ultrasound as an outpatient, possibly this week Activity as Tolerated: Yes Discharge Diet: Liquid Diet ROSLYN BIRCH MD Apr 22, 2017 9:49 am
[2017-04-22 09:55] VITALS: BP 125/67
[2017-04-22 10:25] VITALS: BP 118/60
[2017-04-22 10:40] VITALS: BP 118/60
== END 2017-04-22 10:40 | disposition home or self-care (01) ==
LOC: ENDO 07:57
PROVIDERS: ATTEND Surgery
DX: C18.3 Malignant neoplasm of hepatic flexure (principal); K63.5 Polyp of colon; K57.30 Diverticulosis of large intestine without perforation or abscess without bleeding; Z80.0 Family history of malignant neoplasm of digestive organs; D50.9 Iron deficiency anemia, unspecified; Z88.2 Allergy status to sulfonamides; Z79.899 Other long term (current) drug therapy; Z85.42 Personal history of malignant neoplasm of other parts of uterus; I48.2 Chronic atrial fibrillation; F41.9 Anxiety disorder, unspecified; I10 Essential (primary) hypertension; K21.9 Gastro-esophageal reflux disease without esophagitis

== ENCOUNTER → 2017-04-25 | Outpatient (CLI) | payer MEDICARE, OTHER ==
[~2017-04-25] MED LIST changes: +AMLO5TAB2 PO; +APIX5TAB PO; +APIX5TAB4 PO; +DILT240C53 PO; +HYDR-3812 PO; +MULT-878 PO
--- NOTE | 2017-04-25 09:15 | Diagnostic Imaging Report ---
DATE: 04/25/2017 8:57 AM REASON FOR EXAM: GALLSTONES. COMPARISON: CT from 04/11/2017. TECHNIQUE: Routine liver/gallbladder ultrasound. FINDINGS: The liver is normal in size and shape. The liver echogenicity is within normal limits. There are no focal lesions. No intrahepatic biliary dilatation is present. The common bile duct is not seen due to bowel gas. The main portal vein is hepatopetal. Multiple tiny mobile stones are seen in the gallbladder dependently. The gallbladder wall is normal in thickness, measuring 1.5 mm. Sonographic Bateman's sign is negative. The visualized portions of the head of the pancreas are within normal limits. The body and tail of the pancreas are not well visualized due to overlying bowel gas. The visualized portions of the IVC are normal. The right kidney measures approximately 10 cm in length and has a normal appearance. IMPRESSION: 1. Cholelithiasis without sonographic findings of cholecystitis. Dictated by: Dictated on workstation # [id number]
== END ==
LOC: RAD 08:02
PROVIDERS: ATTEND Surgery
DX: K80.20 Calculus of gallbladder without cholecystitis without obstruction (principal)
CPT/HCPCS: 76705

== ENCOUNTER 2017-04-26 11:00 | Outpatient (CLI) | payer MEDICARE, OTHER ==
[~2017-04-26] VITALS: Ht 157.5 cm; Wt 59.9 kg
[~2017-04-26 11:00] MED LIST changes: -APIX5TAB PO; -HYDR-3812 PO; -MULT-878 PO
[2017-04-26] MEDS ORDERED: APIX5TAB PO (11:23)
[2017-04-26] MEDS ORDERED: MULT-878 PO (11:23)
[2017-04-26] MEDS ORDERED: HYDR-3812 PO (11:28)
[2017-04-26] MEDS ORDERED: ALPR0.254 PO (11:28)
== END 2017-04-26 11:33 ==
LOC: PREOP 11:00
PROVIDERS: ATTEND Surgery
DX: Z01.818 Encounter for other preprocedural examination (principal); K80.20 Calculus of gallbladder without cholecystitis without obstruction; R19.09 Other intra-abdominal and pelvic swelling, mass and lump

== ENCOUNTER 2017-04-26 13:54 | Outpatient (RCR) | payer MEDICARE, OTHER ==
[2017-04-18 14:56] LABS: BASOPHILS % (AUTO) 1 % (0-10); EOSINOPHILS # (AUTO) 0.1 10^3/uL (0.0-0.3); EOSINOPHILS % (AUTO) 1 % (0-10); HEMATOCRIT 24 % (35-52); HEMOGLOBIN 7.2 G/DL (11.5-16.0); LYMPHOCYTES # (AUTO) 1.3 X 10^3 (1.0-4.0); LYMPHOCYTES % (AUTO) 15 % (12-44); MEAN CORPUSCULAR HEMOGLOBIN 26 PG (25-34); MEAN CORPUSCULAR HGB CONC 30 G/DL (32-36); MEAN CORPUSCULAR VOLUME 86 FL (80-99); MEAN PLATELET VOLUME 8.9 FL (7.4-10.4); MONOCYTES # (AUTO) 0.9 X 10^3 (0.0-1.0); MONOCYTES % (AUTO) 11 % (0-12); NEUTROPHILS # (AUTO) 6.3 X 10^3 (1.8-7.8); NEUTROPHILS % (AUTO) 73 % (42-75); PLATELET COUNT 461 10^3/uL (130-400); RED CELL DISTRIBUTION WIDTH 15.4 % (10.0-14.5); WHITE BLOOD COUNT 8.5 10^3/uL (4.3-11.0)
[2017-04-18 15:16] LABS: ALANINE AMINOTRANSFERASE 9 U/L (0-55); ALBUMIN 3.4 GM/DL (3.2-4.5); ALKALINE PHOSPHATASE 70 U/L (40-136); BILIRUBIN,TOTAL 0.3 MG/DL (0.1-1.0); BUN/CREATININE RATIO 25; CARBON DIOXIDE 25 MMOL/L (21-32); CHLORIDE 104 MMOL/L (98-107); CREATININE SERUM 0.65 MG/DL (0.60-1.30); GFR ESTIMATED > 60; GLUCOSE 119 MG/DL (70-105); POTASSIUM 4.3 MMOL/L (3.6-5.0); SODIUM 138 MMOL/L (135-145); TOTAL PROTEIN 6.9 GM/DL (6.4-8.2)
[~2017-04-26 13:54] MED LIST changes: +APIX5TAB PO; +FERRIC CARBOXYMALTOSE (CANCER) 750 MG in NS (IVPB) CANCER CENTER 250 ML IV SCH; +HYDR-3812 PO; +MULT-878 PO
[2017-04-26 14:16] LABS: BASOPHILS % (AUTO) 0 % (0-10); EOSINOPHILS # (AUTO) 0.1 10^3/uL (0.0-0.3); EOSINOPHILS % (AUTO) 1 % (0-10); HEMATOCRIT 28 % (35-52); HEMOGLOBIN 8.1 G/DL (11.5-16.0); LYMPHOCYTES # (AUTO) 1.4 X 10^3 (1.0-4.0); LYMPHOCYTES % (AUTO) 16 % (12-44); MEAN CORPUSCULAR HEMOGLOBIN 26 PG (25-34); MEAN CORPUSCULAR HGB CONC 29 G/DL (32-36); MEAN CORPUSCULAR VOLUME 87 FL (80-99); MEAN PLATELET VOLUME 9.1 FL (7.4-10.4); MONOCYTES # (AUTO) 0.9 X 10^3 (0.0-1.0); MONOCYTES % (AUTO) 10 % (0-12); NEUTROPHILS # (AUTO) 6.7 X 10^3 (1.8-7.8); NEUTROPHILS % (AUTO) 73 % (42-75); PLATELET COUNT 526 10^3/uL (130-400); RED BLOOD COUNT 3.17 10^6/uL (4.35-5.85); RED CELL DISTRIBUTION WIDTH 16.7 % (10.0-14.5); WHITE BLOOD COUNT 9.2 10^3/uL (4.3-11.0)
[2017-04-30] MEDS ORDERED: FURO40TA4 PO (09:34)
[2017-04-30] MEDS ORDERED: POTA20TA8 PO (09:34)
[2017-05-16] MEDS ORDERED: CHOL4PAC16 PO (14:32)
[2017-05-16] MEDS ORDERED: PHOS250T5 PO (14:44)
[2017-06-25] MEDS ORDERED: HYDR30CR95 TOP (09:38)
[2017-06-25] MEDS ORDERED: NEOM28.33 TP (09:38)
[2017-06-25] MEDS ORDERED: ACET-2267 PO (09:38)
[2017-06-28] MEDS ORDERED: CEFD300C3 PO (09:43)
[2017-06-28] MEDS ORDERED: ACET-2267 PO (10:09)
== END 2017-07-17 | disposition home or self-care (01) ==
LOC: ONC 13:54
PROVIDERS: ATTEND Internal Medicine Hematology & Oncology
DX: K90.9 Intestinal malabsorption, unspecified (principal); D63.8 Anemia in other chronic diseases classified elsewhere; F41.9 Anxiety disorder, unspecified; I48.2 Chronic atrial fibrillation; I10 Essential (primary) hypertension; K21.9 Gastro-esophageal reflux disease without esophagitis; Z85.42 Personal history of malignant neoplasm of other parts of uterus; Z79.899 Other long term (current) drug therapy; Z08 Encounter for follow-up examination after completed treatment for malignant neoplasm
CPT/HCPCS: 36415; 80053; 82728; 85025; 96365

== ENCOUNTER 2017-05-14 08:31 | Inpatient (IN) | payer MEDICARE, OTHER ==
[~2017-05-14] VITALS: Ht 157.5 cm; Wt 72.4 kg
[~2017-05-14 08:31] MED LIST changes: +ACETAMINOPHEN 325 MG TABLET/CAPLET (TYLENOL) PO PRN; +ALPRAZolam 0.25 MG (XANAX) TAB PO PRN; +CATHETER FLUSH 10 ML SYR IV PRN; +ENALAPRILAT 2.5 MG/2 ML (VASOTEC) VIAL IV PRN; -FERRIC CARBOXYMALTOSE (CANCER) 750 MG in NS (IVPB) CANCER CENTER 250 ML IV SCH; +ONDANSETRON 4 MG/2 ML (SDV) Z0FRAN IVP PRN; +POTA20TA8 PO
[2017-05-14] MEDS ORDERED: KCL 20 MEQ TAB (K-DUR) PO SCH (09:00)
[2017-05-14] MEDS ORDERED: fluCOnazole (DIFLUCAN) 100 MG TAB PO SCH (09:00)
[2017-05-14] MEDS ORDERED: DILTIAZEM 300 MG (CARDIZEM CD) CAP PO SCH (09:00)
[2017-05-14] MEDS ORDERED: BUMETANIDE 1 MG/4 ML (BUMEX) VIAL IV SCH (09:00)
--- NOTE | 2017-05-14 09:43 | Physical Therapy Evaluation ---
PT Evaluation-General Medical Diagnosis Admission Date May 14, 2017 at 08:31 Medical Diagnosis: Gallstone removal/s/p colon CA Onset Date: Apr 29, 2017 Therapy Diagnosis Therapy Diagnosis: generalized weakness/debility Height/Weight Height (Feet): 5 Height (Inches): 2.00 Weight (Pounds): 159 Weight (Ounces): 9.0 Precautions Precautions/Isolations: Droplet Isolation Weight Bear Status Right Lower Extremity: Right Full Weight Bearing Left Lower Extremity: Left Full Weight Bearing Referral Physician: Irais Reason for Referral: Evaluation/Treatment Medical History Pertinent Medical History: Atrial Fib, Arthritis Current History SWB status Reviewed History: Yes Social History Home: Single Level Current Living Status: Alone Prior/Core FIM Prior Level of Function Functional Sharkey Measure 0=Not Assessed/NA 4=Minimal Assistance 1=Total Assistance 5=Supervision or Setup 2=Maximal Assistance 6=Modified Sharkey 3=Moderate Assistance 7=Complete Sharkey Bed Mobility: 6 Transfers (B,C,W/C) (FIM): 6 Gait: 6 family lives close by PT Evaluation-Current Subjective Patient agrees to PT. No c/o. Pain Numeric Pain Scale: 0-No Pain Location: No Pain Reported Objective Patient Orientation: Person, Time, Situation Problem Solving: Fair ROM/Strength ROM Lower Extremities bilateral LE WNL Strenght Lower Extremities right knee flexion/extension 3/5; hip flexion 3/5 left knee flexion/extension 3/5; hip flexion 3/5 Integumentary/Posture Integumentary bilateral LE edema Bowel Incontinence: No Bladder Incontinence: No Posture kyphotic Neuromuscular (Tone, Coordination, Reflexes) diminished coordination due to age and weakness Sensory Vision: Wears Glasses Hearing: Impaired Sensation Right Lower Extremit: Intact Sensation Left Lower Extremity: Intact Transfers Functional Sharkey Measure 0=Not Assessed/NA 4=Minimal Assistance 1=Total Assistance 5=Supervision or Setup 2=Maximal Assistance 6=Modified Sharkey 3=Moderate Assistance 7=Complete Sharkey Transfers (B, C, W/C) (FIM): 4 Scootin Rollin Supine to/from Sit: 4 Sit to/from Stand: 4 Sit to Lying (QC): 4 Lying to Sitting/Side of Bed(Q: 4 Sit to Stand (QC): 4 Chair/Jgm-gq-Inpcu Xfer(QC): 4 Patient requires time to complete tasks. Gait Does the Patient Walk?: Yes Mode of Locomotion: Walk Anticipated Mode of Locomotion: Walk Gait (FIM): 1 Distance (FIM): 1=up to 49 ft Distance: 45' x 2; 25' x 2 Gait Level of Assist: 5 Gait Persons Needed: 1 Gait Assistive Device: FWW Comments/Gait Description slow, shuffle gait sequence Balance Sitting Static: Normal Sitting Dynamic: Normal Standing Static: Fair Standing Dynamic: Fair Treatment bilateral LE exercises in sit and stand 15 reps x 2 sets AP, LAQ, marching, abd/ add Assessment/Needs 86 y.o. female, will benefit from skilled PT to address functional strength and mobility to improve current LOF and to return to home or care facility at maximum LOF safely. Rehab Potential: Fair PT Care Home Goals Care Home Goals PT Care Home Goals Time Frame: Jun 07, 2017 Transfers (B,C,W/C) (FIM): 6 Sit to Lying (QC): 6 Lying-Sitting on Side/Bed(QC): 6 Sit to Stand (QC): 6 Rollin Chair/Jbn-im-Axnan Xfer(QC): 6 Does the Patient Walk: Yes Gait (FIM): 2 Gait distance (FIM): 5=358-26 ft Distance: 100' Walk 50ft with 2 Turns (QC): 5 Gait Level of Assist: 5 Gait Assistive Device: FWW PT Plan Problem List Problem List: Activity Tolerance, Functional Strength, Safety, Balance, Gait, Transfer, Bed Mobility Treatment/Plan Treatment Plan: Continue Plan of Care Treatment Plan: Bed Mobility, Education, Functional Activity Vinayak, Functional Strength, Gait, Safety, Therapeutic Exercise, Transfers Treatment Duration: Jun 07, 2017 Frequency: 6 times per week Estimated Hrs Per Day: .5 hour per day Patient and/or Family Agrees t: Yes Discharge Recommendations Therapy D/C Recommendations: Home w/ Family Support, Alf Placement Time/GCodes Time In: 856 Time Out: 919 Total Billed Treatment Time: 23 Total Billed Treatment 1 visit EVModC 8 min EX 15 min SHANELLE BELLO PT May 14, 2017 09:43
--- NOTE | 2017-05-14 11:02 | Consultation-Cardiology ---
HPI-Cardiology Cardiology Consultation: Date of Consultation 05/14/17 Date of Admission Attending Physician Matt Braxton DO Admitting Physician Matt Braxton DO Consulting Physician Brandon VALDEZ MD HPI: Time Seen by Provider: 10:00 Chief Complaint: atrial fibrillation Ms. Sanchez is an 86 year old female who was admitted on 04-29-17 and underwent a right hemicolectomy by Dr. Glass. She has a h/o chronic a-fib, She has since received 2 units PRBC. She is currently sitting up in a chair at the bedside. She has generalized weakness. No c/o CP or palpitations. if continued improved shortness of breath. Review of Systems-Cardiology Review of Systems Constitutional: No As described under HPI, No no symptoms reported, No chills, No fever, No lightheadedness, No malaise, No tiredness, No weight loss, No weight gain, No other Eyes: No As described under HPI, No no symptoms reported, No blindness, No blurred vision, No contact lenses, No drainage, No decreased acuity, No foreign body sensation, No glasses, No inflammation, No pain, No photophobia, No previous injury, No shadows, No tunnel vision, No other, No vision change Ears/Nose/Throat: No As described under HPI, No no symptoms reported, No chronic hearing loss, No epistaxis, No ear discharge, No ear pain, No loose teeth, No mouth pain, No mouth swelling, No nasal drainage, No nose pain, No recent hearing loss, No throat pain, No throat swelling, No ulcerations, No other Respiratory: shortness of breath Cardiovascular: No no symptoms reported, No As described under HPI, No chest pain, No edema, irregular heart rate, No lightheadedness, No palpitations, No syncope, No other Gastrointestinal: As described under HPI Genitourinary: No no symptoms reported, No As described under HPI, No burning, No dysuria, No discharge, No frequency, No flank pain, No hematuria, No incontinence, No pain, No urgency, No other, No urine frequency changes, No urine coloration changes Musculoskeletal: No no symptoms reported, No As describe under HPI, No back pain, No gout, No joint pain, No joint swelling, No muscle pain, No muscle stiffness, No neck pain, No other Skin: No no symptoms reported, No As described under HPI, No change in color, No change in hair/nails, No dryness, No lesions, No lumps, No rash, No other, No skin related problems, No ulcerations, No rash on exposed areas, No ulcerations on exposed areas Psychiatric/Neurological: No no symptoms reported, No As described under HPI, No anxiety, No depression, No emotional problems, No headache, No numbness, No pre-existing deficit, No seizure, No tingling, No tremors, No weakness, No other , No focal weakness, No syncope Hematologic: No no symptoms reported, No As described under HPI, No anemia, No blood clots, No easy bleeding, No easy bruising, No swollen glands, No other, No bleeding abnormalities QJK-Nfgshg-Lbmucq Hx Patient Social History 2nd Hand Smoke Exposure: No Immunizations Up To Date Tetanus Booster (TDap): More than 5yrs Past Medical History PMH As described under Assessment. Family Medical History Family History: Cancer FH: colon cancer 19 MOTHER Heart disease 19 FATHER Pacemaker 19 FATHER Allergies and Home Medications Allergies Coded Allergies: Sulfa (Sulfonamide Antibiotics) (Verified Allergy, Unknown, 08/02/07) Home Medications Alprazolam 0.25 Mg Tablet, 0.25 MG PO BID PRN for ANXIETY, (Reported) Amlodipine Besylate 5 Mg Tablet, 5 MG PO DAILY, (Reported) Apixaban 5 Mg Tablet, 5 MG PO BID, (Reported) Diltiazem HCl 240 Mg Cap.er.24h, 240 MG PO DAILY, (Reported) Furosemide 40 Mg Tablet, 40 MG PO DAILY PRN for SWELLING, (Reported) Hydrocodone/Acetaminophen 1 Each Tablet, 1 TAB PO TID PRN for PAIN-MODERATE, ( Reported) Multivitamins-Min/FA/Ginkgo 1 Each Tablet, 1 TAB PO DAILY, (Reported) Potassium Chloride 20 Meq Tab.er.prt, 20 MEQ PO DAILY PRN for WHEN TAKING FUROSEMIDE, (Reported) Vit C/E/Zn/Coppr/Lutein/Zeaxan 1 Each Capsule, 1 CAP PO BID, (Reported) Patient Home Medication List Home Medication List Reviewed: Yes Physical Exam-Cardiology Physical Exam Vital Signs/I&O Capillary Refill : Constitutional: No appears stated age, AAO x 3, No apparent distress, No PERRL , No well-developed, No well-nourished, No other HEENT: PERRL, No normal ENT inspection, No TMs normal, No pharynx normal, No scleral icterus (R), No scleral icterus (L), No pale conjunctivae (R), No pale conjunctivae (L), No photophobia, No TM abnormal (R), No TM abnormal (L), No pharyngeal erythema, No tonsillar exudate, No other, No discharge, No EOMI, hearing is well preserved, No hard of hearing, oral hygience is good, No ulceration, No xanthelasmas are seen Neck: No non-tender, No full range of motion, No supple, No normal inspection, No carotid bruit, No limited range of motion, No lymphadenopathy (R), No lymphadenopathy (L), No tender lateral, No tender midline, No thyromegaly, No other, carotid pulses are 2 + bilaterally, No with good upstrokes Respiratory: No accessory muscle use, No respiratory distress, No chest tender , No chest expansion is symmetric, chest is bilaterally symmetric, No lungs clear to percussion, lungs clear to auscultation, No crackles, No rhonchi, No rales, No stridor, No wheezing, No pleural rub, No other Cardiovascular: No regular rate-rhythm, irregularly irregular, No extra beats, No parasternal heave is noted, No JVD, No edema, No bradycardia, No tachycardia , No point of maximal impulse, No cardiac thrills are palpable, S1 and S2, No gallop/S3, No gallop/S4, No diastolic murmur, No systolic murmur, No friction rub, No click, No other Gastrointestinal: No tender, soft, No round, No distended, No pulsatile mass, No organomegaly, No guarding, No rebound, No tenderness, No hernia, No mass, No audible bowel sounds, No abnormal bowel sounds, No abdominal bruits, No spleenomegaly, No other Rectal: deferred Extremities: No normal range of motion, No non-tender, No normal inspection, No pedal edema, No calf tenderness, No normal capillary refill, No pelvis stable , No calf tenderness, No inflammation, No pedal edema, No slow capillary refill , No swelling, No other, No abrasion, No clubbing, No cyanosis, No ecchymosis, No laceration, No no lower extremity edema bilateral, No significant edema, No tenderness, No wound Neurologic/Psychiatric: No dynamotor repairer II-XII nml as tested, No no motor/sensory deficits, alert, normal mood/affect, oriented x 3, No abnormal cerebellar tests , No abnormal dynamotor repairer II-XII, No abnormal gait, No aphasia, No EOM palsy, No facial droop, No motor weakness, No sensory deficit, No depressed affect, No disoriented x 3, No other, No grossly intact, No power is 5/5 both on sides Skin: No normal color, No warm/dry, No cyanosis, No cool, No diaphoresis, No damp, No ecchymosis, No jaundice, No mottled, No pallor, No rash, No tattoos/ piercings, No ulcerations, No rash on exposed areas, No ulcerations on exposed areas, No other ECG Impression ECG Initial ECG Impression: Atrial Fibrillation A/P-Cardiology Assessment/Admission Diagnosis Assessment/Dx: ARDS - improved significantly [place], chronic atrial fibrillation with controlled ventricular rate, Diastolic CHF Plan Plan: ARDS post hemicolectomy on 04/29/17, clinically improved. significant improvement of shortness of breath. no shortness of breath today. Acute renal failure with oliguria post surgery; now resolved A-fib with RVR - h/o chronic a-fib - rate controlled OAC with Eliquis Echocardiogram 05/01/17: LVEF 55-60%. LA and RA are dilated. Mild calcified mitral valve annulus with mod regurg. AoV thickening consistent with sclerosis with mild regurg. Mod TR. PASP approx 40 mmHg H/o diastolic CHF H/o anemia for which she has followed with oncology/hematology services in the past - received 2 units PRBC on 04-30-17 Thank you for your consultation. Please call me if you have any questions. Ac Valdez MD, FACP, FACC, FSCAI, FHRS, CCDS Interventional Cardiology Cardiac Electrophysiology Vascular Medicine and Endovascular Interventions Clinical Quality Measures DVT/VTE Risk/Contraindication: Risk Factor Score Per NursinBrandon ARNDT MD May 14, 2017 11:02 am
--- NOTE | 2017-05-14 11:06 | Occupational Therapy Eval ---
OT Evaluation-General/PLF Medical Diagnosis Admission Date May 14, 2017 at 08:31 Medical Diagnosis: Gallstone removal/s/p colon CA Onset Date: Apr 29, 2017 Therapy Diagnosis Therapy Diagnosis: decreased self care skills Height/Weight Height (Feet): 5 Height (Inches): 2.00 Weight (Pounds): 159 Weight (Ounces): 9.0 Precautions Precautions/Isolations: Droplet Isolation Safety Interventions: None Referral Physician: Irais Medical History Pertinent Medical History: Atrial Fib, Arthritis Additional Medical History knee, surgery, pneumonia, uterine cancer with hysterectomy, diverticulosis Reviewed History: Yes Social History Home: Single Level Current Living Status: Alone (family nearby checks on her frequently) Entry Into Home: Level Entry ADL-Prior Level of Function ADL PLOF Comments Pt reports being independent with self care and mobility. Uses cane as needed for balance. DME/Equipment: Bath Chair, Tub/Shower OT Current Status Subjective Pt agreeable to therapy. Mental Status/Objective Patient Orientation: Person, Place Current Hand Dominance: Right Upper Extremity ROM Grossly WFL Upper Extremity Coordination Intact Upper Extremity Strength Grossly 4/5 ADL-Treatment ADL-Current Pt on BSC when therapist enters. Pt requires assist for toileting hygiene. Transfer to chair with minimal assistance using FWW. Pt unable to doff/don socks without assist at this time. Pt brushed teeth with set up while seated in chair. Increased time for ADLs. Pt sitting in chair with needs met after session. Functional [place] Measure 0=Not Assessed/NA 4=Minimal Assistance 1=Total Assistance 5=Supervision or Setup 2=Maximal Assistance 6=Modified [place] 3=Moderate Assistance 7=Complete IndependenceIRFPAI Quality Coding Scale 6 Independent with activity with or without an assistive device 5 Patient requires set up or clean up by helper. Patient completes activity by themselves 4 Supervision or touching assist (CGA). Omar provide cues , steadying assist 3 The helper provides less than half the effort to complete the activity 2 The helper provides more than half the effort to complete the activity 1 Dependent. The helper does all the effort to complete an activity 7 Patient refused to complete or attempt activity 9 The patient did not perform the activity before the current illness or injury 88 Not attempted due to Medical conditions or safety concerns Eating (FIM): 5 (Pt reports feeding self after set up) Eating (QC): 5 Oral Hygiene (QC): 5 Toileting (FIM): 1 Toileting Hygiene (QC): 1 Toilet/Commode Transfer (FIM): 4 Toilet Transfer (QC): 3 Education OT Patient Education: Rehab process Teaching Recipient: Patient Teaching Methods: Discussion Response to Teaching: Verbalize Understanding OT Short Term Goals Short Term Goals 1=Demonstrate adherence to instructed precautions during ADL tasks. 2=Patient will verbalize/demonstrate understanding of assistive devices/ modifications for ADL. 3=Patient will improve strength/tolerance for activity to enable patient to perform ADL's. OT Utility Manager Goals Utility Manager Goals Time Frame: Jun 04, 2017 Eating (FIM): 6 Eating (QC): 6 Groomin Oral Hygiene (QC): 6 Bathing(FIM): 5 Upper Body Dressing(FIM): 6 Lower Body Dressing(FIM): 5 Toileting(FIM): 6 Toileting Hygiene (QC): 6 Toilet/Commode Transfer(FIM): 6 Toilet/Commode Transfer (QC): 6 Additional Goals: 2-Verbalize Understanding, 3-ImproveStrength/Vinayak 1=Demonstrate adherence to instructed precautions during ADL tasks. 2=Patient will verbalize/demonstrate understanding of assistive devices/ modifications for ADL. 3=Patient will improve strength/tolerance for activity to enable patient to perform ADL's. OT Education/Plan Problem List/Assessment Assessment: Decreased Activ Tolerance, Decreased UE Strength, Dependent Transfers, Impaired I ADL's, Impaired Self-Care Skills Pt to benefit from skilled OT intervention for ADL training, transfers, strengthening, and home safety education to increase level of independence and allow safe discharge plan. Discharge Recommendations Plan/Recommendations: Continue POC Treatment Plan/Plan of Care Treatment,Training & Education: Yes Patient would benefit from OT for education, treatment and training to promote independence in ADL's, mobility, safety and/or upper extremity function for ADL' s. Plan of Care: ADL Retraining, Functional Mobility, UE Funct Exercise/Act Treatment Duration: Jun 04, 2017 Frequency: 5 times per week Estimated Hrs Per Day: .25 hour per day Agreement: Yes Rehab Potential: Fair Time/GCodes Start Time: 10:30 Stop Time: 10:54 Total Time Billed (hr/min): 24 Billed Treatment Time 1 visit, EVM(9minutes), ADL(15minutes) FERNANDO SEVILLA OT May 14, 2017 11:06
[2017-05-14] MEDS: RT-ALBUTEROL/IPRATROPIUM 3 ML (DUONEB) VIAL INH SCH ×4 (11:12→23:17)
[2017-05-14] MEDS ORDERED: predniSONE 10 MG TAB PO SCH (12:00)
[2017-05-14 15:35] VITALS: BP 144/72
--- NOTE | 2017-05-14 17:08 | Progress Note-Standard ---
Standard Progress Note Progress Notes/Assess & Plan Date Seen by Provider: May 14, 2017 Time Seen by Provider: 15:20 Progress/Assessment & Plan continues to improve. Bilateral pleural effusions, pending thoracentesis in a.m. Final Diagnosis carcinoma the hepatic flexure. ROSLYN BIRCH MD May 14, 2017 5:08 pm
[2017-05-14] MEDS: KCL 20 MEQ TAB (K-DUR) PO SCH (17:56)
[2017-05-14 19:40] VITALS: BP 126/58
[2017-05-14] MEDS ORDERED: APIXABAN 5 MG (ELIQUIS) TABLET PO SCH (21:00)
[2017-05-14] MEDS: MELATONIN 3 MG TABLET PO SCH (21:11)
[2017-05-15 00:32] VITALS: BP 116/60
[2017-05-15] MEDS: RT-ALBUTEROL/IPRATROPIUM 3 ML (DUONEB) VIAL INH SCH ×6 (02:12→22:26)
[2017-05-15 04:08] VITALS: BP 127/65
[2017-05-15] MEDS: KCL 20 MEQ TAB (K-DUR) PO SCH ×2 (06:17→16:56)
--- NOTE | 2017-05-15 06:37 | Pulmonary Progress Note ---
Subjective Time Seen by Provider: 08:41 Subjective/Events-last exam No complications noted. Exam Exam Vital Signs Date Time Temp Pulse Resp B/P (MAP) Pulse Ox O2 Delivery O2 Flow Rate FiO2 05/15/17 06:11 96 Room Air 05/15/17 04:08 97.6 73 16 127/65 (85) 96 Room Air 05/15/17 02:13 92 Room Air 05/15/17 01:00 60 05/15/17 00:32 97.8 67 16 116/60 (78) 93 Room Air 05/14/17 20:00 97 Room Air 05/14/17 19:40 97.1 92 18 126/58 (80) 97 Room Air 05/14/17 19:00 93 05/14/17 18:35 95 Room Air 05/14/17 15:35 97.8 88 18 144/72 (96) 96 05/14/17 14:42 94 Room Air 05/14/17 13:00 89 05/14/17 11:12 93 Room Air I & O 05/15/17 07:00 Intake Total 1300 ml Output Total 1700 ml Balance -400 ml General Appearance: No Apparent Distress, WD/WN HEENT: PERRL/EOMI Neck: Full Range of Motion Respiratory: No Accessory Muscle Use, No Respiratory Distress, Decreased Breath Sounds Cardiovascular: Regular Rate, Rhythm, No Edema Gastrointestinal: normal bowel sounds, non tender, soft, no organomegaly Extremity: Normal Capillary Refill, Normal Inspection, Normal Range of Motion Neurologic/Psychiatric: Alert, Oriented x3 Skin: Normal Color, Warm/Dry Lymphatic: No Adenopathy Assessment/Plan Assessment/Plan Acute respiratory failure - improving - prednisone taper -bumex daily -BiPAP QHS - mucomyst to SVNs -Check Ct of chest with contrast- reviewed and shows pleural effusion and spiculated mass Spiculated lung nodule and pleural effusion -Will do thoracentesis and test pleural fluid for cytology this AM -Pt should have out pt PET scan Pneumonia with ESBL and candidiasis -Merrem post 10days Leukocytosis -Pt is on a prednisone taper -repeat labs and check CT of chest Pulmonary edema with bilateral pleural effusion Colon Adenocarcinoma S/P right hemicolectomy and cholecystectomy -Surgery is following Anemia post surgical -Monitor Hx of Afib -Cardiology following Hx of uterine CA never smoker Labs, CXR are pending. Discussed with patient, RN, and Dr. Glass regarding plan of care and thoracentesis. [id number] BOUCHRA BARRIENTOS DO May 15, 2017 06:37
[2017-05-15 06:40] LABS: BASOPHILS % (AUTO) 0 % (0-10); EOSINOPHILS # (AUTO) 0.1 10^3/uL (0.0-0.3); EOSINOPHILS % (AUTO) 1 % (0-10); HEMATOCRIT 38 % (35-52); HEMOGLOBIN 11.8 G/DL (11.5-16.0); LYMPHOCYTES # (AUTO) 0.7 X 10^3 (1.0-4.0); LYMPHOCYTES % (AUTO) 5 % (12-44); MEAN CORPUSCULAR HEMOGLOBIN 27 PG (25-34); MEAN CORPUSCULAR HGB CONC 31 G/DL (32-36); MEAN CORPUSCULAR VOLUME 88 FL (80-99); MEAN PLATELET VOLUME 11.2 FL (7.4-10.4); MONOCYTES # (AUTO) 1.2 X 10^3 (0.0-1.0); MONOCYTES % (AUTO) 8 % (0-12); NEUTROPHILS % (AUTO) 86 % (42-75); PLATELET COUNT 290 10^3/uL (130-400); RED BLOOD COUNT 4.32 10^6/uL (4.35-5.85); RED CELL DISTRIBUTION WIDTH 19.5 % (10.0-14.5); WHITE BLOOD COUNT 13.9 10^3/uL (4.3-11.0)
[2017-05-15 07:08] LABS: BUN/CREATININE RATIO 20; CALCIUM 9.2 MG/DL (8.5-10.1); CARBON DIOXIDE 32 MMOL/L (21-32); CHLORIDE 99 MMOL/L (98-107); CREATININE SERUM 0.51 MG/DL (0.60-1.30); GFR ESTIMATED > 60; GLUCOSE 86 MG/DL (70-105); MAGNESIUM 1.8 MG/DL (1.8-2.4); PHOSPHORUS 2.1 MG/DL (2.3-4.7); POTASSIUM 4.1 MMOL/L (3.6-5.0); SODIUM 138 MMOL/L (135-145)
--- NOTE | 2017-05-15 07:26 | Pulmonary Procedures ---
Pulmonary Procedures Date of Procedure Date of Service: May 15, 2017 Procedure: US guided complex thoracentesis Preop DX: Right pleural effusion post op DX: Same 550cc of light yellow fluid obtained) Complications: None After informed consent obtained US was used to localize pleural fluid. Pt has [ bilateral L>R] pleural effusions. Skin was anesthetized at approximately the 10th ICS posterior axillary line. Thoracentesis needle was advanced through the 10th ICS posterior axillary line. Needle was removed and catheter right 550cc of yellow fluid obtained using vacuum bottles. Catheter was then removed. Pt tolerated procedure well. No complications noted. BOUCHRA BARRIENTOS DO May 15, 2017 07:26
[2017-05-15 07:58] VITALS: BP 144/64
--- NOTE | 2017-05-15 07:58 | Progress Note (SOAP) ---
Subjective Time Seen by Provider: 07:55 Subjective/Events-last exam Patient feeling better today. Patient feels she's getting stronger. Patient had a thoracentesis this a.m. due to spiculated lesion in lungs Objective Exam Vital Signs Date Time Temp Pulse Resp B/P (MAP) Pulse Ox O2 Delivery O2 Flow Rate FiO2 05/15/17 07:00 107 05/15/17 06:11 96 Room Air 05/15/17 04:08 97.6 73 16 127/65 (85) 96 Room Air 05/15/17 02:13 92 Room Air 05/15/17 01:00 60 05/15/17 00:32 97.8 67 16 116/60 (78) 93 Room Air 05/14/17 20:00 97 Room Air 05/14/17 19:40 97.1 92 18 126/58 (80) 97 Room Air 05/14/17 19:00 93 05/14/17 18:35 95 Room Air 05/14/17 15:35 97.8 88 18 144/72 (96) 96 05/14/17 14:42 94 Room Air 05/14/17 13:00 89 05/14/17 11:12 93 Room Air I & O 05/15/17 07:00 Intake Total 1300 ml Output Total 1700 ml Balance -400 ml Capillary Refill : General Appearance: No Apparent Distress, Thin HEENT: Normal ENT Inspection Neck: Full Range of Motion, Normal Inspection Respiratory: No Accessory Muscle Use, No Respiratory Distress Cardiovascular: Irregularly Irregular Results Lab Laboratory Tests 05/15/17 06:09 Laboratory Tests 05/15/17 06:09: White Blood Count 13.9H, Red Blood Count 4.32L, Hemoglobin 11.8, Hematocrit 38, Mean Corpuscular Volume 88, Mean Corpuscular Hemoglobin 27, Mean Corpuscular Hemoglobin Concent 31L, Red Cell Distribution Width 19.5H, Platelet Count 290, Mean Platelet Volume 11.2H, Neutrophils (%) (Auto) 86H, Lymphocytes (%) (Auto) 5L, Monocytes (%) (Auto) 8, Eosinophils (%) (Auto) 1, Basophils (%) (Auto) 0, Neutrophils # (Auto) 12.0H, Lymphocytes # (Auto) 0.7L, Monocytes # (Auto) 1.2H, Eosinophils # (Auto) 0.1, Basophils # (Auto) 0.0, Sodium Level 138, Potassium Level 4.1, Chloride Level 99, Carbon Dioxide Level 32, Anion Gap 7, Blood Urea Nitrogen 10, Creatinine 0.51L, Estimat Glomerular Filtration Rate > 60, BUN/ Creatinine Ratio 20, Glucose Level 86, Calcium Level 9.2, Phosphorus Level 2.1L , Magnesium Level 1.8 Assessment/Plan Assessment/Plan Assess & Plan/Chief Complaint Colon cancer. Gallstones. Atrial fibrillation. Spiculated lesion in the lung. Patient have thoracentesis today. Weakness. Patient slowly improving Clinical Quality Measures DVT/VTE Risk/Contraindication: Risk Factor Score Per Nursin DAREN FERGUSON DO May 15, 2017 07:58
--- NOTE | 2017-05-15 08:23 | Diagnostic Imaging Report ---
EXAMINATION: Chest radiograph, portable AP view. DATE: 05/15/2017 at 0801 hours. INDICATION: 86-year-old female, status post right-sided thoracentesis. COMPARISON: May 09, 2017. FINDINGS: There has been interval removal of the previously noted right internal jugular central venous line. Stable overall appearance of the cardiomediastinal silhouette. There is a small right-sided pneumothorax measuring approximately 1.5 cm from the lung apex. There is interval decrease in amount of right-sided pleural effusion. There is blunting of the left lateral costophrenic angle. There is improved aeration of the mid and lower lung zones bilaterally. IMPRESSION: 1. Small right-sided pneumothorax measuring 1.5 cm from the lung apex. 2. Reduced size of previously noted right-sided pleural effusion with persistent probable bilateral pleural effusions. 3. Interval improved aeration of the mid and lower lung zones bilaterally. 4. Removal of previously noted right internal jugular central venous line. Report was called to Magalie/DAVID 4th floor [facility] by pilo at 8:25 am. Dictated by: Dictated on workstation # [id number]
[2017-05-15] MEDS: fluCOnazole (DIFLUCAN) 100 MG TAB PO SCH (08:49)
[2017-05-15] MEDS: DILTIAZEM 300 MG (CARDIZEM CD) CAP PO SCH (08:50)
[2017-05-15] MEDS ORDERED: BUMETANIDE 1 MG/4 ML (BUMEX) VIAL IV SCH (09:00)
[2017-05-15] MEDS ORDERED: ZINC OXIDE 16% OINT (BUTT PASTE) 113 GM TUBE TOP PRN (09:45)
[2017-05-15] MEDS ORDERED: POT PHOS/NA PHOS (K-PHOS NEUTRAL) PO ONE (10:00)
[2017-05-15 10:39] LABS: LDH,BODY FLUID 67 U/L; TOTAL PROTEIN,BODY FLUID 1.2 G/DL
[2017-05-15] MEDS: CHOLESTYRAMINE 4 GM (QUESTRAN LITE, PREVALITE) PKT PO SCH (11:36)
[2017-05-15 12:00] VITALS: BP 138/60
[2017-05-15 12:00] LABS: BODY FLUID APPEARENCE CLEAR; BODY FLUID COLOR YELLOW; BODY FLUID RBC COUNT 124 /uL; BODY FLUID SOURCE PLEURAL; BODY FLUID WBC TOTAL COUNT 40 /uL
[2017-05-15] MEDS: VANCOMYCIN ORAL 250 MG/5 ML 60 ML PO SCH ×4 (12:06→16:56)
[2017-05-15 12:09] LABS: BF OTHER CELLS 68 %; LYMPHOCYTES,BODY FLUID 18 %
--- NOTE | 2017-05-15 12:53 | Diagnostic Imaging Report ---
INDICATION: Post thoracentesis Frontal chest obtained at 1233 hrs pm, and compared to 8:01 hours am, the same day. Cardiomegaly is again noted. Central vascular congestion and COPD changes are stable. Parenchymal density in right midlung again noted. There are small bilateral pleural effusions. The right apical pneumothorax visualized on the prior study appears to be stable. There is no left-sided pneumothorax. IMPRESSION: Cardiomegaly and central vascular congestion with COPD changes. Ill-defined density in right midlung again noted. There are small bilateral pleural effusions. The right apical pneumothorax seen previously has not changed since earlier this morning. Dictated by: Dictated on workstation # [id number]
--- NOTE | 2017-05-15 13:44 | Physical Therapy Progress Note ---
Therapy Progress Note Pt on hold for therapy this date due to physician order. Will resume 05/16 EMANUEL EDGAR PT May 15, 2017 13:44
--- NOTE | 2017-05-15 14:44 | Cardiology Progress Note ---
Cardiology SOAP Progress Note Subjective: Improved shortness of breath. Objective: I&O/Vital Signs Vital Sign - Last 12Hours 05/15/17 05/15/17 05/15/17 05/15/17 04:08 06:11 07:00 07:58 Temp 97.6 98.0 Pulse 73 107 91 Resp 16 16 B/P (MAP) 127/65 (85) 144/64 (90) Pulse Ox 96 96 97 O2 Delivery Room Air Room Air Room Air 05/15/17 05/15/17 05/15/17 05/15/17 08:00 10:45 12:00 13:00 Pulse 104 116 Resp 20 B/P (MAP) 138/60 (86) Pulse Ox 97 95 97 O2 Delivery Room Air Room Air Room Air 05/15/17 14:23 Pulse Ox 96 O2 Delivery Room Air Intake and Output 05/15/17 00:00 Intake Total 1000 ml Output Total 750 ml Balance 250 ml Weight (Pounds): 159 Weight (Ounces): 9.0 Weight (Calculated Kilograms): [id number] Constitutional: No appears stated age, AAO x 3, No apparent distress, No PERRL , No well-developed, No well-nourished, No other Respiratory: No accessory muscle use, No respiratory distress, No chest tender , No chest expansion is symmetric, chest is bilaterally symmetric, No lungs clear to percussion, lungs clear to auscultation, No crackles, No rhonchi, No rales, No stridor, No wheezing, No pleural rub, No other Cardiovascular: No regular rate-rhythm, irregularly irregular, No extra beats, No parasternal heave is noted, No JVD, No edema, No bradycardia, No tachycardia , No point of maximal impulse, No cardiac thrills are palpable, S1 and S2, No gallop/S3, No gallop/S4, No diastolic murmur, No systolic murmur, No friction rub, No click, No other Gastrointestional: No tender, soft, No round, No distended, No pulsatile mass, No organomegaly, No guarding, No rebound, No tenderness, No hernia, No mass, No audible bowel sounds, No abnormal bowel sounds, No abdominal bruits, No spleenomegaly, No other Extremities: No normal range of motion, No non-tender, No normal inspection, No pedal edema, No calf tenderness, No normal capillary refill, No pelvis stable , No calf tenderness, No inflammation, No pedal edema, No slow capillary refill , No swelling, No other, No abrasion, No clubbing, No cyanosis, No ecchymosis, No laceration, No no lower extremity edema bilateral, No significant edema, No tenderness, No wound Neurologic/Psychiatric: No aoc operations intelligence officer II-XII nml as tested, No no motor/sensory deficits, alert, normal mood/affect, oriented x 3, No abnormal cerebellar tests , No abnormal aoc operations intelligence officer II-XII, No abnormal gait, No aphasia, No EOM palsy, No facial droop, No motor weakness, No sensory deficit, No depressed affect, No disoriented x 3, No other, No grossly intact, No power is 5/5 both on sides Skin: No normal color, No warm/dry, No cyanosis, No cool, No diaphoresis, No damp, No ecchymosis, No jaundice, No mottled, No pallor, No rash, No tattoos/ piercings, No ulcerations, No rash on exposed areas, No ulcerations on exposed areas, No other Results/Procedures: Labs Bad table A/P: Assessment/Dx: Assessment/Dx: ARDS - improved significantly [place], chronic atrial fibrillation with controlled ventricular rate, Diastolic CHF Plan: Plan: ARDS post hemicolectomy on 04/29/17, clinically improved. significant improvement of shortness of breath. no shortness of breath today. Status post thoracocentesis. Acute renal failure with oliguria post surgery; now resolved A-fib with RVR - h/o chronic a-fib - rate controlled OAC with Eliquis Echocardiogram 05/01/17: LVEF 55-60%. LA and RA are dilated. Mild calcified mitral valve annulus with mod regurg. AoV thickening consistent with sclerosis with mild regurg. Mod TR. PASP approx 40 mmHg H/o diastolic CHF H/o anemia for which she has followed with oncology/hematology services in the past - received 2 units PRBC on 04-30-17 Thank you for your consultation. Please call me if you have any questions. Ac Valdez MD, FACP, FACC, FSCAI, FHRS, CCDS Interventional Cardiology Cardiac Electrophysiology Vascular Medicine and Endovascular Interventions Brandon VALDEZ MD May 15, 2017 14:44
--- NOTE | 2017-05-15 15:08 | Occ Therapy Progress Note ---
Therapy Progress Note OT received orders to hold treatment today. Will check on pt. tomorrow. [id number] ELISABETH SHRESTHA OT May 15, 2017 15:08
[2017-05-15 15:47] VITALS: BP 134/68
[2017-05-15 20:02] VITALS: BP 142/62
[2017-05-15] MEDS: MELATONIN 3 MG TABLET PO SCH (20:45)
[2017-05-15] MEDS: HYDROcodone/APAP 5 MG/325 MG (LORTAB) TAB PO PRN (20:46)
[2017-05-16 00:11] VITALS: BP 133/60
[2017-05-16] MEDS: VANCOMYCIN ORAL 250 MG/5 ML 60 ML PO SCH ×4 (00:22→05:59)
[2017-05-16] MEDS: RT-ALBUTEROL/IPRATROPIUM 3 ML (DUONEB) VIAL INH SCH ×6 (02:33→22:40)
[2017-05-16 03:56] VITALS: BP 128/61
[2017-05-16] MEDS: KCL 20 MEQ TAB (K-DUR) PO SCH ×2 (06:08→16:10)
--- NOTE | 2017-05-16 07:39 | Progress Note (SOAP) ---
Subjective Time Seen by Provider: 07:35 Subjective/Events-last exam Patient feeling okay today. C. difficile by molecular negative.. Chest x-ray today. Patient not short of breath Objective Exam Vital Signs Date Time Temp Pulse Resp B/P (MAP) Pulse Ox O2 Delivery O2 Flow Rate FiO2 05/16/17 07:00 94 Room Air 05/16/17 03:56 97.7 81 16 128/61 (83) 95 Room Air 05/16/17 02:38 97 Room Air 05/16/17 01:00 83 05/16/17 00:11 97.8 88 17 133/60 (84) 97 Room Air 05/15/17 22:32 96 Room Air 05/15/17 20:45 97 Room Air 05/15/17 20:02 98.2 115 19 142/62 (88) 97 Room Air 05/15/17 19:00 105 05/15/17 18:34 97 Room Air 05/15/17 15:47 99.0 111 16 134/68 (90) 95 Room Air 05/15/17 14:23 96 Room Air 05/15/17 13:00 116 05/15/17 12:00 104 20 138/60 (86) 97 Room Air 05/15/17 10:45 95 Room Air 05/15/17 08:00 97 Room Air 05/15/17 07:58 98.0 91 16 144/64 (90) 97 Room Air I & O 05/16/17 07:00 Intake Total 1130 ml Output Total 2825 ml Balance -1695 ml Capillary Refill : Less Than 3 Seconds General Appearance: No Apparent Distress, Thin HEENT: Normal ENT Inspection Neck: Full Range of Motion, Normal Inspection Respiratory: Lungs Clear, No Accessory Muscle Use, No Respiratory Distress Cardiovascular: Irregularly Irregular Results Lab Microbiology 05/15/17 C. difficile DNA Amplification - Final, Complete Assessment/Plan Assessment/Plan Assess & Plan/Chief Complaint Colon cancer. Gallstones. Atrial fibrillation. Spiculated lesion in the lung. Patient have thoracentesis today. Weakness. Patient slowly improving. . 05/16/17. Colon cancer. Gallstones. Spiculated lesion in the lung. Small pneumothorax. Patient slowly improving. Atrial fibrillation Clinical Quality Measures DVT/VTE Risk/Contraindication: Risk Factor Score Per Nursin DAREN FERGUSON DO May 16, 2017 07:39
[2017-05-16 08:00] VITALS: BP 126/60
[2017-05-16] MEDS: BUMETANIDE 1 MG (BUMEX) TAB PO SCH (08:55)
[2017-05-16] MEDS: APIXABAN 5 MG (ELIQUIS) TABLET PO SCH ×2 (08:55→20:53)
[2017-05-16] MEDS: fluCOnazole (DIFLUCAN) 100 MG TAB PO SCH (08:55)
[2017-05-16] MEDS: DILTIAZEM 300 MG (CARDIZEM CD) CAP PO SCH (08:55)
--- NOTE | 2017-05-16 08:59 | Diagnostic Imaging Report ---
INDICATION: Right pneumothorax. PA and lateral chest obtained at 8:30 a.m. and compared to 05/15/2017. FINDINGS: There is cardiomegaly again noted. There is a large hiatal hernia with retrocardiac air-fluid level. There are small bilateral pleural effusions. There is no change in nodular density overlying the right perihilar region. Right apical pneumothorax appears stable compared to yesterday. IMPRESSION: Stable right apical pneumothorax. Small bilateral pleural effusions are noted. There is cardiomegaly with large hiatal hernia. Nodular density in right perihilar region is again noted. Dictated by: Dictated on workstation # [id number]
[2017-05-16] MEDS: CHOLESTYRAMINE 4 GM (QUESTRAN LITE, PREVALITE) PKT PO SCH (11:20)
[2017-05-16 12:00] VITALS: BP 132/58
--- NOTE | 2017-05-16 13:10 | Occ Therapy Progress Note ---
Therapy Progress Note OT received orders to hold treatment today. Will check on pt. tomorrow. OREN CHRISTIANSON May 16, 2017 13:10
[2017-05-16] MEDS ORDERED: CHOL4PAC16 PO (14:32)
--- NOTE | 2017-05-16 14:39 | D/C HH Face to Face Order ---
D/C Face to Face Orders Instructions for Patient Patient Instructions/FollowUp: F/U in 3 weeks Physician to follow Patient: Fiona Rivas Discharge Diet for Home: No Restrictions Patient Data-Allergies,Ht & Wt Patient Allergies: Coded Allergies: Sulfa (Sulfonamide Antibiotics) (Verified Allergy, Unknown, 08/02/07) Height (Feet): 5 Height (Inches): 2.00 Weight (Pounds): 159 Weight (Ounces): 9.0 Home Health Need/Face to Face Date of Face to Face: May 17, 2017 Clinical Findings: Generalized weakness and fatigue, Muscle weakness I have seen Pt [id number]: Yes Discharged To: Home Diagnosis/Conditions: Carcinoma of colon Problems/Diagnosis/Condition: Patient is Homebound due to: Tanesha fall risk due to instabilty, Muscle weakness Homebound Status Due to the above stated illness, injury or surgical procedure (medical condition or diagnosis) and associated clinical findings, the patient is homebound because of his/her inability to leave home except with aid of a supportive device and/or person AND leaving the home requires a considerable and taxing effort or is medically contraindicated. Pt req the following assistanc: Walker Home Health Nursing Orders Home Health Services Order: Nursing Services, Working Supervisor-Evaluate & Treat, Physical Therapy-Evaluate & Treat Home Health Infusion Therapy Line Type: Midline Site Location: Arm-Upper Certify Stmt I certify that this patient is under my care and that I, a nurse practitioner or a physician; a assistant drafter working with me, had a face to face encounter that - meets the physician face to face encounter requirements with this patient as dated. ROSLYN BIRCH MD May 16, 2017 2:39 pm
[2017-05-16] MEDS ORDERED: PHOS250T5 PO (14:44)
--- NOTE | 2017-05-16 15:01 | Progress Note-Standard ---
Standard Progress Note Progress Notes/Assess & Plan Date Seen by Provider: May 16, 2017 Time Seen by Provider: 13:25 Progress/Assessment & Plan continues to improve. Bilateral pleural effusions, pending thoracentesis in a.m. looks much improved. Plan for discharge in a.m. 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
--- NOTE | 2017-05-16 15:04 | Discharge Summary ---
Diagnosis/Chief Complaint Date of Admission May 14, 2017 at 8:31 am Date of Discharge 05/17/17 Discharge Date: May 17, 2017 Discharge Time: 09:00 Admission Diagnosis Admission Diagnosis personal Saturday hepatic flexure. Pleural effusion. 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 Slow recovery, compounded by pneumonia, respiratory failure requiring mechanical ventilation and pleural effusion requiring thoracentesis. With supportive care, she has made a remarkable recovery. At the time of discharge, she is able to tolerate a regular diet and his ambulating with some assistance. She'll continue her recovery at home with home health services, physical and occupational therapy. CT of the chest shows a spiculated nodule over the left upper lobe of the lung requiring an outpatient evaluation. From a postoperative standpoint, she'll be followed up in 3 weeks. Questran has been used to control her postoperative diarrhea. Discharge Summary Procedures robotic assisted right hemicolectomy Consultations Dr. Valentin for pulmonology service Discharge Physical Examination Allergies: Coded Allergies: Sulfa (Sulfonamide Antibiotics) (Verified Allergy, Unknown, 08/02/07) Vitals & I&Os Vital Signs Date Time Temp Pulse Resp B/P (MAP) Pulse Ox O2 Delivery O2 Flow Rate FiO2 05/16/17 13:00 118 05/16/17 12:00 98.3 20 132/58 (82) 97 Room Air Hospital Course Labs (last 24 hrs) Bad tablePending Labs Bad table Discharge Home Medications: Active Scripts Active Phospha 250 Neutral Tablet (Phosphate) 1 Ea Tablet 1 Ea PO DAILY 14 Days Questran Packet (Cholestyramine (with Sugar)) 4 Gm Powd.pack 4 Gm PO ONCE 14 Days Reported Klor-Con M20 (Potassium Chloride) 20 Meq Tab.er.prt 20 Meq PO DAILY PRN Furosemide 40 Mg Tablet 40 Mg PO DAILY PRN Hydrocodone-Acetamin 5-325 mg (Hydrocodone/Acetaminophen) 1 Each Tablet 1 Tab PO TID PRN Alprazolam 0.25 Mg Tablet 0.25 Mg PO BID PRN One Daily For Women 50+ Adv Tb (Multivitamins-Min/FA/Ginkgo) 1 Each Tablet 1 Tab PO DAILY Eliquis (Apixaban) 5 Mg Tablet 5 Mg PO BID Amlodipine Besylate 5 Mg Tablet 5 Mg PO DAILY Cartia Xt (Diltiazem HCl) 240 Mg Cap.er.24h 240 Mg PO DAILY Instructions to patient/family Please see electronic discharge instructions given to patient. Clinical Quality Measures DVT/VTE Risk/Contraindication: Risk Factor Score Per Nursin ROSLYN BIRCH MD May 16, 2017 3:04 pm
--- NOTE | 2017-05-16 15:24 | Discharge Summary ---
Diagnosis/Chief Complaint Date of Admission Apr 29, 2017 at 7:31 am Date of Discharge 05/14/17 Discharge Date: May 14, 2017 Discharge Time: 09:00 Admission Diagnosis Admission Diagnosis carcinoma of the hepatic flexure. 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 Slow recovery, compounded by pneumonia, respiratory failure requiring mechanical ventilation and pleural effusion requiring thoracentesis. With supportive care, she has made a remarkable recovery. She is being transferred to swing bed status to promote her convalescence Discharge Summary Procedures robotic assisted right hemicolectomy with cholecystectomy Consultations Dr. Valentin for pulmonology service Dr. Braxton for medical management Discharge Physical Examination Allergies: Coded Allergies: Sulfa (Sulfonamide Antibiotics) (Verified Allergy, Unknown, 08/02/07) Vitals & I&Os Vital Signs Date Time Temp Pulse Resp B/P (MAP) Pulse Ox O2 Delivery O2 Flow Rate FiO2 05/16/17 15:11 97 Room Air 05/16/17 13:00 118 05/16/17 12:00 98.3 20 132/58 (82) Hospital Course Labs (last 24 hrs) Bad tablePending Labs Bad table Discharge Home Medications: Active Scripts Active Phospha 250 Neutral Tablet (Phosphate) 1 Ea Tablet 1 Ea PO DAILY 14 Days Questran Packet (Cholestyramine (with Sugar)) 4 Gm Powd.pack 4 Gm PO ONCE 14 Days Reported Klor-Con M20 (Potassium Chloride) 20 Meq Tab.er.prt 20 Meq PO DAILY PRN Furosemide 40 Mg Tablet 40 Mg PO DAILY PRN Hydrocodone-Acetamin 5-325 mg (Hydrocodone/Acetaminophen) 1 Each Tablet 1 Tab PO TID PRN Alprazolam 0.25 Mg Tablet 0.25 Mg PO BID PRN One Daily For Women 50+ Adv Tb (Multivitamins-Min/FA/Ginkgo) 1 Each Tablet 1 Tab PO DAILY Eliquis (Apixaban) 5 Mg Tablet 5 Mg PO BID Amlodipine Besylate 5 Mg Tablet 5 Mg PO DAILY Cartia Xt (Diltiazem HCl) 240 Mg Cap.er.24h 240 Mg PO DAILY Instructions to patient/family Please see electronic discharge instructions given to patient. Clinical Quality Measures DVT/VTE Risk/Contraindication: Risk Factor Score Per Nursin ROSLYN BIRCH MD May 16, 2017 3:24 pm
--- NOTE | 2017-05-16 15:57 | Cardiology Progress Note ---
Cardiology SOAP Progress Note Subjective: Significant improvement in shortness of breath. Objective: I&O/Vital Signs Vital Sign - Last 12Hours 05/16/17 05/16/17 05/16/17 05/16/17 07:00 07:00 07:52 08:00 Temp 98.9 Pulse 87 96 Resp 20 B/P (MAP) 126/60 (82) Pulse Ox 94 97 97 O2 Delivery Room Air Room Air Room Air 05/16/17 05/16/17 05/16/17 05/16/17 10:39 12:00 13:00 15:11 Temp 98.3 Pulse 96 118 Resp 20 B/P (MAP) 132/58 (82) Pulse Ox 97 97 97 O2 Delivery Room Air Room Air Room Air Intake and Output 05/16/17 00:00 Intake Total 980 ml Output Total 2400 ml Balance -1420 ml Weight (Pounds): 159 Weight (Ounces): 9.0 Weight (Calculated Kilograms): 72.328767 Constitutional: No appears stated age, AAO x 3, No apparent distress, No PERRL , No well-developed, No well-nourished, No other Respiratory: No accessory muscle use, No respiratory distress, No chest tender , No chest expansion is symmetric, chest is bilaterally symmetric, No lungs clear to percussion, lungs clear to auscultation, No crackles, No rhonchi, No rales, No stridor, No wheezing, No pleural rub, No other Cardiovascular: No regular rate-rhythm, irregularly irregular, No extra beats, No parasternal heave is noted, No JVD, No edema, No bradycardia, No tachycardia , No point of maximal impulse, No cardiac thrills are palpable, S1 and S2, No gallop/S3, No gallop/S4, No diastolic murmur, No systolic murmur, No friction rub, No click, No other Gastrointestional: No tender, soft, No round, No distended, No pulsatile mass, No organomegaly, No guarding, No rebound, No tenderness, No hernia, No mass, No audible bowel sounds, No abnormal bowel sounds, No abdominal bruits, No spleenomegaly, No other Extremities: No normal range of motion, No non-tender, No normal inspection, No pedal edema, No calf tenderness, No normal capillary refill, No pelvis stable , No calf tenderness, No inflammation, No pedal edema, No slow capillary refill , No swelling, No other, No abrasion, No clubbing, No cyanosis, No ecchymosis, No laceration, No no lower extremity edema bilateral, No significant edema, No tenderness, No wound Neurologic/Psychiatric: No right of way appraiser II-XII nml as tested, No no motor/sensory deficits, alert, normal mood/affect, oriented x 3, No abnormal cerebellar tests , No abnormal right of way appraiser II-XII, No abnormal gait, No aphasia, No EOM palsy, No facial droop, No motor weakness, No sensory deficit, No depressed affect, No disoriented x 3, No other, No grossly intact, No power is 5/5 both on sides Skin: No normal color, No warm/dry, No cyanosis, No cool, No diaphoresis, No damp, No ecchymosis, No jaundice, No mottled, No pallor, No rash, No tattoos/ piercings, No ulcerations, No rash on exposed areas, No ulcerations on exposed areas, No other Results/Procedures: Labs Microbiology 05/15/17 C. difficile DNA Amplification - Final, Complete A/P: Assessment/Dx: Assessment/Dx: ARDS - improved significantly [place], chronic atrial fibrillation with controlled ventricular rate, Diastolic CHF Plan: Plan: Hopefully patient will be Discharged tomorrow. Follow-up with me in one week. ARDS post hemicolectomy on 04/29/17, clinically improved. significant improvement of shortness of breath. no shortness of breath today. Status post thoracocentesis. Acute renal failure with oliguria post surgery; now resolved A-fib with RVR - h/o chronic a-fib - rate controlled OAC with Eliquis Echocardiogram 05/01/17: LVEF 55-60%. LA and RA are dilated. Mild calcified mitral valve annulus with mod regurg. AoV thickening consistent with sclerosis with mild regurg. Mod TR. PASP approx 40 mmHg H/o diastolic CHF H/o anemia for which she has followed with oncology/hematology services in the past - received 2 units PRBC on 04-30-17 Thank you for your consultation. Please call me if you have any questions. Ac Valdez MD, FACP, FACC, FSCAI, FHRS, CCDS Interventional Cardiology Cardiac Electrophysiology Vascular Medicine and Endovascular Interventions Brandon VALDEZ MD May 16, 2017 3:57 pm
[2017-05-16] MEDS: POT PHOS/NA PHOS (K-PHOS NEUTRAL) PO SCH (16:10)
[2017-05-16 16:21] VITALS: BP 138/64
[2017-05-16 19:30] VITALS: BP 121/57
[2017-05-16] MEDS: MELATONIN 3 MG TABLET PO SCH (20:53)
[2017-05-16] MEDS: HYDROcodone/APAP 5 MG/325 MG (LORTAB) TAB PO PRN (20:53)
[2017-05-17] VITALS: BP 107/59
[2017-05-17] MEDS: RT-ALBUTEROL/IPRATROPIUM 3 ML (DUONEB) VIAL INH SCH ×3 (02:58→11:49)
[2017-05-17 04:00] VITALS: BP 108/61
[2017-05-17] MEDS: KCL 20 MEQ TAB (K-DUR) PO SCH (06:02)
--- NOTE | 2017-05-17 06:29 | Pulmonary Progress Note ---
Subjective Date Seen by Provider: May 16, 2017 (late entry for 05/16 today is 05/17) Time Seen by Provider: 06:26 Subjective/Events-last exam pt feels improved. NO CP. improved sob. Exam Exam Vital Signs Date Time Temp Pulse Resp B/P (MAP) Pulse Ox O2 Delivery O2 Flow Rate FiO2 05/17/17 04:00 97.4 71 19 108/61 (77) 97 Room Air 05/17/17 01:00 64 05/17/17 00:00 97.6 67 18 107/59 (75) 97 Room Air 05/16/17 22:46 97 Room Air 05/16/17 19:30 99.0 97 18 121/57 (78) 97 Room Air 05/16/17 19:00 98 05/16/17 18:50 98 Room Air 05/16/17 16:21 97.6 111 18 138/64 (88) 96 Room Air 05/16/17 15:11 97 Room Air 05/16/17 13:00 118 05/16/17 12:00 98.3 96 20 132/58 (82) 97 Room Air 05/16/17 10:39 97 Room Air 05/16/17 08:00 98.9 96 20 126/60 (82) 97 Room Air 05/16/17 07:52 97 Room Air 05/16/17 07:00 87 05/16/17 07:00 94 Room Air I & O 05/17/17 07:00 Intake Total 1165 ml Output Total 1800 ml Balance -635 ml General Appearance: No Apparent Distress, Thin HEENT: Normal ENT Inspection Neck: Full Range of Motion, Normal Inspection Respiratory: Lungs Clear, No Accessory Muscle Use, No Respiratory Distress Cardiovascular: Irregularly Irregular Gastrointestinal: normal bowel sounds, non tender, soft, no organomegaly Extremity: Normal Capillary Refill, Normal Inspection, Normal Range of Motion Neurologic/Psychiatric: Alert, Oriented x3 Skin: Normal Color, Warm/Dry Lymphatic: No Adenopathy Assessment/Plan Assessment/Plan Acute respiratory failure - improving - prednisone taper -bumex daily -BiPAP QHS - mucomyst to SVNs -Check Ct of chest with contrast- reviewed and shows pleural effusion and spiculated mass Spiculated lung nodule and pleural effusion -s/p thoracentesis and test pleural fluid for cytology -Pt should have out pt PET scan Small stable PTX -Continue to monitor Pneumonia with ESBL and candidiasis -Merrem post 10days Leukocytosis -Pt is on a prednisone taper -repeat labs and check CT of chest Pulmonary edema with bilateral pleural effusion 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
[2017-05-17 07:22] LABS: BASOPHILS % (AUTO) 0 % (0-10); EOSINOPHILS # (AUTO) 0.2 10^3/uL (0.0-0.3); EOSINOPHILS % (AUTO) 1 % (0-10); HEMATOCRIT 37 % (35-52); HEMOGLOBIN 11.8 G/DL (11.5-16.0); LYMPHOCYTES # (AUTO) 0.6 X 10^3 (1.0-4.0); LYMPHOCYTES % (AUTO) 5 % (12-44); MEAN CORPUSCULAR HEMOGLOBIN 28 PG (25-34); MEAN CORPUSCULAR HGB CONC 32 G/DL (32-36); MEAN CORPUSCULAR VOLUME 87 FL (80-99); MEAN PLATELET VOLUME 11.5 FL (7.4-10.4); MONOCYTES # (AUTO) 0.9 X 10^3 (0.0-1.0); MONOCYTES % (AUTO) 7 % (0-12); NEUTROPHILS # (AUTO) 11.9 X 10^3 (1.8-7.8); NEUTROPHILS % (AUTO) 88 % (42-75); PLATELET COUNT 272 10^3/uL (130-400); RED BLOOD COUNT 4.26 10^6/uL (4.35-5.85); RED CELL DISTRIBUTION WIDTH 19.4 % (10.0-14.5); WHITE BLOOD COUNT 13.6 10^3/uL (4.3-11.0)
[2017-05-17 08:00] VITALS: BP 145/67
--- NOTE | 2017-05-17 08:02 | Diagnostic Imaging Report ---
INDICATION: Pneumothorax. TECHNIQUE: Portable upright AP view of chest is obtained with comparison made to study of 05/16/2017. FINDINGS: Heart size and pulmonary vascularity remain stable. There is also no significant change in probable 10% right pneumothorax. Patchy perihilar densities likely represent edema or pneumonitis with rounded density also noted in the right midlung similar to previous exam. There is blunting of left costophrenic sulcus with prominent hiatal hernia again demonstrated. IMPRESSION: Approximately 10% right pneumothorax is similar to previous study. Bilateral perihilar atelectasis, edema or pneumonitis have not significantly changed and there is a persistent rounded focus of density lateral to the right hilum which should be further evaluated on short-term followup examination. Dictated by: Dictated on workstation # [id number]
--- NOTE | 2017-05-17 08:16 | Progress Note (SOAP) ---
Subjective Time Seen by Provider: 08:15 Subjective/Events-last exam Patient feeling better. Patient doing better. Patient to go home today. Objective Exam Vital Signs Date Time Temp Pulse Resp B/P (MAP) Pulse Ox O2 Delivery O2 Flow Rate FiO2 05/17/17 04:00 97.4 71 19 108/61 (77) 97 Room Air 05/17/17 01:00 64 05/17/17 00:00 97.6 67 18 107/59 (75) 97 Room Air 05/16/17 22:46 97 Room Air 05/16/17 19:30 99.0 97 18 121/57 (78) 97 Room Air 05/16/17 19:00 98 05/16/17 18:50 98 Room Air 05/16/17 16:21 97.6 111 18 138/64 (88) 96 Room Air 05/16/17 15:11 97 Room Air 05/16/17 13:00 118 05/16/17 12:00 98.3 96 20 132/58 (82) 97 Room Air 05/16/17 10:39 97 Room Air I & O 05/17/17 07:00 Intake Total 1165 ml Output Total 1800 ml Balance -635 ml Capillary Refill : Less Than 3 Seconds General Appearance: No Apparent Distress, Thin Results Lab Laboratory Tests 05/17/17 06:53: White Blood Count 13.6H, Red Blood Count 4.26L, Hemoglobin 11.8, Hematocrit 37, Mean Corpuscular Volume 87, Mean Corpuscular Hemoglobin 28, Mean Corpuscular Hemoglobin Concent 32, Red Cell Distribution Width 19.4H, Platelet Count 272, Mean Platelet Volume 11.5H, Neutrophils (%) (Auto) 88H, Lymphocytes (%) (Auto) 5L, Monocytes (%) (Auto) 7, Eosinophils (%) (Auto) 1, Basophils (%) (Auto) 0, Neutrophils # (Auto) 11.9H, Lymphocytes # (Auto) 0.6L, Monocytes # (Auto) 0.9, Eosinophils # (Auto) 0.2, Basophils # (Auto) 0.0 Microbiology 05/15/17 C. difficile DNA Amplification - Final, Complete Assessment/Plan Assessment/Plan Assess & Plan/Chief Complaint Colon cancer. Gallstones. Atrial fibrillation. Spiculated lesion in the lung. Patient have thoracentesis today. Weakness. Patient slowly improving. . 05/16/17. Colon cancer. Gallstones. Spiculated lesion in the lung. Small pneumothorax. Patient slowly improving. Atrial fibrillation. . 05/17/17. Colon cancer. Gallstones removed. Spiculated lesion in the lung. Small pneumothorax 10 percent Atrial fibrillation Clinical Quality Measures DVT/VTE Risk/Contraindication: Risk Factor Score Per Nursin DAREN FERGUSON DO May 17, 2017 08:16
[2017-05-17] MEDS: fluCOnazole (DIFLUCAN) 100 MG TAB PO SCH (09:02)
[2017-05-17] MEDS: APIXABAN 5 MG (ELIQUIS) TABLET PO SCH (09:02)
[2017-05-17] MEDS: POT PHOS/NA PHOS (K-PHOS NEUTRAL) PO SCH (09:02)
[2017-05-17] MEDS: BUMETANIDE 1 MG (BUMEX) TAB PO SCH (09:02)
[2017-05-17] MEDS: DILTIAZEM 300 MG (CARDIZEM CD) CAP PO SCH (09:02)
[2017-05-17] MEDS: CHOLESTYRAMINE 4 GM (QUESTRAN LITE, PREVALITE) PKT PO SCH (11:43)
--- NOTE | 2017-05-17 12:06 | Cardiology Progress Note ---
Cardiology SOAP Progress Note Subjective: Improved shortness of breath. Objective: I&O/Vital Signs Vital Sign - Last 12Hours 05/17/17 05/17/17 05/17/17 05/17/17 01:00 04:00 08:00 08:07 Temp 97.4 97.0 Pulse 64 71 85 Resp 19 20 B/P (MAP) 108/61 (77) 145/67 (93) Pulse Ox 97 96 94 O2 Delivery Room Air Room Air Room Air 05/17/17 11:49 Pulse Ox 92 O2 Delivery Room Air Intake and Output 05/17/17 00:00 Intake Total 1115 ml Output Total 1400 ml Balance -285 ml Weight (Pounds): 159 Weight (Ounces): 9.0 Weight (Calculated Kilograms): 72.698214 Constitutional: No appears stated age, AAO x 3, No apparent distress, No PERRL , No well-developed, No well-nourished, No other Respiratory: No accessory muscle use, No respiratory distress, No chest tender , No chest expansion is symmetric, chest is bilaterally symmetric, No lungs clear to percussion, lungs clear to auscultation, No crackles, No rhonchi, No rales, No stridor, No wheezing, No pleural rub, No other Cardiovascular: No regular rate-rhythm, irregularly irregular, No extra beats, No parasternal heave is noted, No JVD, No edema, No bradycardia, No tachycardia , No point of maximal impulse, No cardiac thrills are palpable, S1 and S2, No gallop/S3, No gallop/S4, No diastolic murmur, No systolic murmur, No friction rub, No click, No other Gastrointestional: No tender, soft, No round, No distended, No pulsatile mass, No organomegaly, No guarding, No rebound, No tenderness, No hernia, No mass, No audible bowel sounds, No abnormal bowel sounds, No abdominal bruits, No spleenomegaly, No other Extremities: No normal range of motion, No non-tender, No normal inspection, pedal edema, No calf tenderness, No normal capillary refill, No pelvis stable, No calf tenderness, No inflammation, No pedal edema, No slow capillary refill, No swelling, No other, No abrasion, No clubbing, No cyanosis, No ecchymosis, No laceration, No no lower extremity edema bilateral, No significant edema, No tenderness, No wound Neurologic/Psychiatric: No canvas cutter hand II-XII nml as tested, No no motor/sensory deficits, alert, normal mood/affect, oriented x 3, No abnormal cerebellar tests , No abnormal canvas cutter hand II-XII, No abnormal gait, No aphasia, No EOM palsy, No facial droop, No motor weakness, No sensory deficit, No depressed affect, No disoriented x 3, No other, No grossly intact, No power is 5/5 both on sides Skin: No normal color, No warm/dry, No cyanosis, No cool, No diaphoresis, No damp, No ecchymosis, No jaundice, No mottled, No pallor, No rash, No tattoos/ piercings, No ulcerations, No rash on exposed areas, No ulcerations on exposed areas, No other Results/Procedures: Labs Laboratory Tests 05/17/17 06:53: White Blood Count 13.6H, Red Blood Count 4.26L, Hemoglobin 11.8, Hematocrit 37, Mean Corpuscular Volume 87, Mean Corpuscular Hemoglobin 28, Mean Corpuscular Hemoglobin Concent 32, Red Cell Distribution Width 19.4H, Platelet Count 272, Mean Platelet Volume 11.5H, Neutrophils (%) (Auto) 88H, Lymphocytes (%) (Auto) 5L, Monocytes (%) (Auto) 7, Eosinophils (%) (Auto) 1, Basophils (%) (Auto) 0, Neutrophils # (Auto) 11.9H, Lymphocytes # (Auto) 0.6L, Monocytes # (Auto) 0.9, Eosinophils # (Auto) 0.2, Basophils # (Auto) 0.0 Microbiology 05/15/17 C. difficile DNA Amplification - Final, Complete A/P: Assessment/Dx: Assessment/Dx: ARDS - improved significantly [place], chronic atrial fibrillation with controlled ventricular rate, Diastolic CHF Plan: Plan: Hopefully patient will be Discharged tomorrow. Follow-up with me in one week. ARDS post hemicolectomy on 04/29/17, clinically improved. significant improvement of shortness of breath. no shortness of breath today. Status post thoracocentesis. Acute renal failure with oliguria post surgery; now resolved A-fib with RVR - h/o chronic a-fib - rate controlled OAC with Eliquis Echocardiogram 05/01/17: LVEF 55-60%. LA and RA are dilated. Mild calcified mitral valve annulus with mod regurg. AoV thickening consistent with sclerosis with mild regurg. Mod TR. PASP approx 40 mmHg H/o diastolic CHF H/o anemia for which she has followed with oncology/hematology services in the past - received 2 units PRBC on 04-30-17 Thank you for your consultation. Please call me if you have any questions. Ac Valdez MD, FACP, FACC, FSCAI, FHRS, CCDS Interventional Cardiology Cardiac Electrophysiology Vascular Medicine and Endovascular Interventions Brandon VALDEZ MD May 17, 2017 12:06
[2017-05-17 12:35] VITALS: BP 145/67
--- NOTE | 2017-05-20 10:39 | Therapy Team Discharge Summary ---
Therapy Discharge Summary Discharge Recommendations Date of Discharge May 17, 2017 at 12:35 Therapy D/C Recommendations: Home w/ Family Support, Scheduled Assistance Occupational Therapy Pt. has been seen by occupational therapy to increase overall strength and endurance. Pt. was evaluated by OT, but then placed on medical hold. Goals not met during this time. At evaluation, pt. required min assist to transfers, dependent assist to toilet, and max assist for LE dressing. Pt. discharging home with family support. Decreased Activ Tolerance, Decreased UE Strength, Dependent Transfers, Impaired I ADL's, Impaired Self-Care Skills PT Security Incident Handler Goals Group Home Goals PT Security Incident Handler Goals Time Frame: Jun 07, 2017 Transfers (B,C,W/C) (FIM): 6 Sit to Lying (QC): 6 Lying-Sitting on Side/Bed(QC): 6 Sit to Stand (QC): 6 Rollin Chair/Xih-ae-Gufbz Xfer(QC): 6 Does the Patient Walk: Yes Gait (FIM): 2 Gait distance (FIM): 9=175-16 ft Distance: 100' Walk 50ft with 2 Turns (QC): 5 Gait Level of Assist: 5 Gait Assistive Device: FWW OT Security Incident Handler Goals Group Home Goals Time Frame: Jun 04, 2017 Eating (FIM): 6 (not met) Eating (QC): 6 (not met) Groomin (not met) Oral Hygiene (QC): 6 (not met) Bathing(FIM): 5 (not met) Upper Body Dressing(FIM): 6 (not met) Lower Body Dressing(FIM): 5 (not met) Toileting(FIM): 6 (not met) Toileting Hygiene (QC): 6 (not met) Toilet/Commode Transfer(FIM): 6 (not met) Toilet/Commode Transfer (QC): 6 (not met) Additional Goals: 2-Verbalize Understanding, 3-ImproveStrength/Vinayak 1=Demonstrate adherence to instructed precautions during ADL tasks. 2=Patient will verbalize/demonstrate understanding of assistive devices/ modifications for ADL. 3=Patient will improve strength/tolerance for activity to enable patient to perform ADL's. ELISABETH SHRESTHA OT May 20, 2017 10:39
== END 2017-05-17 12:35 | disposition home health service (06) | DRG 947 ==
LOC: 4TH 08:31
PROVIDERS: ADMIT Family Medicine; ATTEND Family Medicine
PROC: 0W993ZX Drainage of Right Pleural Cavity, Percutaneous Approach, Diagnostic (ICD-10-PCS; principal; 2017-05-15)
DX: R53.81 Other malaise (principal); J90 Pleural effusion, not elsewhere classified; J95.811 Postprocedural pneumothorax; B37.1 Pulmonary candidiasis; C18.3 Malignant neoplasm of hepatic flexure; I50.30 Unspecified diastolic (congestive) heart failure; R91.1 Solitary pulmonary nodule; I48.91 Unspecified atrial fibrillation; I08.0 Rheumatic disorders of both mitral and aortic valves; J30.1 Allergic rhinitis due to pollen; F41.9 Anxiety disorder, unspecified; G47.00 Insomnia, unspecified; K57.90 Diverticulosis of intestine, part unspecified, without perforation or abscess without bleeding; M19.91 Primary osteoarthritis, unspecified site; Z16.12 Extended spectrum beta lactamase (ESBL) resistance; Z85.42 Personal history of malignant neoplasm of other parts of uterus; Z90.710 Acquired absence of both cervix and uterus
CPT/HCPCS: 36415; 71045; 71046; 80048; 83615; 83735; 84100; 84157; 85025; 87324; 87449; 87493; 89051; 94640; 94760

== ENCOUNTER 2017-06-24 15:21 | Inpatient (IN) | payer MEDICARE, OTHER ==
[~2017-06-24] VITALS: Ht 157.5 cm; Wt 55.1 kg
[~2017-06-24 15:21] MED LIST changes: -ACETAMINOPHEN 325 MG TABLET/CAPLET (TYLENOL) PO PRN; -ALPRAZolam 0.25 MG (XANAX) TAB PO PRN; -CATHETER FLUSH 10 ML SYR IV PRN; +CHOL4PAC16 PO; -ENALAPRILAT 2.5 MG/2 ML (VASOTEC) VIAL IV PRN; -ONDANSETRON 4 MG/2 ML (SDV) Z0FRAN IVP PRN; +PHOS250T5 PO
[2017-06-24] MEDS ORDERED: NS IV 1000 ML 1,000 ML IV ONE (16:36)
[2017-06-24] MEDS ORDERED: PIPERACILLIN SODIUM/TAZOBACTAM 4.5 GM in NS (IVPB) 100 ML IV ONE (16:45)
[2017-06-24 17:14] LABS: BASOPHILS % (AUTO) 0 % (0-10); EOSINOPHILS % (AUTO) 0 % (0-10); HEMATOCRIT 33 % (35-52); HEMOGLOBIN 10.6 G/DL (11.5-16.0); LYMPHOCYTES # (AUTO) 1.1 X 10^3 (1.0-4.0); LYMPHOCYTES % (AUTO) 5 % (12-44); MEAN CORPUSCULAR HEMOGLOBIN 28 PG (25-34); MEAN CORPUSCULAR HGB CONC 32 G/DL (32-36); MEAN CORPUSCULAR VOLUME 87 FL (80-99); MEAN PLATELET VOLUME 10.3 FL (7.4-10.4); MONOCYTES # (AUTO) 1.4 X 10^3 (0.0-1.0); MONOCYTES % (AUTO) 6 % (0-12); NEUTROPHILS # (AUTO) 20.6 X 10^3 (1.8-7.8); NEUTROPHILS % (AUTO) 89 % (42-75); PLATELET COUNT 299 10^3/uL (130-400); RED BLOOD COUNT 3.83 10^6/uL (4.35-5.85); RED CELL DISTRIBUTION WIDTH 20.6 % (10.0-14.5); WHITE BLOOD COUNT 23.1 10^3/uL (4.3-11.0)
--- NOTE | 2017-06-24 17:15 | ED General ---
General Chief Complaint: Skin/Wound Problems Stated Complaint: VOMITING BLOOD, SORE ON BOTTOM Nursing Triage Note: pt brought to ed by granddaughter. pt states she had colon/gallbladder surgery in april and has had pressure ulcers on her sacrum area and back of left heel that won't heal. granddaughter states the pt has a family member at another facility that works in the lab and laura the pt's blood on Saturday and the WBC was 29,000. pt states she began coughing up green mucous this am that is blood tinged. pt states she did have pneumonia after surgery in april Nursing Sepsis Screen: No Definite Risk Source of Information: Patient, Family Exam Limitations: No Limitations History of Present Illness Date Seen by Provider: Jun 24, 2017 Time Seen by Provider: 17:15 Allergies and Home Medications Allergies Coded Allergies: Sulfa (Sulfonamide Antibiotics) (Verified Allergy, Unknown, 08/02/07) Home Medications Alprazolam 0.25 Mg Tablet, 0.25 MG PO BID PRN for ANXIETY, (Reported) Amlodipine Besylate 5 Mg Tablet, 5 MG PO DAILY, (Reported) Apixaban 5 Mg Tablet, 5 MG PO BID, (Reported) Cholestyramine (with Sugar) 4 Gm Powd.pack, 4 GM PO ONCE Prescribed by: ROSLYN BIRCH on 05/16/17 1432 Diltiazem HCl 240 Mg Cap.er.24h, 240 MG PO DAILY, (Reported) Furosemide 40 Mg Tablet, 40 MG PO DAILY PRN for SWELLING, (Reported) Hydrocodone/Acetaminophen 1 Each Tablet, 1 TAB PO TID PRN for PAIN-MODERATE, ( Reported) Multivitamins-Min/FA/Ginkgo 1 Each Tablet, 1 TAB PO DAILY, (Reported) Phosphate 1 Ea Tablet, 1 EA PO DAILY Prescribed by: JOSE FLORES on 05/16/17 1444 Potassium Chloride 20 Meq Tab.er.prt, 20 MEQ PO DAILY PRN for WHEN TAKING FUROSEMIDE, (Reported) Past Iwoafgf-Fohqgs-Taaxnl Hx Patient Social History Alcohol Use: Denies Use Recreational Drug Use: No 2nd Hand Smoke Exposure: No Recent Foreign Travel: No Contact w/Someone Who Travel: No Recent Infectious Disease Expo: No Recent Hopitalizations: Yes (FEB 2017) Physical Abuse: No Sexual Abuse: No Immunizations Up To Date Tetanus Booster (TDap): Unknown PED Vaccines UTD: No Seasonal Allergies Seasonal Allergies: Yes (HAY FEVER) Past Medical History Surgeries: Yes (KNEE SX) Bowel Surgery, Gallbladder, Hysterectomy Respiratory: Yes Pneumonia Currently Using CPAP: No Currently Using BIPAP: No Cardiac: Yes Atrial Fibrillation Neurological: No 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) Female 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 Disorders: Denies 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 Sexually Transmitted Disease: No HIV/AIDS: No Genitourinary: No Gastrointestinal: Yes Diverticulosis, Hiatal Hernia, Gall Bladder Disease Musculoskeletal: Yes Arthritis Endocrine: No HEENT: Yes (CATARACTS REMOVED) Cataract Loss of Vision: Bilateral Hearing Impairment: Denies Cancer: Yes Uterine Did You Recieve Any Treatments: Yes What Type of Treatment Did You: Radiation, Surgical Intervention Psychosocial: No Anxiety Nursing Suicide Risk Score: 0 Integumentary: No Blood Disorders: Yes (ANEMIA) Adverse Reaction/Blood Tranf: No Family Medical History Cancer FH: colon cancer 19 MOTHER Heart disease 19 FATHER Pacemaker 19 FATHER Physical Exam Vital Signs Vital Signs - First Documented 06/24/17 15:31 Temp 98.1 Pulse 107 Resp 18 B/P (MAP) 124/59 (80) O2 Delivery Room Air Capillary Refill : Less Than 3 Seconds Focused Exam Lactate Level 06/24/17 16:57: Lactic Acid Level Laboratory Tests Test 06/24/17 16:57 Procedures/Interventions Date of ETT Placement: May 01, 2017 Time of ETT Placement: 1430 Progress/Results/Core Measures Suspected Sepsis Recent Fever Within 48 Hours: No Infection Criteria Present: Suspected New Infection New/Unexplained Altered Menta: No Sepsis Screen: No Definite Risk SIRS Temperature:98.1 Pulse: 107 Respiratory Rate: 18 Laboratory Tests 06/24/17 16:57: White Blood Count 23.1H Blood Pressure 124 /59 Mean: 80 06/24/17 16:57: Laboratory Tests 06/24/17 16:57: Platelet Count 299 Results/Orders Lab Results Laboratory Tests Test 06/24/17 16:57 Range/Units White Blood Count 23.1 H 4.3-11.0 10^3/uL Red Blood Count 3.83 L 4.35-5.85 10^6/uL Hemoglobin 10.6 L 11.5-16.0 G/DL Hematocrit 33 L 35-52 % Mean Corpuscular Volume 87 80-99 FL Mean Corpuscular Hemoglobin 28 25-34 PG Mean Corpuscular Hemoglobin Concent 32 32-36 G/DL Red Cell Distribution Width 20.6 H 10.0-14.5 % Platelet Count 299 130-400 10^3/uL Mean Platelet Volume 10.3 7.4-10.4 FL Neutrophils (%) (Auto) 89 H 42-75 % Lymphocytes (%) (Auto) 5 L 12-44 % Monocytes (%) (Auto) 6 0-12 % Eosinophils (%) (Auto) 0 0-10 % Basophils (%) (Auto) 0 0-10 % Neutrophils # (Auto) 20.6 H 1.8-7.8 X 10^3 Lymphocytes # (Auto) 1.1 1.0-4.0 X 10^3 Monocytes # (Auto) 1.4 H 0.0-1.0 X 10^3 Eosinophils # (Auto) 0.0 0.0-0.3 10^3/uL Basophils # (Auto) 0.0 0.0-0.1 10^3/uL My Orders Orders - ANNE MARIE CLAIRE PA Cbc With Automated Diff (06/24/17 16:36) Comprehensive Metabolic Panel (06/24/17 16:36) Lactic Acid Analyzer (06/24/17 16:36) Blood Culture (06/24/17 16:36) Sputum Culture (06/24/17 16:36) Ua Culture If Indicated (06/24/17 16:36) Protime With Inr (06/24/17 16:36) Partial Thromboplastin Time (06/24/17 16:36) Chest 1 View, Ap/Pa Only (06/24/17 16:36) O2 (06/24/17 16:36) Saline Lock/Iv-Start (06/24/17 16:36) Saline Lock/Iv-Start (06/24/17 16:36) Ekg Tracing (06/24/17 16:36) Piperacillin Sodium/Tazobactam (Zosyn Vi (06/24/17 16:45) Vital Signs Adult Sepsis Patie Q1H (06/24/17 16:36) Remove Rings In Anticipation O (06/24/17 16:36) Thyroid Analyzer (06/24/17 16:36) Ns Iv 1000 Ml (Sodium Chloride 0.9%) (06/24/17 16:36) Vital Signs/I&O 06/24/17 15:31 Temp 98.1 Pulse 107 Resp 18 B/P (MAP) 124/59 (80) O2 Delivery Room Air Capillary Refill : Less Than 3 Seconds Blood Pressure Mean: 80 Departure Departure-Patient Inst. Referrals: DAREN FERGUSON DO (PCP/Family) Primary Care Physician ANNE MARIE CLAIRE Jun 24, 2017 17:15
[2017-06-24 17:24] LABS: INR 1.7 (0.8-1.4); PROTHROMBIN TIME PATIENT 19.6 SEC (12.2-14.7)
[2017-06-24 17:36] LABS: ALANINE AMINOTRANSFERASE 11 U/L (0-55); ALBUMIN 3.1 GM/DL (3.2-4.5); ALKALINE PHOSPHATASE 122 U/L (40-136); BILIRUBIN,TOTAL 0.7 MG/DL (0.1-1.0); BUN/CREATININE RATIO 25; CALCIUM 9.2 MG/DL (8.5-10.1); CARBON DIOXIDE 32 MMOL/L (21-32); CHLORIDE 95 MMOL/L (98-107); CREATININE SERUM 0.68 MG/DL (0.60-1.30); GFR ESTIMATED > 60; GLUCOSE 130 MG/DL (70-105); POTASSIUM 3.7 MMOL/L (3.6-5.0); SODIUM 136 MMOL/L (135-145); TOTAL PROTEIN 7.1 GM/DL (6.4-8.2)
[2017-06-24 17:41] LABS: BAND NEUTROPHILS 0 %; BASOPHILS % (MANUAL) 0 %; EOSINOPHILS % (MANUAL) 0 %; LYMPHOCYTES % (MANUAL) 6 %; MONOCYTES % (MANUAL) 4 %; NEUTROPHILS % (MANUAL) 90 %; RBC MORPH NORMAL
[2017-06-24 17:42] LABS: BILIRUBIN,URINE NEGATIVE (NEGATIVE); CLARITY,URINE CLEAR; COLOR,URINE YELLOW; GLUCOSE, URINE (UA) NEGATIVE (NEGATIVE); KETONES,URINE 1+ (NEGATIVE); LEUKOCYTE ESTERASE ,URINE 3+ (NEGATIVE); NITRITE,URINE NEGATIVE (NEGATIVE); PH,URINE 6 (5-9); PROTEIN,URINE 2+ (NEGATIVE); UROBILINOGEN,URINE 4 MG/DL (NORMAL)
[2017-06-24 17:50] LABS: BACTERIA,URINE FEW /HPF; RBC,URINE >100 /HPF
[2017-06-24 17:58] LABS: TSH (THYROID ANALYZER) 0.97 UIU/ML (0.35-4.94)
--- NOTE | 2017-06-24 18:07 | Diagnostic Imaging Report ---
INDICATION: Pneumonia. COMPARISON: 05/17/2017. FINDINGS: There is cardiomegaly and moderate central pulmonary venous congestion. There are bibasilar infiltrates. There is no pneumothorax. The mediastinum is unremarkable. IMPRESSION: 1. Increasing bibasilar infiltrate suspect for pneumonia. 2. Cardiomegaly and moderate central pulmonary venous congestion. Dictated by: Dictated on workstation # [id number]
[2017-06-24 19:35] VITALS: BP 123/58
[2017-06-24] MEDS ORDERED: ONDANSETRON 4 MG/2 ML (SDV) Z0FRAN IV PRN (20:00)
[2017-06-24] MEDS ORDERED: CATHETER FLUSH 10 ML SYR IV PRN (20:00)
[2017-06-24] MEDS ORDERED: AZITHROMYCIN 500 MG/NS 250 ML IVPB IV SCH ×2 (20:00)
[2017-06-24] MEDS ORDERED: ACETAMINOPHEN 500 MG TAB (TYLENOL) PO PRN (20:00)
[2017-06-24] MEDS: NS W/KCL 20 MEQ/L 1,000 ML IV SCH (20:52)
[2017-06-24] MEDS: CEFEPIME 2 GM/NS 100 ML IVPB IV SCH ×2 (20:53)
[2017-06-24 21:00] VITALS: BP 116/55
[2017-06-24] MEDS: HYDROcodone/APAP 5 MG/325 MG (LORTAB) TAB PO PRN (21:44)
[2017-06-24] MEDS: GENTAMICIN IV SCH ×2 (23:18)
[2017-06-24] MEDS: SODIUM CHLORIDE IV SCH ×2 (23:18)
[2017-06-25] VITALS: BP 130/62
[2017-06-25] MEDS ORDERED: RT-ALBUTEROL/IPRATROPIUM 3 ML (DUONEB) VIAL INH PRN
[2017-06-25] MEDS: NS W/KCL 20 MEQ/L 1,000 ML IV SCH ×3 (03:27→21:41)
[2017-06-25 04:15] VITALS: BP 128/70
[2017-06-25 06:36] LABS: BASOPHILS % (AUTO) 0 % (0-10); EOSINOPHILS % (AUTO) 0 % (0-10); HEMATOCRIT 29 % (35-52); HEMOGLOBIN 8.9 G/DL (11.5-16.0); LYMPHOCYTES # (AUTO) 1.9 X 10^3 (1.0-4.0); LYMPHOCYTES % (AUTO) 12 % (12-44); MEAN CORPUSCULAR HEMOGLOBIN 27 PG (25-34); MEAN CORPUSCULAR HGB CONC 31 G/DL (32-36); MEAN CORPUSCULAR VOLUME 88 FL (80-99); MEAN PLATELET VOLUME 10.4 FL (7.4-10.4); MONOCYTES # (AUTO) 0.9 X 10^3 (0.0-1.0); MONOCYTES % (AUTO) 6 % (0-12); NEUTROPHILS # (AUTO) 13.2 X 10^3 (1.8-7.8); NEUTROPHILS % (AUTO) 83 % (42-75); PLATELET COUNT 260 10^3/uL (130-400); RED BLOOD COUNT 3.26 10^6/uL (4.35-5.85); RED CELL DISTRIBUTION WIDTH 20.5 % (10.0-14.5)
[2017-06-25 06:57] LABS: ALANINE AMINOTRANSFERASE 11 U/L (0-55); ALBUMIN 2.5 GM/DL (3.2-4.5); ALKALINE PHOSPHATASE 103 U/L (40-136); BILIRUBIN,TOTAL 0.6 MG/DL (0.1-1.0); BUN/CREATININE RATIO 22; CALCIUM 8.1 MG/DL (8.5-10.1); CARBON DIOXIDE 25 MMOL/L (21-32); CHLORIDE 107 MMOL/L (98-107); CREATININE SERUM 0.54 MG/DL (0.60-1.30); GFR ESTIMATED > 60; GLUCOSE 86 MG/DL (70-105); SODIUM 140 MMOL/L (135-145); TOTAL PROTEIN 5.6 GM/DL (6.4-8.2)
[2017-06-25] MEDS: RT-ALBUTEROL/IPRATROPIUM 3 ML (DUONEB) VIAL INH SCH ×4 (07:47→19:13)
[2017-06-25] MEDS ORDERED: TROUGH ORDER-PHARMACY XX NR (08:00)
--- NOTE | 2017-06-25 08:48 | History & Physicial ---
History of Present Illness History of Present Illness Reason for visit/HPI Patient came out to the emergency room by car. According to granddaughter patient on White blood cell count 29,000 last weekend. Patient complaining of low back pain and heel pain. Patient chest x-ray shows pneumonia. Patient recently had: Surgery had gallbladder surgery and colon surgery for cancer Date of Admission Jun 24, 2017 at 18:46 Time Seen by Provider: 08:45 I consulted on this patient on 06/25/17 08:44 Attending Physician Matt Ferguson DO Admitting Physician Matt Ferguson DO Consult Allergies and Home Medications Allergies Coded Allergies: Sulfa (Sulfonamide Antibiotics) (Verified Allergy, Unknown, 08/02/07) Home Medications Alprazolam 0.25 Mg Tablet, 0.25 MG PO BID PRN for ANXIETY, (Reported) Amlodipine Besylate 5 Mg Tablet, 5 MG PO DAILY, (Reported) Apixaban 5 Mg Tablet, 5 MG PO BID, (Reported) Cholestyramine (with Sugar) 4 Gm Powd.pack, 4 GM PO ONCE Prescribed by: ROSLYN BIRCH on 05/16/17 1432 Diltiazem HCl 240 Mg Cap.er.24h, 240 MG PO DAILY, (Reported) Furosemide 40 Mg Tablet, 40 MG PO DAILY PRN for SWELLING, (Reported) Hydrocodone/Acetaminophen 1 Each Tablet, 1 TAB PO TID PRN for PAIN-MODERATE, ( Reported) Multivitamins-Min/FA/Ginkgo 1 Each Tablet, 1 TAB PO DAILY, (Reported) Phosphate 1 Ea Tablet, 1 EA PO DAILY Prescribed by: JOSE FLORES on 05/16/17 1444 Potassium Chloride 20 Meq Tab.er.prt, 20 MEQ PO DAILY PRN for WHEN TAKING FUROSEMIDE, (Reported) Patient Home Medication List Home Medication List Reviewed: No Past Ziufhzr-Mlkoog-Zyscrn Hx Patient Social History Employed/Student: retired Alcohol Use: Denies Use Recreational Drug Use: No Smoking Status: Never a Smoker 2nd Hand Smoke Exposure: No Physical Abuse Screen: No Sexual Abuse: No Recent Foreign Travel: No Contact w/other who traveled: No Recent Hopitalizations: Yes (FEB 2017) Recent Infectious Disease Expo: No Immunizations Up To Date Tetanus Booster (TDap): Unknown Pediatric: No Seasonal Allergies Seasonal Allergies: Yes (HAY FEVER) Surgeries Yes (KNEE SX) Bowel Surgery, Gallbladder, Hysterectomy Respiratory Yes Currently Using CPAP: No Currently Using BIPAP: No Cardiovascular Yes Atrial Fibrillation Neurological No 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 System Hx 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) Sexually Transmitted Disease: No HIV/AIDS: No Female 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 Genitourinary No Gastrointestinal Yes Diverticulosis, Hiatal Hernia, Gall Bladder Disease Musculoskeletal Yes Arthritis Endocrine History of Endocrine Disorders: No HEENT History of HEENT Disorders: Yes (CATARACTS REMOVED) HEENT Disorders: Cataract Loss of Vision: Bilateral Hearing Impairment: Denies Cancer Yes Colon, Uterine Did You Recieve Any Treatments: Yes Type of Treatment: Radiation, Surgical Intervention Psychosocial History of Psychiatric Problem: No Behavioral Health Disorders: Anxiety Integumentary History of Skin or Integumenta: No Blood Transfusions History of Blood Disorders: Yes (ANEMIA) Adverse Reaction to a Blood Tr: No Family Medical History Family Hx: Cancer FH: colon cancer 19 MOTHER Heart disease 19 FATHER Pacemaker 19 FATHER Constitutional: weakness EENTM: no symptoms reported Respiratory: cough Gastrointestinal: no symptoms reported Genitourinary: no symptoms reported Physical Exam Vital Signs Vital Signs - First Documented 06/24/17 06/24/17 15:31 21:00 Temp 98.1 Pulse 107 Resp 18 B/P (MAP) 124/59 (80) O2 Delivery Room Air FiO2 21 Capillary Refill : Less Than 3 Seconds General Appearance: No Apparent Distress, Thin Eyes: Bilateral Eye Normal Inspection HEENT: Normal ENT Inspection Neck: Full Range of Motion, Normal Inspection Respiratory: No Accessory Muscle Use, No Respiratory Distress Cardiovascular: Irregularly Irregular Gastrointestinal: Non Tender, Soft Assessment/Plan Assessment and Plan Pneumonia. Sepsis. UTI. Elevated serum lactic acid Admission Diagnosis Admission Status: Inpatient Order (span 2 midnights) Reason for Inpatient Admission: Pneumonia. Leukocytosis. Clinical Quality Measures DVT/VTE Risk/Contraindication: Risk Factor Score Per Nursin RFS Level Per Nursing on Admit: 4+=Very High Contraindications-Pharm: Other *list below* MATT FERGUSON DO June 25, 2017 08:48
--- NOTE | 2017-06-25 09:34 | Diagnostic Imaging Report ---
INDICATION: Pneumonia. Exam compared with study one day prior. Pleural reaction likely loculated laterally in the left mid to lower chest unchanged. A new pleural opacity laterally in the right lower chest believed to be fluid has developed. There is also new infiltrate in the right lower lung presumed pneumonia. There is some vascular congestion and perihilar edema as well as cardiomegaly, those findings are at least slightly improved. Background COPD chronic. IMPRESSION: Mixed changes, features of failure or hypervolemia have improved however increased right-sided pleural fluid and basilar consolidation suspect for pneumonia have occurred in the interim. No pneumothorax. Dictated by: Dictated on workstation # [id number]
[2017-06-25 09:36] VITALS: BP 133/63
[2017-06-25] MEDS ORDERED: ACET-2267 PO (09:38)
[2017-06-25] MEDS ORDERED: NEOM28.33 TP (09:38)
[2017-06-25] MEDS ORDERED: HYDR30CR95 TOP (09:38)
--- NOTE | 2017-06-25 11:20 | Physical Therapy Evaluation ---
PT Evaluation-General Medical Diagnosis Admission Date Jun 24, 2017 at 18:46 Medical Diagnosis: sepsis/pneumonia/UTI Onset Date: Jun 24, 2017 Therapy Diagnosis Therapy Diagnosis: debility Height/Weight Height (Feet): 5 Height (Inches): 2.00 Weight (Pounds): 122 Weight (Ounces): 0.0 Precautions Precautions/Isolations: Contact Isolation, Fall Prevention, Pressure Ulcer Weight Bear Status Right Lower Extremity: Right Weight Bearing/Tolerated Left Lower Extremity: Left Weight Bearing/Tolerated Referral Physician: Irais Reason for Referral: Evaluation/Treatment Medical History Pertinent Medical History: Atrial Fib, Arthritis Additional Medical History colon cancer; sacral decub; left heel decub Current History ED via family with vomiting blood and sore on bottom Reviewed History: Yes Social History Home: Single Level Current Living Status: Alone lives with son Prior/[facility] FIM Prior Level of Function Functional [place] Measure 0=Not Assessed/NA 4=Minimal Assistance 1=Total Assistance 5=Supervision or Setup 2=Maximal Assistance 6=Modified [place] 3=Moderate Assistance 7=Complete [place] Bed Mobility: 6 Transfers (B,C,W/C) (FIM): 6 Gait: 2 is inactive at home per patient report. Son is at home in evenings. PT Evaluation-Current Subjective Patient agrees to PT. Pain Numeric Pain Scale: 3 Location: Upper Location Body Site: Sacrum Pain Description: Pressure Objective Patient Orientation: Person, Time, Situation Problem Solving: Poor Attachments: Oxygen, IV ROM/Strength ROM Lower Extremities bilateral LE WNL Strength Lower Extremities bilateral LE 4/5 grossly all planes Integumentary/Posture Integumentary sacral decub and left heel decub Bowel Incontinence: No Bladder Incontinence: No Posture WFL Neuromuscular (Tone, Coordination, Reflexes) grossly intact Sensory Vision: Wears Glasses Hearing: Functional Sensation Right Lower Extremit: Intact Sensation Left Lower Extremity: Intact Transfers Functional [place] Measure 0=Not Assessed/NA 4=Minimal Assistance 1=Total Assistance 5=Supervision or Setup 2=Maximal Assistance 6=Modified [place] 3=Moderate Assistance 7=Complete [place] Transfers (B, C, W/C) (FIM): 6 Scootin Sit to/from Stand: 6 Gait Mode of Locomotion: Walk Anticipated Mode of Locomotion: Walk Gait (FIM): 6 Distance (FIM): 3=150 ft Distance: 225' Gait Level of Assist: 6 Gait Assistive Device: FWW Comments/Gait Description steady, functional, no deviations noted Balance Sitting Static: Normal Sitting Dynamic: Normal Standing Static: Normal Standing Dynamic: Normal Assessment/Needs 86 y.o. female, will benefit from short term skilled PT to address functional mobility to ensure safe return to home at maximum LOF. PT educated patient on importance of increasing activity at home to prevent skin breakdown. Patient voices understanding. Rehab Potential: Fair PT Care Home Goals Care Home Goals PT Face And Fill Packer Goals Time Frame: July 03, 2017 Transfers (B,C,W/C) (FIM): 6 Gait (FIM): 6 Gait distance (FIM): 3=150 ft Gait Level of Assist: 6 Gait Assistive Device: FWW PT Plan Problem List Problem List: Activity Tolerance Treatment/Plan Treatment Plan: Continue Plan of Care Treatment Plan: Bed Mobility, Education, Functional Activity Vinayak, Functional Strength, Gait, Safety, Therapeutic Exercise, Transfers Treatment Duration: July 03, 2017 Frequency: 6 times per week Estimated Hrs Per Day: .25 hour per day Patient and/or Family Agrees t: Yes Safety Risks/Education Patient Education: Safety Issues (increasing activity to prevent skin breakdown ) Discharge Recommendations Therapy D/C Recommendations: Home w/ Family Support Time/GCodes Time In: 1025 Time Out: 1045 Total Billed Treatment Time: 20 Total Billed Treatment 1 visit EVModC 20 min G Codes Necessary: SHANELLE Paredes PT June 25, 2017 11:20
[2017-06-25 12:00] VITALS: BP 120/63
--- NOTE | 2017-06-25 12:09 | Occupational Therapy Eval ---
OT Evaluation-General/PLF Medical Diagnosis Admission Date Jun 24, 2017 at 18:46 Medical Diagnosis: sepsis/pneumonia/UTI Onset Date: Jun 24, 2017 Therapy Diagnosis Therapy Diagnosis: Decreased ADL skills Height/Weight Height (Feet): 5 Height (Inches): 2.00 Weight (Pounds): 122 Weight (Ounces): 0.0 Precautions Precautions/Isolations: Contact Isolation, Fall Prevention, Pressure Ulcer Safety Interventions: Reorient-PRN Referral Physician: Irais Referral Reason: Activity Tolerance, Self Care, Evaluation/Treatment, Strengthening/ROM Medical History Pertinent Medical History: Atrial Fib, Arthritis Additional Medical History Hay fever, bowel surgery, gallbladder, hysterectomy, uterine CA Current History Pt. came to ER with pneumonia, sepsis, and UTI Reviewed History: Yes Social History Home: Single Level Current Living Status: Alone Entry Into Home: Level Entry Pt. states that she has a son that lives on one side of her, and a grandson on the other. ADL-Prior Level of Function ADL PLOF Comments Pt. states that she had a caregiver come in 3 times per week, one hour at a time to assist her with showering. DME/Equipment: Bath Chair, Shower DME/Equipment Comments Pt. has a walker and cane at home, but states that she only uses the cane. OT Current Status Subjective No pain reported. Appearance Pt. up in chair in room. Agrees to spongebathe. Mental Status/Objective Patient Orientation: Person, Place, Time, Situation Attachments: IV, Oxygen Current Glasses/Contacts: Yes Hand Dominance: Right Upper Extremity ROM WFL Upper Extremity Strength 3/5 bilateral strength ADL-Treatment Functional [place] Measure 0=Not Assessed/NA 4=Minimal Assistance 1=Total Assistance 5=Supervision or Setup 2=Maximal Assistance 6=Modified [place] 3=Moderate Assistance 7=Complete IndependenceIRFPAI Quality Coding Scale 6 Independent with activity with or without an assistive device 5 Patient requires set up or clean up by helper. Patient completes activity by themselves 4 Supervision or touching assist (CGA). [place] provide cues , steadying assist 3 The helper provides less than half the effort to complete the activity 2 The helper provides more than half the effort to complete the activity 1 Dependent. The helper does all the effort to complete an activity 7 Patient refused to complete or attempt activity 9 The patient did not perform the activity before the current illness or injury 88 Not attempted due to Medical conditions or safety concerns Bathing (FIM): 4 (Pt. able to reach all parts but her feet, due to wounds. OT washed these for her.) Lower Body Dressing (FIM): 5 (Pt. donned slippers. States that she is not supposed to put on socks due to wound on heel.) Transfers (B, C, W/C) (FIM): 5 (SBA to stand out of chair with walker.) Pt. on oxygen. Agrees to cleanse self and don fresh gown. Respiratory therapy comes to start breathing treatment after OT finished. Education OT Patient Education: Modified ADL techniques, Progress toward Goal/Update tx plan, Purpose of tx/functional activities, Reviewed precautions, Transfer techniques Teaching Recipient: Patient Teaching Methods: Demonstration, Discussion Response to Teaching: Verbalize Understanding, Return Demonstration OT Short Term Goals Short Term Goals 1=Demonstrate adherence to instructed precautions during ADL tasks. 2=Patient will verbalize/demonstrate understanding of assistive devices/ modifications for ADL. 3=Patient will improve strength/tolerance for activity to enable patient to perform ADL's. OT Machine Featheredger And Reducer Goals Machine Featheredger And Reducer Goals Time Frame: July 02, 2017 Eating (FIM): 6 Grooming(FIM): 6 Bathing(FIM): 5 Upper Body Dressing(FIM): 6 Lower Body Dressing(FIM): 6 Toileting(FIM): 6 Transfers (B,C,W/C) (FIM): 6 Toilet/Commode Transfer(FIM): 6 Shower Transfer(FIM): 5 Additional Goals: 1-Demonstrate ADL Tasks, 2-Verbalize Understanding, 3- ImproveStrength/Vinayak 1=Demonstrate adherence to instructed precautions during ADL tasks. 2=Patient will verbalize/demonstrate understanding of assistive devices/ modifications for ADL. 3=Patient will improve strength/tolerance for activity to enable patient to perform ADL's. OT Education/Plan Problem List/Assessment Assessment: Decreased Activ Tolerance, Impaired I ADL's, Impaired Self-Care Skills Discharge Recommendations Plan/Recommendations: Continue POC Therapy D/C Recommendations: Home w/ Family Support, Scheduled Assistance Comment Pt. states that her family has everything set up for her at home. Treatment Plan/Plan of Care Treatment,Training & Education: Yes Patient would benefit from OT for education, treatment and training to promote independence in ADL's, mobility, safety and/or upper extremity function for ADL' s. Plan of Care: ADL Retraining Treatment Duration: July 02, 2017 Frequency: 5 times per week Estimated Hrs Per Day: .25 hour per day Agreement: Yes Rehab Potential: Good Time/GCodes Start Time: 11:30 Stop Time: 11:45 Total Time Billed (hr/min): 15 Billed Treatment Time 1, ELISABETH TINEO OT June 25, 2017 12:09
[2017-06-25] MEDS ORDERED: FUROSEMIDE 40 MG (LASIX) TAB PO PRN (13:45)
[2017-06-25] MEDS ORDERED: KCL 20 MEQ TAB (K-DUR) PO PRN (13:45)
[2017-06-25] MEDS ORDERED: NON-FORMULARY MEDICATION 1 EA EA (Acetaminophen (Tylenol Extra Strength) 500 MG) PO PRN (13:45)
[2017-06-25] MEDS ORDERED: NON-FORMULARY MEDICATION 1 EA EA (Hydrocodone/Acetaminophen (Hydrocodone-Acetamin 5-325 mg PO PRN (13:45)
[2017-06-25] MEDS: amLODIPine 5 MG (NORVASC) TAB PO SCH (14:21)
[2017-06-25] MEDS: DILTIAZEM 240 MG (CARDIZEM CD) CAP PO SCH (14:21)
[2017-06-25 15:30] VITALS: BP 139/59
[2017-06-25 19:10] VITALS: BP 135/64
[2017-06-25] MEDS: HYDROCORTISONE 1% CREAM 30 GM TUBE TOP SCH (20:26)
[2017-06-25] MEDS: APIXABAN 5 MG (ELIQUIS) TABLET PO SCH (20:26)
[2017-06-25] MEDS: CEFEPIME 2 GM/NS 100 ML IVPB IV SCH ×2 (20:26)
[2017-06-25] MEDS: NEO/POLY/BAC (NEOSPORIN) OINT 15 GM TUBE TOP SCH (20:27)
--- NOTE | 2017-06-25 20:43 | Wound Care Assessment ---
Wound Care Assessment Date Seen by Provider: June 25, 2017 Time Seen by Provider: 11:15 Chief Complaint Ulcer of sacrum and L heel. HPI The patient is an 86 year old female who has ulcers of sacrum and L heel which have been present for 5 weeks and are getting better. She lives alone, ambulates with walker, and has been admitted for pneumonia. She noticed the ulcers after a recent hospitalization for colon operation. Both areas are quite painful. Atrial fibrillation Smoking Status: Never a Smoker Recreational Drug Use: No Alcohol Use: Denies Use Review of Systems Pulmonary: Dyspnea Cardiovascular: No: Chest Pain Exam Vital Signs Date Time Temp Pulse Resp B/P (MAP) Pulse Ox O2 Delivery O2 Flow Rate FiO2 06/25/17 19:13 95 Nasal Cannula 3.00 06/25/17 19:10 97.4 107 18 135/64 (87) 06/24/17 21:00 21 Capillary Refill : Less Than 3 Seconds General Appearance: WD/WN Respiratory: No no respiratory distress (Mild respiratory distress.) Skin: other (Sacrum -- 0.8 x 0.5 x 0.1 cm dry adherent slough. No drainage; L heel -- 2.5 x 2.1 x 0.3 moist slough, mod s.s. drainage.) Results Laboratory Tests 06/25/17 06:20: White Blood Count 16.0H, Red Blood Count 3.26L, Hemoglobin 8.9L, Hematocrit 29L , Mean Corpuscular Volume 88, Mean Corpuscular Hemoglobin 27, Mean Corpuscular Hemoglobin Concent 31L, Red Cell Distribution Width 20.5H, Platelet Count 260, Mean Platelet Volume 10.4, Neutrophils (%) (Auto) 83H, Lymphocytes (%) (Auto) 12 , Monocytes (%) (Auto) 6, Eosinophils (%) (Auto) 0, Basophils (%) (Auto) 0, Neutrophils # (Auto) 13.2H, Lymphocytes # (Auto) 1.9, Monocytes # (Auto) 0.9, Eosinophils # (Auto) 0.0, Basophils # (Auto) 0.0, Sodium Level 140, Potassium Level 4.0, Chloride Level 107, Carbon Dioxide Level 25, Anion Gap 8, Blood Urea Nitrogen 12, Creatinine 0.54L, Estimat Glomerular Filtration Rate > 60, BUN/ Creatinine Ratio 22, Glucose Level 86, Lactic Acid Level 0.62, Calcium Level 8.1L, Total Bilirubin 0.6, Aspartate Amino Transf (AST/SGOT) 12, Alanine Aminotransferase (ALT/SGPT) 11, Alkaline Phosphatase 103, B-Type Natriuretic Peptide 575.7H, Total Protein 5.6L, Albumin 2.5L 06/25/17 07:55: Random Gentamicin Level 5.6 Microbiology 06/24/17 Blood Culture - Preliminary, Resulted No growth 06/24/17 Gram Stain - Final, Resulted 06/24/17 Sputum Culture - Preliminary, Resulted Usual/normal je isolated. 06/24/17 Urine Culture - Preliminary, Resulted Probable Enterococcus Species See Comments Microbiology 06/24/17 Blood Culture - Preliminary, Resulted No growth 06/24/17 Blood Culture - Preliminary, Resulted No growth 06/24/17 Gram Stain - Final, Resulted 06/24/17 Sputum Culture - Preliminary, Resulted Usual/normal je isolated. 06/24/17 Urine Culture - Preliminary, Resulted Probable Enterococcus Species See Comments Assessment/Plan/Dx 1. Pressure ulcer sacrum, Stage 2 2. Pressure ulcer L heel, Stage 2. 3. Pneumonia. Plan: The wounds appear to be progressing fine with no dressing; will continue that. The patient is a aware of off-loading, has good mobility, and is compliant with off-loading recommendations. MAI BRIAN MD June 25, 2017 20:43
[2017-06-25] MEDS ORDERED: AZITHROMYCIN 250 MG TAB (ZITHROMAX) PO SCH (21:00)
[2017-06-25] MEDS: GENTAMICIN IV SCH ×2 (21:36)
[2017-06-25] MEDS: SODIUM CHLORIDE IV SCH ×2 (21:36)
[2017-06-25] MEDS: ALPRAZolam 0.25 MG (XANAX) TAB PO PRN (23:09)
[2017-06-26] VITALS (7 sets, daily range): BP systolic 120–160; BP diastolic 60–87
[2017-06-26] MEDS: RT-ALBUTEROL/IPRATROPIUM 3 ML (DUONEB) VIAL INH SCH ×4 (06:01→19:21)
[2017-06-26 06:03] LABS: BASOPHILS % (AUTO) 0 % (0-10); EOSINOPHILS # (AUTO) 0.1 10^3/uL (0.0-0.3); EOSINOPHILS % (AUTO) 1 % (0-10); HEMATOCRIT 31 % (35-52); HEMOGLOBIN 9.6 G/DL (11.5-16.0); LYMPHOCYTES # (AUTO) 1.7 X 10^3 (1.0-4.0); LYMPHOCYTES % (AUTO) 16 % (12-44); MEAN CORPUSCULAR HEMOGLOBIN 28 PG (25-34); MEAN CORPUSCULAR HGB CONC 31 G/DL (32-36); MEAN CORPUSCULAR VOLUME 88 FL (80-99); MONOCYTES # (AUTO) 0.7 X 10^3 (0.0-1.0); MONOCYTES % (AUTO) 7 % (0-12); NEUTROPHILS # (AUTO) 7.6 X 10^3 (1.8-7.8); NEUTROPHILS % (AUTO) 76 % (42-75); PLATELET COUNT 339 10^3/uL (130-400); RED BLOOD COUNT 3.49 10^6/uL (4.35-5.85); RED CELL DISTRIBUTION WIDTH 20.7 % (10.0-14.5); WHITE BLOOD COUNT 10.1 10^3/uL (4.3-11.0)
[2017-06-26 06:22] LABS: BUN/CREATININE RATIO 22; CALCIUM 8.7 MG/DL (8.5-10.1); CARBON DIOXIDE 25 MMOL/L (21-32); CHLORIDE 108 MMOL/L (98-107); CREATININE SERUM 0.51 MG/DL (0.60-1.30); GFR ESTIMATED > 60; GLUCOSE 90 MG/DL (70-105); POTASSIUM 3.5 MMOL/L (3.6-5.0); SODIUM 141 MMOL/L (135-145)
--- NOTE | 2017-06-26 08:11 | Progress Note (SOAP) ---
Subjective Time Seen by Provider: 08:05 Subjective/Events-last exam Patient feeling short of breath. Patient's white blood cell count better. Patient not running an elevated temperature Focused Exam Lactate Level 06/24/17 16:57: Lactic Acid Level 2.06*H 06/24/17 19:25: Lactic Acid Level 0.90 06/25/17 06:20: Lactic Acid Level 0.62 Objective Exam Vital Signs Date Time Temp Pulse Resp B/P (MAP) Pulse Ox O2 Delivery O2 Flow Rate FiO2 06/26/17 06:01 94 Nasal Cannula 4.00 06/26/17 03:58 97.5 93 18 127/60 (82) 93 Nasal Cannula 2.00 06/26/17 01:30 97.9 81 17 120/60 (80) 93 Nasal Cannula 2.00 06/26/17 00:08 97.9 81 17 120/60 (80) 93 Nasal Cannula 2.00 06/25/17 19:45 Nasal Cannula 2.00 06/25/17 19:13 95 Nasal Cannula 3.00 06/25/17 19:10 97.4 107 18 135/64 (87) 92 Nasal Cannula 2.00 06/25/17 15:32 95 Nasal Cannula 3.00 06/25/17 15:30 96.8 105 20 139/59 (85) 97 Nasal Cannula 2.00 06/25/17 12:00 96.9 101 22 120/63 (82) 95 Nasal Cannula 2.00 06/25/17 11:37 91 Nasal Cannula 3.00 06/25/17 09:36 96.8 98 16 133/63 (86) 91 Nasal Cannula 2.00 I & O 06/26/17 07:00 Intake Total 1369.1 ml Output Total 600 ml Balance 769.1 ml Capillary Refill : Less Than 3 Seconds General Appearance: No Apparent Distress, Thin HEENT: Normal ENT Inspection Neck: Full Range of Motion, Normal Inspection Respiratory: No Accessory Muscle Use, No Respiratory Distress, Decreased Breath Sounds Cardiovascular: Irregularly Irregular Gastrointestinal: non tender, soft Results Lab Laboratory Tests 06/26/17 05:34 Laboratory Tests 06/26/17 05:34: White Blood Count 10.1, Red Blood Count 3.49L, Hemoglobin 9.6L, Hematocrit 31L, Mean Corpuscular Volume 88, Mean Corpuscular Hemoglobin 28, Mean Corpuscular Hemoglobin Concent 31L, Red Cell Distribution Width 20.7H, Platelet Count 339, Mean Platelet Volume 10.0, Neutrophils (%) (Auto) 76H, Lymphocytes (%) (Auto) 16 , Monocytes (%) (Auto) 7, Eosinophils (%) (Auto) 1, Basophils (%) (Auto) 0, Neutrophils # (Auto) 7.6, Lymphocytes # (Auto) 1.7, Monocytes # (Auto) 0.7, Eosinophils # (Auto) 0.1, Basophils # (Auto) 0.0, Sodium Level 141, Potassium Level 3.5L, Chloride Level 108H, Carbon Dioxide Level 25, Anion Gap 8, Blood Urea Nitrogen 11, Creatinine 0.51L, Estimat Glomerular Filtration Rate > 60, BUN /Creatinine Ratio 22, Glucose Level 90, Calcium Level 8.7 Microbiology 06/24/17 Blood Culture - Preliminary, Resulted No growth 06/24/17 Gram Stain - Final, Resulted 06/24/17 Sputum Culture - Preliminary, Resulted Usual/normal je isolated. 06/24/17 Urine Culture - Final, Complete Probable Enterococcus Species See Comments Assessment/Plan Assessment/Plan Assess & Plan/Chief Complaint Pneumonia. Sepsis. UTI. Atrial fibrillation. Recent surgery for:'s cancer in gallbladder surgery Clinical Quality Measures Admission Status Admission Dx Pneumonia. Sepsis. UTI. Elevated serum lactic acid DVT/VTE Risk/Contraindication: Risk Factor Score Per Nursin RFS Level Per Nursing on Admit: 4+=Very High Contraindications-Pharm: Other *list below* DAREN FERGUSON DO June 26, 2017 08:11
[2017-06-26] MEDS: APIXABAN 5 MG (ELIQUIS) TABLET PO SCH ×2 (08:33→20:00)
[2017-06-26] MEDS: DILTIAZEM 240 MG (CARDIZEM CD) CAP PO SCH (08:33)
[2017-06-26] MEDS: amLODIPine 5 MG (NORVASC) TAB PO SCH (08:33)
[2017-06-26] MEDS: HYDROCORTISONE 1% CREAM 30 GM TUBE TOP SCH ×2 (08:35→20:00)
[2017-06-26] MEDS: NEO/POLY/BAC (NEOSPORIN) OINT 15 GM TUBE TOP SCH ×2 (08:36→20:00)
--- NOTE | 2017-06-26 08:39 | Pulmonary Consultation ---
History of Present Illness History of Present Illness Date of Consultation 06/26/17 08:35 Time Seen by Provider: 08:35 Date of Admission History of Present Illness 86yo with hx of COPD and colon cancer presented secondary to worsening SOB, productive cough and fever over the past 1 wk. has had prior episodes. PT had recent admission with pneumonia. I am consulted for pulmonary management. Allergies and Home Medications Allergies Coded Allergies: Sulfa (Sulfonamide Antibiotics) (Verified Allergy, Unknown, 08/02/07) Home Medications Acetaminophen 500 Mg Tablet, 500 MG PO Q6H PRN for PAIN-MILD Prescribed by: LAURA MCCLAIN on 06/28/17 1009 Alprazolam 0.25 Mg Tablet, 0.25 MG PO BID PRN for ANXIETY, (Reported) Amlodipine Besylate 5 Mg Tablet, 5 MG PO DAILY, (Reported) Apixaban 5 Mg Tablet, 5 MG PO BID, (Reported) Cefdinir 300 Mg Capsule, 300 MG PO BID Prescribed by: DAREN FERGUSON on 06/28/17 0943 Diltiazem HCl 240 Mg Cap.er.24h, 240 MG PO DAILY, (Reported) Furosemide 40 Mg Tablet, 40 MG PO DAILY PRN for SWELLING, (Reported) Hydrocodone/Acetaminophen 1 Each Tablet, 1 TAB PO TID PRN for PAIN-MODERATE, ( Reported) Hydrocortisone 30 Gm Cream.appl, TOP TID PRN for BOTTOM, (Reported) Multivitamins-Min/FA/Ginkgo 1 Each Tablet, 1 TAB PO DAILY, (Reported) Neomycin Cee/Bacitrac Zn/Poly 28.3 Gm Oint...g., TP TID PRN for FOOT, (Reported) Potassium Chloride 20 Meq Tab.er.prt, 20 MEQ PO DAILY PRN for WHEN TAKING FUROSEMIDE, (Reported) Past Mgqhepv-Yylcbh-Basfsf Hx Patient Social History Alcohol Use: Denies Use Recreational Drug Use: No Smoking Status: Never a Smoker 2nd Hand Smoke Exposure: No Recent Foreign Travel: No Contact w/Someone Who Travel: No Recent Infectious Disease Expo: No Recent Hopitalizations: Yes (FEB 2017) Physical Abuse: No Sexual Abuse: No Immunizations Up To Date Tetanus Booster (TDap): Unknown PED Vaccines UTD: No Seasonal Allergies Seasonal Allergies: Yes (HAY FEVER) Past Medical History Surgeries: Yes (KNEE SX) Bowel Surgery, Gallbladder, Hysterectomy Respiratory: Yes Pneumonia Currently Using CPAP: No Currently Using BIPAP: No Cardiac: Yes Atrial Fibrillation Neurological: No 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) Female 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 Disorders: 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 Sexually Transmitted Disease: No HIV/AIDS: No Genitourinary: No Gastrointestinal: Yes Diverticulosis, Hiatal Hernia, Gall Bladder Disease Musculoskeletal: Yes Arthritis Endocrine: No HEENT: Yes (CATARACTS REMOVED) Cataract Loss of Vision: Bilateral Hearing Impairment: Denies Cancer: Yes Colon, Uterine Did You Recieve Any Treatments: Yes What Type of Treatment Did You: Radiation, Surgical Intervention Psychosocial: No Anxiety Nursing Suicide Risk Score: 0 Integumentary: No Blood Disorders: Yes (ANEMIA) Adverse Reaction/Blood Tranf: No Family Medical History Cancer FH: colon cancer 19 MOTHER Heart disease 19 FATHER Pacemaker 19 FATHER Review of Systems Time Seen by Provider: 07:29 Constitutional: Sweats, Weakness, Malaise; No: Fever, Chills, Other Eyes: No: Pain, Vision change, Conjunctivae inflammation, Eyelid inflammation, Other, Redness ENT: No: Ear pain, Ear discharge, Nose pain, Nose discharge, Nose congestion, Mouth pain, Mouth swelling, Throat pain, Throat swelling, Other Respiratory: Cough, Dry, Shortness of breath, Wheezing Cardiovascular: Palpitations, Paroxysmal Noc. Dyspnea Gastrointestinal: No: Nausea, Vomiting, Abdominal Pain, Diarrhea, Constipation , Melena, Hematochezia, Other Neurological: Weakness Exam Exam Vital Signs Date Time Temp Pulse Resp B/P (MAP) Pulse Ox O2 Delivery O2 Flow Rate FiO2 06/26/17 06:01 94 Nasal Cannula 4.00 06/26/17 03:58 97.5 93 18 127/60 (82) 93 Nasal Cannula 2.00 06/26/17 01:30 97.9 81 17 120/60 (80) 93 Nasal Cannula 2.00 06/26/17 00:08 97.9 81 17 120/60 (80) 93 Nasal Cannula 2.00 06/25/17 19:45 Nasal Cannula 2.00 06/25/17 19:13 95 Nasal Cannula 3.00 06/25/17 19:10 97.4 107 18 135/64 (87) 92 Nasal Cannula 2.00 06/25/17 15:32 95 Nasal Cannula 3.00 06/25/17 15:30 96.8 105 20 139/59 (85) 97 Nasal Cannula 2.00 06/25/17 12:00 96.9 101 22 120/63 (82) 95 Nasal Cannula 2.00 06/25/17 11:37 91 Nasal Cannula 3.00 06/25/17 09:36 96.8 98 16 133/63 (86) 91 Nasal Cannula 2.00 I & O 06/26/17 07:00 Intake Total 1369.1 ml Output Total 600 ml Balance 769.1 ml General Appearance: No Apparent Distress, Thin HEENT: Normal ENT Inspection Neck: Full Range of Motion, Normal Inspection Respiratory: No Accessory Muscle Use, No Respiratory Distress, Decreased Breath Sounds Cardiovascular: Irregularly Irregular Capillary Refill: Less Than 3 Seconds Gastrointestinal: non tender, soft Results Lab Laboratory Tests 06/24/17 16:57 06/25/17 06:20 06/26/17 05:34 Assessment/Plan Assessment/Plan COPDAE -SOlumedrol -SVNS -OXygen Pneumonia -Continue abx await cultures Pulmonary edema with plural effusion -lasix 254 BOUCHRA BARRIENTOS DO June 26, 2017 08:39
[2017-06-26] MEDS: HYDROcodone/APAP 5 MG/325 MG (LORTAB) TAB PO PRN (08:40)
[2017-06-26] MEDS ORDERED: amLODIPine 5 MG (NORVASC) TAB PO SCH (09:00)
[2017-06-26] MEDS ORDERED: NON-FORMULARY MEDICATION 1 EA EA (Diltiazem HCl (Cartia Xt) 240 MG) PO SCH (09:00)
[2017-06-26] MEDS ORDERED: NON-FORMULARY MEDICATION 1 EA EA (Amlodipine Besylate 5 MG) PO SCH (09:00)
[2017-06-26] MEDS ORDERED: DILTIAZEM 240 MG (CARDIZEM CD) CAP PO SCH (09:00)
--- NOTE | 2017-06-26 09:58 | Physical Therapy Daily Note ---
PT Daily Note-Current Subjective Patient agrees to PT. Pain Numeric Pain Scale: 0-No Pain Location: No Pain Reported Mental Status Patient Orientation: Normal For Age Attachments: Oxygen (3L), IV Transfers Functional [place] Measure 0=Not Assessed/NA 4=Minimal Assistance 1=Total Assistance 5=Supervision or Setup 2=Maximal Assistance 6=Modified [place] 3=Moderate Assistance 7=Complete IndependenceIRFPAI Quality Coding Scale 6 Independent with activity with or without an assistive device 5 Patient requires set up or clean up by helper. Patient completes activity by themselves 4 Supervision or touching assist (CGA). [place] provide cues , steadying assist 3 The helper provides less than half the effort to complete the activity 2 The helper provides more than half the effort to complete the activity 1 Dependent. The helper does all the effort to complete an activity 7 Patient refused to complete or attempt activity 9 The patient did not perform the activity before the current illness or injury 88 Not attempted due to Medical conditions or safety concerns Transfers (B, C, W/C) (FIM): 6 Scootin Sit to/from Stand: 6 Weight Bearing Right Lower Extremity: Right Weight Bearing/Tolerated Left Lower Extremity: Left Weight Bearing/Tolerated Gait Training Gait (FIM): 6 Distance (FIM): 3=150 ft Distance: 350' Gait Level of Assist: 6 Gait Assistive Device: FWW functional gait sequence with skilled verbal instruction for body placement in FWW; assist for O2 tank and IV pole only Exercises Seated Therapy Exercises: Ankle pumps, Long arc quads, Hip flexion Seated Reps: 25 (2 sets) Assessment Patient tolerated treatment well and remains up in recliner with needs met. Education with patient on movement and repositioning to prevent pressure wounds in sit and supine. PT Mcfp Goals Mcfp Goals PT Mcfp Goals Time Frame: July 03, 2017 Transfers (B,C,W/C) (FIM): 6 Gait (FIM): 6 Gait distance (FIM): 3=150 ft Gait Level of Assist: 6 Gait Assistive Device: FWW PT Plan Treatment/Plan Treatment Plan: Continue Plan of Care Treatment Plan: Bed Mobility, Education, Functional Activity Vinayak, Functional Strength, Gait, Safety, Therapeutic Exercise, Transfers Treatment Duration: July 03, 2017 Frequency: 6 times per week Estimated Hrs Per Day: .25 hour per day Patient and/or Family Agrees t: Yes Safety Risks/Education Patient Education: Correct Positioning Teaching Recipient: Patient Teaching Methods: Discussion Response to Teaching: Reinforcement Needed Time/GCodes Time In: 928 Time Out: 938 Total Billed Treatment Time: 10 Total Billed Treatment 1 visit GT 10 min SHANELLE BELLO PT June 26, 2017 09:57
--- NOTE | 2017-06-26 13:14 | Occupational Ther Daily Note ---
OT Current Status-Daily Note Subjective No pain reported. Appearance Pt. up in chair. Agrees to spongebathe. Declines showering. Mental Status/Objective Patient Orientation: Person Functional [place] Measure 0=Not Assessed/NA 4=Minimal Assistance 1=Total Assistance 5=Supervision or Setup 2=Maximal Assistance 6=Modified [place] 3=Moderate Assistance 7=Complete [place] Attachments: IV, Oxygen ADL-Treatment Bathing (FIM): 4 (Pt. requires assist to wash LE, due to having dressing on left heel.) Lower Body Dressing (FIM): 5 (SBA to don slippers.) Transfers (B, C, W/C) (FIM): 5 (Pt. requires SBA due to having an IV and oxygen. Otherwise, is able to ambulate with Mod I.) Pt. agrees to sponge bathe at sink. Requests to stand but then does need to sit to wash feet. OT does this for her due to this. No street clothing present. Pt. dons hospital gown and slippers. Pt. at baseline level. [place] will increase when pt. no longer has IV and IV pole that she has to manage. Education OT Patient Education: Correct positioning, Modified ADL techniques, Progress toward Goal/Update tx plan, Purpose of tx/functional activities, Reviewed precautions, Rehab process, Transfer techniques Teaching Recipient: Patient Teaching Methods: Demonstration, Discussion Response to Teaching: Verbalize Understanding, Return Demonstration OT Short Term Goals Short Term Goals 1=Demonstrate adherence to instructed precautions during ADL tasks. 2=Patient will verbalize/demonstrate understanding of assistive devices/ modifications for ADL. 3=Patient will improve strength/tolerance for activity to enable patient to perform ADL's. OT Mcc Goals Mcc Goals Time Frame: July 02, 2017 Eating (FIM): 6 Grooming(FIM): 6 Bathing(FIM): 5 Upper Body Dressing(FIM): 6 Lower Body Dressing(FIM): 6 Toileting(FIM): 6 Transfers (B,C,W/C) (FIM): 6 Toilet/Commode Transfer(FIM): 6 Shower Transfer(FIM): 5 Additional Goals: 1-Demonstrate ADL Tasks, 2-Verbalize Understanding, 3- ImproveStrength/Vinayak 1=Demonstrate adherence to instructed precautions during ADL tasks. 2=Patient will verbalize/demonstrate understanding of assistive devices/ modifications for ADL. 3=Patient will improve strength/tolerance for activity to enable patient to perform ADL's. OT Education/Plan Discharge Recommendations Plan/Recommendations: Discontinue OT Therapy D/C Recommendations: Home w/ Family Support Comment Pt. is at prior level per her. Pt's independence limited due to short oxygen tubing and IV pole. Due to being at previous level, no further OT warranted at this time. Will be happy to come back and re-assess pt. if needed. Treatment Plan/Plan of Care Treatment,Training & Education: Yes Treatment Duration: July 02, 2017 Frequency: 1 time per week Estimated Hrs Per Day: .25 hour per day Agreement: Yes Rehab Potential: Good Time/GCodes Start Time: 11:30 Stop Time: 11:50 Total Time Billed (hr/min): 20 Billed Treatment Time 1, ADL Discharge at this time. ELISABETH SHRESTHA OT June 26, 2017 13:14
[2017-06-26] MEDS: NS W/KCL 20 MEQ/L 1,000 ML IV SCH (18:42)
[2017-06-26] MEDS: CEFEPIME 2 GM/NS 100 ML IVPB IV SCH ×2 (19:56)
[2017-06-26] MEDS ORDERED: GENTAMICIN 40 MG/ML 2 ML INJ SDV ONE (21:20)
[2017-06-26] MEDS ORDERED: NS (IVPB) 100 ML ONE (21:21)
[2017-06-26] MEDS: GENTAMICIN IV SCH ×2 (21:42)
[2017-06-26] MEDS: SODIUM CHLORIDE IV SCH ×2 (21:42)
[2017-06-27] VITALS: BP 130/68
[2017-06-27 06:26] LABS: BASOPHILS % (AUTO) 0 % (0-10); EOSINOPHILS # (AUTO) 0.2 10^3/uL (0.0-0.3); EOSINOPHILS % (AUTO) 2 % (0-10); HEMATOCRIT 29 % (35-52); LYMPHOCYTES # (AUTO) 0.8 X 10^3 (1.0-4.0); LYMPHOCYTES % (AUTO) 9 % (12-44); MEAN CORPUSCULAR HEMOGLOBIN 27 PG (25-34); MEAN CORPUSCULAR HGB CONC 31 G/DL (32-36); MEAN CORPUSCULAR VOLUME 89 FL (80-99); MEAN PLATELET VOLUME 10.5 FL (7.4-10.4); MONOCYTES # (AUTO) 0.7 X 10^3 (0.0-1.0); MONOCYTES % (AUTO) 8 % (0-12); NEUTROPHILS # (AUTO) 6.7 X 10^3 (1.8-7.8); NEUTROPHILS % (AUTO) 80 % (42-75); PLATELET COUNT 328 10^3/uL (130-400); RED BLOOD COUNT 3.29 10^6/uL (4.35-5.85); RED CELL DISTRIBUTION WIDTH 20.4 % (10.0-14.5); WHITE BLOOD COUNT 8.4 10^3/uL (4.3-11.0)
[2017-06-27 06:43] LABS: INR 1.3 (0.8-1.4); PROTHROMBIN TIME PATIENT 15.9 SEC (12.2-14.7)
[2017-06-27 06:57] LABS: BUN/CREATININE RATIO 15; CALCIUM 8.4 MG/DL (8.5-10.1); CARBON DIOXIDE 24 MMOL/L (21-32); CHLORIDE 108 MMOL/L (98-107); CREATININE SERUM 0.52 MG/DL (0.60-1.30); GFR ESTIMATED > 60; GLUCOSE 83 MG/DL (70-105); POTASSIUM 3.8 MMOL/L (3.6-5.0); SODIUM 141 MMOL/L (135-145)
[2017-06-27] MEDS: RT-ALBUTEROL/IPRATROPIUM 3 ML (DUONEB) VIAL INH SCH ×4 (07:50→19:31)
[2017-06-27 08:00] VITALS: BP 151/75
--- NOTE | 2017-06-27 08:13 | Progress Note (SOAP) ---
Subjective Time Seen by Provider: 08:10 Subjective/Events-last exam Patient has some shortness of breath still. Chest x-ray done this morning. INR 1.3. Patient looks better. Patient still a work in progress Focused Exam Lactate Level 06/24/17 16:57: Lactic Acid Level 2.06*H 06/24/17 19:25: Lactic Acid Level 0.90 06/25/17 06:20: Lactic Acid Level 0.62 Objective Exam Vital Signs Date Time Temp Pulse Resp B/P (MAP) Pulse Ox O2 Delivery O2 Flow Rate FiO2 06/27/17 00:00 97.7 96 20 130/68 (88) 96 Nasal Cannula 4.50 06/26/17 20:00 Nasal Cannula 4.50 06/26/17 20:00 97.6 113 22 148/71 (96) 94 Nasal Cannula 4.50 06/26/17 19:22 94 Nasal Cannula 4.00 06/26/17 16:19 95 Nasal Cannula 4.00 06/26/17 15:25 97.8 99 20 132/63 (86) 94 Nasal Cannula 5.00 06/26/17 12:11 94 Nasal Cannula 4.00 06/26/17 12:00 98.2 103 28 134/68 (90) 95 Nasal Cannula 4.00 I & O 06/27/17 07:00 Intake Total 1719.1 ml Output Total 1250 ml Balance 469.1 ml Capillary Refill : Less Than 3 Seconds General Appearance: No Apparent Distress, Thin HEENT: Normal ENT Inspection Neck: Full Range of Motion, Normal Inspection Respiratory: No Accessory Muscle Use, No Respiratory Distress, Decreased Breath Sounds Cardiovascular: Irregularly Irregular Gastrointestinal: non tender, soft Results Lab Laboratory Tests 06/27/17 05:45 Laboratory Tests 06/27/17 05:45: White Blood Count 8.4, Red Blood Count 3.29L, Hemoglobin 9.0L, Hematocrit 29L, Mean Corpuscular Volume 89, Mean Corpuscular Hemoglobin 27, Mean Corpuscular Hemoglobin Concent 31L, Red Cell Distribution Width 20.4H, Platelet Count 328, Mean Platelet Volume 10.5H, Neutrophils (%) (Auto) 80H, Lymphocytes (%) (Auto) 9L, Monocytes (%) (Auto) 8, Eosinophils (%) (Auto) 2, Basophils (%) (Auto) 0, Neutrophils # (Auto) 6.7, Lymphocytes # (Auto) 0.8L, Monocytes # (Auto) 0.7, Eosinophils # (Auto) 0.2, Basophils # (Auto) 0.0, Prothrombin Time 15.9H, INR Comment 1.3, Sodium Level 141, Potassium Level 3.8, Chloride Level 108H, Carbon Dioxide Level 24, Anion Gap 9, Blood Urea Nitrogen 8, Creatinine 0.52L, Estimat Glomerular Filtration Rate > 60, BUN/Creatinine Ratio 15, Glucose Level 83, Calcium Level 8.4L Microbiology 06/24/17 Blood Culture - Preliminary, Resulted No growth 06/24/17 Gram Stain - Final, Complete 06/24/17 Sputum Culture - Final, Complete Usual/normal je isolated. 06/24/17 Urine Culture - Final, Complete Probable Enterococcus Species See Comments Assessment/Plan Assessment/Plan Assess & Plan/Chief Complaint Pneumonia. Sepsis. UTI. Atrial fibrillation. Recent surgery for:'s cancer in gallbladder surgery. . 06/27/17. Pneumonia. Sepsis. UTI. Atrial fibrillation. Recent colon cancer surgery Clinical Quality Measures Admission Status Admission Dx Pneumonia. Sepsis. UTI. Elevated serum lactic acid DVT/VTE Risk/Contraindication: Risk Factor Score Per Nursin RFS Level Per Nursing on Admit: 4+=Very High Contraindications-Pharm: Other *list below* DAREN FERGUSON DO June 27, 2017 08:13
[2017-06-27] MEDS: DILTIAZEM 240 MG (CARDIZEM CD) CAP PO SCH (08:36)
[2017-06-27] MEDS: amLODIPine 5 MG (NORVASC) TAB PO SCH (08:36)
[2017-06-27] MEDS: APIXABAN 5 MG (ELIQUIS) TABLET PO SCH ×2 (08:36→20:30)
[2017-06-27] MEDS: NEO/POLY/BAC (NEOSPORIN) OINT 15 GM TUBE TOP SCH ×2 (08:37→20:30)
[2017-06-27] MEDS: HYDROCORTISONE 1% CREAM 30 GM TUBE TOP SCH ×2 (08:37→20:30)
--- NOTE | 2017-06-27 09:07 | Diagnostic Imaging Report ---
INDICATION: Pneumonia. TECHNIQUE: Two view chest 8:09 AM CORRELATION STUDY: 06/25/2017 FINDINGS: Increasing opacification of the right lung base likely owing to worsening combination of effusion with consolidation. There is a lobulated appearance about this region. Addition, there is likely a loculated left pleural effusion present. Deformity about the left chest wall could be owing to hemothorax. Consolidation about the left mid and lower lung field persist. Spiculated density left suprahilar region persists. Heart size largely obscured but appears generally stable. Calcification of the aortic arch. Accentuated thoracic kyphotic curvature. IMPRESSION: 1. Increasing consolidation and effusion of the right lung base. This had likely a complex appearance. Additional consolidation of the left lateral chest wall and consolidation left mid and lower lung field, generally stable. Followup imaging is recommended. 2. Spiculated density of the left suprahilar region persists. Dictated by: Dictated on workstation # [id number]
[2017-06-27 11:30] VITALS: BP 151/75
--- NOTE | 2017-06-27 11:44 | Physical Therapy Daily Note ---
PT Daily Note-Current Subjective Patient reports she did not sleep well last night. Agrees to PT. Pain Numeric Pain Scale: 0-No Pain Location: No Pain Reported Mental Status Patient Orientation: Normal For Age Attachments: Oxygen (3L NC), IV Transfers Functional [place] Measure 0=Not Assessed/NA 4=Minimal Assistance 1=Total Assistance 5=Supervision or Setup 2=Maximal Assistance 6=Modified [place] 3=Moderate Assistance 7=Complete IndependenceIRFPAI Quality Coding Scale 6 Independent with activity with or without an assistive device 5 Patient requires set up or clean up by helper. Patient completes activity by themselves 4 Supervision or touching assist (CGA). [place] provide cues , steadying assist 3 The helper provides less than half the effort to complete the activity 2 The helper provides more than half the effort to complete the activity 1 Dependent. The helper does all the effort to complete an activity 7 Patient refused to complete or attempt activity 9 The patient did not perform the activity before the current illness or injury 88 Not attempted due to Medical conditions or safety concerns Transfers (B, C, W/C) (FIM): 6 Scootin Sit to/from Stand: 6 Weight Bearing Right Lower Extremity: Right Weight Bearing/Tolerated Left Lower Extremity: Left Weight Bearing/Tolerated Gait Training Gait (FIM): 5 Distance (FIM): 3=150 ft Distance: 225' Gait Level of Assist: 5 Gait Persons Needed: 1 Gait Assistive Device: FWW increase SOA with activity with SAO2 >90%/steady, functional gait sequence Exercises Seated Therapy Exercises: Ankle pumps, Long arc quads, Hip flexion Seated Reps: 20 (2 sets to improve strength and mobility) Assessment Patient progressing with treatment plan. Patient does demonstrate increase SOA with activity on this date and self limits. 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 Time Frame: July 03, 2017 Transfers (B,C,W/C) (FIM): 6 Gait (FIM): 6 Gait distance (FIM): 3=150 ft Gait Level of Assist: 6 Gait Assistive Device: FWW PT Plan Treatment/Plan Treatment Plan: Continue Plan of Care Treatment Plan: Bed Mobility, Education, Functional Activity Vinayak, Functional Strength, Gait, Safety, Therapeutic Exercise, Transfers Treatment Duration: July 03, 2017 Frequency: 6 times per week Estimated Hrs Per Day: .25 hour per day Patient and/or Family Agrees t: Yes Time/GCodes Time In: 1035 Time Out: 1058 Total Billed Treatment Time: 23 Total Billed Treatment 1 visit EX 10 min GT 13 min SHANELLE BELLO PT June 27, 2017 11:44
[2017-06-27] MEDS: ALPRAZolam 0.25 MG (XANAX) TAB PO PRN (13:02)
[2017-06-27] MEDS ORDERED: IOHEXOL 350 MG/ML 100 ML (OMNIPAQUE 350) VIAL IV ONE (15:30)
[2017-06-27] MEDS ORDERED: NS 250 ML (IVPB) BAG IV ONE (15:30)
[2017-06-27] MEDS: NS W/KCL 20 MEQ/L 1,000 ML IV SCH (15:44)
[2017-06-27 16:15] VITALS: BP 138/73
--- NOTE | 2017-06-27 16:36 | Diagnostic Imaging Report ---
INDICATION: Pneumonia. CT chest obtained with IV contrast bolus and compared with 05/13/17. FINDINGS: There are mildly enlarged nodes in the mediastinum. A node in the pretracheal region which had measured 1.1 cm on the prior study now measures about 1.3 cm. There are no definite enlarged hilar nodes or axillary nodes. There are bilateral pleural effusions, the right pleural effusion is about the same as the prior study. Left pleural effusion is larger and shows some partial loculation and partially tracks into the major fissure on the left side. There is no pericardial fluid. There is prominent cardiomegaly. Lung parenchymal windows demonstrate no significant change in 1.6 cm nodule in left upper lobe. There is patchy alveolar infiltrate in both lung bases. There is atelectatic change with air bronchograms in the right middle lobe and passive atelectasis in the right lower lobe. There is an increasing parenchymal density in the right middle lobe superiorly measuring about 1.7 cm. This is indeterminate between neoplasm and inflammatory change. There is a large hiatal hernia. There are faint hypodense lesions in the liver which may represent metastatic disease. One lesion is seen in the inferior portion of the right lobe of the liver measuring about a centimeter in size. Additional lesion is seen in the interlobar portion of the liver anteriorly measuring about 1 cm as well. These lesions were not visualized well on the previous study. IMPRESSION: No significant change in right pleural effusion compared to the prior study. New left pleural effusion with some loculation in the fissure as above. There is increasing infiltrate and/or passive atelectasis in both lung bases. There is a stable nodular lesion in the left upper lobe measuring 1.6 cm, unchanged from the prior study. There is increasing density in the right middle lobe which may be neoplastic or inflammatory, continued followup recommended if clinically warranted. Adenopathy in the pretracheal region appears about the same as the prior study. There is a large hiatal hernia. There are 2 small hypodense lesions in the liver which may be metastatic, followup is suggested. Dictated by: Dictated on workstation # [id number]
[2017-06-27] MEDS: CEFEPIME 2 GM/NS 100 ML IVPB IV SCH ×2 (19:47)
[2017-06-27] MEDS: GENTAMICIN IV SCH ×2 (20:30)
[2017-06-27] MEDS: SODIUM CHLORIDE IV SCH ×2 (20:30)
[2017-06-28] VITALS: BP 136/67
[2017-06-28 07:04] LABS: HEMOGLOBIN 10.3 G/DL (11.5-16.0); RED BLOOD COUNT 3.69 10^6/uL (4.35-5.85); RED CELL DISTRIBUTION WIDTH 20.7 % (10.0-14.5); WHITE BLOOD COUNT 9.7 10^3/uL (4.3-11.0)
[2017-06-28] MEDS: RT-ALBUTEROL/IPRATROPIUM 3 ML (DUONEB) VIAL INH SCH ×2 (07:11→10:24)
[2017-06-28 07:16] LABS: BUN/CREATININE RATIO 11; CALCIUM 8.7 MG/DL (8.5-10.1); CARBON DIOXIDE 28 MMOL/L (21-32); CHLORIDE 104 MMOL/L (98-107); CREATININE SERUM 0.53 MG/DL (0.60-1.30); GFR ESTIMATED > 60; GLUCOSE 80 MG/DL (70-105); POTASSIUM 3.8 MMOL/L (3.6-5.0); SODIUM 141 MMOL/L (135-145)
[2017-06-28] MEDS: amLODIPine 5 MG (NORVASC) TAB PO SCH (07:47)
[2017-06-28] MEDS: DILTIAZEM 240 MG (CARDIZEM CD) CAP PO SCH (07:47)
[2017-06-28] MEDS: APIXABAN 5 MG (ELIQUIS) TABLET PO SCH (07:48)
[2017-06-28 08:00] VITALS: BP 171/80
--- NOTE | 2017-06-28 08:33 | Progress Note (SOAP) ---
Subjective Time Seen by Provider: 08:30 Subjective/Events-last exam Patient wants to, home today. Patient feeling better. Explained to patient had CAT scan report. Patient have appointment with pulmonology and oncology. Patient be sent home on Omnicef 300 mg number 10 one twice a day Objective Exam Vital Signs Date Time Temp Pulse Resp B/P (MAP) Pulse Ox O2 Delivery O2 Flow Rate FiO2 06/28/17 07:11 96 Nasal Cannula 3.00 06/28/17 00:00 98.1 104 17 136/67 (90) 94 Nasal Cannula 2.00 06/27/17 20:00 Nasal Cannula 3.00 06/27/17 19:32 95 Nasal Cannula 3.00 06/27/17 16:15 97.6 89 20 138/73 (94) 96 Nasal Cannula 4.50 06/27/17 11:35 92 Nasal Cannula 3.00 06/27/17 11:30 113 95 36 06/27/17 11:27 95 Nasal Cannula 4.00 I & O 06/28/17 07:00 Intake Total 1480 ml Output Total 2300 ml Balance -820 ml Capillary Refill : Less Than 3 Seconds General Appearance: No Apparent Distress, Thin HEENT: Normal ENT Inspection Respiratory: Decreased Breath Sounds Results Lab Laboratory Tests 06/28/17 06:20 Laboratory Tests 06/28/17 06:20: White Blood Count 9.7, Red Blood Count 3.69L, Hemoglobin 10.3L, Hematocrit 33L, Mean Corpuscular Volume 88, Mean Corpuscular Hemoglobin 28, Mean Corpuscular Hemoglobin Concent 32, Red Cell Distribution Width 20.7H, Platelet Count 401H, Mean Platelet Volume 10.0, Sodium Level 141, Potassium Level 3.8, Chloride Level 104, Carbon Dioxide Level 28, Anion Gap 9, Blood Urea Nitrogen 6L, Creatinine 0.53L, Estimat Glomerular Filtration Rate > 60, BUN/Creatinine Ratio 11, Glucose Level 80, Calcium Level 8.7 Microbiology 06/24/17 Blood Culture - Preliminary, Resulted No growth 06/24/17 Gram Stain - Final, Complete 06/24/17 Sputum Culture - Final, Complete Usual/normal je isolated. 06/24/17 Urine Culture - Final, Complete Probable Enterococcus Species See Comments Assessment/Plan Assessment/Plan Assess & Plan/Chief Complaint Pneumonia. Sepsis. UTI. Atrial fibrillation. Recent surgery for:'s cancer in gallbladder surgery. . 06/27/17. Pneumonia. Sepsis. UTI. Atrial fibrillation. Recent colon cancer surgery. . 06/28/17. Pneumonia. UTI. Atrial fibrillation. CAT scan done which is abnormal. Patient wants to go home today. To make outpatient appointments with pulmonology and oncology. To my office this Saturday Clinical Quality Measures Admission Status Admission Dx Pneumonia. Sepsis. UTI. Elevated serum lactic acid DVT/VTE Risk/Contraindication: Risk Factor Score Per Nursin RFS Level Per Nursing on Admit: 4+=Very High Contraindications-Pharm: Other *list below* DAREN FERGUSON DO June 28, 2017 08:33
--- NOTE | 2017-06-28 08:34 | Diagnostic Imaging Report ---
INDICATION: Pneumonia. TIME OF EXAM: 8:35 AM Correlation is made with prior study one day earlier. FINDINGS: The heart size is stable. Extensive bilateral infiltrates and pleural effusions are similar to yesterday's exam. Air density does project in the area of consolidation in the medial left base. On the lateral view anteriorly and posterior lucencies are present in the region of the lingula and left lower lobe. Lucencies appear to represent gas within the large hiatal hernia when reviewed with CT study one day earlier. Upper lung cool are clear. There is no pneumothorax. IMPRESSION: Overall stable bilateral infiltrates and effusions when compared with examination one day earlier. Dictated by: Dictated on workstation # [id number]
[2017-06-28] MEDS: ALPRAZolam 0.25 MG (XANAX) TAB PO PRN (08:43)
[2017-06-28] MEDS: NEO/POLY/BAC (NEOSPORIN) OINT 15 GM TUBE TOP SCH (08:45)
[2017-06-28] MEDS: HYDROCORTISONE 1% CREAM 30 GM TUBE TOP SCH (08:45)
[2017-06-28] MEDS ORDERED: CEFDINIR 300 MG (OMNICEF) CAP PO SCH (09:40)
[2017-06-28] MEDS ORDERED: CEFD300C3 PO (09:43)
[2017-06-28] MEDS ORDERED: ACET-2267 PO (10:09)
[2017-06-28] MEDS ORDERED: LOPERAMIDE 2 MG (IMODIUM) CAP PO PRN (10:30)
[2017-06-28 13:00] VITALS: BP 148/80
--- NOTE | 2017-07-02 19:26 | Discharge Summary ---
Diagnosis/Chief Complaint Date of Admission Jun 24, 2017 at 18:46 Date of Discharge June 28, 2017 at 13:00 Discharge Date: June 28, 2017 Discharge Time: 19:25 Discharge Diagnosis Leukocytosis. Sepsis. UTI. Enterococcus of urine. Pleural effusion. Nodular lesion in chest. Hypodense lesion in liver. Sacral ulcer. Left heel ulcer. Recent colon surgery for cancer. Recent gallbladder surgery. Atrial fibrillation. Coronary artery disease. Anemia. Reason Hospital Visit Patient came out to the emergency room by car. According to granddaughter patient on White blood cell count 29,000 last weekend. Patient complaining of low back pain and heel pain. Patient chest x-ray shows pneumonia. Patient recently had: Surgery had gallbladder surgery and colon surgery for cancer Discharge Summary Consultations Wound care Discharge Physical Examination Allergies: Coded Allergies: Sulfa (Sulfonamide Antibiotics) (Verified Allergy, Unknown, 08/02/07) Vitals & I&Os Vital Signs Date Time Temp Pulse Resp B/P (MAP) Pulse Ox O2 Delivery O2 Flow Rate FiO2 06/28/17 13:00 110 16 148/80 96 Nasal Cannula 06/28/17 10:24 3.00 06/28/17 08:00 98.6 06/27/17 11:30 36 Hospital Course Labs (last 24 hrs) Laboratory Tests 06/24/17 16:57: White Blood Count 23.1H, Red Blood Count 3.83L, Hemoglobin 10.6L, Hematocrit 33L , Mean Corpuscular Volume 87, Mean Corpuscular Hemoglobin 28, Mean Corpuscular Hemoglobin Concent 32, Red Cell Distribution Width 20.6H, Platelet Count 299, Mean Platelet Volume 10.3, Neutrophils (%) (Auto) 89H, Lymphocytes (%) (Auto) 5L , Monocytes (%) (Auto) 6, Eosinophils (%) (Auto) 0, Basophils (%) (Auto) 0, Neutrophils # (Auto) 20.6H, Lymphocytes # (Auto) 1.1, Monocytes # (Auto) 1.4H, Eosinophils # (Auto) 0.0, Basophils # (Auto) 0.0, Neutrophils % (Manual) 90, Lymphocytes % (Manual) 6, Monocytes % (Manual) 4, Eosinophils % (Manual) 0, Basophils % (Manual) 0, Band Neutrophils 0, Blood Morphology Comment NORMAL, Prothrombin Time 19.6H, INR Comment 1.7H, Activated Partial Thromboplast Time 47H, Sodium Level 136, Potassium Level 3.7, Chloride Level 95L, Carbon Dioxide Level 32, Anion Gap 9, Blood Urea Nitrogen 17, Creatinine 0.68, Estimat Glomerular Filtration Rate > 60, BUN/Creatinine Ratio 25, Glucose Level 130H, Lactic Acid Level 2.06*H, Calcium Level 9.2, Total Bilirubin 0.7, Aspartate Amino Transf (AST/SGOT) 13, Alanine Aminotransferase (ALT/SGPT) 11, Alkaline Phosphatase 122, Total Protein 7.1, Albumin 3.1L, TSH [place] Testing 0.97 06/24/17 17:15: Urine Color YELLOW, Urine Clarity CLEAR, Urine pH 6, Urine Specific [place] 1.020, Urine Protein 2+H, Urine Glucose (UA) NEGATIVE, Urine Ketones 1+H, Urine Nitrite NEGATIVE, Urine Bilirubin NEGATIVE, Urine Urobilinogen 4H, Urine Leukocyte Esterase 3+H, Urine RBC (Auto) 5+H, Urine RBC >100H, Urine WBC 10-25H , Urine Crystals NONE, Urine Bacteria FEWH, Urine Casts NONE, Urine Mucus LARGEH , Urine Culture Indicated YES 06/24/17 19:25: Lactic Acid Level 0.90 06/25/17 06:20: White Blood Count 16.0H, Red Blood Count 3.26L, Hemoglobin 8.9L, Hematocrit 29L , Mean Corpuscular Volume 88, Mean Corpuscular Hemoglobin 27, Mean Corpuscular Hemoglobin Concent 31L, Red Cell Distribution Width 20.5H, Platelet Count 260, Mean Platelet Volume 10.4, Neutrophils (%) (Auto) 83H, Lymphocytes (%) (Auto) 12 , Monocytes (%) (Auto) 6, Eosinophils (%) (Auto) 0, Basophils (%) (Auto) 0, Neutrophils # (Auto) 13.2H, Lymphocytes # (Auto) 1.9, Monocytes # (Auto) 0.9, Eosinophils # (Auto) 0.0, Basophils # (Auto) 0.0, Sodium Level 140, Potassium Level 4.0, Chloride Level 107, Carbon Dioxide Level 25, Anion Gap 8, Blood Urea Nitrogen 12, Creatinine 0.54L, Estimat Glomerular Filtration Rate > 60, BUN/ Creatinine Ratio 22, Glucose Level 86, Lactic Acid Level 0.62, Calcium Level 8.1L, Total Bilirubin 0.6, Aspartate Amino Transf (AST/SGOT) 12, Alanine Aminotransferase (ALT/SGPT) 11, Alkaline Phosphatase 103, Total Protein 5.6L, Albumin 2.5L, B-Type Natriuretic Peptide 575.7H 06/25/17 07:55: Random Gentamicin Level 5.6 06/26/17 05:34: White Blood Count 10.1, Red Blood Count 3.49L, Hemoglobin 9.6L, Hematocrit 31L, Mean Corpuscular Volume 88, Mean Corpuscular Hemoglobin 28, Mean Corpuscular Hemoglobin Concent 31L, Red Cell Distribution Width 20.7H, Platelet Count 339, Mean Platelet Volume 10.0, Neutrophils (%) (Auto) 76H, Lymphocytes (%) (Auto) 16 , Monocytes (%) (Auto) 7, Eosinophils (%) (Auto) 1, Basophils (%) (Auto) 0, Neutrophils # (Auto) 7.6, Lymphocytes # (Auto) 1.7, Monocytes # (Auto) 0.7, Eosinophils # (Auto) 0.1, Basophils # (Auto) 0.0, Sodium Level 141, Potassium Level 3.5L, Chloride Level 108H, Carbon Dioxide Level 25, Anion Gap 8, Blood Urea Nitrogen 11, Creatinine 0.51L, Estimat Glomerular Filtration Rate > 60, BUN /Creatinine Ratio 22, Glucose Level 90, Calcium Level 8.7 06/27/17 05:45: White Blood Count 8.4, Red Blood Count 3.29L, Hemoglobin 9.0L, Hematocrit 29L, Mean Corpuscular Volume 89, Mean Corpuscular Hemoglobin 27, Mean Corpuscular Hemoglobin Concent 31L, Red Cell Distribution Width 20.4H, Platelet Count 328, Mean Platelet Volume 10.5H, Neutrophils (%) (Auto) 80H, Lymphocytes (%) (Auto) 9L, Monocytes (%) (Auto) 8, Eosinophils (%) (Auto) 2, Basophils (%) (Auto) 0, Neutrophils # (Auto) 6.7, Lymphocytes # (Auto) 0.8L, Monocytes # (Auto) 0.7, Eosinophils # (Auto) 0.2, Basophils # (Auto) 0.0, Sodium Level 141, Potassium Level 3.8, Chloride Level 108H, Carbon Dioxide Level 24, Anion Gap 9, Blood Urea Nitrogen 8, Creatinine 0.52L, Estimat Glomerular Filtration Rate > 60, BUN/ Creatinine Ratio 15, Glucose Level 83, Calcium Level 8.4L, Prothrombin Time 15.9H, INR Comment 1.3 06/28/17 06:20: White Blood Count 9.7, Red Blood Count 3.69L, Hemoglobin 10.3L, Hematocrit 33L, Mean Corpuscular Volume 88, Mean Corpuscular Hemoglobin 28, Mean Corpuscular Hemoglobin Concent 32, Red Cell Distribution Width 20.7H, Platelet Count 401H, Mean Platelet Volume 10.0, Sodium Level 141, Potassium Level 3.8, Chloride Level 104, Carbon Dioxide Level 28, Anion Gap 9, Blood Urea Nitrogen 6L, Creatinine 0.53L, Estimat Glomerular Filtration Rate > 60, BUN/Creatinine Ratio 11, Glucose Level 80, Calcium Level 8.7 Microbiology 06/24/17 Blood Culture - Final, Complete No growth 06/24/17 Gram Stain - Final, Complete 06/24/17 Sputum Culture - Final, Complete Usual/normal je isolated. 06/24/17 Urine Culture - Final, Complete Probable Enterococcus Species See Comments Laboratory Tests 06/24/17 16:57 06/25/17 06:20 06/26/17 05:34 06/27/17 05:45 06/28/17 06:20 Pending Labs Microbiology Date/Time Source Procedure Growth Status 06/24/17 17:30 Peripheral Lt Ac Blood Culture - Final No growth Complete 06/24/17 16:57 Peripheral Lt Ac Blood Culture - Final No growth Complete 06/24/17 17:44 Sputum Expectorated Gram Stain - Final Complete 06/24/17 17:44 Sputum Expectorated Sputum Culture - Final Usual/normal je isolated. Complete 06/24/17 17:15 Urine Clean Catch Urine Culture - Final Probable Enterococcus Species See Comments Complete Laboratory Tests 06/24/17 16:57: White Blood Count 23.1, Red Blood Count 3.83, Hemoglobin 10.6, Hematocrit 33, Mean Corpuscular Volume 87, Mean Corpuscular Hemoglobin 28, Mean Corpuscular Hemoglobin Concent 32, Red Cell Distribution Width 20.6, Platelet Count 299, Mean Platelet Volume 10.3, Neutrophils (%) (Auto) 89, Lymphocytes (%) (Auto) 5, Monocytes (%) (Auto) 6, Eosinophils (%) (Auto) 0, Basophils (%) (Auto) 0, Neutrophils # (Auto) 20.6, Lymphocytes # (Auto) 1.1, Monocytes # (Auto) 1.4, Eosinophils # (Auto) 0.0, Basophils # (Auto) 0.0, Neutrophils % (Manual) 90, Lymphocytes % (Manual) 6, Monocytes % (Manual) 4, Eosinophils % (Manual) 0, Basophils % (Manual) 0, Band Neutrophils 0, Blood Morphology Comment NORMAL, Prothrombin Time 19.6, INR Comment 1.7, Activated Partial Thromboplast Time 47, Sodium Level 136, Potassium Level 3.7, Chloride Level 95, Carbon Dioxide Level 32, Anion Gap 9, Blood Urea Nitrogen 17, Creatinine 0.68, Estimat Glomerular Filtration Rate > 60, BUN/Creatinine Ratio 25, Glucose Level 130, Lactic Acid Level 2.06, Calcium Level 9.2, Total Bilirubin 0.7, Aspartate Amino Transf (AST/ SGOT) 13, Alanine Aminotransferase (ALT/SGPT) 11, Alkaline Phosphatase 122, Total Protein 7.1, Albumin 3.1, TSH [place] Testing 0.97 06/24/17 17:15: Urine Color YELLOW, Urine Clarity CLEAR, Urine pH 6, Urine Specific [place] 1.020, Urine Protein 2+, Urine Glucose (UA) NEGATIVE, Urine Ketones 1+, Urine Nitrite NEGATIVE, Urine Bilirubin NEGATIVE, Urine Urobilinogen 4, Urine Leukocyte Esterase 3+, Urine RBC (Auto) 5+, Urine RBC >100, Urine WBC 10-25, Urine Crystals NONE, Urine Bacteria FEW, Urine Casts NONE, Urine Mucus LARGE, Urine Culture Indicated YES 06/24/17 19:25: Lactic Acid Level 0.90 06/25/17 06:20: White Blood Count 16.0, Red Blood Count 3.26, Hemoglobin 8.9, Hematocrit 29, Mean Corpuscular Volume 88, Mean Corpuscular Hemoglobin 27, Mean Corpuscular Hemoglobin Concent 31, Red Cell Distribution Width 20.5, Platelet Count 260, Mean Platelet Volume 10.4, Neutrophils (%) (Auto) 83, Lymphocytes (%) (Auto) 12 , Monocytes (%) (Auto) 6, Eosinophils (%) (Auto) 0, Basophils (%) (Auto) 0, Neutrophils # (Auto) 13.2, Lymphocytes # (Auto) 1.9, Monocytes # (Auto) 0.9, Eosinophils # (Auto) 0.0, Basophils # (Auto) 0.0, Sodium Level 140, Potassium Level 4.0, Chloride Level 107, Carbon Dioxide Level 25, Anion Gap 8, Blood Urea Nitrogen 12, Creatinine 0.54, Estimat Glomerular Filtration Rate > 60, BUN/ Creatinine Ratio 22, Glucose Level 86, Lactic Acid Level 0.62, Calcium Level 8.1 , Total Bilirubin 0.6, Aspartate Amino Transf (AST/SGOT) 12, Alanine Aminotransferase (ALT/SGPT) 11, Alkaline Phosphatase 103, Total Protein 5.6, Albumin 2.5, B-Type Natriuretic Peptide 575.7 06/25/17 07:55: Random Gentamicin Level 5.6 06/26/17 05:34: White Blood Count 10.1, Red Blood Count 3.49, Hemoglobin 9.6, Hematocrit 31, Mean Corpuscular Volume 88, Mean Corpuscular Hemoglobin 28, Mean Corpuscular Hemoglobin Concent 31, Red Cell Distribution Width 20.7, Platelet Count 339, Mean Platelet Volume 10.0, Neutrophils (%) (Auto) 76, Lymphocytes (%) (Auto) 16 , Monocytes (%) (Auto) 7, Eosinophils (%) (Auto) 1, Basophils (%) (Auto) 0, Neutrophils # (Auto) 7.6, Lymphocytes # (Auto) 1.7, Monocytes # (Auto) 0.7, Eosinophils # (Auto) 0.1, Basophils # (Auto) 0.0, Sodium Level 141, Potassium Level 3.5, Chloride Level 108, Carbon Dioxide Level 25, Anion Gap 8, Blood Urea Nitrogen 11, Creatinine 0.51, Estimat Glomerular Filtration Rate > 60, BUN/ Creatinine Ratio 22, Glucose Level 90, Calcium Level 8.7 06/27/17 05:45: White Blood Count 8.4, Red Blood Count 3.29, Hemoglobin 9.0, Hematocrit 29, Mean Corpuscular Volume 89, Mean Corpuscular Hemoglobin 27, Mean Corpuscular Hemoglobin Concent 31, Red Cell Distribution Width 20.4, Platelet Count 328, Mean Platelet Volume 10.5, Neutrophils (%) (Auto) 80, Lymphocytes (%) (Auto) 9, Monocytes (%) (Auto) 8, Eosinophils (%) (Auto) 2, Basophils (%) (Auto) 0, Neutrophils # (Auto) 6.7, Lymphocytes # (Auto) 0.8, Monocytes # (Auto) 0.7, Eosinophils # (Auto) 0.2, Basophils # (Auto) 0.0, Sodium Level 141, Potassium Level 3.8, Chloride Level 108, Carbon Dioxide Level 24, Anion Gap 9, Blood Urea Nitrogen 8, Creatinine 0.52, Estimat Glomerular Filtration Rate > 60, BUN/ Creatinine Ratio 15, Glucose Level 83, Calcium Level 8.4, Prothrombin Time 15.9 , INR Comment 1.3 06/28/17 06:20: White Blood Count 9.7, Red Blood Count 3.69, Hemoglobin 10.3, Hematocrit 33, Mean Corpuscular Volume 88, Mean Corpuscular Hemoglobin 28, Mean Corpuscular Hemoglobin Concent 32, Red Cell Distribution Width 20.7, Platelet Count 401, Mean Platelet Volume 10.0, Sodium Level 141, Potassium Level 3.8, Chloride Level 104, Carbon Dioxide Level 28, Anion Gap 9, Blood Urea Nitrogen 6, Creatinine 0.53, Estimat Glomerular Filtration Rate > 60, BUN/Creatinine Ratio 11, Glucose Level 80, Calcium Level 8.7 Discussion & Recommendations Went over CAT scan with patient. Patient wants to go home. Patient to have appointment with oncology and pulmonology. Patient to be seen in my office Discharge Home Medications: Active Scripts Active Tylenol Extra Strength (Acetaminophen) 500 Mg Tablet 500 Mg PO Q6H PRN Cefdinir 300 Mg Capsule 300 Mg PO BID Reported Neosporin Ointment (Neomycin Cee/Bacitrac Zn/Poly) 28.3 Gm Oint...g. TP TID PRN Procto-Med Hc (Hydrocortisone) 30 Gm Cream.appl TOP TID PRN Klor-Con M20 (Potassium Chloride) 20 Meq Tab.er.prt 20 Meq PO DAILY PRN Furosemide 40 Mg Tablet 40 Mg PO DAILY PRN Hydrocodone-Acetamin 5-325 mg (Hydrocodone/Acetaminophen) 1 Each Tablet 1 Tab PO TID PRN Alprazolam 0.25 Mg Tablet 0.25 Mg PO BID PRN One Daily For Women 50+ Adv Tb (Multivitamins-Min/FA/Ginkgo) 1 Each Tablet 1 Tab PO DAILY Eliquis (Apixaban) 5 Mg Tablet 5 Mg PO BID Amlodipine Besylate 5 Mg Tablet 5 Mg PO DAILY Cartia Xt (Diltiazem HCl) 240 Mg Cap.er.24h 240 Mg PO DAILY Instructions to patient/family Please see electronic discharge instructions given to patient. Clinical Quality Measures DVT/VTE Risk/Contraindication: Risk Factor Score Per Nursin RFS Level Per Nursing on Admit: 4+=Very High Contraindications-Pharm: Other *list below* DAREN FERGUSON DO July 02, 2017 19:26
== END 2017-06-28 13:00 | disposition home health service (06) | DRG 871 ==
LOC: EDUNIT# 15:21 → ER 15:25 → 4TH 18:46
PROVIDERS: ADMIT Family Medicine; ATTEND Family Medicine
DX: A41.9 Sepsis, unspecified organism (principal); J18.9 Pneumonia, unspecified organism; N39.0 Urinary tract infection, site not specified; J81.1 Chronic pulmonary edema; J90 Pleural effusion, not elsewhere classified; L89.152 Pressure ulcer of sacral region, stage 2; L89.622 Pressure ulcer of left heel, stage 2; I48.91 Unspecified atrial fibrillation; F41.9 Anxiety disorder, unspecified; J30.1 Allergic rhinitis due to pollen; D64.9 Anemia, unspecified; K44.9 Diaphragmatic hernia without obstruction or gangrene; M19.91 Primary osteoarthritis, unspecified site; Z87.19 Personal history of other diseases of the digestive system; Z85.42 Personal history of malignant neoplasm of other parts of uterus; Z90.710 Acquired absence of both cervix and uterus; Z92.3 Personal history of irradiation; Z90.49 Acquired absence of other specified parts of digestive tract; Z85.038 Personal history of other malignant neoplasm of large intestine
CPT/HCPCS: 36415; 71045; 71046; 71260; 80048; 80053; 80170; 81000; 83605; 83880; 84443; 85007; 85025; 85027; 85610; 85730; 87040; 87070; 87088; 87205; 93005; 94640; 94664; 94760; 96361; 96365

== ENCOUNTER 2018-02-24 09:18 | Inpatient (IN) | payer MEDICARE, OTHER | END 2018-02-28 17:40 | disposition home or self-care (01) | LOC: ER 09:18 → 4TH 14:44 | DX: E87.70 Fluid overload, unspecified (principal); R64 Cachexia; C78.7 Secondary malignant neoplasm of liver and intrahepatic bile duct; C78.00 Secondary malignant neoplasm of unspecified lung; I48.2 Chronic atrial fibrillation; F41.9 Anxiety disorder, unspecified; Z66 Do not resuscitate; K57.90 Diverticulosis of intestine, part unspecified, without perforation or abscess without bleeding; K44.9 Diaphragmatic hernia without obstruction or gangrene; J30.1 Allergic rhinitis due to pollen; Z85.42 Personal history of malignant neoplasm of other parts of uterus; Z90.710 Acquired absence of both cervix and uterus; Z85.038 Personal history of other malignant neoplasm of large intestine; Z90.49 Acquired absence of other specified parts of digestive tract; Z92.3 Personal history of irradiation ==